=== PATIENT | female | born 1960 | race Caucasian/White ===

== ENCOUNTER 2022-12-08 07:16 | Emergency (ER) | payer MEDICAID, SELFPAY ==
--- NOTE | ~2022-12-08 | XR_ITS ---
EXAMINATION: XR CHEST CLINICAL INFORMATION: Chest pain COMPARISON: None available. TECHNIQUE: Frontal view of the chest was obtained. FINDINGS: Patient is rotated to the left. There are no evidence of consolidation but there are mildly increased interstitial markings bilaterally. Cardiomediastinal silhouette is normal. There is no pleural effusion. Osseous structures are unremarkable. XR/XR chest 1V IMPRESSION: Mild interstitial edema.
--- NOTE | 2022-12-08 07:20 | ECG_ITS ---
Test Reason : CP Blood Pressure : / mmHG Vent. Rate : 088 BPM Atrial Rate : 088 BPM P-R Int : 104 ms QRS Dur : 086 ms QT Int : 350 ms P-R-T Axes : 050 067 068 degrees QTc Int : 423 ms Sinus rhythm with short MN Nonspecific T wave abnormality Septal infarct , age undetermined Abnormal ECG No previous ECGs available Referred By: Generic ED Physician Electronically Signed By:MOHAN HUMPHREY
[2022-12-08 07:22] VITALS: BMI 28.5
--- NOTE | 2022-12-08 07:29 | ED.GENADULT ---
HPI - General Adult General Chief complaint: Chest Pain Stated complaint: CP Time Seen by Provider: 12/08/22 07:28 Source: patient Mode of arrival: ambulatory Limitations: no limitations History of Present Illness HPI narrative: 62-year-old female presents for anterior chest wall pain that started earlier today described as a burning sensation, she reports it hurts when she touches it. Patient reports body aches and pains, fatigue, malaise, anxiety. Chest discomfort is in the substernal region without radiation, no associated shortness of breath she states all these symptoms have subsided and now states shes here for a medication refill on all psych meds. Patient coming in by ambulance, EMS tells me that patient reports she is not taking her psych medicine or a sleeping med for 3 days, she last filled on the of this month and has completely ran out, concerned that someone at the hotel is stealing them. Last took all her medications 3 days ago. Currently living at a hotel. Denies fevers, chills, nausea, vomiting, abdominal pain, headache, vision changes, dizziness and weakness Related Data Allergies Allergy/AdvReac Type Severity Reaction Status Date / Time No Known Allergies Allergy Verified 12/08/22 07:39 Review of Systems Review of Systems: Constitutional : No Weight loss, No Fever, No Chills, No Fatigue, No Malaise ENT/Mouth : No sore throat, No Rhinorrhea Eyes: No Eye Pain, No Swelling, No Redness Cardiovascular : + Chest Pain, No SOB, No Dyspnea on Exertion, No Orthopnea, No Edema, No Palpitations Respiratory : No Cough, No Sputum, No Wheezing Gastrointestinal : No Nausea, No Vomiting, No Diarrhea, No Constipation, No abdominal Pain, No Hematochezia, No Melena Genitourinary : No Dysuria, No Urinary Frequency, No Hematuria, Musculoskeletal : No joint pain, No Myalgias, No Joint Swelling Skin : No Skin Lesions, No rash Neuro : No Weakness, No Numbness, No Dizziness, No Headache Psych : No Anxiety/Panic, No Depression All other systems reviewed and are negative Yes all other systems are reviewed and are negative [facility] Past Medical History Attestation statement: The following information was validated with the patient. Source: old records reviewed and nursing notes reviewed Social History Social History Use of substances other than those prescribed or required for medical reasons: No Advance Directives: No Advance Directives Information Provided: Yes Physical Exam ED Vital Signs: Vital Signs - 24 hr 12/08/22 07:22 12/08/22 08:00 12/08/22 08:24 Pulse Rate 84 Blood Pressure 147/80 H Pulse Oximetry 97 Oxygen Delivery Method Room Air Room Air BMI result Body Mass Index 28.5 vss Appearance: Alert.? Oriented X3.? No acute distress.? Head: Normocephalic, atraumatic, no step-offs or deformities Eyes: Pupils equal, round and reactive to light.? ENT: Pharynx normal.? Neck: Normal inspection.? Neck supple.? CVS: Normal heart rate and rhythm.? Pulses normal. + discomfort w/ palpation of anterior chest wall? Respiratory: No respiratory distress.? Breath sounds normal.? Abdomen: Soft and nontender.? Skin: Skin warm and dry.? Normal skin color.? Normal skin turgor.? Extremities: No lower extremity edema.? No calf ttp. 5/5 strength to bilateral upper and lower extremities Neuro: Oriented X 3.? No motor deficit.? No sensory deficit. CN 2-12 intact Course Reevaluation(s) Reevaluation #1: CBC appears to be around normal limits, slightly high platelet count. Chemistry with no acute findings requiring acute intervention. Total CK 330. Not consistent with rhabdomyolysis will hydrate with IV fluids. Troponin negative x2, EKG nonischemic. BNP 188, no signs of fluid overload on exam or CHF, patient not complaining of chest pain or shortness of breath at this time unlikely that this is PE (no tachycardia, hypoxia, tachypnea). UA clean for infection. Urine toxicology positive for fentanyl and cocaine negative ethanol. At this time patient medically cleared likely noncardiac related chest pain which has now resolved without medication. She is requesting refills however I explained her that due to anxiety, depression in her situation she should speak to care team have she is agreeable. Pending care team. At this time patient to be placed in observation to allow more time to be evaluated by the care team. Time: 12:49 Medications Administered Discontinued Medications Generic Name Dose Route Start Last Admin Trade Name Freq PRN Reason Stop Dose Admin Lorazepam 2 mg 12/08/22 07:45 12/08/22 07:57 Lorazepam 1 Mg Tablet PO 12/08/22 07:46 2 mg ONCE ONE Administration Medical Decision Making Medical Decision Making [facility] Narrative: 0730 62 year old female presents for anterior chest wall pain w/ palpation PE- discomfort w/ palpation of antierior di wall. Likely w/ drawl from benzodiazepines, polysubstance, non cardiac related chest pain. Unlikely ACS, PE, disection Plan- EKG, labs, urine Differential Diagnosis Differential Diagnoses: The differential diagnosis associated with the presentation includes Likely w/ drawl from benzodiazepines, polysubstance, non cardiac related chest pain. Unlikely ACS, PE, disection Admission/Observation Consideration of admission/observation: Escalation of care including admission/observation considered Lab Data [facility] Lab Attestation statement: I reviewed the patient's lab results. 12/08/22 08:00 12/08/22 08:00 Labs: Lab Results 12/08/22 12/08/22 12/08/22 Range/Units 08:00 08:00 08:00 WBC 10.5 (4.8-10.8) X10*3/uL RBC 4.78 (4.20-5.50) X10*6/uL Hgb 13.4 (12.0-16.0) g/dl Hct 40.6 (37.0-47.0) % MCV 84.9 (80.0-98.0) fL MCH 28.0 (27.0-33.0) pg MCHC 33.0 (31.0-35.0) g/dl RDW 14.0 (11.0-16.0) % Plt Count 466 H (160-400) X10*3/uL MPV 9.5 (9.4-12.3) fL Immature Gran % (Auto) 0.5 H (0.0-0.4) % Neut % (Auto) 61.9 (45-73) % Lymph % (Auto) 30.5 (20-40) % Bell % (Auto) 5.5 (2-11) % Eos % (Auto) 0.7 (0-4) % Baso % (Auto) 0.9 (0-2) % Lymph # (Auto) 3.2 (1.2-4.9) X10*3/uL Bell # (Auto) 0.6 (0.1-1.2) X10*3/uL Eos # (Auto) 0.1 (0.0-0.4) X10*3/uL Baso # (Auto) 0.1 (0.0-0.2) X10*3/uL Abs Immat Gran (auto) 0.05 H (0.00-0.03) X10*3/uL Absolute Neuts (auto) 6.5 (2.0-8.3) x10*3/uL Absolute Nucleated RBC 0.000 (0.0-0.012) X10*3/uL Nucleated RBC % (auto) 0.0 (0.0-0.2) /100WBC Sodium 138 (135-145) mmol/L Potassium 4.0 (3.3-5.1) mmol/L Chloride 103 (96-108) mmol/L Carbon Dioxide 19 L (22-29) mmol/L Anion Gap 20 (12-20) BUN 12 (9-16) mg/dL Creatinine 0.79 (0.5-1.4) mg/dL Estim Creat Clear Calc 61.9 Estimated GFR > 60 POC Glucose (60-115) mg/dL Random Glucose 168 H (60-115) mg/dL Calcium 10.3 H (8.4-10.2) mg/dL Magnesium 1.8 (1.6-2.6) mg/dL Total Bilirubin 0.3 (0.0-1.0) mg/dL AST 23 (5-31) U/L ALT 16 (0-31) U/L Alkaline Phosphatase 94 (39-117) U/L Total Creatine Kinase (26-140) U/L Troponin I High Sens (<3.5-17.0) ng/L B-Natriuretic Peptide 188 H (<100) pg/mL Total Protein 9.1 H (6.5-8.0) g/dL Albumin 4.3 (3.5-5.0) g/dL Urine Color Urine Appearance Urine pH (5.0-9.0) Ur Specific Leonard (1.005-1.025) Urine Protein (Neg-Trace) mg/dL Urine Glucose (UA) (Negative) mg/dL Urine Ketones (Negative) mg/dL Urine Blood (Negative) Urine Nitrite (Negative) Ur Leukocyte Esterase (Negative) Urine Opiates Screen (Not Detect) Urine Fentanyl Screen (Not Detect) Ur Barbiturates Screen (Not Detect) Ur Phencyclidine Scrn (Not Detect) Ur Amphetamines Screen (Not Detect) U Benzodiazepines Scrn (Not Detect) Urine Cocaine Screen (Not Detect) U Marijuana (THC) Screen (Not Detect) Ethyl Alcohol mg/dL 12/08/22 12/08/22 12/08/22 Range/Units 08:00 08:00 08:51 WBC (4.8-10.8) X10*3/uL RBC (4.20-5.50) X10*6/uL Hgb (12.0-16.0) g/dl Hct (37.0-47.0) % MCV (80.0-98.0) fL MCH (27.0-33.0) pg MCHC (31.0-35.0) g/dl RDW (11.0-16.0) % Plt Count (160-400) X10*3/uL MPV (9.4-12.3) fL Immature Gran % (Auto) (0.0-0.4) % Neut % (Auto) (45-73) % Lymph % (Auto) (20-40) % Bell % (Auto) (2-11) % Eos % (Auto) (0-4) % Baso % (Auto) (0-2) % Lymph # (Auto) (1.2-4.9) X10*3/uL Bell # (Auto) (0.1-1.2) X10*3/uL Eos # (Auto) (0.0-0.4) X10*3/uL Baso # (Auto) (0.0-0.2) X10*3/uL Abs Immat Gran (auto) (0.00-0.03) X10*3/uL Absolute Neuts (auto) (2.0-8.3) x10*3/uL Absolute Nucleated RBC (0.0-0.012) X10*3/uL Nucleated RBC % (auto) (0.0-0.2) /100WBC Sodium (135-145) mmol/L Potassium (3.3-5.1) mmol/L Chloride (96-108) mmol/L Carbon Dioxide (22-29) mmol/L Anion Gap (12-20) BUN (9-16) mg/dL Creatinine (0.5-1.4) mg/dL Estim Creat Clear Calc Estimated GFR POC Glucose 163 H (60-115) mg/dL Random Glucose (60-115) mg/dL Calcium (8.4-10.2) mg/dL Magnesium (1.6-2.6) mg/dL Total Bilirubin (0.0-1.0) mg/dL AST (5-31) U/L ALT (0-31) U/L Alkaline Phosphatase (39-117) U/L Total Creatine Kinase 330 H (26-140) U/L Troponin I High Sens < 2.7 (<3.5-17.0) ng/L B-Natriuretic Peptide (<100) pg/mL Total Protein (6.5-8.0) g/dL Albumin (3.5-5.0) g/dL Urine Color Urine Appearance Urine pH (5.0-9.0) Ur Specific Leonard (1.005-1.025) Urine Protein (Neg-Trace) mg/dL Urine Glucose (UA) (Negative) mg/dL Urine Ketones (Negative) mg/dL Urine Blood (Negative) Urine Nitrite (Negative) Ur Leukocyte Esterase (Negative) Urine Opiates Screen (Not Detect) Urine Fentanyl Screen (Not Detect) Ur Barbiturates Screen (Not Detect) Ur Phencyclidine Scrn (Not Detect) Ur Amphetamines Screen (Not Detect) U Benzodiazepines Scrn (Not Detect) Urine Cocaine Screen (Not Detect) U Marijuana (THC) Screen (Not Detect) Ethyl Alcohol < 10 mg/dL 12/08/22 12/08/22 12/08/22 Range/Units 09:52 12:00 12:00 WBC (4.8-10.8) X10*3/uL RBC (4.20-5.50) X10*6/uL Hgb (12.0-16.0) g/dl Hct (37.0-47.0) % MCV (80.0-98.0) fL MCH (27.0-33.0) pg MCHC (31.0-35.0) g/dl RDW (11.0-16.0) % Plt Count (160-400) X10*3/uL MPV (9.4-12.3) fL Immature Gran % (Auto) (0.0-0.4) % Neut % (Auto) (45-73) % Lymph % (Auto) (20-40) % Bell % (Auto) (2-11) % Eos % (Auto) (0-4) % Baso % (Auto) (0-2) % Lymph # (Auto) (1.2-4.9) X10*3/uL Bell # (Auto) (0.1-1.2) X10*3/uL Eos # (Auto) (0.0-0.4) X10*3/uL Baso # (Auto) (0.0-0.2) X10*3/uL Abs Immat Gran (auto) (0.00-0.03) X10*3/uL Absolute Neuts (auto) (2.0-8.3) x10*3/uL Absolute Nucleated RBC (0.0-0.012) X10*3/uL Nucleated RBC % (auto) (0.0-0.2) /100WBC Sodium (135-145) mmol/L Potassium (3.3-5.1) mmol/L Chloride (96-108) mmol/L Carbon Dioxide (22-29) mmol/L Anion Gap (12-20) BUN (9-16) mg/dL Creatinine (0.5-1.4) mg/dL Estim Creat Clear Calc Estimated GFR POC Glucose (60-115) mg/dL Random Glucose (60-115) mg/dL Calcium (8.4-10.2) mg/dL Magnesium (1.6-2.6) mg/dL Total Bilirubin (0.0-1.0) mg/dL AST (5-31) U/L ALT (0-31) U/L Alkaline Phosphatase (39-117) U/L Total Creatine Kinase (26-140) U/L Troponin I High Sens < 2.7 (<3.5-17.0) ng/L B-Natriuretic Peptide (<100) pg/mL Total Protein (6.5-8.0) g/dL Albumin (3.5-5.0) g/dL Urine Color Yellow Urine Appearance Clear Urine pH 5.5 (5.0-9.0) Ur Specific Leonard 1.020 (1.005-1.025) Urine Protein Trace (Neg-Trace) mg/dL Urine Glucose (UA) Negative (Negative) mg/dL Urine Ketones Trace (Negative) mg/dL Urine Blood Negative (Negative) Urine Nitrite Negative (Negative) Ur Leukocyte Esterase Negative (Negative) Urine Opiates Screen Not Detected (Not Detect) Urine Fentanyl Screen POSITIVE H (Not Detect) Ur Barbiturates Screen Not Detected (Not Detect) Ur Phencyclidine Scrn Not Detected (Not Detect) Ur Amphetamines Screen Not Detected (Not Detect) U Benzodiazepines Scrn Not Detected (Not Detect) Urine Cocaine Screen POSITIVE H (Not Detect) U Marijuana (THC) Screen Not Detected (Not Detect) Ethyl Alcohol mg/dL Social Determinants Patient?s care significantly limited by Social Determinants of Health including: Inadequate housing Core Measures AMI core measures followed: Yes Measure exclusions: not indicated Critical Care Time Critical Care Time Critical Care Time: No Discharge Plan Discharge Clinical Impression: Chest pain not due to acute coronary syndrome, Opiate abuse, continuous, Depression, Anxiety Patient Disposition: Still a Patient
[2022-12-08] MEDS: LORazepam 1 MG TABLET 2 MG PO (07:57)
[2022-12-08 08:00] VITALS: O2SAT 97
--- NOTE | 2022-12-08 08:00 | PC.NURSE ---
po med given as ordered. pt denies cp. objective tremors and diaphoresis observed. no apparent distress. will continue to monitor.
[2022-12-08 08:08] LABS: MANUAL DIFF FLAG NO
[2022-12-08 08:13] LABS: Basophils Absolute Auto 0.1 X10*3/uL (0.0-0.2); Basophils Percent Auto 0.9 % (0-2); Eosinophils Absolute Auto 0.1 X10*3/uL (0.0-0.4); Eosinophils Percent Auto 0.7 % (0-4); Hematocrit 40.6 % (37.0-47.0); Hemoglobin 13.4 g/dl (12.0-16.0); Imm Gran Abs Auto 0.05 X10*3/uL (0.00-0.03); Imm Gran Pct Auto 0.5 % (0.0-0.4); Lymphocytes Absolute Auto 3.2 X10*3/uL (1.2-4.9); Lymphocytes Percent Auto 30.5 % (20-40); Mean Corpuscular Volume 84.9 fL (80.0-98.0); Mean Platelet Volume 9.5 fL (9.4-12.3); Monocytes Absolute Auto 0.6 X10*3/uL (0.1-1.2); Monocytes Percent Auto 5.5 % (2-11); Neutrophils Absolute Auto 6.5 x10*3/uL (2.0-8.3); Neutrophils Percent Auto 61.9 % (45-73); Platelet Count 466 X10*3/uL (160-400); Red Blood Count 4.78 X10*6/uL (4.20-5.50); White Blood Count 10.5 X10*3/uL (4.8-10.8)
[2022-12-08 08:24] VITALS: BP 147/80; PULSE 84
[2022-12-08 08:25] LABS: Alanine Aminotransferase 16 U/L (0-31); Albumin Level 4.3 g/dL (3.5-5.0); Alkaline Phosphatase 94 U/L (39-117); Anion Gap 20 (12-20); Aspartate Amino Transferase 23 U/L (5-31); Bilirubin Total 0.3 mg/dL (0.0-1.0); Blood Urea Nitrogen 12 mg/dL (9-16); Calcium 10.3 mg/dL (8.4-10.2); Carbon Dioxide 19 mmol/L (22-29); Chloride 103 mmol/L (96-108); Creatinine Clr Calc Pharmacy 61.9; Estimated Glomerular Filt Rate > 60; Ethanol < 10 mg/dL; Glucose Random 168 mg/dL (60-115); Magnesium 1.8 mg/dL (1.6-2.6); Sodium 138 mmol/L (135-145); Total Protein 9.1 g/dL (6.5-8.0)
[2022-12-08 08:55] LABS: Glucose, Whole Blood 163 mg/dL (60-115)
[2022-12-08 08:59] LABS: B Type Natriuretic Peptide 188 pg/mL (<100)
[2022-12-08 11:07] LABS: Troponin-I High Sensitivity < 2.7 ng/L (<3.5-17.0)
[2022-12-08 11:07] LABS: Troponin-I High Sensitivity < 2.7 ng/L (<3.5-17.0)
[2022-12-08 12:14] LABS: Appearance Urine Clear; Color Urine Yellow; Glucose Urine UA Negative (Negative); Leukocyte Esterase Urine Negative (Negative); Nitrite Urine Negative (Negative); PH 5.5 (5.0-9.0); Urine Blood Negative (Negative); Urine Ketones Trace mg/dL (Negative); Urine Protein Trace mg/dL (Neg-Trace)
[2022-12-08 12:25] LABS: Amphetamine Screen Urine Not Detected (Not Detect); Barbiturates, Urine Not Detected (Not Detect); Benzodiazepines Screen Urine Not Detected (Not Detect); Cannabinoid Screen Urine Not Detected (Not Detect); Cocaine Screen Urine POSITIVE (Not Detect); Fentanyl, urine POSITIVE (Not Detect); Opiate Screen Urine Not Detected (Not Detect); Phencyclidine Screen Urine Not Detected (Not Detect)
[2022-12-08 12:54] VITALS: BP 125/56; PULSE 61; RESP 16; O2SAT 97
--- NOTE | 2022-12-08 13:14 | MHC.CARE ---
CARE Team attempted to meet with Pt to complete consult for depression and anxiety. Pt not engageable. RN notifed to inform CARE Team when more engageable.
[2022-12-08 14:48] VITALS: BP 112/53; PULSE 67; RESP 14; O2SAT 96
--- NOTE | 2022-12-08 15:12 | PC.NURSE ---
Pt is alert/oriented. Denies chest pain. States without meds x 3 days, medically cleared, awaiting CARE team to assess meds. Skin pwd. Ate lunch. NAD
--- NOTE | 2022-12-08 15:24 | MHC.CARE ---
CARE Team met with Pt and provided information for [facility] walk in therapy / psychiatry. Pt provided with [facility] crisis information. Pt currently resides at care home in [place].
== END 2022-12-08 16:18 | disposition home or self-care (01) ==
PROVIDERS: Physician Assistant; Emergency Provider Emergency Medicine
DX: R07.89 Other chest pain (principal); F33.1 Major depressive disorder, recurrent, moderate; F41.9 Anxiety disorder, unspecified; R06.02 Shortness of breath; Z79.899 Other long term (current) drug therapy
CPT/HCPCS: 36415; 71045; 80053; 80307; 81003; 82550; 82947; 83735; 83880; 84484; 85025; 93005; 99284; 99285

== ENCOUNTER 2022-12-14 18:16 | Emergency (ER) | payer MEDICAID, SELFPAY ==
--- NOTE | ~2022-12-14 | XR_ITS ---
EXAMINATION: XR CHEST CLINICAL INFORMATION: Possible aspiration. COMPARISON: Chest radiographs dated 12/08/2022. TECHNIQUE: Frontal view of the chest was obtained. FINDINGS: The heart, great vessels, pulmonary vasculature and mediastinum are stable. There is mild pulmonary vascular congestion, without overt pulmonary edema. No infiltrate, effusion or pneumothorax is seen. There is no acute osseous abnormality. There are degenerative changes of the shoulders. XR/XR chest 1V IMPRESSION: There is pulmonary vascular congestion, without overt pulmonary edema. No focal infiltrate is noted.
[2022-12-14 18:22] VITALS: BP 118/80; PULSE 110; O2SAT 99
--- NOTE | 2022-12-14 18:35 | ECG_ITS ---
Test Reason : OVERDOSE Blood Pressure : / mmHG Vent. Rate : 076 BPM Atrial Rate : 076 BPM P-R Int : 136 ms QRS Dur : 070 ms QT Int : 298 ms P-R-T Axes : 056 072 043 degrees QTc Int : 335 ms Normal sinus rhythm Septal infarct (cited on or before 08-DEC-2022) Nonspecific T wave abnormality Abnormal ECG When compared with ECG of 08-DEC-2022 07:34, Nonspecific T wave abnormality now evident in Inferior leads Nonspecific T wave abnormality, worse in Anterolateral leads QT has shortened Referred By: Cait Molina Electronically Signed By:MOHAN HUMPHREY
--- NOTE | 2022-12-14 18:40 | ED.OVERDOSE ---
HPI - Overdose General Chief Complaint: Overdose Stated Complaint: passed out was not breathing,OD narcan given Time Seen by Provider: 12/14/22 18:32 Source: patient and EMS Mode of arrival: EMS Limitations: no limitations History of Present Illness HPI Narrative: Patient comes to the emergency room via ambulance. Patient was found by bystander down on the ground, patient states she does not remember much what happened other than she was using heroin. Patient received Narcan in the field and patient woke up immediately. Patient complaining of feeling very hot, no headache, no neck pain. Not on blood thinners. Patient states it was an accidental overdose, denies SI or HI Related Data Previous Rx's Medication Instructions Recorded naloxone 4 mg/actuation nasal 4 mg intranasal Q2M PRN opioid 12/08/22 spray (Narcan) overdose #2 ea Allergies Allergy/AdvReac Type Severity Reaction Status Date / Time No Known Allergies Allergy Verified 12/08/22 07:39 Review of Systems Review of Systems: Constitutional : No Weight loss, No Fever, No Chills, No Night Sweats, No Fatigue, No Malaise ENT/Mouth : No Hearing loss, No Ear Pain, No Nasal Congestion, No Sinus Pain, No Hoarseness, No sore throat, No Rhinorrhea, No Swallowing Difficulty Eyes: No Eye Pain, No Swelling, No Redness, No Foreign Body, No Discharge, No Vision Changes Cardiovascular : No Chest Pain, No SOB, No Dyspnea on Exertion, No Orthopnea, No Edema, No Palpitations Respiratory : No Cough, No Sputum, No Wheezing, No Smoke Exposure, No Dyspnea Gastrointestinal : No Nausea, No Vomiting, No Diarrhea, No Constipation, No abdominal Pain, No Hematochezia, No Melena Genitourinary : no irregular bleeding, No Dysuria, No Urinary Frequency, No Hematuria, No Urinary Incontinence, No Urgency, No Flank Pain, No Urinary Flow Changes, No Hesitancy Musculoskeletal : No joint pain, No Myalgias, No Joint Swelling Skin : No Skin Lesions, No rash Neuro : No Weakness, No Numbness, No Paresthesias, No Loss of Consciousness, No Dizziness, No Headache Psych : No Anxiety/Panic, No Depression, No SI/HI/AH/VH, admits using methadone, heroin and overdosing today Heme/Lymph: No Bruising, No Bleeding,No Lymphadenopathy Endocrine : No Polyuria, No Polydipsia, No Temperature Intolerance PMFSH Past Medical History Medical History (Updated 12/14/22 @ 18:43 by Cait Molina MD) Overdose Polysubstance abuse Social History Social History Advance Directives: No Advance Directives Information Provided: No Physical Exam Vital Signs: Vital Signs: Last Vital Signs Temp 99.1 F 12/14/22 20:11 Pulse 75 12/14/22 20:11 Resp 15 12/14/22 20:11 BP 123/63 12/14/22 20:11 Pulse Ox 94 12/14/22 20:11 O2 Del Method Room Air 12/14/22 20:11 BMI result Body Mass Index 28.3 Const: Other: Appearance: Alert. Oriented X3. No acute distress. Very uncomfortable, withdrawing from Narcan Eyes: Pupils equal, round and reactive to light. ENT: Pharynx normal. Neck: Normal inspection. Neck supple. No lymph nodes noted. No crepitus CVS: Normal heart rate and rhythm. Pulses normal. Normal S1 and S2 Respiratory: No respiratory distress. Breath sounds normal. No Wheezing. No rales Abdomen: Soft and nontender. No rigidity. No distention. Skin: Skin warm and dry. Normal skin color. Normal skin turgor. Extremities: No lower extremity edema. No Lacerations. No Rash Neuro: Oriented X 3. No motor deficit. No sensory deficit. Moving all extremities. No slurred speech. CN 2 through 12 grossly intact Psych: calm, cooperative, normal affect Course Course Course Narrative: -all of patient's labs pending Medications Administered Discontinued Medications Generic Name Dose Route Start Last Admin Trade Name Oscar PRN Reason Stop Dose Admin Naloxone HCl 8 mg 12/14/22 18:43 12/14/22 21:49 Naloxone Hcl Nasal Take Home 4 Mg [place] NOSTRILALT 12/14/22 18:44 Not Given ONCE ONE Medical Decision Making Medical Decision Making [facility] Narrative: -my interpretation of labs: White blood cell count elevated, it is possible the patient may have aspirated? Chest x-ray pending screening urine toxicology positive for opiates and fentanyl -patient was noted to have several oxygen desaturations while sleeping into the mid 80s, patient is on 2 L nasal cannula. -interpretation of chest x-rays, no infiltrates -patient to be discharged with home Narcan, please re-evaluate when patient is awake/sober for SI HI and of her cares/Sude eval -physician observation started at 21:00 -sign-out given to Dr. Cardenas Differential Diagnosis Differential Diagnoses: The differential diagnosis associated with the presentation includes (Substance abuse, alcohol abuse) Admission/Observation Consideration of admission/observation: Escalation of care including admission/observation considered (Patient will be under observation in the emergency room until sober) Lab Data MDM Lab Attestation statement: I reviewed the patient's lab results. 12/14/22 18:54 12/14/22 18:54 Labs: Lab Results 12/14/22 12/14/22 Range/Units 18:54 19:15 WBC 15.9 H (4.8-10.8) X10*3/uL RBC 4.51 (4.20-5.50) X10*6/uL Hgb 12.9 (12.0-16.0) g/dl Hct 38.2 (37.0-47.0) % MCV 84.7 (80.0-98.0) fL MCH 28.6 (27.0-33.0) pg MCHC 33.8 (31.0-35.0) g/dl RDW 14.2 (11.0-16.0) % Plt Count 369 (160-400) X10*3/uL MPV 9.7 (9.4-12.3) fL Immature Gran % (Auto) 0.3 (0.0-0.4) % Neut % (Auto) 60.0 (45-73) % Lymph % (Auto) 30.6 (20-40) % [place] % (Auto) 7.1 (2-11) % Eos % (Auto) 1.4 (0-4) % Baso % (Auto) 0.6 (0-2) % Lymph # (Auto) 4.9 (1.2-4.9) X10*3/uL [place] # (Auto) 1.1 (0.1-1.2) X10*3/uL Eos # (Auto) 0.2 (0.0-0.4) X10*3/uL Baso # (Auto) 0.1 (0.0-0.2) X10*3/uL Abs Immat Gran (auto) 0.05 H (0.00-0.03) X10*3/uL Absolute Neuts (auto) 9.6 H (2.0-8.3) x10*3/uL Absolute Nucleated RBC 0.000 (0.0-0.012) X10*3/uL Nucleated RBC % (auto) 0.0 (0.0-0.2) /100WBC Sodium 136 (135-145) mmol/L Potassium 3.8 (3.3-5.1) mmol/L Chloride 102 (96-108) mmol/L Carbon Dioxide 23 (22-29) mmol/L Anion Gap 15 (12-20) BUN 10 (9-16) mg/dL Creatinine 0.82 (0.5-1.4) mg/dL Estim Creat Clear Calc 59.4 Estimated GFR > 60 Random Glucose 220 H (60-115) mg/dL Calcium 9.9 (8.4-10.2) mg/dL Total Bilirubin 0.3 (0.0-1.0) mg/dL Direct Bilirubin 0.1 (0.0-0.5) mg/dL AST 23 (5-31) U/L ALT 15 (0-31) U/L Alkaline Phosphatase 80 (39-117) U/L Troponin I High Sens < 2.7 (<3.5-17.0) ng/L Total Protein 8.1 H (6.5-8.0) g/dL Albumin 3.8 (3.5-5.0) g/dL Urine Opiates Screen POSITIVE H (Not Detect) Urine Fentanyl Screen POSITIVE H (Not Detect) Ur Barbiturates Screen Not Detected (Not Detect) Ur Phencyclidine Scrn Not Detected (Not Detect) Ur Amphetamines Screen Not Detected (Not Detect) U Benzodiazepines Scrn Not Detected (Not Detect) Urine Cocaine Screen Not Detected (Not Detect) U Marijuana (THC) Screen Not Detected (Not Detect) Ethyl Alcohol < 10 mg/dL Independent Interpretation I performed an independent interpretation of an: Plain X-Ray Radiology Impression Discussion of test interpretation with radiology: I have reviewed the radiologist's reading. Radiologist Impression: FINDINGS: The heart, great vessels, pulmonary vasculature and mediastinum are stable. There is mild pulmonary vascular congestion, without overt pulmonary edema. No infiltrate, effusion or pneumothorax is seen. There is no acute osseous abnormality. There are degenerative changes of the shoulders. XR/XR chest 1V IMPRESSION: There is pulmonary vascular congestion, without overt pulmonary edema. No focal infiltrate is noted. Critical Care Time Critical Care Time Critical Care Time: Yes Total Critical Care Time: 60 Attestation: I have personally provided critical care time. Time includes review of lab data, radiology results, discussion with consultants, and monitoring for potential decompensation. Intervention performed as documented. Discharge Plan Discharge Clinical Impression: Overdose Patient Disposition: Still a Patient Prescriptions: No Action naloxone [Narcan] 4 mg/actuation spray,non-aerosol 4 mg intranasal Q2M PRN (Reason: opioid overdose) Qty: 2 0RF Rx Instructions: spray 1 dose into ONE nostril; alternate nostrils w each dose until help arrives
[2022-12-14 18:46] VITALS: BP 175/83; PULSE 118; RESP 16; TEMP 37.3; O2SAT 95; BMI 28.3
[2022-12-14 19:03] LABS: MANUAL DIFF FLAG NO
[2022-12-14 19:06] LABS: Basophils Absolute Auto 0.1 X10*3/uL (0.0-0.2); Basophils Percent Auto 0.6 % (0-2); Eosinophils Absolute Auto 0.2 X10*3/uL (0.0-0.4); Eosinophils Percent Auto 1.4 % (0-4); Hematocrit 38.2 % (37.0-47.0); Hemoglobin 12.9 g/dl (12.0-16.0); Imm Gran Abs Auto 0.05 X10*3/uL (0.00-0.03); Imm Gran Pct Auto 0.3 % (0.0-0.4); Lymphocytes Absolute Auto 4.9 X10*3/uL (1.2-4.9); Lymphocytes Percent Auto 30.6 % (20-40); Mean Corpuscular HGB Conc 33.8 g/dl (31.0-35.0); Mean Corpuscular Hemoglobin 28.6 pg (27.0-33.0); Mean Corpuscular Volume 84.7 fL (80.0-98.0); Mean Platelet Volume 9.7 fL (9.4-12.3); Monocytes Absolute Auto 1.1 X10*3/uL (0.1-1.2); Monocytes Percent Auto 7.1 % (2-11); Neutrophils Absolute Auto 9.6 x10*3/uL (2.0-8.3); Platelet Count 369 X10*3/uL (160-400); Red Blood Count 4.51 X10*6/uL (4.20-5.50); Red Cell Distribution Width 14.2 % (11.0-16.0); White Blood Count 15.9 X10*3/uL (4.8-10.8)
[2022-12-14 19:20] LABS: Ethanol < 10 mg/dL
--- NOTE | 2022-12-14 19:21 | PC.NURSE ---
pt looking for her pocketbook. pt did not arrive to ed with any personal belongings other than her clothing
[2022-12-14 19:22] LABS: Alanine Aminotransferase 15 U/L (0-31); Albumin Level 3.8 g/dL (3.5-5.0); Alkaline Phosphatase 80 U/L (39-117); Anion Gap 15 (12-20); Aspartate Amino Transferase 23 U/L (5-31); Bilirubin Direct 0.1 mg/dL (0.0-0.5); Bilirubin Total 0.3 mg/dL (0.0-1.0); Blood Urea Nitrogen 10 mg/dL (9-16); Calcium 9.9 mg/dL (8.4-10.2); Carbon Dioxide 23 mmol/L (22-29); Chloride 102 mmol/L (96-108); Creatinine Clr Calc Pharmacy 59.4; Estimated Glomerular Filt Rate > 60; Glucose Random 220 mg/dL (60-115); Potassium 3.8 mmol/L (3.3-5.1); Sodium 136 mmol/L (135-145); Total Protein 8.1 g/dL (6.5-8.0)
--- NOTE | 2022-12-14 19:22 | MHC.EDTECH ---
This Tech assumed care of this pt. Pt changed over into hospital gown and pants. Labs and urine sent for processing. Unable to get the EKG dur to patient not being able to stand still. RN made aware
[2022-12-14 19:31] LABS: Troponin-I High Sensitivity < 2.7 ng/L (<3.5-17.0)
[2022-12-14 19:33] LABS: Amphetamine Screen Urine Not Detected (Not Detect); Barbiturates, Urine Not Detected (Not Detect); Benzodiazepines Screen Urine Not Detected (Not Detect); Cannabinoid Screen Urine Not Detected (Not Detect); Cocaine Screen Urine Not Detected (Not Detect); Fentanyl, urine POSITIVE (Not Detect); Opiate Screen Urine POSITIVE (Not Detect); Phencyclidine Screen Urine Not Detected (Not Detect)
--- NOTE | 2022-12-14 20:09 | MHC.RECOVSUP ---
? Reason for consult Recovery Support o Current location: [id number] o Identified substance use concern: heroin - Overdose - Support ? Intervention: o Community resources provided o Harm reduction discussion ? Plan: o Patient to follow up with [facility] after discharge ? Additional information: met with patient and was given resources
[2022-12-14 20:11] VITALS: BP 123/63; PULSE 75; RESP 15; TEMP 37.3; O2SAT 94
--- NOTE | 2022-12-14 20:12 | MHC.EDTECH ---
Pt placed on O2 monitor Per
--- NOTE | 2022-12-14 20:23 | PC.NURSE ---
Pt O2 noted to decrease when pt is asleep, down into the mid 80's. MD at bedside, I placed pt on 2 LPM O2 via oxymask. 2 increased to mid 90's
[2022-12-14 22:25] VITALS: BP 107/48; PULSE 67; RESP 14; O2SAT 97
[2022-12-15 00:49] VITALS: BP 114/54; PULSE 67; RESP 13; TEMP 36.6; O2SAT 94
[2022-12-15 03:02] VITALS: BP 140/74; PULSE 67; RESP 14; O2SAT 99
[2022-12-15 05:28] VITALS: BP 123/60; PULSE 76; RESP 19; TEMP 36.9; O2SAT 95
== END 2022-12-15 06:14 | disposition home or self-care (01) ==
PROVIDERS: Emergency Provider Emergency Medicine
DX: T40.1X1A Poisoning by heroin, accidental (unintentional), initial encounter (principal); R55 Syncope and collapse; R94.31 Abnormal electrocardiogram [ECG] [EKG]; F11.19 Opioid abuse with unspecified opioid-induced disorder; Y92.9 Unspecified place or not applicable; Z71.51 Drug abuse counseling and surveillance of drug abuser; Z79.899 Other long term (current) drug therapy
CPT/HCPCS: 36415; 71045; 80048; 80076; 80307; 84484; 85025; 93005; 99284; 99285

== ENCOUNTER 2023-01-20 10:17 | Emergency (ER) | payer MEDICAID, SELFPAY ==
--- NOTE | 2023-01-20 10:26 | ECG_ITS ---
Test Reason : ANXIETY TACHY Blood Pressure : / mmHG Vent. Rate : 108 BPM Atrial Rate : 108 BPM P-R Int : 148 ms QRS Dur : 066 ms QT Int : 342 ms P-R-T Axes : 070 076 064 degrees QTc Int : 458 ms Sinus tachycardia Possible Left atrial enlargement Nonspecific T wave abnormality Inferior leads Abnormal ECG When compared with ECG of 14-DEC-2022 19:51, Questionable change in initial forces of Septal leads Referred By: Rodriguez Norris Electronically Signed By:CARMEN PARK MD
[2023-01-20 11:01] LABS: MANUAL DIFF FLAG NO
[2023-01-20 11:05] VITALS: BP 152/95; BP 162/78; PULSE 101; PULSE 112; RESP 17; TEMP 36.2; O2SAT 100; O2SAT 97; BMI 25.3
[2023-01-20 11:12] LABS: Basophils Absolute Auto 0.1 X10*3/uL (0.0-0.2); Basophils Percent Auto 0.7 % (0-2); Eosinophils Absolute Auto 0.1 X10*3/uL (0.0-0.4); Eosinophils Percent Auto 0.7 % (0-4); Hematocrit 40.6 % (37.0-47.0); Hemoglobin 13.4 g/dl (12.0-16.0); Imm Gran Abs Auto 0.04 X10*3/uL (0.00-0.03); Imm Gran Pct Auto 0.4 % (0.0-0.4); Lymphocytes Absolute Auto 2.5 X10*3/uL (1.2-4.9); Lymphocytes Percent Auto 22.4 % (20-40); Mean Corpuscular Hemoglobin 27.9 pg (27.0-33.0); Mean Corpuscular Volume 84.4 fL (80.0-98.0); Mean Platelet Volume 9.7 fL (9.4-12.3); Monocytes Absolute Auto 0.4 X10*3/uL (0.1-1.2); Monocytes Percent Auto 3.9 % (2-11); Neutrophils Percent Auto 71.9 % (45-73); Platelet Count 416 X10*3/uL (160-400); Red Blood Count 4.81 X10*6/uL (4.20-5.50); Red Cell Distribution Width 14.1 % (11.0-16.0); White Blood Count 11.1 X10*3/uL (4.8-10.8)
[2023-01-20 11:13] LABS: Amphetamine Screen Urine Not Detected (Not Detect); Barbiturates, Urine Not Detected (Not Detect); Benzodiazepines Screen Urine Not Detected (Not Detect); Cannabinoid Screen Urine Not Detected (Not Detect); Cocaine Screen Urine Not Detected (Not Detect); Fentanyl, urine Not Detected (Not Detect); Opiate Screen Urine Not Detected (Not Detect); Phencyclidine Screen Urine Not Detected (Not Detect)
[2023-01-20 11:15] LABS: Appearance Urine Clear; Color Urine Yellow; Glucose Urine UA 100 mg/dL (Negative); Leukocyte Esterase Urine Negative (Negative); Nitrite Urine Negative (Negative); Urine Blood Negative (Negative); Urine Ketones Negative (Negative); Urine Protein Trace mg/dL (Neg-Trace)
[2023-01-20 11:17] LABS: Ethanol < 10 mg/dL
[2023-01-20 11:23] LABS: Troponin-I High Sensitivity < 2.7 ng/L (<3.5-17.0)
[2023-01-20 11:24] LABS: Alanine Aminotransferase 23 U/L (0-31); Albumin Level 4.1 g/dL (3.5-5.0); Alkaline Phosphatase 95 U/L (39-117); Anion Gap 18 (12-20); Aspartate Amino Transferase 38 U/L (5-31); Bilirubin Total 0.3 mg/dL (0.0-1.0); Blood Urea Nitrogen 11 mg/dL (9-16); Carbon Dioxide 25 mmol/L (22-29); Chloride 98 mmol/L (96-108); Creatinine Clr Calc Pharmacy 57.7; Estimated Glomerular Filt Rate > 60; Glucose Random 221 mg/dL (60-115); Magnesium 1.3 mg/dL (1.6-2.6); Sodium 137 mmol/L (135-145); Total Protein 8.6 g/dL (6.5-8.0)
--- NOTE | 2023-01-20 12:29 | ED_ITS ---
HPI - General Adult General Chief complaint: General Medical Stated complaint: ANXIOUS Time Seen by Provider: 01/20/23 12:19 Source: patient and EMS Mode of arrival: EMS Limitations: no limitations History of Present Illness HPI narrative: a 62-year-old female history of anxiety, substance abuse presented today feeling anxious because she is run out of her clonazepam. Patient overall anxious and worrying about her son who have a mental health issue and addiction problem. Patient declined headache, CP, SOB, abdominal pain. Patient also declined SI or HI or hallucination. Related Data Previous Rx's Medication Instructions Recorded naloxone 4 mg/actuation nasal 4 mg intranasal Q2M PRN opioid 12/08/22 spray (Narcan) overdose #2 ea Allergies Allergy/AdvReac Type Severity Reaction Status Date / Time Unable to Assess Allergy Unverified 01/20/23 10:17 Review of Systems 2 Review of Systems: All other systems are reviewed and are negative Constitutional: Reports as per HPI and Reports no additional constitutional complaints Eyes: Reports as per HPI and Reports no additional eye complaints Reports system reviewed and no additional complaints, except as documented Cardiovascular: Reports as per HPI and Reports no additional cardiovascular complaints Respiratory: Reports as per HPI and Reports no additional respiratory complaints Gastrointestinal: Reports as per HPI and Reports no additional gastrointestinal complaints Genitourinary: Reports no additional female genitourinary complaints Musculoskeletal: Reports no additional musculoskeletal complaints Skin/Breast: Reports system reviewed and no additional complaints, except as docu Psychiatric: Reports no additional psychiatric complaints Endocrine: Reports no additional endocrine complaints Hematologic/Lymphatic: Reports no additional hematologic/lymphatic complaints Allergic/Immunologic: Reports no additional allergic/immunologic complaints Reports system reviewed and no additional complaints, except as documented and Reports Abnormal speech present [facility] Past Medical History Medical History Overdose Polysubstance abuse Social History Social History Substance Use Type: Heroin Advance Directives: No Advance Directives Information Provided: No Physical Exam ED Vital Signs: Vital Signs - 24 hr 01/20/23 11:05 01/20/23 13:23 Temperature 97.1 F Pulse Rate 112 H 100 Respiratory Rate 17 18 Blood Pressure 152/95 H 166/76 H Pulse Oximetry 97 97 Oxygen Delivery Method Room Air Room Air BMI result Body Mass Index 25.3 Vital signs have been reviewed and appear to be correct. Blood pressure elevated. Heart rate normal. Respiratory rate normal. Temperature normal. Oxygen saturation normal. Appearance: Anxious, Alert. Oriented X3. No acute distress. Head: Normal external exam. Normocephalic. Atraumatic. No Florez signs noted. No raccoon eyes noted Eyes: PERRLA. EOMI. Conjunctiva and sclera normal. Eyelids normal. ENT: TM's Normal. Pharynx normal. Uvula midline. Moist mucous membranes. No trismus noted. No drooling noted. No muffled voice noted. Neck: Normal inspection. Neck supple. FROM. No adenopathy. Thyroid Normal. No meningeal signs. No neck mass noted. CVS: Normal heart rate and rhythm. Heart sound normal. No murmurs noted. Pulses normal throughout. Respiratory: No respiratory distress. Painless inspiration. Breath sounds normal. No wheezes/rales/rhonchi noted. Chest nontender. No accessory muscle usage noted or decreased air movement noted. Abdomen: Soft and nontender. Bowel sounds normal in all 4 quadrants. No distention noted. No organomegaly noted. No visible injury noted. Back: No CVA tenderness. Full range of motion noted. Skin: Skin warm and dry. Normal skin color. Normal skin turgor. No rashes/lesions/lacerations noted. Extremities: No lower extremity edema. Extremities exhibit normal range of motion. Extremities nontender. Neuro: Oriented X 3. Cranial nerve exam: II-XII are grossly intact No motor deficit. No sensory deficit. Reflexes normal. Course Reevaluation(s) Reevaluation #1: patient received 1 mg of clonazepam in the emergency department patient now is less anxious, no SI no hallucination. Labs are unremarkable Except for slight leukocytosis which could be secondary to anxiety and hypo magnesemia will replete magnesium. Time: 13:20 Reevaluation #2: patient does not want to wait in the ED and would like to be discharged to catch the bus. Patient fully understands side effect of low magnesium patient will sign against medical advise. Time: 13:40 Medications Administered Discontinued Medications Generic Name Dose Route Start Last Admin Trade Name Freq PRN Reason Stop Dose Admin Clonazepam 1 mg 01/20/23 12:36 01/20/23 13:17 Clonazepam 1 Mg Tablet PO 01/20/23 12:37 1 mg ONCE ONE Administration Medical Decision Making Differential Diagnosis Differential Diagnoses: The differential diagnosis associated with the presentation includes ( Anxiety, depression, electrolyte abnormality, severe anemia, UTI, substance abuse.) Admission/Observation Consideration of admission/observation: Escalation of care including admission/observation considered Lab Data MDM Lab Attestation statement: I reviewed the patient's lab results. 01/20/23 10:52 01/20/23 10:52 Labs: Lab Results 01/20/23 Range/Units 10:52 WBC 11.1 H (4.8-10.8) X10*3/uL RBC 4.81 (4.20-5.50) X10*6/uL Hgb 13.4 (12.0-16.0) g/dl Hct 40.6 (37.0-47.0) % MCV 84.4 (80.0-98.0) fL MCH 27.9 (27.0-33.0) pg MCHC 33.0 (31.0-35.0) g/dl RDW 14.1 (11.0-16.0) % Plt Count 416 H (160-400) X10*3/uL MPV 9.7 (9.4-12.3) fL Immature Gran % (Auto) 0.4 (0.0-0.4) % Neut % (Auto) 71.9 (45-73) % Lymph % (Auto) 22.4 (20-40) % [place] % (Auto) 3.9 (2-11) % Eos % (Auto) 0.7 (0-4) % Baso % (Auto) 0.7 (0-2) % Lymph # (Auto) 2.5 (1.2-4.9) X10*3/uL [place] # (Auto) 0.4 (0.1-1.2) X10*3/uL Eos # (Auto) 0.1 (0.0-0.4) X10*3/uL Baso # (Auto) 0.1 (0.0-0.2) X10*3/uL Abs Immat Gran (auto) 0.04 H (0.00-0.03) X10*3/uL Absolute Neuts (auto) 8.0 (2.0-8.3) x10*3/uL Absolute Nucleated RBC 0.000 (0.0-0.012) X10*3/uL Nucleated RBC % (auto) 0.0 (0.0-0.2) /100WBC Sodium 137 (135-145) mmol/L Potassium 4.0 (3.3-5.1) mmol/L Chloride 98 (96-108) mmol/L Carbon Dioxide 25 (22-29) mmol/L Anion Gap 18 (12-20) BUN 11 (9-16) mg/dL Creatinine 0.80 (0.5-1.4) mg/dL Estim Creat Clear Calc 57.7 Estimated GFR > 60 Random Glucose 221 H (60-115) mg/dL Calcium 10.0 (8.4-10.2) mg/dL Magnesium 1.3 L* (1.6-2.6) mg/dL Total Bilirubin 0.3 (0.0-1.0) mg/dL AST 38 H (5-31) U/L ALT 23 (0-31) U/L Alkaline Phosphatase 95 (39-117) U/L Troponin I High Sens < 2.7 (<3.5-17.0) ng/L Total Protein 8.6 H (6.5-8.0) g/dL Albumin 4.1 (3.5-5.0) g/dL Urine Color Yellow Urine Appearance Clear Urine pH 5.0 (5.0-9.0) Ur Specific [place] 1.020 (1.005-1.025) Urine Protein Trace (Neg-Trace) mg/dL Urine Glucose (UA) 100 H (Negative) mg/dL Urine Ketones Negative (Negative) mg/dL Urine Blood Negative (Negative) Urine Nitrite Negative (Negative) Ur Leukocyte Esterase Negative (Negative) Urine Opiates Screen Not Detected (Not Detect) Urine Fentanyl Screen Not Detected (Not Detect) Ur Barbiturates Screen Not Detected (Not Detect) Ur Phencyclidine Scrn Not Detected (Not Detect) Ur Amphetamines Screen Not Detected (Not Detect) U Benzodiazepines Scrn Not Detected (Not Detect) Urine Cocaine Screen Not Detected (Not Detect) U Marijuana (THC) Screen Not Detected (Not Detect) Ethyl Alcohol < 10 mg/dL Independent Interpretation I performed an independent interpretation of an: EKG ( Sinus tachycardia, normal axis deviation, normal intervals, no ST-T changes no significant change from previous EKG.) Discharge Plan Discharge Clinical Impression: Anxiety, Hypomagnesemia Patient Disposition: Left Against Medical Advice Instructions: Hypomagnesemia (ED), Anxiety (ED) Prescriptions: No Action naloxone [Narcan] 4 mg/actuation spray,non-aerosol 4 mg intranasal Q2M PRN (Reason: opioid overdose) Qty: 2 0RF Rx Instructions: spray 1 dose into ONE nostril; alternate nostrils w each dose until help arrives Referrals: Physician,Unknown J [Primary Care Provider] -
[2023-01-20] MEDS: clonazePAM 1 MG TABLET PO (13:17)
[2023-01-20 13:23] VITALS: BP 166/76; PULSE 100; RESP 18; O2SAT 97
--- NOTE | 2023-01-20 13:23 | PC.NURSE ---
2 RNs unable to get IV access on pt
--- NOTE | 2023-01-20 13:25 | PC.NURSE ---
pt reports she just wants to get home reports she does not want to take the magnesium IV becuase she doesn't want to be here that long . pt tearful, restless, perseverative
--- NOTE | 2023-01-20 13:36 | PC.NURSE ---
informed MD that pt wants to refuse her IV magnesium so she can go home sooner.
--- NOTE | 2023-01-20 13:41 | PC.NURSE ---
pt continues to state that she has to get home without giving other reason, reports she has bus passes in her pocket. t/w and MD Sandy explained the risks of leaving with a critically low Magnesium level. pt aware of risks of leaving AMA at this time and continues to state that she wants to leave. aware.
== END 2023-01-20 13:46 | disposition left against medical advice (07) ==
PROVIDERS: Physician Assistant; Emergency Provider Emergency Medicine
DX: E83.42 Hypomagnesemia (principal); F41.9 Anxiety disorder, unspecified; F19.10 Other psychoactive substance abuse, uncomplicated; Z79.899 Other long term (current) drug therapy
CPT/HCPCS: 36415; 80053; 80307; 81003; 83735; 84484; 85025; 93005; 99283; 99284

== ENCOUNTER 2023-01-22 12:34 | Emergency (ER) | payer MEDICAID, SELFPAY ==
[2023-01-22 12:46] VITALS: BP 132/80; BP 149/56; PULSE 100; PULSE 94; RESP 16; TEMP 35.6; O2SAT 95; O2SAT 97; BMI 25.8
--- NOTE | 2023-01-22 12:53 | ED_ITS ---
HPI - General Adult General Chief complaint: Nausea/Vomiting/Diarrhea Stated complaint: VOMITED X 2 Time Seen by Provider: 01/22/23 18:24 Source: patient and family (Son) Mode of arrival: ambulatory History of Present Illness HPI narrative: This is a 62-year-old female who arrives via ambulance after having an episode of vomiting this morning denies any difficulty with defecation or passing flatus and denies any urinary symptoms and denies any fever, chills, shortness of breath, chest pain/palpitations. Patient is also concerned about being out of her benzodiazepine. Related Data Previous Rx's Medication Instructions Recorded naloxone 4 mg/actuation nasal 4 mg intranasal Q2M PRN opioid 12/08/22 spray (Narcan) overdose #2 ea Allergies Allergy/AdvReac Type Severity Reaction Status Date / Time No Known Allergies Allergy Verified 01/22/23 12:45 Review of Systems 2 Review of Systems: Pertinent positives and negatives as stated in HPI PMFSH Past Medical History Source: nursing notes reviewed Medical History Overdose Polysubstance abuse Social History Social History Smoked in Last 30 Days: Yes Use of substances other than those prescribed or required for medical reasons: No Substance Use Type: Heroin Advance Directives: No Advance Directives Information Provided: No Patient : No Physical Exam ED Vital Signs: Vital Signs - 24 hr 01/22/23 12:46 01/22/23 18:54 01/22/23 19:03 Temperature 96.1 F L 99.1 F Pulse Rate 94 86 Respiratory Rate 16 18 16 Blood Pressure 149/56 H 116/62 Pulse Oximetry 95 97 Oxygen Delivery Method Room Air Room Air BMI result Body Mass Index 25.8 VITAL SIGNS: Reviewed. GENERAL: Well developed, well nourished, in no acute distress. HEAD: Normocephalic/atraumatic EYES: PERRLA, EOMI EARS: Ext canals without abnormality NOSE: Nares patent bilateral OROPHARYNX: no oral lesions noted, posterior pharynx clear NECK: Supple, no adenopathy LUNGS: Normal breath sounds. No adventitious sounds or accessory muscle use. SpO2<97> CARDIOVASCULAR: Regular rate and rhythm without noted murmurs, no JVD or lower extremity edema. ABDOMEN: Soft, non-tender, non-distended with bowel sounds. MUSCULOSKELETAL: No tenderness, deformities, or effusions noted on gross inspection. EXTREMITIES: No cyanosis, clubbing or edema. SKIN: Inspection of the skin reveals no rashes NEUROLOGIC: Alert and oriented x 4. Strength and sensation to light touch were grossly intact x 4. Course Course Course Narrative: RME: 62 yold female presents to the ED for vomitting 3 times without any other symptoms. patient states no abdominal pain, chest pain, or head truama. basic labs ordered, covid, influenza Medications Administered Discontinued Medications Generic Name Dose Route Start Last Admin Trade Name Freq PRN Reason Stop Dose Admin Ondansetron HCl 4 mg 01/22/23 18:46 01/22/23 19:10 Ondansetron Hcl 4 Mg/2 Ml Vial IVPUSH 01/22/23 18:47 4 mg ONCE ONE Administration Medical Decision Making Medical Decision Making [facility] Narrative: 62-year-old female with history and clinical presentation, patient does have a recent history of overdose in December, will rule out the possibility of urinary tract infection but have very low clinical suspicion for bowel obstruction and on initial interview patient did not even endorse any nausea or vomiting and it was only after I asked her that she confirmed that she had had an episode of vomiting. I reviewed all investigations and hematologic indices are chronically stable with a mild leukocytosis without left shift, no anemia and there is a chronically stable elevated platelet count-436. Chemistry indices are grossly within normal limits without evidence of KENDALL, there is no evidence of electrolyte or liver enzyme abnormalities. Urinalysis appears to be contaminated with squamous epithelial cells and is not positive for nitrites and there is no presence of ketones. Viral testing is negative for COVID-19 and influenza. In my interpretation patient likely experienced some mild nausea associated with either medications, she has chronic anxiety but is otherwise noted to tolerate oral intake. She is [facility] [place] [facility] at [facility] time. Differential Diagnosis Differential Diagnoses: The differential diagnosis associated with the presentation includes Please see the discussion above Admission/Observation Consideration of admission/observation: Escalation of care including admission/observation considered Please see the discussion above Lab Data MDM Lab Attestation statement: I reviewed the patient's lab results. Please see the discussion above 01/22/23 19:15 01/22/23 19:15 Labs: Lab Results 01/22/23 01/22/23 Range/Units 13:21 19:15 WBC 11.4 H (4.8-10.8) X10*3/uL RBC 4.58 (4.20-5.50) X10*6/uL Hgb 12.9 (12.0-16.0) g/dl Hct 38.9 (37.0-47.0) % MCV 84.9 (80.0-98.0) fL MCH 28.2 (27.0-33.0) pg MCHC 33.2 (31.0-35.0) g/dl RDW 14.2 (11.0-16.0) % Plt Count 436 H (160-400) X10*3/uL MPV 9.7 (9.4-12.3) fL Immature Gran % (Auto) 0.3 (0.0-0.4) % Neut % (Auto) 55.0 (45-73) % Lymph % (Auto) 37.3 (20-40) % [place] % (Auto) 6.2 (2-11) % Eos % (Auto) 0.6 (0-4) % Baso % (Auto) 0.6 (0-2) % Lymph # (Auto) 4.2 (1.2-4.9) X10*3/uL [place] # (Auto) 0.7 (0.1-1.2) X10*3/uL Eos # (Auto) 0.1 (0.0-0.4) X10*3/uL Baso # (Auto) 0.1 (0.0-0.2) X10*3/uL Abs Immat Gran (auto) 0.03 (0.00-0.03) X10*3/uL Absolute Neuts (auto) 6.3 (2.0-8.3) x10*3/uL Absolute Nucleated RBC 0.000 (0.0-0.012) X10*3/uL Nucleated RBC % (auto) 0.0 (0.0-0.2) /100WBC Sodium 139 (135-145) mmol/L Potassium 4.4 (3.3-5.1) mmol/L Chloride 100 (96-108) mmol/L Carbon Dioxide 25 (22-29) mmol/L Anion Gap 18 (12-20) BUN 8 L (9-16) mg/dL Creatinine 0.70 (0.5-1.4) mg/dL Estim Creat Clear Calc 66.6 Estimated GFR > 60 Random Glucose 126 H (60-115) mg/dL Calcium 9.9 (8.4-10.2) mg/dL Total Bilirubin 0.2 (0.0-1.0) mg/dL AST 18 (5-31) U/L ALT 18 (0-31) U/L Alkaline Phosphatase 85 (39-117) U/L Total Protein 8.2 H (6.5-8.0) g/dL Albumin 4.0 (3.5-5.0) g/dL Urine Color Dark Yellow Urine Appearance Cloudy Urine pH 5.5 (5.0-9.0) Ur Specific [place] 1.020 (1.005-1.025) Urine Protein Trace (Neg-Trace) mg/dL Urine Glucose (UA) 500 H (Negative) mg/dL Urine Ketones Negative (Negative) mg/dL Urine Blood Negative (Negative) Urine Nitrite Negative (Negative) Ur Leukocyte Esterase Trace H (Negative) Urine RBC 0-2 (0-2) /HPF Urine WBC 11-20 H (0-5) /HPF Ur Squamous Epith Cells >20 (0-2) /HPF Urine Bacteria 4+ (None Seen) Hyaline Casts 3-5 (0-2) /LPF Urine Opiates Screen Not Detected (Not Detect) Urine Fentanyl Screen Not Detected (Not Detect) Ur Barbiturates Screen Not Detected (Not Detect) Ur Phencyclidine Scrn Not Detected (Not Detect) Ur Amphetamines Screen Not Detected (Not Detect) U Benzodiazepines Scrn Not Detected (Not Detect) Urine Cocaine Screen Not Detected (Not Detect) U Marijuana (THC) Screen Not Detected (Not Detect) COVID-19 (MONICA) Negative (Negative) COVID-19 Clin Com See Note Influenza Type A (CRUZ) Negative (Negative) Influenza Type B (CRUZ) Negative (Negative) Influenza A & B Note See Note External Record Review External record reviewed: Outpatient record and Prior outpatient labs Chronic Conditions Patient?s care impacted by: Other Depression, Drug use Discharge Plan Discharge Clinical Impression: Gastroenteritis Patient Disposition: Home, Self-Care Instructions: Gastroenteritis (ED) Additional Instructions: 1. Resume all home medications as prescribed. 2. You have been given a prescription for antinausea medication. 3. Please follow-up with your primary care doctor by calling the office 1st thing in the morning. Return to the ER for any worsening symptoms. Prescriptions: No Action naloxone [Narcan] 4 mg/actuation spray,non-aerosol 4 mg intranasal Q2M PRN (Reason: opioid overdose) Qty: 2 0RF Rx Instructions: spray 1 dose into ONE nostril; alternate nostrils w each dose until help arrives Interventions: ED Discharge Assessment Last Done: 01/22/23 21:13 Discharge Date/Time: 01/22/23 21:21
[2023-01-22 13:28] LABS: Appearance Urine Cloudy; Color Urine Dark Yellow; Glucose Urine UA 500 mg/dL (Negative); Leukocyte Esterase Urine Trace (Negative); Nitrite Urine Negative (Negative); PH 5.5 (5.0-9.0); UMIC TRIGGER UACC YES; Urine Blood Negative (Negative); Urine Ketones Negative (Negative); Urine Protein Trace mg/dL (Neg-Trace)
[2023-01-22 13:40] LABS: Bacteria Urine 4+ (None Seen); RBC Urine 0-2 /HPF (0-2); Squamous Epithelial Cell Urine >20 /HPF (0-2); UACC Culture Trigger YES
[2023-01-22 13:42] LABS: COVID-19 Test Negative (Negative); IDNOW Serial# 9DB6401D; IDNOW Serial# BCCEAD1C; Influenza A Negative (Negative); Influenza B2 Negative (Negative)
[2023-01-22 18:54] VITALS: RESP 18
[2023-01-22 19:03] VITALS: BP 116/62; PULSE 86; RESP 16; TEMP 37.3; O2SAT 97
--- NOTE | 2023-01-22 19:04 | MHC.EDTECH ---
This pct just assume care of this pt, vitals done,rn in room putting in IV line.
[2023-01-22] MEDS: ondansetron HCL 4 MG/2 ML VIAL IVPUSH (19:10)
--- NOTE | 2023-01-22 19:11 | PC.NURSE ---
this rn assumed care. pt a&ox3. respirations even and unlabored. pt reports intermittent nausea and vomiting for 2 weeks. pt reports having increased stress due to being kicked out of her living situations. pt abdomen soft non tender to touch with active bowel sounds in all 4 quadrants. iv established at this time and pt medicated per mar. provider at bedside discussing pt care.
--- NOTE | 2023-01-22 19:19 | MHC.EDTECH ---
PATIENT BLOOD DRAWN AND SENT TO LAB .
[2023-01-22 19:20] LABS: MANUAL DIFF FLAG NO
[2023-01-22 19:23] LABS: Basophils Absolute Auto 0.1 X10*3/uL (0.0-0.2); Basophils Percent Auto 0.6 % (0-2); Eosinophils Absolute Auto 0.1 X10*3/uL (0.0-0.4); Eosinophils Percent Auto 0.6 % (0-4); Hematocrit 38.9 % (37.0-47.0); Hemoglobin 12.9 g/dl (12.0-16.0); Imm Gran Abs Auto 0.03 X10*3/uL (0.00-0.03); Imm Gran Pct Auto 0.3 % (0.0-0.4); Lymphocytes Absolute Auto 4.2 X10*3/uL (1.2-4.9); Lymphocytes Percent Auto 37.3 % (20-40); Mean Corpuscular HGB Conc 33.2 g/dl (31.0-35.0); Mean Corpuscular Hemoglobin 28.2 pg (27.0-33.0); Mean Corpuscular Volume 84.9 fL (80.0-98.0); Mean Platelet Volume 9.7 fL (9.4-12.3); Monocytes Absolute Auto 0.7 X10*3/uL (0.1-1.2); Monocytes Percent Auto 6.2 % (2-11); Neutrophils Absolute Auto 6.3 x10*3/uL (2.0-8.3); Platelet Count 436 X10*3/uL (160-400); Red Blood Count 4.58 X10*6/uL (4.20-5.50); Red Cell Distribution Width 14.2 % (11.0-16.0); White Blood Count 11.4 X10*3/uL (4.8-10.8)
[2023-01-22 19:47] LABS: Alanine Aminotransferase 18 U/L (0-31); Alkaline Phosphatase 85 U/L (39-117); Anion Gap 18 (12-20); Aspartate Amino Transferase 18 U/L (5-31); Bilirubin Total 0.2 mg/dL (0.0-1.0); Blood Urea Nitrogen 8 mg/dL (9-16); Calcium 9.9 mg/dL (8.4-10.2); Carbon Dioxide 25 mmol/L (22-29); Chloride 100 mmol/L (96-108); Creatinine Clr Calc Pharmacy 66.6; Estimated Glomerular Filt Rate > 60; Glucose Random 126 mg/dL (60-115); Potassium 4.4 mmol/L (3.3-5.1); Sodium 139 mmol/L (135-145); Total Protein 8.2 g/dL (6.5-8.0)
--- NOTE | 2023-01-22 20:06 | MHC.EDTECH ---
PT was given PO challenge , tolerated well. provider aware
[2023-01-22 20:28] LABS: Amphetamine Screen Urine Not Detected (Not Detect); Barbiturates, Urine Not Detected (Not Detect); Benzodiazepines Screen Urine Not Detected (Not Detect); Cannabinoid Screen Urine Not Detected (Not Detect); Cocaine Screen Urine Not Detected (Not Detect); Fentanyl, urine Not Detected (Not Detect); Opiate Screen Urine Not Detected (Not Detect); Phencyclidine Screen Urine Not Detected (Not Detect)
== END 2023-01-22 21:21 | disposition home or self-care (01) ==
PROVIDERS: Physician Assistant; Emergency Provider Student in an Organized Health Care Education/Training Program
DX: K29.70 Gastritis, unspecified, without bleeding (principal); R11.2 Nausea with vomiting, unspecified; R19.7 Diarrhea, unspecified; Z20.822 Contact with and (suspected) exposure to COVID-19; Z11.52 Encounter for screening for COVID-19; Z79.899 Other long term (current) drug therapy
CPT/HCPCS: 36415; 80053; 80307; 81001; 85025; 87086; 87502; 87635; 96374; 99284; J2405

== ENCOUNTER 2023-01-26 13:30 | Emergency (ER) | payer MEDICAID, SELFPAY ==
--- NOTE | ~2023-01-26 | XR_ITS ---
EXAMINATION: XR LUMBOSACRAL SPINE CLINICAL INFORMATION: Pain. Fall. COMPARISON: None available. TECHNIQUE: Three views of the lumbosacral spine. FINDINGS: The lumbar vertebrae have normal height and normal alignment. No fracture or bone destruction. Mild to moderate vertebral endplate spurring of lumbar vertebrae. Mild lumbar disc height narrowing at L3-L4 and L4-L5. Mild to moderate facet joint arthrosis of the lower lumbar spine. No spondylolysis. Sacroiliac joints are normal. Surgical clips right upper quadrant. XR/XR lumbar spine 2-3V IMPRESSION: 1. No acute abnormality. 2. Degenerative spondylosis of lumbar spine.
[2023-01-26 13:38] VITALS: BP 160/90; PULSE 111; O2SAT 95
[2023-01-26 13:46] VITALS: BP 155/97; PULSE 100; RESP 19; TEMP 36.6; O2SAT 98; BMI 25.0
--- NOTE | 2023-01-26 13:46 | ED.GENADULT ---
HPI - General Adult General Chief complaint: Back Pain/Injury Stated complaint: BACK PAIN Time Seen by Provider: 01/26/23 16:08 Source: patient and EMS Mode of arrival: EMS Limitations: no limitations History of Present Illness HPI narrative: Patient is a 62 year old assigned female at with a history of anxiety presenting to the emergency department today with low back pain and feeling anxious. Patient states that she fell out of her sleep last night, landed on her buttock and causing low back pain. Patient states that she feels anxious all the time. Patient denies any dizziness, lightheadedness, abdominal pain, nausea, vomiting, fever, chills, blurry vision, double vision, loss of vision, chest pain, difficulty breathing, shortness of breath, night sweats, pain with urination, increased urinary frequency, increased urinary urgency, blood in her urine or stool, syncope or a near syncopal episode, recent trauma or falls, bowel incontinence, bladder incontinence, bowel retention, bladder retention, or any other complaints at this time. Onset (ago): day(s) (1) Location: back Radiation: non-radiation Severity: mild Severity scale (1-10): 3 Quality: aching and dull Pain Consistency: constant Relieving factors: none Exacerbating factors: none Associated symptoms: denies other symptoms Treatments prior to arrival: none Related Data Previous Rx's Medication Instructions Recorded naloxone 4 mg/actuation nasal 4 mg intranasal Q2M PRN opioid 12/08/22 spray (Narcan) overdose #2 ea cyclobenzaprine 5 mg tablet 5 mg PO TID PRN muscle spasm 7 01/26/23 days #21 tabs naproxen 500 mg tablet 500 mg PO BID 7 days #14 tabs 01/26/23 Allergies Allergy/AdvReac Type Severity Reaction Status Date / Time No Known Allergies Allergy Verified 01/26/23 13:46 Review of Systems Constitutional: Constitutional: Reports no additional constitutional complaints, Denies chills, Denies fever(s) and Denies night sweats Eyes: Eyes: Reports no additional eye complaints, Denies blurry vision, Denies change in vision, Denies diplopia, Denies eye discharge, Denies loss of vision and Denies eye pain ENT: Denies dizziness Cardiovascular: Cardiovascular: Reports no additional cardiovascular complaints, Denies chest pain, Denies lightheadedness, Denies Loss of Consciousness and Denies dyspnea Respiratory: Respiratory: Reports no additional respiratory complaints and Denies dyspnea Gastrointestinal: Gastrointestinal: Reports no additional gastrointestinal complaints, Denies abdominal pain, Denies melena, Denies hematochezia, Denies change in bowel habits and Denies change in stool character Genitourinary: Genitourinary: Denies hematuria, Denies urinary frequency, Denies dysuria, Denies urinary incontinence, Denies urinary hesitancy and Denies urinary urgency Musculoskeletal: Musculoskeletal: Reports no additional musculoskeletal complaints, Denies numbness and Denies tingling Comments: low back pain Neurologic: Denies dizziness, Denies loss of vision, Denies numbness and Denies tingling Psychiatric: Psychiatric: Reports anxiety Endocrine: Endocrine: Reports no additional endocrine complaints Hematologic/Lymphatic: Hematologic/Lymphatic: Reports no additional hematologic/lymphatic complaints Allergic/Immunologic: Allergic/Immunologic: Reports no additional allergic/immunologic complaints PMFSH Past Medical History Attestation statement: The following information was validated with the patient. Source: old records reviewed and nursing notes reviewed Medical History Overdose Polysubstance abuse Social History Social History Substance Use Type: Heroin Advance Directives: No Physical Exam ED Vital Signs: Vital Signs - 24 hr 01/26/23 13:46 Temperature 98 F Pulse Rate 100 Respiratory Rate 19 Blood Pressure 155/97 H Pulse Oximetry 98 BMI result Body Mass Index 25.0 Const General: cooperative, no acute distress, alert and awake Nutritional Appearance: well nourished Orientation/consciousness: patient oriented x3 Limitations: no limitations [facility] Head: Yes normal to inspection and Yes atraumatic Ears: hearing grossly normal bilaterally and external ears normal General nose exam: Normal external nose present, no nasal discharge noted and no epistaxis Face and sinus: Yes normal facial exam, No abrasion and No laceration Mouth: Normal oral and palatal mucosa present, no drooling and no muffled voice Eyes General: appearance normal, both eyes and all related structures Periorbital: periorbital findings normal Eyelids: Yes eyelids normal Conjunctivae: conjunctivae normal Pupils: Equal, round and reactive pupils present EOM: EOMs intact bilaterally Neck Neck: Yes normal visual inspection, Yes full ROM and Yes no lymphadenopathy Chest Chest palpation & inspection: normal inspection of the chest Resp Effort & Inspection: normal respiratory effort and able to speak in complete sentences GI Inspection: Yes normal to inspection General: Yes no CVA tenderness Back/Spine/Pelvis Back: no CVA tenderness Cervical Spine: normal cervical lordosis and cervical ROM normal Thoracic/Lumbar Spine: thoracic and lumbar spine normal to inspection and thoraco-lumbar ROM normal Pelvis: no pain with anterior-posterior compression Neuro General: patient oriented x3 and moves all extremities Cranial nerves: Yes Equal, round and reactive pupils present Cognition (Neuro): normal cognition Motor exam (neuro): 5/5 motor strength present throughout Sensory Exam: Normal double simultaneous stimulation for sensation Coordination: [id number] test normal Extrem General: Yes normal to inspection, Yes full ROM and Yes capillary refill normal Psych Appearance: grossly normal Mental Status: mental status grossly normal Affect: normal affect Attitude: cooperative Thought process: Normal thought process present Thought content: Normal thought content present Insight: Good insight present (Psych) Course Course Course Narrative: RME performed by Sandy Vazquez PA-C. Patient is a 62 year old assigned female at presenting to the emergency department with low back pain. Imaging ordered. Patient placed back in the waiting room pending room availability and results. Medications Administered Discontinued Medications Generic Name Dose Route Start Last Admin Trade Name Freq PRN Reason Stop Dose Admin Ketorolac Tromethamine 15 mg 01/26/23 16:11 01/26/23 16:17 Ketorolac Tromethamine 15 Mg/Ml Vial IM 01/26/23 16:12 15 mg ONCE ONE Administration Lorazepam 1 mg 01/26/23 16:11 01/26/23 16:17 Lorazepam 1 Mg Tablet PO 01/26/23 16:12 1 mg ONCE ONE Administration Medical Decision Making Medical Decision Making MDM Narrative: Patient is a 62 year old assigned female at with a history of anxiety presenting to the emergency department today with low back pain and anxiety. Patient's physical exam was unremarkable. Patient's lumbar x-ray showed no acute process. I explained my physical exam findings as well as all test results to the patient. I answered all questions asked by the patient. Patient received IM Toradol and PO Lorazepam which she stated helped her symptoms significantly. I stressed the importance of the patient taking her medication as prescribed. I stressed the importance of the patient following up with her primary care provider. I stressed the importance of the patient returning to the emergency department immediately if her symptoms were to worsen or if she were to develop any dizziness, shortness of breath, difficulty breathing, chest pain, blurry vision, loss of vision, nausea, vomiting, abdominal pain, fever, chills, back pain, or any other complaints. Patient verbalized agreement and understanding with this treatment plan and discharge. Differential Diagnosis Differential Diagnoses: The differential diagnosis associated with the presentation includes Low back pain Lumbar pain Independent Interpretation I performed an independent interpretation of an: Plain X-Ray Interpretation: My interpretation is in agreement with the radiologist's impression of this imaging study. EXAMINATION: XR LUMBOSACRAL SPINE CLINICAL INFORMATION: Pain. Fall. COMPARISON: None available. TECHNIQUE: Three views of the lumbosacral spine. FINDINGS: The lumbar vertebrae have normal height and normal alignment. No fracture or bone destruction. Mild to moderate vertebral endplate spurring of lumbar vertebrae. Mild lumbar disc height narrowing at L3-L4 and L4-L5. Mild to moderate facet joint arthrosis of the lower lumbar spine. No spondylolysis. Sacroiliac joints are normal. Surgical clips right upper quadrant. XR/XR lumbar spine 2-3V IMPRESSION: 1. No acute abnormality. 2. Degenerative spondylosis of lumbar spine. Dictated By: Juanpablo Alexander MD Signed By: Electronically signed by Juanpablo Alexander MD 01/26/23 1600 Radiology Impression Discussion of test interpretation with radiology: I have reviewed the radiologist's reading. Independent Historian Clinical information obtained from an independent historian. History obtained from or confirmed by: EMS (EMS provided additional history and confirmed the history provided by the patient.) Prescription Management I considered prescription management with: Pain Medication (patient prescribed pain medication.) Discharge Plan Discharge Clinical Impression: Back pain, Anxiety Patient Disposition: Home, Self-Care Instructions: Back Pain (ED), Anxiety (ED) Additional Instructions: Follow up with your primary care provider. Return to the emergency department immediately if your symptoms worsen or if you develop any dizziness, shortness of breath, difficulty breathing, chest pain, blurry vision, loss of vision, nausea, vomiting, abdominal pain, fever, chills, back pain, or any other complaints. Prescriptions: New cyclobenzaprine 5 mg tablet 5 mg PO TID PRN (Reason: muscle spasm) 7 Days Qty: 21 0RF naproxen 500 mg tablet 500 mg PO BID 7 Days Qty: 14 0RF No Action naloxone [Narcan] 4 mg/actuation spray,non-aerosol 4 mg intranasal Q2M PRN (Reason: opioid overdose) Qty: 2 0RF Rx Instructions: spray 1 dose into ONE nostril; alternate nostrils w each dose until help arrives [place] [facility] [place] (Call to establish and follow up with a primary care provider. If you already have a primary care provider, please follow up with them.) [facility] [place] [facility] [place]] (Call to establish and follow up with a primary care provider. If you already have a primary care provider, please follow up with them.) [facility] [place] [facility] [place]] (Call to establish and follow up with a primary care provider. If you already have a primary care provider, please follow up with them.) Interventions: ED Discharge Assessment Last Done: 01/26/23 16:24 Discharge Date/Time: 01/26/23 16:25 Print Language: Kinyarwanda
[2023-01-26] MEDS: Ketorolac Tromethamine 15 MG/ML VIAL IM (16:17)
[2023-01-26] MEDS: LORazepam 1 MG TABLET PO (16:17)
== END 2023-01-26 16:25 | disposition home or self-care (01) ==
PROVIDERS: Emergency Provider Emergency Medicine
DX: M54.50 Low back pain, unspecified (principal); F41.1 Generalized anxiety disorder; F43.0 Acute stress reaction
CPT/HCPCS: 72100; 96372; 99283; 99284; J1885

== ENCOUNTER 2023-01-30 13:48 | Inpatient (IN) | payer OTHER, MEDICAID, SELFPAY ==
--- NOTE | ~2023-01-30 | XR_ITS ---
EXAMINATION: XR CHEST CLINICAL INFORMATION: Reason for Exam Hemoptysis COMPARISON: Chest radiograph 12/14/2022 TECHNIQUE: 2 views of the chest FINDINGS: Lines and tubes: None. Mildly increased interstitial opacities may reflect mild interstitial edema or atypical/viral infection. No pleural effusion. No pneumothorax. Unchanged cardiomediastinal silhouette. XR/XR chest 2V IMPRESSION: Mildly increased interstitial opacities may reflect mild interstitial edema or atypical/viral infection.
--- NOTE | ~2023-01-30 | CT_ITS ---
EXAMINATION: CT HEAD WITHOUT CONTRAST CLINICAL INFORMATION: [facility]. COMPARISON: None. TECHNIQUE: Contiguous axial imaging was performed from the skull base to vertex without intravenous administration of contrast. This CT examination was performed using dose optimization techniques as appropriate, variously including the following: *Automated exposure control *Adjustment of mA and/or kV according to patient size (this includes techniques or standardized protocols for targeted exams where dose is matched to indication/reason for exam; i.e. extremities or head) *Use of iterative reconstruction technique DLP: 757 mGy-cm. FINDINGS: There is no intracranial hemorrhage, large infarction, or mass lesion. There is no extra-axial collection. The ventricles are normal in size and configuration without evidence of hydrocephalus. There is no subjective impression of brain parenchymal volume loss. The visualized paranasal sinuses and mastoid air cells are clear. CT/CT head/brain wo IV con IMPRESSION: No acute intracranial abnormality. No evidence of brain parenchymal volume loss.
[2023-01-30 13:53] VITALS: BP 142/88; PULSE 100; O2SAT 100
[2023-01-30 13:58] VITALS: BP 158/88; PULSE 91; RESP 20; TEMP 36.9; O2SAT 98; BMI 21.5
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
--- NOTE | 2023-01-30 14:59 | MHC.CARE ---
[facility] [facility]response clinician called to notify that this patient was sent to the ED for evaluation, not assessed by them. Is off medication, behaving bizarrely and erratically.
--- NOTE | 2023-01-30 16:08 | PC.NURSE ---
pts son called and expressed concern that his mother has been paranoid, not sleeping much and manic. pt expresses problem with her housing and wants scripts for ativan, appears paranoid as she is talking about pt son can be reached at [phone]
[2023-01-30 17:28] LABS: MANUAL DIFF FLAG NO
[2023-01-30 17:31] LABS: Basophils Absolute Auto 0.1 X10*3/uL (0.0-0.2); Basophils Percent Auto 0.7 % (0-2); Eosinophils Absolute Auto 0.1 X10*3/uL (0.0-0.4); Eosinophils Percent Auto 0.7 % (0-4); Hematocrit 41.5 % (37.0-47.0); Hemoglobin 13.8 g/dl (12.0-16.0); Imm Gran Abs Auto 0.02 X10*3/uL (0.00-0.03); Imm Gran Pct Auto 0.2 % (0.0-0.4); Lymphocytes Absolute Auto 3.5 X10*3/uL (1.2-4.9); Lymphocytes Percent Auto 39.6 % (20-40); Mean Corpuscular HGB Conc 33.3 g/dl (31.0-35.0); Mean Corpuscular Hemoglobin 28.2 pg (27.0-33.0); Mean Corpuscular Volume 84.9 fL (80.0-98.0); Mean Platelet Volume 9.7 fL (9.4-12.3); Monocytes Absolute Auto 0.6 X10*3/uL (0.1-1.2); Monocytes Percent Auto 6.6 % (2-11); Neutrophils Absolute Auto 4.6 x10*3/uL (2.0-8.3); Neutrophils Percent Auto 52.2 % (45-73); Platelet Count 478 X10*3/uL (160-400); Red Blood Count 4.89 X10*6/uL (4.20-5.50); Red Cell Distribution Width 14.4 % (11.0-16.0); White Blood Count 8.8 X10*3/uL (4.8-10.8)
[2023-01-30 17:47] LABS: Anion Gap 16 (12-20); Blood Urea Nitrogen 13 mg/dL (9-16); COVID-19 Test Negative (Negative); Calcium 9.5 mg/dL (8.4-10.2); Carbon Dioxide 26 mmol/L (22-29); Chloride 99 mmol/L (96-108); Creatinine Clr Calc Pharmacy 54.4; Estimated Glomerular Filt Rate > 60; Ethanol < 10 mg/dL; Glucose Random 236 mg/dL (60-115); IDNOW Serial# BCCEAD1C; Potassium 3.6 mmol/L (3.3-5.1); Sodium 137 mmol/L (135-145)
[2023-01-30 17:53] LABS: Acetaminophen LAB < 17 mcg/mL (<30); Salicylate < 5.0 mg/dL (15-30)
[2023-01-30] MEDS: clonazePAM 0.5 MG TABLET PO (17:57)
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
[2023-01-30] MEDS: Cyclobenzaprine HCl 5 MG TABLET PO (18:35)
[2023-01-30 20:08] LABS: Appearance Urine Clear; Color Urine Dark Yellow; Glucose Urine UA 500 mg/dL (Negative); Leukocyte Esterase Urine Trace (Negative); Nitrite Urine Negative (Negative); PH 5.5 (5.0-9.0); Specific Gravity - Urine 1.025 (1.005-1.025); UMIC TRIGGER UACC YES; Urine Blood Negative (Negative); Urine Ketones Trace mg/dL (Negative); Urine Protein 30 (1+) mg/dL (Neg-Trace)
[2023-01-30] MEDS: metFORMIN HCl 1,000 MG TABLET 1000 MG PO (20:13)
[2023-01-30] MEDS: Doxepin HCl 25 MG CAPSULE 150 MG PO (20:13)
[2023-01-30 20:14] LABS: Amphetamine Screen Urine Not Detected (Not Detect); Barbiturates, Urine Not Detected (Not Detect); Benzodiazepines Screen Urine Not Detected (Not Detect); Cannabinoid Screen Urine Not Detected (Not Detect); Cocaine Screen Urine Not Detected (Not Detect); Fentanyl, urine Not Detected (Not Detect); Opiate Screen Urine Not Detected (Not Detect); Phencyclidine Screen Urine Not Detected (Not Detect)
[2023-01-30 21:16] LABS: Bacteria Urine 1+ (None Seen); Hyaline Casts Urine 0-2 /LPF (0-2); WBC Urine 0-5 /HPF (0-5)
--- NOTE | 2023-01-30 21:36 | PC.NURSE ---
Patient currently in bed appears sleeping, no distress observed/reported, behavior non concerning, mood depressed, affect flat, engaged well with care team, disposition is section 12 inpatient bed search, medication compliant, labs completed/resulted/reviewed, VSS, will continue to monitor
[2023-01-31 02:49] VITALS: BP 144/64; PULSE 72; RESP 16; TEMP 36.5; O2SAT 96
--- NOTE | 2023-01-31 05:36 | PC.NURSE ---
Patient slept through the night, no distress observed/reported, disposition per care team is section 12 inpatient bed search, medication compliant, behavior non concerning, labs completed/resulted, VSS, will continue to monitor.
[2023-01-31 06:15] VITALS: BP 176/79; PULSE 81; RESP 16; TEMP 36.3; O2SAT 96
--- NOTE | 2023-01-31 07:54 | PC.NURSE ---
Called and spoke with China العلي RN at [facility] who confirmed Methadone dose. Lamar was last dosed on 01/30/23 at 125mg's.
--- NOTE | 2023-01-31 08:19 | HE.PHANOTE ---
RE: METHADONE Received methadone verification form from [facility], last dose was 125mg given on 01/30/23.
--- NOTE | 2023-01-31 08:26 | ECG_ITS ---
Test Reason : qt interval Blood Pressure : / mmHG Vent. Rate : 091 BPM Atrial Rate : 091 BPM P-R Int : 130 ms QRS Dur : 082 ms QT Int : 364 ms P-R-T Axes : 078 081 071 degrees QTc Int : 447 ms Sinus rhythm with Premature atrial complexes Possible Left atrial enlargement Borderline ECG When compared with ECG of 20-JAN-2023 10:39, Premature atrial complexes are now Present Referred By: Pratik Pearl Electronically Signed By:CARMEN PARK MD
[2023-01-31] MEDS: metFORMIN HCl 1,000 MG TABLET 1000 MG PO ×2 (08:57→20:20)
[2023-01-31] MEDS: lisinopriL 10 MG TABLET PO (08:57)
[2023-01-31] MEDS: methADONE HCl 20 MG/2 ML ORAL.CONC 125 MG PO (10:53)
[2023-01-31 12:55] LABS: Glucose, Whole Blood 145 mg/dL (60-115)
--- NOTE | 2023-01-31 13:54 | PHA.MEDREC ---
Pharmacy Consult ? Medication Reconciliation Pharmacy has reviewed the medication reconciliation compelted by nursing. Per claim patient is on gabapentin, patient did confirm she is taking the medication therefore it was added to list. Malorie Franco, EmyD
[2023-01-31 16:30] VITALS: BP 137/64; PULSE 90; TEMP 35.7
--- NOTE | 2023-01-31 16:35 | PC.NURSE ---
Lamar was OOB this shift and pleasant when engaged. Medication compliant with no behavioral concerns noted. Reports a recent fall and use of a cane when home but gait appears steady when ambulating around the POD independently refuses a walker stating she will only use a cane. Appetite is good. Lamar requests Clonazepam but reports her outside provider is no longer prescribing it to her.
[2023-01-31] MEDS: Doxepin HCl 25 MG CAPSULE 150 MG PO (20:19)
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
[2023-02-01] MEDS: cloNIDine HCL 0.1 MG TABLET PO ×2 (01:20→14:19)
[2023-02-01] MEDS: Cyclobenzaprine HCl 5 MG TABLET PO ×3 (05:50→19:13)
[2023-02-01 08:17] VITALS: BP 154/74; PULSE 89; RESP 16; TEMP 35.9; O2SAT 99
[2023-02-01] MEDS: lisinopriL 10 MG TABLET PO (08:18)
[2023-02-01] MEDS: metFORMIN HCl 1,000 MG TABLET 1000 MG PO ×2 (08:19→19:15)
[2023-02-01] MEDS: methADONE HCl 20 MG/2 ML ORAL.CONC 125 MG PO (08:20)
[2023-02-01 08:24] LABS: Estimated Average Glucose 183 mg/dL
[2023-02-01 08:35] LABS: Cholesterol 193 mg/dL (<200); HDL Cholesterol 41 mg/dL (>40); LDL Cholesterol Calculated 105 mg/dL (<100); Triglycerides 235 mg/dL (<150)
[2023-02-01 08:53] LABS: Free T4 (Free Thyroxine) 1.16 ng/dL (0.71-1.85); Thyroid Stimulating Hormone 3.11 uIU/mL (0.32-4.0)
--- NOTE | 2023-02-01 10:10 | P.HPPS_ITS ---
HPI Date of Service: 02/01/23 Chief Complaint: Dysregulated Sources of Information: patient interviewed, chart reviewed and crisis/core team assessment reviewed HPI Subjective Notes: [place]as Warning and Conditional Voluntary Healthcare Proxy: No Guardianship: No Medical Problems Affecting Mental Status: No Narrative: 62 yo female presents with increase in anxiety and paranoia. Reports she ran out of doxepin, klonopin and as a result has not been able to comply. Reports poor sleep as a result. Pt brought in by police on a Section XII. Tells emergency team she feels the TV and radio are manipulating. Believes landlord has been letting people into her room. Believes he is worried she will file a lawsuit as she fell on the property. Today, in interview with Ruby HEARN pt presents with disorganizaion. She continues to voice concern about her landlord, running a scam and threatening to her family. She discussed her father's from cancer, the fact that he worked for [employer] and that she believes his work contributed to his diagnosis. She states she did report it and believes people lost their jobs due to her report. Reports she has been searching [employer] resources to learn more about her upbringing and history. Past Psychiatric History: IP: affirms OP: Denies current alliance Hx of work with [facility] Medical Evaluation Reviewed: Yes [facility] Medical History (Updated 02/02/23 @ 03:46 by Selin Melendrez, KYLIE) Opioid use disorder, severe, on maintenance therapy Bipolar disorder with psychotic features Overdose Polysubstance abuse Narrative: Diabetes Fibromyalgia Family History: Affirms Social History: Two sons, ages 42, 32 Substance History: Tox negative, nicotine Trauma History: Affirms Diagnostics Vital Signs (24Hr): Vital Signs - 24 hr 01/31/23 16:30 02/01/23 08:17 Temperature 96.2 F L 96.6 F L Pulse Rate 90 89 Respiratory Rate 16 Blood Pressure 137/64 154/74 H Pulse Oximetry 99 Oxygen Delivery Method Room Air BMI result Body Mass Index 21.5 Labs 01/30/23 17:20 01/30/23 17:20 Labs: Laboratory Results - last 48 hr 01/30/23 01/30/23 01/31/23 17:20 19:24 12:50 WBC 8.8 RBC 4.89 Hgb 13.8 Hct 41.5 MCV 84.9 MCH 28.2 MCHC 33.3 RDW 14.4 Plt Count 478 H MPV 9.7 Immature Gran % (Auto) 0.2 Neut % (Auto) 52.2 Lymph % (Auto) 39.6 Nelson % (Auto) 6.6 Eos % (Auto) 0.7 Baso % (Auto) 0.7 Lymph # (Auto) 3.5 Nelson # (Auto) 0.6 Eos # (Auto) 0.1 Baso # (Auto) 0.1 Abs Immat Gran (auto) 0.02 Absolute Neuts (auto) 4.6 Absolute Nucleated RBC 0.000 Nucleated RBC % (auto) 0.0 Sodium 137 Potassium 3.6 Chloride 99 Carbon Dioxide 26 Anion Gap 16 BUN 13 Creatinine 0.76 Estim Creat Clear Calc 54.4 Estimated GFR > 60 POC Glucose 145 H Random Glucose 236 H Estimat Average Glucose Hemoglobin A1c % Calcium 9.5 Triglycerides Cholesterol LDL Cholesterol, Calc HDL Cholesterol TSH Free T4 Urine Color Dark Yellow Urine Appearance Clear Urine pH 5.5 Ur Specific [place] 1.025 Urine Protein 30 (1+) H Urine Glucose (UA) 500 H Urine Ketones Trace Urine Blood Negative Urine Nitrite Negative Ur Leukocyte Esterase Trace H Urine RBC 3-5 H Urine WBC 0-5 Ur Squamous Epith Cells 6-10 Urine Bacteria 1+ Hyaline Casts 0-2 Salicylates < 5.0 L Urine Opiates Screen Not Detected Urine Fentanyl Screen Not Detected Acetaminophen < 17 Ur Barbiturates Screen Not Detected Ur Phencyclidine Scrn Not Detected Ur Amphetamines Screen Not Detected U Benzodiazepines Scrn Not Detected Urine Cocaine Screen Not Detected U Marijuana (THC) Screen Not Detected Ethyl Alcohol < 10 COVID-19 ([facility]) Negative COVID-19 Clin Com See Note 02/01/23 08:04 WBC RBC Hgb Hct MCV MCH MCHC RDW Plt Count MPV Immature Gran % (Auto) Neut % (Auto) Lymph % (Auto) Nelson % (Auto) Eos % (Auto) Baso % (Auto) Lymph # (Auto) Nelson # (Auto) Eos # (Auto) Baso # (Auto) Abs Immat Gran (auto) Absolute Neuts (auto) Absolute Nucleated RBC Nucleated RBC % (auto) Sodium Potassium Chloride Carbon Dioxide Anion Gap BUN Creatinine Estim Creat Clear Calc Estimated GFR POC Glucose Random Glucose Estimat Average Glucose 183 Hemoglobin A1c % 8.0 H Calcium Triglycerides 235 H Cholesterol 193 LDL Cholesterol, Calc 105 H HDL Cholesterol 41 TSH 3.11 Free T4 1.16 Urine Color Urine Appearance Urine pH Ur Specific [place] Urine Protein Urine Glucose (UA) Urine Ketones Urine Blood Urine Nitrite Ur Leukocyte Esterase Urine RBC Urine WBC Ur Squamous Epith Cells Urine Bacteria Hyaline Casts Salicylates Urine Opiates Screen Urine Fentanyl Screen Acetaminophen Ur Barbiturates Screen Ur Phencyclidine Scrn Ur Amphetamines Screen U Benzodiazepines Scrn Urine Cocaine Screen U Marijuana (THC) Screen Ethyl Alcohol COVID-19 ([facility]) COVID-19 Clin Com Meds/Allergies Meds Home Medications Medication Instructions Recorded Confirmed Type doxepin 150 mg capsule 150 mg PO BEDTIME 01/30/23 01/30/23 History metformin 1,000 mg tablet 1,000 mg PO BID 01/30/23 01/30/23 History clonidine HCl 0.1 mg tablet 0.1 mg PO BID PRN anxiety 01/31/23 01/31/23 History gabapentin 400 mg capsule 400 mg PO TID 01/31/23 01/31/23 History lisinopril 10 mg tablet 10 mg PO DAILY 01/31/23 01/31/23 History methadone 10 mg/5 mL oral solution 125 mg PO DAILY 01/31/23 01/31/23 History Allergies Allergies Allergy/AdvReac Type Severity Reaction Status Date / Time No Known Allergies Allergy Verified 01/26/23 13:46 Mental Status Exam Mental Status Exam Patient Appearance: Fatigued Patient Orientation: Person and Place Level of Consciousness: Alert Patient Behavior: Appropriate, Talkative, Cooperative, Anxious, Fatigued, Distractible, Confused and Good Eye Contact Mood Description: Suspicious, Constricted, Labile, Sad and Apprehensive Affect Description: Labile Patient Cognition Impaired: Yes Ability to Follow Directions: Fair Speech Pattern: Spontaneous Speech Memory Description: Remote Impaired Hallucinations: None Delusions: Being Controlled, Paranoid Ideation and Present Thought Process: Illogical, Distracted, Rumination and Confusion Thought Content: positive for Flight of Ideas, positive for [place], positive for Circumstantial, positive for Perseveration, positive for Tangential, positive for Disorganized and positive for Suicidal Ideation (denies) Depressive Symptoms: Increased Anxiety, Insomnia, Diff. Making Decisions, Difficulty Sleeping, Feelings of Guilt, Increased Fatigue, Thoughts of /Suicide (denies) and Difficulty Concentrating Judgement: Fair Assessment & Plan Assessment & Plan (1) Bipolar disorder with psychotic features: Status: Acute Code(s): F31.9 - Bipolar disorder, unspecified (2) Opioid use disorder, severe, on maintenance therapy: Status: Acute Code(s): F11.20 - Opioid dependence, uncomplicated Plan 62 yo female, hx of opiate use disorder, currently on high dose methadone and possible bipolar disorder presents from community with psychosis, disorganization, ? steve. Plan: Collateral contact Diagnostics Re-establish regime and assess needs Aftercare planning Patient educated on: therapeutic strategies Informed Consent: further education needed Reason for continued inpatient stay Substantial Risk for: harm to self and rapid decompensation Statement Statement: I have reviewed the history and physical and performed a pertinent examination on my patient. No changes have occurred unless specified. If the History and Physical was not performed prior to admission, the Hospitalist's service will be consulted for completing the admission physical. Time Spent With Patient Time: Total time managing care of this patient today ____ minutes.
[2023-02-01 12:28] LABS: Glucose, Whole Blood 281 mg/dL (60-115)
--- NOTE | 2023-02-01 12:34 | PC.NURSE ---
Spoke to patient regarding nicotine replacement therapy. Pt stated she did not want a nicotine patch ordered. Pt stated she did not plan to use nicotine replacement therapy in the hospital setting.
[2023-02-01] MEDS: OLANZapine 5 MG TABLET PO ×2 (13:04→19:13)
[2023-02-01 15:16] VITALS: BMI 30.2
[2023-02-01 17:07] LABS: Glucose, Whole Blood 182 mg/dL (60-115)
[2023-02-01 18:00] VITALS: PULSE 99; RESP 18; TEMP 35.9; O2SAT 94
[2023-02-01] MEDS: Doxepin HCl 25 MG CAPSULE 150 MG PO (19:13)
[2023-02-01] MEDS: Gabapentin 100 MG CAPSULE 200 MG PO (21:11)
[2023-02-01 21:30] LABS: Glucose, Whole Blood 167 mg/dL (60-115)
[2023-02-02] MEDS: traZODone HCL 50 MG TABLET PO ×3 (00:42→23:14)
[2023-02-02 08:10] LABS: Glucose, Whole Blood 175 mg/dL (60-115)
[2023-02-02 08:35] VITALS: BP 135/61; PULSE 89; RESP 18; TEMP 36.8; O2SAT 97
[2023-02-02] MEDS: methADONE HCl 20 MG/2 ML ORAL.CONC 125 MG PO (08:44)
[2023-02-02] MEDS: lisinopriL 10 MG TABLET PO (08:44)
[2023-02-02] MEDS: Gabapentin 100 MG CAPSULE 200 MG PO (08:45)
[2023-02-02] MEDS: metFORMIN HCl 1,000 MG TABLET 1000 MG PO ×2 (08:45→20:03)
[2023-02-02] MEDS: metroNIDAZOLE 500 MG TABLET PO ×2 (11:01→21:56)
[2023-02-02 12:54] LABS: Glucose, Whole Blood 193 mg/dL (60-115)
--- NOTE | 2023-02-02 13:02 | P.PNPSI_ITS ---
Subjective Subjective Date of Service: 02/02/23 Reason For Visit: Dysregulated Subjective Notes: Conditional Voluntary Healthcare Proxy: No Guardianship: No Medical Problems Affecting Mental Status: No Interim History: Pt remains disorganized with paranoia and confusion, racing of thought. Reports anxiety, reports poor sleep due to racing thoughts (team reports ~5 hours of sleep). OP Meds reviewed-no hx of mood stabilizers except Gabapentin, antipsychotics, Klonopin 0.5 mg qd prn #7 given early January. Cymbalta 60 mg bid given in Dec. OP team with [facility] will visit today to offer their input. Will continue to monitor with re-establishment of regime, however changes may need to be made. Pt is approachable, spending much time preparing to shower, is tangential and fragmented in her content, without agitation but responsive to a peer in the milieu who is agitated with some episodes of intermittent escalation and anxiety. Medication Compliance: Yes Side effects from medications: No Attending Groups: No Review of Systems Acute medical concerns: No Medical Review of Systems: unchanged Mental Status Exam Mental Status Exam Patient Appearance: Fatigued Patient Orientation: Person and Place Level of Consciousness: Alert Patient Behavior: Appropriate, Talkative, Cooperative, Anxious, Fatigued, Distractible, Confused and Good Eye Contact Mood Description: Constricted, Anxious, Labile and Apprehensive Affect Description: Labile Patient Cognition Impaired: Yes Ability to Follow Directions: Fair Speech Pattern: Spontaneous Speech Memory Description: Remote Impaired Hallucinations: None Delusions: Paranoid Ideation and Present Thought Process: Illogical, Distracted, Rumination and Confusion Thought Content: positive for Flight of Ideas, positive for [place], positive for Circumstantial, positive for Perseveration, positive for Tangential, positive for Disorganized and positive for Suicidal Ideation (denies) Depressive Symptoms: Increased Anxiety, Insomnia, Diff. Making Decisions, Difficulty Sleeping, Feelings of Guilt, Increased Fatigue, Thoughts of /Suicide (denies) and Difficulty Concentrating Judgement: Fair Diagnostics Vital Signs (24Hr): Vital Signs - 24 hr 02/01/23 18:00 02/02/23 08:35 Temperature 96.7 F L 98.2 F Pulse Rate 99 89 Respiratory Rate 18 18 Blood Pressure 135/61 Pulse Oximetry 94 97 Oxygen Delivery Method Room Air Room Air BMI result Body Mass Index 30.2 Labs 01/30/23 17:20 01/30/23 17:20 Labs: Laboratory Results - last 48 hr 01/31/23 02/01/23 02/01/23 12:50 08:04 12:24 POC Glucose 145 H 281 H Estimat Average Glucose 183 Hemoglobin A1c % 8.0 H Triglycerides 235 H Cholesterol 193 LDL Cholesterol, Calc 105 H HDL Cholesterol 41 TSH 3.11 Free T4 1.16 02/01/23 02/01/23 02/02/23 17:03 21:25 08:01 POC Glucose 182 H 167 H 175 H Estimat Average Glucose Hemoglobin A1c % Triglycerides Cholesterol LDL Cholesterol, Calc HDL Cholesterol TSH Free T4 02/02/23 12:46 POC Glucose 193 H Estimat Average Glucose Hemoglobin A1c % Triglycerides Cholesterol LDL Cholesterol, Calc HDL Cholesterol TSH Free T4 Medications Medications Current Medications Acetaminophen (Acetaminophen 325 Mg Tablet) 650 mg PO Q6H PRN PRN Reason: Headache/Pain Mild Scale (1-3) Al Hydroxide/Mg Hydroxide (Magnesium Hydrox/Alum Hydrox 30 Ml Oral.Susp) 30 ml PO Q6H PRN PRN Reason: Heartburn/Nausea Clonidine HCl (Clonidine Hcl 0.1 Mg Tablet) 0.1 mg PO BID PRN; Protocol PRN Reason: anxiety Last Admin: 02/01/23 14:19 Dose: 0.1 mg Cyclobenzaprine HCl (Cyclobenzaprine Hcl 5 Mg Tablet) 5 mg PO TID PRN PRN Reason: muscle spasm Last Admin: 02/01/23 19:13 Dose: 5 mg Dextrose (Dextrose 50 % 25 Gm/50 Ml Syringe) 25 gm IVPUSH Q15M PRN; Protocol PRN Reason: per Hypoglycemia Standing Ord. Doxepin HCl (Doxepin Hcl 25 Mg Capsule) [address] [facility] Last Admin: 02/01/23 19:13 Dose: 150 mg Gabapentin (Gabapentin 100 Mg Capsule) [address] [facility] Last Admin: 02/02/23 08:45 Dose: 200 mg Glucose (Glucose Gel 15 Gm Gel..Gram.) 15 gm PO Q15M PRN; Protocol PRN Reason: per Hypoglycemia Standing Ord. Lisinopril (Lisinopril 10 Mg Tablet) [address] [facility]; Protocol Last Admin: 02/02/23 08:44 Dose: 10 mg Magnesium Hydroxide (Milk Of Magnesia 30 Ml Oral.Susp) 30 ml PO DAILY PRN PRN Reason: Constipation Metformin HCl (Metformin Hcl 1,000 Mg Tablet) 1,[address] [facility] Last Admin: 02/02/23 08:45 Dose: 1,000 mg Methadone HCl (Methadone Hcl 20 Mg/2 Ml Oral.Conc) [address] [facility] Last Admin: 02/02/23 08:44 Dose: 125 mg Metronidazole (Metronidazole 500 Mg Tablet) [address] [facility] Stop: 02/09/23 22:00 Last Admin: 02/02/23 11:01 Dose: 500 mg Nicotine Polacrilex (Nicotine Polacrilex 2 Mg Gum) 4 mg BUCCAL Q2H PRN PRN Reason: Nicotine Cravings Olanzapine (Olanzapine 5 Mg Tablet) 5 mg PO TID PRN PRN Reason: agitation Last Admin: 02/01/23 19:13 Dose: 5 mg Trazodone HCl (Trazodone Hcl 50 Mg Tablet) 50 mg PO BEDTIME MRX1 PRN PRN Reason: Insomnia Last Admin: 02/02/23 00:42 Dose: 50 mg Allergies Allergies Allergy/AdvReac Type Severity Reaction Status Date / Time No Known Allergies Allergy Verified 01/26/23 13:46 Assessment & Plan Assessment & Plan (1) Bipolar disorder with psychotic features: Status: Acute Code(s): F31.9 - Bipolar disorder, unspecified (2) Opioid use disorder, severe, on maintenance therapy: Status: Acute Code(s): F11.20 - Opioid dependence, uncomplicated Plan 62 yo female, hx of opiate use disorder, currently on high dose methadone and possible bipolar disorder presents from community with psychosis, disorganization, ? steve. Plan: Collateral contact Diagnostics Re-establish regime and assess needs Aftercare planning 02/02/23 -Increase Gabapentin to 400 mg tid from 200 mg tid, pt's home dosage -DC Olanzapine- due to elevated blood sugar -Risperdal 0.5 mg bid as pt remains disorganized with paranoia -Risperdal 0.5 mg bid prn -Hold Klonopin (0.5 mg daily prn, 7 day supply given early 2022) -Hold Cymbalta (given 10 days in Dec 2022). -Sliding scale insulin correction scale -Continue to monitor-pt may need a change from Doxepin to a stronger mood stabilizer, however she needs time to re-establish home dosing. Team from [facility] scheduled to visit pt today. Informed Consent: further education needed Reason for continued inpatient stay Substantial Risk for: rapid decompensation Time Spent With Patient Time: Total time managing care of this patient today ____ minutes.
[2023-02-02] MEDS: Gabapentin 400 MG CAPSULE PO ×2 (15:38→20:03)
[2023-02-02] MEDS: Cyclobenzaprine HCl 5 MG TABLET PO ×2 (15:38→23:08)
[2023-02-02] MEDS: Acetaminophen 325 MG TABLET 650 MG PO (15:39)
[2023-02-02 17:19] VITALS: BP 150/71; PULSE 77; RESP 16; TEMP 36; O2SAT 96
[2023-02-02 17:41] LABS: Glucose, Whole Blood 166 mg/dL (60-115)
[2023-02-02] MEDS: Insulin Lispro 100 UNIT/ML 3 ML VIAL SUBCUT (17:59)
[2023-02-02 20:01] LABS: Glucose, Whole Blood 129 mg/dL (60-115)
[2023-02-02] MEDS: Doxepin HCl 25 MG CAPSULE 150 MG PO (20:03)
[2023-02-02] MEDS: risperiDONE 0.5 MG TABLET PO (21:47)
[2023-02-03 08:18] LABS: Glucose, Whole Blood 140 mg/dL (60-115)
[2023-02-03 08:30] VITALS: BP 142/69; PULSE 101; RESP 16; TEMP 36.1; O2SAT 95
[2023-02-03] MEDS: risperiDONE 0.5 MG TABLET PO ×2 (08:38→19:30)
[2023-02-03] MEDS: lisinopriL 10 MG TABLET PO (08:38)
[2023-02-03] MEDS: methADONE HCl 20 MG/2 ML ORAL.CONC 125 MG PO (08:38)
[2023-02-03] MEDS: metFORMIN HCl 1,000 MG TABLET 1000 MG PO ×2 (08:38→19:29)
[2023-02-03] MEDS: Gabapentin 400 MG CAPSULE PO ×3 (08:38→19:30)
--- NOTE | 2023-02-03 09:45 | HO.PSYCHPN ---
Subjective Subjective Date of Service: 02/03/23 Reason For Visit: Dysregulated Interim History: With patient; discussed with team; reviewed notes pt remains pleasant and confused; randomly bouncing from topic to topic, talking about her son's addiction, talking about her childhood. Mental Status Exam Mental Status Exam Narrative: Pt is alert and oriented; behavior is a little disorganized but cooperative, friendly and calm; patient is not in distress; dressed in hospital attire with adequate hygiene; mood is described as good and affect congruent; eye contact appropriate; Speech is a little verbose, mildly pressured but normal volume and prosody; no psychomotor agitation/retardation present; thought process can be linear and goal directed when asked specific question but is soon disorganized, talking about random unrelated topics; Thought content is random personal life topics; no delusional, paranoid ideations expressed; denies any SI/HI. There is no evidence of perceptual disturbance. Patients insight and judgment impaired Diagnostics Vital Signs (24Hr): Vital Signs - 24 hr 02/02/23 17:19 02/03/23 08:30 Temperature 96.8 F 97.0 F Pulse Rate 77 101 H Respiratory Rate 16 16 Blood Pressure 150/71 H 142/69 H Pulse Oximetry 96 95 Oxygen Delivery Method Room Air Room Air BMI result Body Mass Index 30.2 Labs 01/30/23 17:20 01/30/23 17:20 Labs: Laboratory Results - last 48 hr 02/01/23 02/01/23 02/01/23 12:24 17:03 21:25 POC Glucose 281 H 182 H 167 H 02/02/23 02/02/23 02/02/23 08:01 12:46 17:28 POC Glucose 175 H 193 H 166 H 02/02/23 02/03/23 19:57 08:13 POC Glucose 129 H 140 H Medications Medications Current Medications Acetaminophen (Acetaminophen 325 Mg Tablet) 650 mg PO Q6H PRN PRN Reason: Headache/Pain Mild Scale (1-3) Last Admin: 02/02/23 15:39 Dose: 325 mg Al Hydroxide/Mg Hydroxide (Magnesium Hydrox/Alum Hydrox 30 Ml Oral.Susp) 30 ml PO Q6H PRN PRN Reason: Heartburn/Nausea Clonidine HCl (Clonidine Hcl 0.1 Mg Tablet) 0.1 mg PO BID PRN; Protocol PRN Reason: anxiety Last Admin: 02/01/23 14:19 Dose: 0.1 mg Cyclobenzaprine HCl (Cyclobenzaprine Hcl 5 Mg Tablet) 5 mg PO TID PRN PRN Reason: muscle spasm Last Admin: 02/02/23 23:08 Dose: 5 mg Dextrose (Dextrose 50 % 25 Gm/50 Ml Syringe) 25 gm IVPUSH Q15M PRN; Protocol PRN Reason: per Hypoglycemia Standing Ord. Doxepin HCl (Doxepin Hcl 25 Mg Capsule) 150 mg PO BEDTIME [facility] Last Admin: 02/02/23 20:03 Dose: 150 mg Gabapentin (Gabapentin 400 Mg Capsule) 400 mg PO TID [facility] Last Admin: 02/03/23 08:38 Dose: 400 mg Glucose (Glucose Gel 15 Gm Gel..Gram.) 15 gm PO Q15M PRN; Protocol PRN Reason: per Hypoglycemia Standing Ord. Insulin Human Lispro (Insulin Lispro 100 Unit/Ml 3 Ml Vial) 0 unit SUBCUT QIDACHS [facility]; Protocol Last Admin: 02/03/23 08:28 Dose: Not Given Lisinopril (Lisinopril 10 Mg Tablet) 10 mg PO DAILY [facility]; Protocol Last Admin: 02/03/23 08:38 Dose: 10 mg Magnesium Hydroxide (Milk Of Magnesia 30 Ml Oral.Susp) 30 ml PO DAILY PRN PRN Reason: Constipation Metformin HCl (Metformin Hcl 1,000 Mg Tablet) 1,000 mg PO BID [facility] Last Admin: 02/03/23 08:38 Dose: 1,000 mg Methadone HCl (Methadone Hcl 20 Mg/2 Ml Oral.Conc) 125 mg PO DAILY [facility] Last Admin: 02/03/23 08:38 Dose: 125 mg Metronidazole (Metronidazole 500 Mg Tablet) 500 mg PO Q12H [facility] Stop: 02/09/23 22:00 Last Admin: 02/02/23 21:56 Dose: 500 mg Nicotine Polacrilex (Nicotine Polacrilex 2 Mg Gum) 4 mg BUCCAL Q2H PRN PRN Reason: Nicotine Cravings Risperidone (Risperidone 0.5 Mg Tablet) 0.5 mg PO BID [facility] Last Admin: 02/03/23 08:38 Dose: 0.5 mg Risperidone (Risperidone 0.5 Mg Tablet) 0.5 mg PO BID PRN PRN Reason: agitation,psychosis Trazodone HCl (Trazodone Hcl 50 Mg Tablet) 50 mg PO BEDTIME MRX1 PRN PRN Reason: Insomnia Last Admin: 02/02/23 23:14 Dose: 25 mg Allergies Allergies Allergy/AdvReac Type Severity Reaction Status Date / Time No Known Allergies Allergy Verified 01/26/23 13:46 Assessment & Plan Assessment & Plan (1) Bipolar disorder with psychotic features: Status: Acute Code(s): F31.9 - Bipolar disorder, unspecified (2) Opioid use disorder, severe, on maintenance therapy: Status: Acute Code(s): F11.20 - Opioid dependence, uncomplicated Plan 62 yo female, hx of opiate use disorder, currently on high dose methadone and possible bipolar disorder presents from community with psychosis, disorganization, ? steve. Plan: Collateral contact Diagnostics Re-establish regime and assess needs Aftercare planning 02/02/23 -Increase Gabapentin to 400 mg tid from 200 mg tid, pt's home dosage -DC Olanzapine- due to elevated blood sugar -Risperdal 0.5 mg bid as pt remains disorganized with paranoia -Risperdal 0.5 mg bid prn -Hold Klonopin (0.5 mg daily prn, 7 day supply given early 2022) -Hold Cymbalta (given 10 days in Dec 2022). -Sliding scale insulin correction scale -Continue to monitor-pt may need a change from Doxepin to a stronger mood stabilizer, however she needs time to re-establish home dosing. Team from [facility] scheduled to visit pt today. 02/03/2023 continue current treatment plan Patient educated on: diagnosis Informed Consent: does not understand Reason for continued inpatient stay Substantial Risk for: inability to function Time Spent With Patient Time: Total time managing care of this patient today ____ minutes.
[2023-02-03] MEDS: metroNIDAZOLE 500 MG TABLET PO (12:07)
[2023-02-03 12:30] LABS: Glucose, Whole Blood 146 mg/dL (60-115)
[2023-02-03 17:52] LABS: Glucose, Whole Blood 177 mg/dL (60-115)
[2023-02-03 18:00] VITALS: BP 135/65; PULSE 81; TEMP 36.2; O2SAT 95
[2023-02-03] MEDS: Insulin Lispro 100 UNIT/ML 3 ML VIAL SUBCUT (18:11)
[2023-02-03 19:22] LABS: Glucose, Whole Blood 96 mg/dL (60-115)
[2023-02-03] MEDS: Doxepin HCl 25 MG CAPSULE 150 MG PO (19:30)
[2023-02-03] MEDS: cloNIDine HCL 0.1 MG TABLET PO (19:34)
[2023-02-03 21:25] LABS: Glucose, Whole Blood 137 mg/dL (60-115)
[2023-02-04 08:20] LABS: Glucose, Whole Blood 212 mg/dL (60-115)
[2023-02-04 08:25] VITALS: BP 119/58; PULSE 97; RESP 18; TEMP 36.1; O2SAT 96
[2023-02-04] MEDS: Gabapentin 400 MG CAPSULE PO ×3 (08:33→19:44)
[2023-02-04] MEDS: risperiDONE 0.5 MG TABLET PO ×2 (08:33→19:45)
[2023-02-04] MEDS: metFORMIN HCl 1,000 MG TABLET 1000 MG PO ×2 (08:33→19:45)
[2023-02-04] MEDS: lisinopriL 10 MG TABLET PO (08:33)
[2023-02-04] MEDS: methADONE HCl 20 MG/2 ML ORAL.CONC 125 MG PO (08:36)
[2023-02-04] MEDS: metroNIDAZOLE 500 MG TABLET PO (08:53)
[2023-02-04] MEDS: Insulin Lispro 100 UNIT/ML 3 ML VIAL SUBCUT (08:53)
--- NOTE | 2023-02-04 09:53 | HO.PSYCHPN ---
Subjective Subjective Date of Service: 02/04/23 Reason For Visit: Dysregulated Interim History: Met with patient; discussed with team No?change?in?Presentation.??Patient?is?still?confused.??She?remains?pleasant?and?cooperative.??Patient?asked Geothermal Hvac Technician?for?clonazepam?which?she?said?helped.??However?food writer?can?not?find?order?for?it?and?given?her Confusion?this?does?not?seem?an?appropriate?addition?to?her?regimen Mental Status Exam Mental Status Exam Narrative: Pt is alert and oriented; behavior is a little disorganized but cooperative, friendly and calm; patient is not in distress; dressed in hospital attire with adequate hygiene; mood is described as good and affect congruent; eye contact appropriate; Speech is a little verbose, mildly pressured but normal volume and prosody; no psychomotor agitation/retardation present; thought process can be linear and goal directed when asked specific question but is soon disorganized, talking about random unrelated topics; Thought content is random personal life topics; no delusional, paranoid ideations expressed; denies any SI/HI. There is no evidence of perceptual disturbance. Patients insight and judgment impaired Diagnostics Vital Signs (24Hr): Vital Signs - 24 hr 02/03/23 18:00 02/04/23 08:25 Temperature 97.1 F 97.0 F Pulse Rate 81 97 Respiratory Rate 18 Blood Pressure 135/65 119/58 L Pulse Oximetry 95 96 Oxygen Delivery Method Room Air Room Air BMI result Body Mass Index 30.2 Labs 01/30/23 17:20 01/30/23 17:20 Labs: Laboratory Results - last 48 hr 02/02/23 02/02/23 02/02/23 12:46 17:28 19:57 POC Glucose 193 H 166 H 129 H 02/03/23 02/03/23 02/03/23 08:13 12:22 17:48 POC Glucose 140 H 146 H 177 H 02/03/23 02/03/23 02/04/23 19:17 21:21 08:16 POC Glucose 96 137 H 212 H Medications Medications Current Medications Acetaminophen (Acetaminophen 325 Mg Tablet) 650 mg PO Q6H PRN PRN Reason: Headache/Pain Mild Scale (1-3) Last Admin: 02/02/23 15:39 Dose: 325 mg Al Hydroxide/Mg Hydroxide (Magnesium Hydrox/Alum Hydrox 30 Ml Oral.Susp) 30 ml PO Q6H PRN PRN Reason: Heartburn/Nausea Clonidine HCl (Clonidine Hcl 0.1 Mg Tablet) 0.1 mg PO BID PRN; Protocol PRN Reason: anxiety Last Admin: 02/03/23 19:34 Dose: 0.1 mg Cyclobenzaprine HCl (Cyclobenzaprine Hcl 5 Mg Tablet) 5 mg PO TID PRN PRN Reason: muscle spasm Last Admin: 02/02/23 23:08 Dose: 5 mg Dextrose (Dextrose 50 % 25 Gm/50 Ml Syringe) 25 gm IVPUSH Q15M PRN; Protocol PRN Reason: per Hypoglycemia Standing Ord. Doxepin HCl (Doxepin Hcl 25 Mg Capsule) 150 mg PO BEDTIME [facility] Last Admin: 02/03/23 19:30 Dose: 150 mg Gabapentin (Gabapentin 400 Mg Capsule) 400 mg PO TID [facility] Last Admin: 02/04/23 08:33 Dose: 400 mg Glucose (Glucose Gel 15 Gm Gel..Gram.) 15 gm PO Q15M PRN; Protocol PRN Reason: per Hypoglycemia Standing Ord. Insulin Human Lispro (Insulin Lispro 100 Unit/Ml 3 Ml Vial) 0 unit SUBCUT QIDACHS [facility]; Protocol Last Admin: 02/04/23 08:53 Dose: 4 unit Lisinopril (Lisinopril 10 Mg Tablet) 10 mg PO DAILY [facility]; Protocol Last Admin: 02/04/23 08:33 Dose: 10 mg Magnesium Hydroxide (Milk Of Magnesia 30 Ml Oral.Susp) 30 ml PO DAILY PRN PRN Reason: Constipation Metformin HCl (Metformin Hcl 1,000 Mg Tablet) 1,000 mg PO BID [facility] Last Admin: 02/04/23 08:33 Dose: 1,000 mg Methadone HCl (Methadone Hcl 20 Mg/2 Ml Oral.Conc) 125 mg PO DAILY [facility] Last Admin: 02/04/23 08:36 Dose: 125 mg Metronidazole (Metronidazole 500 Mg Tablet) 500 mg PO Q12H [facility] Stop: 02/09/23 22:00 Last Admin: 02/04/23 08:53 Dose: 500 mg Nicotine Polacrilex (Nicotine Polacrilex 2 Mg Gum) 4 mg BUCCAL Q2H PRN PRN Reason: Nicotine Cravings Risperidone (Risperidone 0.5 Mg Tablet) 0.5 mg PO BID [facility] Last Admin: 02/04/23 08:33 Dose: 0.5 mg Risperidone (Risperidone 0.5 Mg Tablet) 0.5 mg PO BID PRN PRN Reason: agitation,psychosis Trazodone HCl (Trazodone Hcl 50 Mg Tablet) 50 mg PO BEDTIME MRX1 PRN PRN Reason: Insomnia Last Admin: 02/02/23 23:14 Dose: 25 mg Allergies Allergies Allergy/AdvReac Type Severity Reaction Status Date / Time No Known Allergies Allergy Verified 01/26/23 13:46 Assessment & Plan Assessment & Plan (1) Bipolar disorder with psychotic features: Status: Acute Code(s): F31.9 - Bipolar disorder, unspecified (2) Opioid use disorder, severe, on maintenance therapy: Status: Acute Code(s): F11.20 - Opioid dependence, uncomplicated Plan 62 yo female, hx of opiate use disorder, currently on high dose methadone and possible bipolar disorder presents from community with psychosis, disorganization, ? steve. Plan: Collateral contact Diagnostics Re-establish regime and assess needs Aftercare planning 02/02/23 -Increase Gabapentin to 400 mg tid from 200 mg tid, pt's home dosage -DC Olanzapine- due to elevated blood sugar -Risperdal 0.5 mg bid as pt remains disorganized with paranoia -Risperdal 0.5 mg bid prn -Hold Klonopin (0.5 mg daily prn, 7 day supply given early 2022) -Hold Cymbalta (given 10 days in Dec 2022). -Sliding scale insulin correction scale -Continue to monitor-pt may need a change from Doxepin to a stronger mood stabilizer, however she needs time to re-establish home dosing. [facility]. 02/03/2023 continue current treatment plan 02/04?continue?current?treatment?plan Patient educated on: diagnosis and medication risk/benefits Informed Consent: does not understand Reason for continued inpatient stay Substantial Risk for: inability to function Time Spent With Patient Time: Total time managing care of this patient today ____ minutes.
[2023-02-04 12:48] LABS: Glucose, Whole Blood 150 mg/dL (60-115)
[2023-02-04] MEDS: Nicotine Polacrilex 2 MG GUM 4 MG BUCCAL (15:51)
[2023-02-04 17:39] VITALS: BP 129/72; PULSE 83; RESP 18; TEMP 35.9; O2SAT 98
[2023-02-04 17:50] LABS: Glucose, Whole Blood 127 mg/dL (60-115)
[2023-02-04 19:39] LABS: Glucose, Whole Blood 135 mg/dL (60-115)
[2023-02-04] MEDS: Doxepin HCl 25 MG CAPSULE 150 MG PO (19:45)
[2023-02-04] MEDS: traZODone HCL 50 MG TABLET PO (19:46)
[2023-02-05 07:52] LABS: Glucose, Whole Blood 192 mg/dL (60-115)
[2023-02-05 07:56] VITALS: BP 127/62; PULSE 89; RESP 16; TEMP 36.1; O2SAT 97
[2023-02-05] MEDS: methADONE HCl 20 MG/2 ML ORAL.CONC 125 MG PO (08:21)
[2023-02-05] MEDS: Gabapentin 400 MG CAPSULE PO ×3 (08:25→20:07)
[2023-02-05] MEDS: metFORMIN HCl 1,000 MG TABLET 1000 MG PO ×2 (08:25→20:07)
[2023-02-05] MEDS: risperiDONE 0.5 MG TABLET PO ×2 (08:26→20:07)
[2023-02-05] MEDS: lisinopriL 10 MG TABLET PO (08:28)
[2023-02-05] MEDS: Insulin Lispro 100 UNIT/ML 3 ML VIAL SUBCUT ×3 (09:12→20:34)
[2023-02-05 10:07] LABS: Glucose, Whole Blood 243 mg/dL (60-115)
[2023-02-05 11:08] LABS: Creatinine Clr Calc Pharmacy 56.4; Estimated Glomerular Filt Rate > 60
[2023-02-05 12:25] LABS: Glucose, Whole Blood 130 mg/dL (60-115)
--- NOTE | 2023-02-05 14:35 | HO.PSYCHPN ---
Subjective Subjective Date of Service: 02/05/23 Reason For Visit: Dysregulated Subjective Notes: Conditional Voluntary Healthcare Proxy: No Guardianship: No Medical Problems Affecting Mental Status: No Interim History: Team reports minimal change in mental status clarity over the weekend. Accepting Risperdal, low dose, without SE and with tolerance. Refused to continue Flagyl for yeast infection, so we have discontinued this. Met with pt, you know, the problem is I cannot multi-task . 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 I sleep good . The diabetes is up and down, I cannot control it and the menus here are confusing. Finds the milieu supportive, overstimulating at times. We await input from her out pt team with [facility] to further assess a baseline. Discussed further diagnostics with pt, she declines at this time. Later in the day, she approached this senior technical writer and approved of diagnostics if we wanted to proceed. Medication Compliance: Yes Side effects from medications: No Attending Groups: Intermittent Review of Systems Acute medical concerns: No Medical Review of Systems: unchanged Review of Systems Musculoskeletal: Reports abnormal gait and Reports myalgias Reports abnormal gait Mental Status Exam Mental Status Exam Patient Appearance: Fatigued Patient Orientation: Person and Place Level of Consciousness: Alert Patient Behavior: Talkative, Cooperative, Passive, Anxious, Fatigued, Distractible, Confused and Good Eye Contact Mood Description: Anxious and Sad Affect Description: Flat Patient Cognition Impaired: Yes Ability to Follow Directions: Fair Speech Pattern: Perseverating, Spontaneous Speech and Soft-Spoken Memory Description: Remote Impaired Hallucinations: None (denies) Delusions: Present Perceptual Disturbances: Depersonalization and Derealization Thought Process: Distracted, Rumination and Confusion Thought Content: positive for Flight of Ideas, positive for Obsessional Thoughts, positive for Perseveration, positive for Preoccupation, positive for Loose Associations, positive for Tangential and positive for Suicidal Ideation (denies) Depressive Symptoms: Increased Anxiety, Diff. Making Decisions, Loss of Int. in Activity, Unhappiness, Increased Fatigue, Thoughts of /Suicide (denies), Loss of Energy, Difficulty Concentrating and Back Pain Judgement: Poor Diagnostics Vital Signs (24Hr): Vital Signs - 24 hr 02/04/23 17:39 02/05/23 07:56 Temperature 96.7 F L 96.9 F Pulse Rate 83 89 Respiratory Rate 18 16 Blood Pressure 129/72 127/62 Pulse Oximetry 98 97 Oxygen Delivery Method Room Air Room Air BMI result Body Mass Index 30.2 Labs 01/30/23 17:20 02/05/23 08:03 Labs: Laboratory Results - last 48 hr 02/03/23 02/03/23 02/03/23 17:48 19:17 21:21 Creatinine Estim Creat Clear Calc Estimated GFR POC Glucose 177 H 96 137 H 02/04/23 02/04/23 02/04/23 08:16 12:43 17:44 Creatinine Estim Creat Clear Calc Estimated GFR POC Glucose 212 H 150 H 127 H 02/04/23 02/05/23 02/05/23 19:34 07:47 08:03 Creatinine 0.89 Estim Creat Clear Calc 56.4 Estimated GFR > 60 POC Glucose 135 H 192 H 02/05/23 02/05/23 10:02 12:21 Creatinine Estim Creat Clear Calc Estimated GFR POC Glucose 243 H 130 H Medications Medications Current Medications Acetaminophen (Acetaminophen 325 Mg Tablet) 650 mg PO Q6H PRN PRN Reason: Headache/Pain Mild Scale (1-3) Last Admin: 02/02/23 15:39 Dose: 325 mg Al Hydroxide/Mg Hydroxide (Magnesium Hydrox/Alum Hydrox 30 Ml Oral.Susp) 30 ml PO Q6H PRN PRN Reason: Heartburn/Nausea Clonidine HCl (Clonidine Hcl 0.1 Mg Tablet) 0.1 mg PO BID PRN; Protocol PRN Reason: anxiety Last Admin: 02/03/23 19:34 Dose: 0.1 mg Cyclobenzaprine HCl (Cyclobenzaprine Hcl 5 Mg Tablet) 5 mg PO TID PRN PRN Reason: muscle spasm Last Admin: 02/02/23 23:08 Dose: 5 mg Dextrose (Dextrose 50 % 25 Gm/50 Ml Syringe) 25 gm IVPUSH Q15M PRN; Protocol PRN Reason: per Hypoglycemia Standing Ord. Doxepin HCl (Doxepin Hcl 25 Mg Capsule) 150 mg PO BEDTIME [facility] Last Admin: 02/04/23 19:45 Dose: 150 mg Gabapentin (Gabapentin 400 Mg Capsule) 400 mg PO TID [facility] Last Admin: 02/05/23 08:25 Dose: 400 mg Glucose (Glucose Gel 15 Gm Gel..Gram.) 15 gm PO Q15M PRN; Protocol PRN Reason: per Hypoglycemia Standing Ord. Insulin Human Lispro (Insulin Lispro 100 Unit/Ml 3 Ml Vial) 0 unit SUBCUT QIDACHS [facility]; Protocol Last Admin: 02/05/23 13:02 Dose: Not Given Lisinopril (Lisinopril 10 Mg Tablet) 10 mg PO DAILY [facility]; Protocol Last Admin: 02/05/23 08:28 Dose: 10 mg Magnesium Hydroxide (Milk Of Magnesia 30 Ml Oral.Susp) 30 ml PO DAILY PRN PRN Reason: Constipation Metformin HCl (Metformin Hcl 1,000 Mg Tablet) 1,000 mg PO BID [facility] Last Admin: 02/05/23 08:25 Dose: 1,000 mg Methadone HCl (Methadone Hcl 20 Mg/2 Ml Oral.Conc) 125 mg PO DAILY [facility] Last Admin: 02/05/23 08:21 Dose: 125 mg Metronidazole (Metronidazole 500 Mg Tablet) 500 mg PO Q12H [facility] Stop: 02/09/23 22:00 Last Admin: 02/05/23 09:16 Dose: Not Given Nicotine Polacrilex (Nicotine Polacrilex Lozenge 4 Mg Lozenge) 4 mg BUCCAL Q2H PRN PRN Reason: Nicotine Cravings Risperidone (Risperidone 0.5 Mg Tablet) 0.5 mg PO BID [facility] Last Admin: 02/05/23 08:26 Dose: 0.5 mg Risperidone (Risperidone 0.5 Mg Tablet) 0.5 mg PO BID PRN PRN Reason: agitation,psychosis Trazodone HCl (Trazodone Hcl 50 Mg Tablet) 50 mg PO BEDTIME MRX1 PRN PRN Reason: Insomnia Last Admin: 02/04/23 19:46 Dose: 50 mg Allergies Allergies Allergy/AdvReac Type Severity Reaction Status Date / Time No Known Allergies Allergy Verified 01/26/23 13:46 Assessment & Plan Assessment & Plan (1) Bipolar disorder with psychotic features: Status: Acute Code(s): F31.9 - Bipolar disorder, unspecified (2) Opioid use disorder, severe, on maintenance therapy: Status: Acute Code(s): F11.20 - Opioid dependence, uncomplicated Plan 62 yo female, hx of opiate use disorder, currently on high dose methadone and possible bipolar disorder presents from community with psychosis, disorganization, ? steve. Plan: Collateral contact Diagnostics Re-establish regime and assess needs Aftercare planning 02/02/23 -Increase Gabapentin to 400 mg tid from 200 mg tid, pt's home dosage -DC Olanzapine- due to elevated blood sugar -Risperdal 0.5 mg bid as pt remains disorganized with paranoia -Risperdal 0.5 mg bid prn -Hold Klonopin (0.5 mg daily prn, 7 day supply given early 2022) -Hold Cymbalta (given 10 days in Dec 2022). -Sliding scale insulin correction scale -Continue to monitor-pt may need a change from Doxepin to a stronger mood stabilizer, however she needs time to re-establish home dosing. Team from [facility] scheduled to visit pt today. 02/03/2023 continue current treatment plan 02/04?continue?current?treatment?plan 02/05- Team reports no real change with Risperdal over the weekend. Will proceed with dementia work up B12,Folate, ESR, CRP, HIV, RPR, EEG, CAT Discontinue Flaggyl-pt refusing Patient educated on: medication risk/benefits and therapeutic strategies Informed Consent: does not understand Reason for continued inpatient stay Substantial Risk for: rapid decompensation Time Spent With Patient Time: Total time managing care of this patient today ____ minutes.
[2023-02-05 14:44] LABS: Glucose, Whole Blood 187 mg/dL (60-115)
[2023-02-05 16:53] LABS: Glucose, Whole Blood 178 mg/dL (60-115)
[2023-02-05 20:06] VITALS: BP 133/60; PULSE 83; RESP 18; TEMP 37
[2023-02-05] MEDS: Doxepin HCl 25 MG CAPSULE 150 MG PO (20:07)
[2023-02-05] MEDS: traZODone HCL 50 MG TABLET PO (20:07)
[2023-02-05 20:30] LABS: Glucose, Whole Blood 173 mg/dL (60-115)
[2023-02-05] MEDS: Nicotine Polacrilex Lozenge 4 MG LOZENGE BUCCAL (20:41)
[2023-02-05] MEDS: Cyclobenzaprine HCl 5 MG TABLET PO (20:42)
[2023-02-06] MEDS: Nicotine Polacrilex Lozenge 4 MG LOZENGE BUCCAL ×2 (00:15→16:58)
[2023-02-06 08:45] VITALS: BP 156/112; PULSE 103; RESP 16; TEMP 36.1; O2SAT 94
[2023-02-06 08:46] LABS: Glucose, Whole Blood 164 mg/dL (60-115)
[2023-02-06] MEDS: risperiDONE 0.5 MG TABLET PO ×3 (08:51→22:26)
[2023-02-06] MEDS: Gabapentin 400 MG CAPSULE PO ×3 (08:52→19:16)
[2023-02-06] MEDS: lisinopriL 10 MG TABLET PO (08:52)
[2023-02-06] MEDS: methADONE HCl 20 MG/2 ML ORAL.CONC 125 MG PO (08:52)
[2023-02-06] MEDS: metFORMIN HCl 1,000 MG TABLET 1000 MG PO (08:52)
[2023-02-06] MEDS: Insulin Lispro 100 UNIT/ML 3 ML VIAL SUBCUT (08:58)
[2023-02-06 09:30] LABS: C Reactive Protein 1.15 mg/dL (< or = 0.50)
[2023-02-06 09:49] LABS: HIV AB/AG Nonreactive (Nonreactive); HIV Num 1 0.05 S/CO (0.00-0.99)
[2023-02-06 09:51] LABS: Erythrocyte Sedimentation Rate 39 MM/HR (0-20)
[2023-02-06 09:52] LABS: Syphilis Screen Nonreactive (Nonreactive)
[2023-02-06 10:04] LABS: Folate 13.1 ng/mL (> or = 4.0); Vitamin B12 451 pg/mL (200-900)
[2023-02-06] MEDS: cloNIDine HCL 0.1 MG TABLET PO ×2 (10:25→19:16)
[2023-02-06] MEDS: Cyclobenzaprine HCl 5 MG TABLET PO (10:25)
[2023-02-06 12:23] LABS: Glucose, Whole Blood 151 mg/dL (60-115)
--- NOTE | 2023-02-06 14:42 | PC.NURSE ---
Pt engaged in [facility] screen on this date, scored 15/30, indicating moderate cognitive impairment, ACTUARIAL DIRECTOR and nursing aware
--- NOTE | 2023-02-06 15:58 | P.PNPSI_ITS ---
Subjective Subjective Date of Service: 02/06/23 Reason For Visit: Dysregulated Subjective Notes: Conditional Voluntary Healthcare Proxy: No Guardianship: No Medical Problems Affecting Mental Status: No Interim History: Lamar is cooperative with MCI/Dementia evaluation. Reports she enjoyed her CAT Scan as the steamer blocker who assisted her was a great business functional analyst for me. She is calmer, however remains with confusion. Team has talked with her housing team at [facility] and they report prior to admission pt was appearing agitated, confused, pacing, sexually preoccupied. Message left for Jamia England APRN of [facility] to discuss her thoughts on pt's level of functioning. MOCA completed. Pt scored . Medication Compliance: Intermittent Side effects from medications: No Attending Groups: Intermittent Review of Systems Acute medical concerns: No Medical Review of Systems: unchanged Mental Status Exam Mental Status Exam Patient Appearance: Appropriate Patient Orientation: Person and Place Level of Consciousness: Alert Patient Behavior: Talkative, Cooperative, Passive, Anxious, Distractible, Confused and Good Eye Contact Mood Description: Anxious Affect Description: Flat Patient Cognition Impaired: Yes Ability to Follow Directions: Fair Speech Pattern: Perseverating, Spontaneous Speech and Soft-Spoken Memory Description: Remote Impaired Hallucinations: None (denies) Delusions: Present Perceptual Disturbances: Depersonalization and Derealization Thought Process: Distracted, Rumination and Confusion Thought Content: positive for Flight of Ideas, positive for Obsessional Thoughts, positive for Perseveration, positive for Preoccupation, positive for Loose Associations, positive for Tangential and positive for Suicidal Ideation (denies) Depressive Symptoms: Increased Anxiety, Diff. Making Decisions, Loss of Int. in Activity, Unhappiness, Increased Fatigue, Thoughts of /Suicide (denies), Loss of Energy, Difficulty Concentrating and Back Pain Abnormal Motor Activity Signs and Symptoms: Restlessness Judgement: Poor Diagnostics Vital Signs (24Hr): Vital Signs - 24 hr 02/05/23 20:06 02/06/23 08:45 Temperature 98.6 F 96.9 F Pulse Rate 83 103 H Respiratory Rate 18 16 Blood Pressure 133/60 156/112 H Pulse Oximetry 94 Oxygen Delivery Method Room Air BMI result Body Mass Index 30.2 Labs 01/30/23 17:20 02/05/23 08:03 Labs: Laboratory Results - last 48 hr 02/04/23 02/04/23 02/05/23 17:44 19:34 07:47 ESR Creatinine Estim Creat Clear Calc Estimated GFR POC Glucose 127 H 135 H 192 H C-Reactive Protein Vitamin B12 Folate T.pallidum Ab (EIA) HIV 1&2 Ab/P24 Ag 4thGn 02/05/23 02/05/23 02/05/23 08:03 10:02 12:21 ESR Creatinine 0.89 Estim Creat Clear Calc 56.4 Estimated GFR > 60 POC Glucose 243 H 130 H C-Reactive Protein Vitamin B12 Folate T.pallidum Ab (EIA) HIV 1&2 Ab/P24 Ag 4thGn 02/05/23 02/05/23 02/05/23 14:40 16:48 20:25 ESR Creatinine Estim Creat Clear Calc Estimated GFR POC Glucose 187 H 178 H 173 H C-Reactive Protein Vitamin B12 Folate T.pallidum Ab (EIA) HIV 1&2 Ab/P24 Ag 4thGn 02/06/23 02/06/23 02/06/23 08:23 08:41 12:12 ESR 39 H Creatinine Estim Creat Clear Calc Estimated GFR POC Glucose 164 H 151 H C-Reactive Protein 1.15 H Vitamin B12 451 Folate 13.1 T.pallidum Ab (EIA) Nonreactive HIV 1&2 Ab/P24 Ag 4thGn Nonreactive Imaging Radiology Impressions: ITS Impressions Head CT 02/06/23 11:17 IMPRESSION: No acute intracranial abnormality. No evidence of brain parenchymal volume loss. Medications Medications Current Medications Acetaminophen (Acetaminophen 325 Mg Tablet) 650 mg PO Q6H PRN PRN Reason: Headache/Pain Mild Scale (1-3) Last Admin: 02/02/23 15:39 Dose: 325 mg Al Hydroxide/Mg Hydroxide (Magnesium Hydrox/Alum Hydrox 30 Ml Oral.Susp) 30 ml PO Q6H PRN PRN Reason: Heartburn/Nausea Clonidine HCl (Clonidine Hcl 0.1 Mg Tablet) 0.1 mg PO BID PRN; Protocol PRN Reason: anxiety Last Admin: 02/06/23 10:25 Dose: 0.1 mg Cyclobenzaprine HCl (Cyclobenzaprine Hcl 5 Mg Tablet) 5 mg PO TID PRN PRN Reason: muscle spasm Last Admin: 02/06/23 10:25 Dose: 5 mg Dextrose (Dextrose 50 % 25 Gm/50 Ml Syringe) 25 gm IVPUSH Q15M PRN; Protocol PRN Reason: per Hypoglycemia Standing Ord. Doxepin HCl (Doxepin Hcl 25 Mg Capsule) 150 mg PO BEDTIME [facility] Last Admin: 02/05/23 20:07 Dose: 150 mg Gabapentin (Gabapentin 400 Mg Capsule) 400 mg PO TID [facility] Last Admin: 02/06/23 14:47 Dose: 400 mg Glucose (Glucose Gel 15 Gm Gel..Gram.) 15 gm PO Q15M PRN; Protocol PRN Reason: per Hypoglycemia Standing Ord. Insulin Human Lispro (Insulin Lispro 100 Unit/Ml 3 Ml Vial) 0 unit SUBCUT QIDACHS [facility]; Protocol Last Admin: 02/06/23 12:40 Dose: Not Given Lisinopril (Lisinopril 10 Mg Tablet) 10 mg PO DAILY [facility]; Protocol Last Admin: 02/06/23 08:52 Dose: 10 mg Magnesium Hydroxide (Milk Of Magnesia 30 Ml Oral.Susp) 30 ml PO DAILY PRN PRN Reason: Constipation Metformin HCl (Metformin Hcl 1,000 Mg Tablet) 1,000 mg PO BID [facility] Last Admin: 02/06/23 08:52 Dose: 1,000 mg Methadone HCl (Methadone Hcl 20 Mg/2 Ml Oral.Conc) 125 mg PO DAILY [facility] Last Admin: 02/06/23 08:52 Dose: 125 mg Nicotine Polacrilex (Nicotine Polacrilex Lozenge 4 Mg Lozenge) 4 mg BUCCAL Q2H PRN PRN Reason: Nicotine Cravings Last Admin: 02/06/23 00:15 Dose: 4 mg Risperidone (Risperidone 0.5 Mg Tablet) 0.5 mg PO BID [facility] Last Admin: 02/06/23 08:51 Dose: 0.5 mg Risperidone (Risperidone 0.5 Mg Tablet) 0.5 mg PO BID PRN PRN Reason: agitation,psychosis Trazodone HCl (Trazodone Hcl 50 Mg Tablet) 50 mg PO BEDTIME MRX1 PRN PRN Reason: Insomnia Last Admin: 02/05/23 20:07 Dose: 50 mg Allergies Allergies Allergy/AdvReac Type Severity Reaction Status Date / Time No Known Allergies Allergy Verified 01/26/23 13:46 Assessment & Plan Assessment & Plan (1) Bipolar disorder with psychotic features: Status: Acute Code(s): F31.9 - Bipolar disorder, unspecified (2) Opioid use disorder, severe, on maintenance therapy: Status: Acute Code(s): F11.20 - Opioid dependence, uncomplicated Plan 62 yo female, hx of opiate use disorder, currently on high dose methadone and possible bipolar disorder presents from community with psychosis, disorganization, ? steve. Plan: Collateral contact Diagnostics Re-establish regime and assess needs Aftercare planning 02/02/23 -Increase Gabapentin to 400 mg tid from 200 mg tid, pt's home dosage -DC Olanzapine- due to elevated blood sugar -Risperdal 0.5 mg bid as pt remains disorganized with paranoia -Risperdal 0.5 mg bid prn -Hold Klonopin (0.5 mg daily prn, 7 day supply given early 2022) -Hold Cymbalta (given 10 days in Dec 2022). -Sliding scale insulin correction scale -Continue to monitor-pt may need a change from Doxepin to a stronger mood stabilizer, however she needs time to re-establish home dosing. Team from [facility] scheduled to visit pt today. 02/03/2023 continue current treatment plan 02/04?continue?current?treatment?plan 02/05- Team reports no real change with Risperdal over the weekend. Will proceed with dementia work up B12,Folate, ESR, CRP, HIV, RPR, EEG, CAT Discontinue Flaggyl-pt refusing 02/06- Collateral contact attempted MOCA Continue current regime, plan, evaluation. Informed Consent: does not understand Reason for continued inpatient stay Substantial Risk for: med/psych decompensation Time Spent With Patient Time: Total time managing care of this patient today ____ minutes.
[2023-02-06 16:14] LABS: Glucose, Whole Blood 149 mg/dL (60-115)
[2023-02-06 18:00] VITALS: BP 120/70; PULSE 88; RESP 17; TEMP 36.2; O2SAT 98
[2023-02-06] MEDS: Doxepin HCl 25 MG CAPSULE 150 MG PO (19:16)
[2023-02-06] MEDS: traZODone HCL 50 MG TABLET PO ×3 (19:16→22:26)
[2023-02-07 08:00] VITALS: BP 145/64; PULSE 91; RESP 16; TEMP 36.1; O2SAT 98
[2023-02-07 08:25] LABS: Glucose, Whole Blood 140 mg/dL (60-115)
[2023-02-07] MEDS: methADONE HCl 20 MG/2 ML ORAL.CONC 125 MG PO (08:40)
[2023-02-07] MEDS: Gabapentin 400 MG CAPSULE PO ×3 (08:42→20:19)
[2023-02-07] MEDS: metFORMIN HCl 1,000 MG TABLET 1000 MG PO ×2 (08:42→20:19)
[2023-02-07] MEDS: lisinopriL 10 MG TABLET PO (08:42)
[2023-02-07] MEDS: risperiDONE 0.5 MG TABLET PO (08:43)
--- NOTE | 2023-02-07 09:00 | EEG_ITS ---
This is a 16-channel digital EEG with an EKG lead. The patient is reported somewhat uncooperative, constantly opening and closing eyes, and crawling during the tracing. Background EEG rhythm was medium amplitude mixed theta beta with no obvious or definite asymmetry or paroxysmal tendency. Frequent lead and muscle and eye opening closure artifacts were noted. Cardiac lead did not reveal any significant abnormality. Hyperventilation and photic stimulation were not performed as patient refused. IMPRESSION: No significant abnormality to suggest seizure disorder was noted on this EEG. Otherwise, this EEG was somewhat limited because of constant movement artifacts. If seizure disorder is strongly suspected ambulatory 24 or 48 hour EEG can be considered. MD JACQUELIN Moreno/CALEB / [id number]
[2023-02-07 12:26] LABS: Glucose, Whole Blood 153 mg/dL (60-115)
[2023-02-07] MEDS: Insulin Lispro 100 UNIT/ML 3 ML VIAL SUBCUT ×2 (13:22→20:18)
--- NOTE | 2023-02-07 14:54 | HO.PSYCHPN ---
Subjective Subjective Date of Service: 02/07/23 Reason For Visit: Dysregulated Subjective Notes: Conditional Voluntary Healthcare Proxy: No Guardianship: No Medical Problems Affecting Mental Status: No Interim History: Pleasant, confused, tangential, cooperative. EEG completed. Message left again with [facility] to discuss care with prescriber Jamia England APRN without return contact at this time. Intermittent sleep- Team reports 6 hours. ESR, CRP elevated. Medication Compliance: Intermittent Side effects from medications: No Attending Groups: Intermittent Review of Systems Acute medical concerns: No Medical Review of Systems: unchanged Mental Status Exam Mental Status Exam Patient Appearance: Appropriate Patient Orientation: Person and Place Level of Consciousness: Alert Patient Behavior: Talkative, Cooperative, Passive, Anxious, Distractible, Confused and Good Eye Contact Mood Description: Anxious Affect Description: Flat Patient Cognition Impaired: Yes Ability to Follow Directions: Fair Speech Pattern: Perseverating, Spontaneous Speech and Soft-Spoken Memory Description: Remote Impaired Hallucinations: None (denies) Delusions: Present Perceptual Disturbances: Depersonalization and Derealization Thought Process: Distracted, Rumination and Confusion Thought Content: positive for Flight of Ideas, positive for Obsessional Thoughts, positive for Perseveration, positive for Preoccupation, positive for Loose Associations, positive for Tangential and positive for Suicidal Ideation (denies) Depressive Symptoms: Increased Anxiety, Diff. Making Decisions, Loss of Int. in Activity, Unhappiness, Increased Fatigue, Thoughts of /Suicide (denies), Loss of Energy, Difficulty Concentrating and Back Pain Abnormal Motor Activity Signs and Symptoms: Restlessness Judgement: Poor Diagnostics Vital Signs (24Hr): Vital Signs - 24 hr 02/06/23 18:00 02/07/23 08:00 Temperature 97.2 F 97 F Pulse Rate 88 91 Respiratory Rate 17 16 Blood Pressure 120/70 145/64 H Pulse Oximetry 98 98 Oxygen Delivery Method Room Air BMI result Body Mass Index 30.2 Labs 01/30/23 17:20 02/05/23 08:03 Labs: Laboratory Results - last 48 hr 02/05/23 02/05/23 02/06/23 16:48 20:25 08:23 ESR 39 H POC Glucose 178 H 173 H C-Reactive Protein 1.15 H Vitamin B12 451 Folate 13.1 T.pallidum Ab (EIA) Nonreactive HIV 1&2 Ab/P24 Ag 4thGn Nonreactive 02/06/23 02/06/23 02/06/23 08:41 12:12 16:10 ESR POC Glucose 164 H 151 H 149 H C-Reactive Protein Vitamin B12 Folate T.pallidum Ab (EIA) HIV 1&2 Ab/P24 Ag 4thGn 02/07/23 02/07/23 08:21 12:21 ESR POC Glucose 140 H 153 H C-Reactive Protein Vitamin B12 Folate T.pallidum Ab (EIA) HIV 1&2 Ab/P24 Ag 4thGn Imaging Radiology Impressions: ITS Impressions Head CT 02/06/23 11:17 IMPRESSION: No acute intracranial abnormality. No evidence of brain parenchymal volume loss. Medications Medications Current Medications Acetaminophen (Acetaminophen 325 Mg Tablet) 650 mg PO Q6H PRN PRN Reason: Headache/Pain Mild Scale (1-3) Last Admin: 02/02/23 15:39 Dose: 325 mg Al Hydroxide/Mg Hydroxide (Magnesium Hydrox/Alum Hydrox 30 Ml Oral.Susp) 30 ml PO Q6H PRN PRN Reason: Heartburn/Nausea Clonidine HCl (Clonidine Hcl 0.1 Mg Tablet) 0.1 mg PO BID PRN; Protocol PRN Reason: anxiety Last Admin: 02/06/23 19:16 Dose: 0.1 mg Cyclobenzaprine HCl (Cyclobenzaprine Hcl 5 Mg Tablet) 5 mg PO TID PRN PRN Reason: muscle spasm Last Admin: 02/06/23 10:25 Dose: 5 mg Dextrose (Dextrose 50 % 25 Gm/50 Ml Syringe) 25 gm IVPUSH Q15M PRN; Protocol PRN Reason: per Hypoglycemia Standing Ord. Doxepin HCl (Doxepin Hcl 25 Mg Capsule) 150 mg PO BEDTIME [facility] Last Admin: 02/06/23 19:16 Dose: 150 mg Gabapentin (Gabapentin 400 Mg Capsule) 400 mg PO TID [facility] Last Admin: 02/07/23 08:42 Dose: 400 mg Glucose (Glucose Gel 15 Gm Gel..Gram.) 15 gm PO Q15M PRN; Protocol PRN Reason: per Hypoglycemia Standing Ord. Insulin Human Lispro (Insulin Lispro 100 Unit/Ml 3 Ml Vial) 0 unit SUBCUT QIDACHS [facility]; Protocol Last Admin: 02/07/23 13:22 Dose: 2 unit Lisinopril (Lisinopril 10 Mg Tablet) 10 mg PO DAILY [facility]; Protocol Last Admin: 02/07/23 08:42 Dose: 10 mg Magnesium Hydroxide (Milk Of Magnesia 30 Ml Oral.Susp) 30 ml PO DAILY PRN PRN Reason: Constipation Metformin HCl (Metformin Hcl 1,000 Mg Tablet) 1,000 mg PO BID [facility] Last Admin: 02/07/23 08:42 Dose: 1,000 mg Methadone HCl (Methadone Hcl 20 Mg/2 Ml Oral.Conc) 125 mg PO DAILY [facility] Last Admin: 02/07/23 08:40 Dose: 125 mg Nicotine Polacrilex (Nicotine Polacrilex Lozenge 4 Mg Lozenge) 4 mg BUCCAL Q2H PRN PRN Reason: Nicotine Cravings Last Admin: 02/06/23 16:58 Dose: 4 mg Risperidone (Risperidone 0.5 Mg Tablet) 0.5 mg PO BID [facility] Last Admin: 02/07/23 08:43 Dose: 0.5 mg Risperidone (Risperidone 0.5 Mg Tablet) 0.5 mg PO BID PRN PRN Reason: agitation,psychosis Trazodone HCl (Trazodone Hcl 50 Mg Tablet) 50 mg PO BEDTIME MRX1 PRN PRN Reason: Insomnia Last Admin: 02/06/23 22:26 Dose: 50 mg Allergies Allergies Allergy/AdvReac Type Severity Reaction Status Date / Time No Known Allergies Allergy Verified 01/26/23 13:46 Assessment & Plan Assessment & Plan (1) Bipolar disorder with psychotic features: Status: Acute Code(s): F31.9 - Bipolar disorder, unspecified (2) Opioid use disorder, severe, on maintenance therapy: Status: Acute Code(s): F11.20 - Opioid dependence, uncomplicated Plan 62 yo female, hx of opiate use disorder, currently on high dose methadone and possible bipolar disorder presents from community with psychosis, disorganization, ? steve. Plan: Collateral contact Diagnostics Re-establish regime and assess needs Aftercare planning 02/02/23 -Increase Gabapentin to 400 mg tid from 200 mg tid, pt's home dosage -DC Olanzapine- due to elevated blood sugar -Risperdal 0.5 mg bid as pt remains disorganized with paranoia -Risperdal 0.5 mg bid prn -Hold Klonopin (0.5 mg daily prn, 7 day supply given early 2022) -Hold Cymbalta (given 10 days in Dec 2022). -Sliding scale insulin correction scale -Continue to monitor-pt may need a change from Doxepin to a stronger mood stabilizer, however she needs time to re-establish home dosing. Team from [facility] scheduled to visit pt today. 02/03/2023 continue current treatment plan 02/04?continue?current?treatment?plan 02/05- Team reports no real change with Risperdal over the weekend. Will proceed with dementia work up B12,Folate, ESR, CRP, HIV, RPR, EEG, CAT Discontinue Flaggyl-pt refusing 02/07/23 Increase Risperdal to 1 mg bid Continue to attempt collateral contacts Continue work up Informed Consent: does not understand Reason for continued inpatient stay Substantial Risk for: med/psych decompensation Time Spent With Patient Time: Total time managing care of this patient today ____ minutes.
[2023-02-07 16:05] VITALS: BP 122/61; PULSE 84; RESP 16; TEMP 36.1; O2SAT 93
[2023-02-07 17:10] LABS: Glucose, Whole Blood 123 mg/dL (60-115)
[2023-02-07] MEDS: Nicotine Polacrilex Lozenge 4 MG LOZENGE BUCCAL ×2 (17:11→21:44)
[2023-02-07 20:08] LABS: Glucose, Whole Blood 179 mg/dL (60-115)
[2023-02-07] MEDS: risperiDONE 1 MG TABLET PO (20:19)
[2023-02-07] MEDS: Cyclobenzaprine HCl 5 MG TABLET PO (20:19)
[2023-02-07] MEDS: Doxepin HCl 25 MG CAPSULE 150 MG PO (20:20)
[2023-02-08] MEDS: cloNIDine HCL 0.1 MG TABLET PO (00:20)
[2023-02-08 07:00] VITALS: BMI 25.1
[2023-02-08] MEDS: metFORMIN HCl 1,000 MG TABLET 1000 MG PO (08:03)
[2023-02-08] MEDS: methADONE HCl 20 MG/2 ML ORAL.CONC 125 MG PO (08:03)
[2023-02-08] MEDS: lisinopriL 10 MG TABLET PO (08:03)
[2023-02-08] MEDS: Gabapentin 400 MG CAPSULE PO ×3 (08:03→20:48)
[2023-02-08] MEDS: risperiDONE 1 MG TABLET PO ×2 (08:03→20:48)
[2023-02-08 08:08] VITALS: BP 111/57; PULSE 80; RESP 16; TEMP 35.9; O2SAT 94
[2023-02-08 08:42] LABS: Glucose, Whole Blood 182 mg/dL (60-115)
[2023-02-08] MEDS: Insulin Lispro 100 UNIT/ML 3 ML VIAL SUBCUT ×3 (08:55→22:00)
--- NOTE | 2023-02-08 12:54 | HO.PSYCHPN ---
Subjective Subjective Date of Service: 02/08/23 Reason For Visit: Dysregulated Subjective Notes: Conditional Voluntary Healthcare Proxy: No Guardianship: No Medical Problems Affecting Mental Status: No Interim History: Pleasant, calm, confused, confabulative. Tells team often she struggles with multi-tasking when discussion of memory loss arises. Messages left today with [facility] regarding their impression of her baseline [phone]. Dementia work up results essentially negative CAT, EEG WNL. CRP high at 1.15 (< or+0.5) and ESR high at 39 (0-20) Medication Compliance: Yes Side effects from medications: No Attending Groups: Intermittent Review of Systems Acute medical concerns: No Medical Review of Systems: unchanged Mental Status Exam Mental Status Exam Patient Appearance: Appropriate Patient Orientation: Person and Place Level of Consciousness: Alert Patient Behavior: Talkative, Cooperative, Passive, Anxious, Distractible, Confused and Good Eye Contact Mood Description: Anxious Affect Description: Flat Patient Cognition Impaired: Yes Ability to Follow Directions: Fair Speech Pattern: Perseverating, Spontaneous Speech and Soft-Spoken Memory Description: Remote Impaired Hallucinations: None (denies) Delusions: Present Perceptual Disturbances: Depersonalization and Derealization Thought Process: Distracted, Rumination and Confusion Thought Content: positive for Flight of Ideas, positive for Obsessional Thoughts, positive for Perseveration, positive for Preoccupation, positive for Loose Associations, positive for Tangential and positive for Suicidal Ideation (denies) Depressive Symptoms: Increased Anxiety, Diff. Making Decisions, Loss of Int. in Activity, Unhappiness, Increased Fatigue, Thoughts of /Suicide (denies), Loss of Energy, Difficulty Concentrating and Back Pain Abnormal Motor Activity Signs and Symptoms: Restlessness Judgement: Poor Diagnostics Vital Signs (24Hr): Vital Signs - 24 hr 02/07/23 16:05 02/08/23 08:08 Temperature 96.9 F 96.7 F L Pulse Rate 84 80 Respiratory Rate 16 16 Blood Pressure 122/61 111/57 L Pulse Oximetry 93 94 Oxygen Delivery Method Room Air Room Air BMI result Body Mass Index 25.1 Labs 01/30/23 17:20 02/05/23 08:03 Labs: Laboratory Results - last 48 hr 02/06/23 02/07/23 02/07/23 16:10 08:21 12:21 POC Glucose 149 H 140 H 153 H 02/07/23 02/07/23 02/08/23 17:07 20:04 08:38 POC Glucose 123 H 179 H 182 H Imaging Radiology Impressions: ITS Impressions Head CT 02/06/23 11:17 IMPRESSION: No acute intracranial abnormality. No evidence of brain parenchymal volume loss. Medications Medications Current Medications Acetaminophen (Acetaminophen 325 Mg Tablet) 650 mg PO Q6H PRN PRN Reason: Headache/Pain Mild Scale (1-3) Last Admin: 02/02/23 15:39 Dose: 325 mg Al Hydroxide/Mg Hydroxide (Magnesium Hydrox/Alum Hydrox 30 Ml Oral.Susp) 30 ml PO Q6H PRN PRN Reason: Heartburn/Nausea Clonidine HCl (Clonidine Hcl 0.1 Mg Tablet) 0.1 mg PO BID PRN; Protocol PRN Reason: anxiety Last Admin: 02/08/23 00:20 Dose: 0.1 mg Cyclobenzaprine HCl (Cyclobenzaprine Hcl 5 Mg Tablet) 5 mg PO TID PRN PRN Reason: muscle spasm Last Admin: 02/07/23 20:19 Dose: 5 mg Dextrose (Dextrose 50 % 25 Gm/50 Ml Syringe) 25 gm IVPUSH Q15M PRN; Protocol PRN Reason: per Hypoglycemia Standing Ord. Doxepin HCl (Doxepin Hcl 25 Mg Capsule) 150 mg PO BEDTIME [facility] Last Admin: 02/07/23 20:20 Dose: 150 mg Gabapentin (Gabapentin 400 Mg Capsule) 400 mg PO TID [facility] Last Admin: 02/08/23 08:03 Dose: 400 mg Glucose (Glucose Gel 15 Gm Gel..Gram.) 15 gm PO Q15M PRN; Protocol PRN Reason: per Hypoglycemia Standing Ord. Insulin Human Lispro (Insulin Lispro 100 Unit/Ml 3 Ml Vial) 0 unit SUBCUT QIDACHS [facility]; Protocol Last Admin: 02/08/23 08:55 Dose: 2 unit Lisinopril (Lisinopril 10 Mg Tablet) 10 mg PO DAILY [facility]; Protocol Last Admin: 02/08/23 08:03 Dose: 10 mg Magnesium Hydroxide (Milk Of Magnesia 30 Ml Oral.Susp) 30 ml PO DAILY PRN PRN Reason: Constipation Metformin HCl (Metformin Hcl 1,000 Mg Tablet) 1,000 mg PO BID [facility] Last Admin: 02/08/23 08:03 Dose: 1,000 mg Methadone HCl (Methadone Hcl 20 Mg/2 Ml Oral.Conc) 125 mg PO DAILY [facility] Last Admin: 02/08/23 08:03 Dose: 125 mg Nicotine Polacrilex (Nicotine Polacrilex Lozenge 4 Mg Lozenge) 4 mg BUCCAL Q2H PRN PRN Reason: Nicotine Cravings Last Admin: 02/07/23 21:44 Dose: 4 mg Risperidone (Risperidone 0.5 Mg Tablet) 0.5 mg PO BID PRN PRN Reason: agitation,psychosis Risperidone (Risperidone 1 Mg Tablet) 1 mg PO BID [facility] Last Admin: 02/08/23 08:03 Dose: 1 mg Trazodone HCl (Trazodone Hcl 50 Mg Tablet) 50 mg PO BEDTIME MRX1 PRN PRN Reason: Insomnia Last Admin: 02/06/23 22:26 Dose: 50 mg Allergies Allergies Allergy/AdvReac Type Severity Reaction Status Date / Time No Known Allergies Allergy Verified 01/26/23 13:46 Assessment & Plan Assessment & Plan (1) Bipolar disorder with psychotic features: Status: Acute Code(s): F31.9 - Bipolar disorder, unspecified (2) Opioid use disorder, severe, on maintenance therapy: Status: Acute Code(s): F11.20 - Opioid dependence, uncomplicated Plan 62 yo female, hx of opiate use disorder, currently on high dose methadone and possible bipolar disorder presents from community with psychosis, disorganization, ? steve. Plan: Collateral contact Diagnostics Re-establish regime and assess needs Aftercare planning 02/02/23 -Increase Gabapentin to 400 mg tid from 200 mg tid, pt's home dosage -DC Olanzapine- due to elevated blood sugar -Risperdal 0.5 mg bid as pt remains disorganized with paranoia -Risperdal 0.5 mg bid prn -Hold Klonopin (0.5 mg daily prn, 7 day supply given early 2022) -Hold Cymbalta (given 10 days in Dec 2022). -Sliding scale insulin correction scale -Continue to monitor-pt may need a change from Doxepin to a stronger mood stabilizer, however she needs time to re-establish home dosing. Team from [facility] scheduled to visit pt today. 02/03/2023 continue current treatment plan 02/04?continue?current?treatment?plan 02/05- Team reports no real change with Risperdal over the weekend. Will proceed with dementia work up B12,Folate, ESR, CRP, HIV, RPR, EEG, CAT Discontinue Flaggyl-pt refusing 02/07/23 Increase Risperdal to 1 mg bid Continue to attempt collateral contacts Continue work up 02/08/23 Continue current regime and plan of care Informed Consent: does not understand Reason for continued inpatient stay Substantial Risk for: rapid decompensation Time Spent With Patient Time: Total time managing care of this patient today ____ minutes.
[2023-02-08 13:15] LABS: Glucose, Whole Blood 174 mg/dL (60-115)
[2023-02-08] MEDS: Nicotine Polacrilex Lozenge 4 MG LOZENGE BUCCAL ×2 (16:56→21:14)
[2023-02-08 17:14] LABS: Glucose, Whole Blood 118 mg/dL (60-115)
[2023-02-08 18:00] VITALS: BP 124/60; PULSE 78; TEMP 35.8; O2SAT 95
[2023-02-08] MEDS: Doxepin HCl 25 MG CAPSULE 150 MG PO (20:48)
[2023-02-08 21:24] LABS: Glucose, Whole Blood 198 mg/dL (60-115)
[2023-02-09] MEDS: cloNIDine HCL 0.1 MG TABLET PO (02:21)
[2023-02-09 08:00] VITALS: BP 135/70; PULSE 74; RESP 16; TEMP 35.7; O2SAT 99
[2023-02-09] MEDS: risperiDONE 1 MG TABLET PO ×2 (08:05→19:37)
[2023-02-09] MEDS: lisinopriL 10 MG TABLET PO (08:05)
[2023-02-09] MEDS: metFORMIN HCl 1,000 MG TABLET 1000 MG PO ×2 (08:05→19:37)
[2023-02-09] MEDS: Gabapentin 400 MG CAPSULE PO ×3 (08:05→19:37)
[2023-02-09] MEDS: methADONE HCl 20 MG/2 ML ORAL.CONC 125 MG PO (08:06)
[2023-02-09 08:26] LABS: Glucose, Whole Blood 187 mg/dL (60-115)
[2023-02-09] MEDS: Insulin Lispro 100 UNIT/ML 3 ML VIAL SUBCUT ×2 (08:55→21:28)
[2023-02-09 12:12] LABS: Glucose, Whole Blood 163 mg/dL (60-115)
--- NOTE | 2023-02-09 13:01 | P.PNPSI_ITS ---
Subjective Subjective Date of Service: 02/09/23 Reason For Visit: Dysregulated Subjective Notes: Conditional Voluntary Healthcare Proxy: No Guardianship: No Medical Problems Affecting Mental Status: Yes Interim History: Pt remains confused, presents with tangential sx. She reports feeling OK, but, there are just so many things that are confusing for me . Discussed diagnostic results with pt. I am glad you are testing me. Reports she is sleeping, needs are met and she is comfortable on the unit. Care discussed with [facility] team, Debbie, who reports pt was last seen via telehealth June 2022. She was terminated from the service as she did not attend October telehealth appt. When treated, team found they focused on recurrent major depression, PTSD, TINY- no MCI or dementia present, no steve, psychosis or concerns about these sx. Medication Compliance: Yes Side effects from medications: No Attending Groups: Intermittent Review of Systems Acute medical concerns: No Medical Review of Systems: unchanged Mental Status Exam Mental Status Exam Patient Appearance: Appropriate Patient Orientation: Person and Place Level of Consciousness: Alert Patient Behavior: Talkative, Cooperative, Passive, Anxious, Distractible, Confused and Good Eye Contact Mood Description: Anxious Affect Description: Flat Patient Cognition Impaired: Yes Ability to Follow Directions: Fair Speech Pattern: Perseverating, Spontaneous Speech and Soft-Spoken Memory Description: Remote Impaired Hallucinations: None (denies) Delusions: Present Perceptual Disturbances: Depersonalization and Derealization Thought Process: Distracted, Rumination and Confusion Thought Content: positive for Flight of Ideas, positive for Obsessional Thoughts, positive for Perseveration, positive for Preoccupation, positive for Loose Associations, positive for Tangential and positive for Suicidal Ideation (denies) Depressive Symptoms: Increased Anxiety, Diff. Making Decisions, Loss of Int. in Activity, Unhappiness, Increased Fatigue, Thoughts of /Suicide (denies), Loss of Energy, Difficulty Concentrating and Back Pain Abnormal Motor Activity Signs and Symptoms: Restlessness Judgement: Poor Diagnostics Vital Signs (24Hr): Vital Signs - 24 hr 02/08/23 18:00 02/09/23 08:00 Temperature 96.5 F L 96.3 F L Pulse Rate 78 74 Respiratory Rate 16 Blood Pressure 124/60 135/70 Pulse Oximetry 95 99 Oxygen Delivery Method Room Air Room Air BMI result Body Mass Index 25.1 Labs 01/30/23 17:20 02/05/23 08:03 Labs: Laboratory Results - last 48 hr 02/07/23 02/07/23 02/08/23 17:07 20:04 08:38 POC Glucose 123 H 179 H 182 H 02/08/23 02/08/23 02/08/23 13:11 17:10 21:19 POC Glucose 174 H 118 H 198 H 02/09/23 02/09/23 08:21 12:08 POC Glucose 187 H 163 H Imaging Radiology Impressions: ITS Impressions Head CT 02/06/23 11:17 IMPRESSION: No acute intracranial abnormality. No evidence of brain parenchymal volume loss. Medications Medications Current Medications Acetaminophen (Acetaminophen 325 Mg Tablet) 650 mg PO Q6H PRN PRN Reason: Headache/Pain Mild Scale (1-3) Last Admin: 02/02/23 15:39 Dose: 325 mg Al Hydroxide/Mg Hydroxide (Magnesium Hydrox/Alum Hydrox 30 Ml Oral.Susp) 30 ml PO Q6H PRN PRN Reason: Heartburn/Nausea Clonidine HCl (Clonidine Hcl 0.1 Mg Tablet) 0.1 mg PO BID PRN; Protocol PRN Reason: anxiety Last Admin: 02/09/23 02:21 Dose: 0.1 mg Cyclobenzaprine HCl (Cyclobenzaprine Hcl 5 Mg Tablet) 5 mg PO TID PRN PRN Reason: muscle spasm Last Admin: 02/07/23 20:19 Dose: 5 mg Dextrose (Dextrose 50 % 25 Gm/50 Ml Syringe) 25 gm IVPUSH Q15M PRN; Protocol PRN Reason: per Hypoglycemia Standing Ord. Doxepin HCl (Doxepin Hcl 25 Mg Capsule) 150 mg PO BEDTIME [facility] Last Admin: 02/08/23 20:48 Dose: 150 mg Gabapentin (Gabapentin 400 Mg Capsule) 400 mg PO TID [facility] Last Admin: 02/09/23 08:05 Dose: 400 mg Glucose (Glucose Gel 15 Gm Gel..Gram.) 15 gm PO Q15M PRN; Protocol PRN Reason: per Hypoglycemia Standing Ord. Insulin Human Lispro (Insulin Lispro 100 Unit/Ml 3 Ml Vial) 0 unit SUBCUT QIDACHS [facility]; Protocol Last Admin: 02/09/23 08:55 Dose: 2 unit Lisinopril (Lisinopril 10 Mg Tablet) 10 mg PO DAILY [facility]; Protocol Last Admin: 02/09/23 08:05 Dose: 10 mg Magnesium Hydroxide (Milk Of Magnesia 30 Ml Oral.Susp) 30 ml PO DAILY PRN PRN Reason: Constipation Metformin HCl (Metformin Hcl 1,000 Mg Tablet) 1,000 mg PO BID [facility] Last Admin: 02/09/23 08:05 Dose: 1,000 mg Methadone HCl (Methadone Hcl 20 Mg/2 Ml Oral.Conc) 125 mg PO DAILY [facility] Last Admin: 02/09/23 08:06 Dose: 125 mg Nicotine Polacrilex (Nicotine Polacrilex Lozenge 4 Mg Lozenge) 4 mg BUCCAL Q2H PRN PRN Reason: Nicotine Cravings Last Admin: 02/08/23 21:14 Dose: 4 mg Risperidone (Risperidone 0.5 Mg Tablet) 0.5 mg PO BID PRN PRN Reason: agitation,psychosis Risperidone (Risperidone 1 Mg Tablet) 1 mg PO BID [facility] Last Admin: 02/09/23 08:05 Dose: 1 mg Trazodone HCl (Trazodone Hcl 50 Mg Tablet) 50 mg PO BEDTIME MRX1 PRN PRN Reason: Insomnia Last Admin: 02/06/23 22:26 Dose: 50 mg Allergies Allergies Allergy/AdvReac Type Severity Reaction Status Date / Time No Known Allergies Allergy Verified 01/26/23 13:46 Assessment & Plan Assessment & Plan (1) Bipolar disorder with psychotic features: Status: Acute Code(s): F31.9 - Bipolar disorder, unspecified (2) Opioid use disorder, severe, on maintenance therapy: Status: Acute Code(s): F11.20 - Opioid dependence, uncomplicated Plan 62 yo female, hx of opiate use disorder, currently on high dose methadone and possible bipolar disorder presents from community with psychosis, disorganization, ? steve. Plan: Collateral contact Diagnostics Re-establish regime and assess needs Aftercare planning 02/02/23 -Increase Gabapentin to 400 mg tid from 200 mg tid, pt's home dosage -DC Olanzapine- due to elevated blood sugar -Risperdal 0.5 mg bid as pt remains disorganized with paranoia -Risperdal 0.5 mg bid prn -Hold Klonopin (0.5 mg daily prn, 7 day supply given early 2022) -Hold Cymbalta (given 10 days in Dec 2022). -Sliding scale insulin correction scale -Continue to monitor-pt may need a change from Doxepin to a stronger mood stabilizer, however she needs time to re-establish home dosing. Team from [facility] scheduled to visit pt today. 02/03/2023 continue current treatment plan 02/04?continue?current?treatment?plan 02/05- Team reports no real change with Risperdal over the weekend. Will proceed with dementia work up B12,Folate, ESR, CRP, HIV, RPR, EEG, CAT Discontinue Flaggyl-pt refusing 02/07/23 Increase Risperdal to 1 mg bid Continue to attempt collateral contacts Continue work up 02/08/23 Continue current regime and plan of care 02/09/23 Aricept 5 mg hs to begin 02/10 EKG on 02/12 Aftercare planning-pt has lost OP team Patient educated on: medication risk/benefits and therapeutic strategies Informed Consent: further education needed Reason for continued inpatient stay Substantial Risk for: rapid decompensation Time Spent With Patient Time: Total time managing care of this patient today ____ minutes.
[2023-02-09 16:50] VITALS: BP 121/64; PULSE 76; RESP 16; TEMP 36.4; O2SAT 95
[2023-02-09 17:07] LABS: Glucose, Whole Blood 132 mg/dL (60-115)
[2023-02-09] MEDS: Nicotine Polacrilex Lozenge 4 MG LOZENGE BUCCAL (18:11)
[2023-02-09] MEDS: Milk of Magnesia 30 ML ORAL.SUSP PO (19:15)
[2023-02-09] MEDS: Doxepin HCl 25 MG CAPSULE 150 MG PO (19:38)
[2023-02-09 21:08] LABS: Glucose, Whole Blood 160 mg/dL (60-115)
[2023-02-10 08:06] VITALS: BP 135/63; PULSE 82; RESP 16; TEMP 36.4; O2SAT 98
[2023-02-10 08:14] LABS: Glucose, Whole Blood 146 mg/dL (60-115)
[2023-02-10] MEDS: methADONE HCl 20 MG/2 ML ORAL.CONC 125 MG PO (08:29)
[2023-02-10] MEDS: metFORMIN HCl 1,000 MG TABLET 1000 MG PO ×2 (08:47→19:59)
[2023-02-10] MEDS: lisinopriL 10 MG TABLET PO (08:47)
[2023-02-10] MEDS: Gabapentin 400 MG CAPSULE PO ×3 (08:47→19:59)
[2023-02-10] MEDS: risperiDONE 1 MG TABLET PO ×2 (08:47→19:59)
--- NOTE | 2023-02-10 09:29 | HO.PSYCHPN ---
Subjective Subjective Date of Service: 02/10/23 Reason For Visit: Dysregulated Subjective Notes: Conditional Voluntary Medical Problems Affecting Mental Status: No Interim History: Preoccupied with phone call from son. Noted to be anxious yesterday, is less so today per her report. Eating OK. States she slept on and off. Medication Compliance: Yes Side effects from medications: No Attending Groups: Intermittent Review of Systems Acute medical concerns: No Medical Review of Systems: unchanged Mental Status Exam Mental Status Exam Patient Appearance: Appropriate (in [facility]) Patient Orientation: Person, Place, Time and Situation Level of Consciousness: Alert Patient Behavior: Appropriate Mood Description: Calm ( doing OK ) Affect Description: Calm Patient Cognition Impaired: No Ability to Follow Directions: Good Speech Pattern: Clear Memory Description: Intact Hallucinations: None Delusions: Not Present Thought Process: Linear Depressive Symptoms: Increased Fatigue Judgement: Fair Diagnostics Vital Signs (24Hr): Vital Signs - 24 hr 02/09/23 16:50 02/10/23 08:06 Temperature 97.5 F 97.5 F Pulse Rate 76 82 Respiratory Rate 16 16 Blood Pressure 121/64 135/63 Pulse Oximetry 95 98 Oxygen Delivery Method Room Air Room Air BMI result Body Mass Index 25.1 Labs 01/30/23 17:20 02/05/23 08:03 Labs: Laboratory Results - last 48 hr 02/08/23 02/08/23 02/08/23 13:11 17:10 21:19 POC Glucose 174 H 118 H 198 H 02/09/23 02/09/23 02/09/23 08:21 12:08 17:01 POC Glucose 187 H 163 H 132 H 02/09/23 02/10/23 21:04 08:08 POC Glucose 160 H 146 H Imaging Radiology Impressions: ITS Impressions Head CT 02/06/23 11:17 IMPRESSION: No acute intracranial abnormality. No evidence of brain parenchymal volume loss. Medications Medications Current Medications Acetaminophen (Acetaminophen 325 Mg Tablet) 650 mg PO Q6H PRN PRN Reason: Headache/Pain Mild Scale (1-3) Last Admin: 02/02/23 15:39 Dose: 325 mg Al Hydroxide/Mg Hydroxide (Magnesium Hydrox/Alum Hydrox 30 Ml Oral.Susp) 30 ml PO Q6H PRN PRN Reason: Heartburn/Nausea Clonidine HCl (Clonidine Hcl 0.1 Mg Tablet) 0.1 mg PO BID PRN; Protocol PRN Reason: anxiety Last Admin: 02/09/23 02:21 Dose: 0.1 mg Cyclobenzaprine HCl (Cyclobenzaprine Hcl 5 Mg Tablet) 5 mg PO TID PRN PRN Reason: muscle spasm Last Admin: 02/07/23 20:19 Dose: 5 mg Dextrose (Dextrose 50 % 25 Gm/50 Ml Syringe) 25 gm IVPUSH Q15M PRN; Protocol PRN Reason: per Hypoglycemia Standing Ord. Donepezil HCl (Donepezil Hcl 5 Mg Tablet) 5 mg PO BEDTIME [facility] Doxepin HCl (Doxepin Hcl 25 Mg Capsule) 150 mg PO BEDTIME [facility] Last Admin: 02/09/23 19:38 Dose: 150 mg Gabapentin (Gabapentin 400 Mg Capsule) 400 mg PO TID [facility] Last Admin: 02/10/23 08:47 Dose: 400 mg Glucose (Glucose Gel 15 Gm Gel..Gram.) 15 gm PO Q15M PRN; Protocol PRN Reason: per Hypoglycemia Standing Ord. Insulin Human Lispro (Insulin Lispro 100 Unit/Ml 3 Ml Vial) 0 unit SUBCUT QIDACHS [facility]; Protocol Last Admin: 02/10/23 08:18 Dose: Not Given Lisinopril (Lisinopril 10 Mg Tablet) 10 mg PO DAILY [facility]; Protocol Last Admin: 02/10/23 08:47 Dose: 10 mg Magnesium Hydroxide (Milk Of Magnesia 30 Ml Oral.Susp) 30 ml PO DAILY PRN PRN Reason: Constipation Last Admin: 02/09/23 19:15 Dose: 30 ml Metformin HCl (Metformin Hcl 1,000 Mg Tablet) 1,000 mg PO BID [facility] Last Admin: 02/10/23 08:47 Dose: 1,000 mg Methadone HCl (Methadone Hcl 20 Mg/2 Ml Oral.Conc) 125 mg PO DAILY [facility] Last Admin: 02/10/23 08:29 Dose: 125 mg Nicotine Polacrilex (Nicotine Polacrilex Lozenge 4 Mg Lozenge) 4 mg BUCCAL Q2H PRN PRN Reason: Nicotine Cravings Last Admin: 02/09/23 18:11 Dose: 4 mg Risperidone (Risperidone 0.5 Mg Tablet) 0.5 mg PO BID PRN PRN Reason: agitation,psychosis Risperidone (Risperidone 1 Mg Tablet) 1 mg PO BID [facility] Last Admin: 02/10/23 08:47 Dose: 1 mg Trazodone HCl (Trazodone Hcl 50 Mg Tablet) 50 mg PO BEDTIME MRX1 PRN PRN Reason: Insomnia Last Admin: 02/06/23 22:26 Dose: 50 mg Allergies Allergies Allergy/AdvReac Type Severity Reaction Status Date / Time No Known Allergies Allergy Verified 01/26/23 13:46 Assessment & Plan Assessment & Plan (1) Bipolar disorder with psychotic features: Status: Acute Code(s): F31.9 - Bipolar disorder, unspecified (2) Opioid use disorder, severe, on maintenance therapy: Status: Acute Code(s): F11.20 - Opioid dependence, uncomplicated Plan 62 yo female, hx of opiate use disorder, currently on high dose methadone and possible bipolar disorder presents from community with psychosis, disorganization, ? steve. Plan: Collateral contact Diagnostics Re-establish regime and assess needs Aftercare planning 02/02/23 -Increase Gabapentin to 400 mg tid from 200 mg tid, pt's home dosage -DC Olanzapine- due to elevated blood sugar -Risperdal 0.5 mg bid as pt remains disorganized with paranoia -Risperdal 0.5 mg bid prn -Hold Klonopin (0.5 mg daily prn, 7 day supply given early 2022) -Hold Cymbalta (given 10 days in Dec 2022). -Sliding scale insulin correction scale -Continue to monitor-pt may need a change from Doxepin to a stronger mood stabilizer, however she needs time to re-establish home dosing. Team from [facility] scheduled to visit pt today. 02/03/2023 continue current treatment plan 02/04?continue?current?treatment?plan 02/05- Team reports no real change with Risperdal over the weekend. Will proceed with dementia work up B12,Folate, ESR, CRP, HIV, RPR, EEG, CAT Discontinue Flaggyl-pt refusing 02/07/23 Increase Risperdal to 1 mg bid Continue to attempt collateral contacts Continue work up 02/08/23 Continue current regime and plan of care 02/09/23 Aricept 5 mg hs to begin 02/10 EKG on 02/12 Aftercare planning-pt has lost OP team 02/10 Aricept to begin today Reason for continued inpatient stay Substantial Risk for: inability to function Time Spent With Patient Time: Total time managing care of this patient today ____ minutes.
[2023-02-10] MEDS: Nicotine Polacrilex Lozenge 4 MG LOZENGE BUCCAL ×4 (11:44→23:52)
[2023-02-10 16:59] LABS: Glucose, Whole Blood 197 mg/dL (60-115)
[2023-02-10] MEDS: Insulin Lispro 100 UNIT/ML 3 ML VIAL SUBCUT (17:40)
[2023-02-10 18:00] VITALS: BP 127/57; PULSE 77; RESP 17; TEMP 36; O2SAT 97
[2023-02-10] MEDS: Doxepin HCl 25 MG CAPSULE 150 MG PO (19:59)
[2023-02-10] MEDS: Donepezil HCl 5 MG TABLET PO (19:59)
[2023-02-10 20:13] LABS: Glucose, Whole Blood 128 mg/dL (60-115)
[2023-02-10] MEDS: Cyclobenzaprine HCl 5 MG TABLET PO (21:02)
[2023-02-10] MEDS: Acetaminophen 325 MG TABLET 650 MG PO (23:52)
[2023-02-10] MEDS: traZODone HCL 50 MG TABLET PO (23:52)
[2023-02-11] MEDS: cloNIDine HCL 0.1 MG TABLET PO ×2 (01:05→20:18)
[2023-02-11] MEDS: Magnesium Hydrox/Alum Hydrox 30 ML ORAL.SUSP PO ×2 (03:08→16:40)
--- NOTE | 2023-02-11 06:44 | P.PNPSI_ITS ---
Subjective Subjective Date of Service: 02/11/23 Reason For Visit: Dysregulated Subjective Notes: Conditional Voluntary Healthcare Proxy: No Guardianship: No Medical Problems Affecting Mental Status: No Interim History: Reports eating and sleeping OK. Tearful and yawning a lot this morning. States she is having a hard time but unable to elaborate. Looking forward to son's visit today. Social in the milieu. No paranoid concerns expressed. Medication Compliance: Yes Side effects from medications: No Attending Groups: Intermittent Review of Systems Acute medical concerns: No Medical Review of Systems: unchanged Mental Status Exam Mental Status Exam Patient Appearance: Unkempt Patient Orientation: Person, Place, Time and Situation Level of Consciousness: Alert Patient Behavior: Appropriate and Crying Mood Description: Anxious Affect Description: Depressed Patient Cognition Impaired: No Ability to Follow Directions: Good Speech Pattern: Clear Memory Description: Intact Hallucinations: None Delusions: Not Present Thought Process: Linear Thought Content: positive for Slowed Thinking Depressive Symptoms: Diff. Making Decisions and Crying Spells Judgement: Fair Diagnostics Vital Signs (24Hr): Vital Signs - 24 hr 02/10/23 08:06 02/10/23 18:00 Temperature 97.5 F 96.8 F Pulse Rate 82 77 Respiratory Rate 16 17 Blood Pressure 135/63 127/57 L Pulse Oximetry 98 97 Oxygen Delivery Method Room Air Room Air BMI result Body Mass Index 25.1 Labs 01/30/23 17:20 02/05/23 08:03 Labs: Laboratory Results - last 48 hr 02/09/23 02/09/23 02/09/23 08:21 12:08 17:01 POC Glucose 187 H 163 H 132 H 02/09/23 02/10/23 02/10/23 21:04 08:08 16:53 POC Glucose 160 H 146 H 197 H 02/10/23 20:08 POC Glucose 128 H Imaging Radiology Impressions: ITS Impressions Head CT 02/06/23 11:17 IMPRESSION: No acute intracranial abnormality. No evidence of brain parenchymal volume loss. Medications Medications Current Medications Acetaminophen (Acetaminophen 325 Mg Tablet) 650 mg PO Q6H PRN PRN Reason: Headache/Pain Mild Scale (1-3) Last Admin: 02/10/23 23:52 Dose: 650 mg Al Hydroxide/Mg Hydroxide (Magnesium Hydrox/Alum Hydrox 30 Ml Oral.Susp) 30 ml PO Q6H PRN PRN Reason: Heartburn/Nausea Last Admin: 02/11/23 03:08 Dose: 30 ml Clonidine HCl (Clonidine Hcl 0.1 Mg Tablet) 0.1 mg PO BID PRN; Protocol PRN Reason: anxiety Last Admin: 02/11/23 01:05 EDT Dose: 0.1 mg Cyclobenzaprine HCl (Cyclobenzaprine Hcl 5 Mg Tablet) 5 mg PO TID PRN PRN Reason: muscle spasm Last Admin: 02/10/23 21:02 Dose: 5 mg Dextrose (Dextrose 50 % 25 Gm/50 Ml Syringe) 25 gm IVPUSH Q15M PRN; Protocol PRN Reason: per Hypoglycemia Standing Ord. Donepezil HCl (Donepezil Hcl 5 Mg Tablet) 5 mg PO BEDTIME [facility] Last Admin: 02/10/23 19:59 Dose: 5 mg Doxepin HCl (Doxepin Hcl 25 Mg Capsule) 150 mg PO BEDTIME [facility] Last Admin: 02/10/23 19:59 Dose: 150 mg Gabapentin (Gabapentin 400 Mg Capsule) 400 mg PO TID [facility] Last Admin: 02/10/23 19:59 Dose: 400 mg Glucose (Glucose Gel 15 Gm Gel..Gram.) 15 gm PO Q15M PRN; Protocol PRN Reason: per Hypoglycemia Standing Ord. Insulin Human Lispro (Insulin Lispro 100 Unit/Ml 3 Ml Vial) 0 unit SUBCUT QIDACHS [facility]; Protocol Last Admin: 02/10/23 20:12 Dose: Not Given Lisinopril (Lisinopril 10 Mg Tablet) 10 mg PO DAILY [facility]; Protocol Last Admin: 02/10/23 08:47 Dose: 10 mg Magnesium Hydroxide (Milk Of Magnesia 30 Ml Oral.Susp) 30 ml PO DAILY PRN PRN Reason: Constipation Last Admin: 02/09/23 19:15 Dose: 30 ml Metformin HCl (Metformin Hcl 1,000 Mg Tablet) 1,000 mg PO BID [facility] Last Admin: 02/10/23 19:59 Dose: 1,000 mg Methadone HCl (Methadone Hcl 20 Mg/2 Ml Oral.Conc) 125 mg PO DAILY [facility] Last Admin: 02/10/23 08:29 Dose: 125 mg Nicotine Polacrilex (Nicotine Polacrilex Lozenge 4 Mg Lozenge) 4 mg BUCCAL Q2H PRN PRN Reason: Nicotine Cravings Last Admin: 02/10/23 23:52 Dose: 4 mg Risperidone (Risperidone 0.5 Mg Tablet) 0.5 mg PO BID PRN PRN Reason: agitation,psychosis Risperidone (Risperidone 1 Mg Tablet) 1 mg PO BID [facility] Last Admin: 02/10/23 19:59 Dose: 1 mg Trazodone HCl (Trazodone Hcl 50 Mg Tablet) 50 mg PO BEDTIME MRX1 PRN PRN Reason: Insomnia Last Admin: 02/10/23 23:52 Dose: 50 mg Allergies Allergies Allergy/AdvReac Type Severity Reaction Status Date / Time No Known Allergies Allergy Verified 01/26/23 13:46 Assessment & Plan Assessment & Plan (1) Bipolar disorder with psychotic features: Status: Acute Code(s): F31.9 - Bipolar disorder, unspecified (2) Opioid use disorder, severe, on maintenance therapy: Status: Acute Code(s): F11.20 - Opioid dependence, uncomplicated Plan 62 yo female, hx of opiate use disorder, currently on high dose methadone and possible bipolar disorder presents from community with psychosis, disorganization, ? steve. Plan: Collateral contact Diagnostics Re-establish regime and assess needs Aftercare planning 02/02/23 -Increase Gabapentin to 400 mg tid from 200 mg tid, pt's home dosage -DC Olanzapine- due to elevated blood sugar -Risperdal 0.5 mg bid as pt remains disorganized with paranoia -Risperdal 0.5 mg bid prn -Hold Klonopin (0.5 mg daily prn, 7 day supply given early 2022) -Hold Cymbalta (given 10 days in Dec 2022). -Sliding scale insulin correction scale -Continue to monitor-pt may need a change from Doxepin to a stronger mood stabilizer, however she needs time to re-establish home dosing. Team from [facility] scheduled to visit pt today. 02/03/2023 continue current treatment plan 02/04?continue?current?treatment?plan 02/05- Team reports no real change with Risperdal over the weekend. Will proceed with dementia work up B12,Folate, ESR, CRP, HIV, RPR, EEG, CAT Discontinue Flaggyl-pt refusing 02/07/23 Increase Risperdal to 1 mg bid Continue to attempt collateral contacts Continue work up 02/08/23 Continue current regime and plan of care 02/09/23 Aricept 5 mg hs to begin 02/10 EKG on 02/12 Aftercare planning-pt has lost OP team 02/10 Aricept to begin today 02/11: no changes Reason for continued inpatient stay Substantial Risk for: inability to function Time Spent With Patient Time: Total time managing care of this patient today ____ minutes.
[2023-02-11 08:12] LABS: Anion Gap 14 (12-20); Blood Urea Nitrogen 14 mg/dL (9-16); Calcium 9.8 mg/dL (8.4-10.2); Carbon Dioxide 29 mmol/L (22-29); Chloride 98 mmol/L (96-108); Creatinine Clr Calc Pharmacy 56.7; Estimated Glomerular Filt Rate > 60; Glucose Random 166 mg/dL (60-115); Potassium 4.1 mmol/L (3.3-5.1); Sodium 137 mmol/L (135-145)
[2023-02-11 08:15] VITALS: BP 144/68; PULSE 79; RESP 16; TEMP 36.2; O2SAT 98
[2023-02-11 08:24] LABS: Glucose, Whole Blood 158 mg/dL (60-115)
[2023-02-11] MEDS: methADONE HCl 20 MG/2 ML ORAL.CONC 125 MG PO (08:37)
[2023-02-11] MEDS: Insulin Lispro 100 UNIT/ML 3 ML VIAL SUBCUT ×3 (08:51→20:17)
[2023-02-11] MEDS: risperiDONE 1 MG TABLET PO ×2 (09:01→20:05)
[2023-02-11] MEDS: lisinopriL 10 MG TABLET PO (09:01)
[2023-02-11] MEDS: Gabapentin 400 MG CAPSULE PO ×3 (09:01→20:04)
[2023-02-11] MEDS: metFORMIN HCl 1,000 MG TABLET 1000 MG PO ×2 (09:01→20:04)
[2023-02-11] MEDS: Nicotine Polacrilex Lozenge 4 MG LOZENGE BUCCAL ×4 (11:40→21:21)
[2023-02-11 12:09] LABS: Glucose, Whole Blood 188 mg/dL (60-115)
[2023-02-11] MEDS: Cyclobenzaprine HCl 5 MG TABLET PO ×2 (14:07→20:18)
[2023-02-11 16:15] VITALS: BP 143/68; PULSE 74; RESP 16; TEMP 36.2; O2SAT 97
[2023-02-11 17:25] LABS: Glucose, Whole Blood 124 mg/dL (60-115)
[2023-02-11] MEDS: Doxepin HCl 25 MG CAPSULE 150 MG PO (20:04)
[2023-02-11] MEDS: Donepezil HCl 5 MG TABLET PO (20:04)
[2023-02-11 20:10] VITALS: BP 125/65; PULSE 77
[2023-02-11 20:17] LABS: Glucose, Whole Blood 242 mg/dL (60-115)
[2023-02-12] MEDS: risperiDONE 1 MG TABLET PO (08:06)
[2023-02-12] MEDS: methADONE HCl 20 MG/2 ML ORAL.CONC 125 MG PO (08:06)
[2023-02-12] MEDS: Gabapentin 400 MG CAPSULE PO ×3 (08:06→20:49)
[2023-02-12] MEDS: lisinopriL 10 MG TABLET PO (08:06)
[2023-02-12 08:07] LABS: Glucose, Whole Blood 108 mg/dL (60-115)
[2023-02-12] MEDS: metFORMIN HCl 1,000 MG TABLET 1000 MG PO ×2 (08:29→20:49)
[2023-02-12 08:30] VITALS: BP 131/61; PULSE 73; RESP 16; TEMP 36.4; O2SAT 97
--- NOTE | 2023-02-12 09:00 | ECG_ITS ---
Test Reason : qtc check Blood Pressure : / mmHG Vent. Rate : 087 BPM Atrial Rate : 087 BPM P-R Int : 144 ms QRS Dur : 080 ms QT Int : 368 ms P-R-T Axes : 070 074 056 degrees QTc Int : 442 ms Normal sinus rhythm Normal ECG When compared with ECG of 31-JAN-2023 08:17, Premature atrial complexes are no longer Present T wave amplitude has decreased in Inferior leads Lateral leads Referred By: Selin Melendrez Electronically Signed By:CARMEN PARK MD
--- NOTE | 2023-02-12 09:39 | P.PNPSI_ITS ---
Subjective Subjective Date of Service: 02/12/23 Reason For Visit: Dysregulated Subjective Notes: Conditional Voluntary Healthcare Proxy: No Guardianship: No Medical Problems Affecting Mental Status: No Interim History: Pt reports issues with overthinking , sleep walking , too many thoughts two, three, four at a time, continuously, non stop and too much fear. She describes racing of thought. I will take medication that helps me physically, mentally, and emotionally. Medication Compliance: Intermittent Side effects from medications: No Attending Groups: Intermittent Review of Systems Acute medical concerns: No Medical Review of Systems: unchanged Mental Status Exam Mental Status Exam Patient Appearance: Appropriate Patient Orientation: Person and Place Level of Consciousness: Awake and Alert Patient Behavior: Talkative, Anxious, Distractible and Confused Mood Description: Withdrawn, Constricted, Fearful, Anxious, Nervous and Apprehensive Affect Description: Constricted Patient Cognition Impaired: Yes Ability to Follow Directions: Fair Speech Pattern: Perseverating, Spontaneous Speech and Soft-Spoken Memory Description: Remote Impaired Hallucinations: None Delusions: Not Present Perceptual Disturbances: Derealization Thought Process: Illogical (at times), Distracted, Rumination, Slowed Thinking and Confusion Thought Content: positive for [place], positive for Circumstantial, positive for Perseveration, positive for Slowed Thinking, positive for Tangential and positive for Disorganized Depressive Symptoms: Increased Anxiety and Diff. Making Decisions Abnormal Motor Activity Signs and Symptoms: Restlessness Judgement: Poor Diagnostics Vital Signs (24Hr): Vital Signs - 24 hr 02/11/23 16:15 02/11/23 20:10 02/12/23 08:30 Temperature 97.2 F 97.6 F Pulse Rate 74 77 73 Respiratory Rate 16 16 Blood Pressure 143/68 H 125/65 131/61 Pulse Oximetry 97 97 Oxygen Delivery Method Room Air Room Air BMI result Body Mass Index 25.1 Labs 01/30/23 17:20 02/11/23 07:33 Labs: Laboratory Results - last 48 hr 02/10/23 02/10/23 02/11/23 16:53 20:08 07:33 Sodium 137 Potassium 4.1 Chloride 98 Carbon Dioxide 29 Anion Gap 14 BUN 14 Creatinine 0.81 Estim Creat Clear Calc 56.7 Estimated GFR > 60 POC Glucose 197 H 128 H Random Glucose 166 H Calcium 9.8 02/11/23 02/11/23 02/11/23 08:11 12:04 17:20 Sodium Potassium Chloride Carbon Dioxide Anion Gap BUN Creatinine Estim Creat Clear Calc Estimated GFR POC Glucose 158 H 188 H 124 H Random Glucose Calcium 02/11/23 02/12/23 20:06 08:04 Sodium Potassium Chloride Carbon Dioxide Anion Gap BUN Creatinine Estim Creat Clear Calc Estimated GFR POC Glucose 242 H 108 Random Glucose Calcium Imaging Radiology Impressions: ITS Impressions Head CT 02/06/23 11:17 IMPRESSION: No acute intracranial abnormality. No evidence of brain parenchymal volume loss. Medications Medications Current Medications Acetaminophen (Acetaminophen 325 Mg Tablet) 650 mg PO Q6H PRN PRN Reason: Headache/Pain Mild Scale (1-3) Last Admin: 02/10/23 23:52 Dose: 650 mg Al Hydroxide/Mg Hydroxide (Magnesium Hydrox/Alum Hydrox 30 Ml Oral.Susp) 30 ml PO Q6H PRN PRN Reason: Heartburn/Nausea Last Admin: 02/11/23 16:40 Dose: 30 ml Clonidine HCl (Clonidine Hcl 0.1 Mg Tablet) 0.1 mg PO BID PRN; Protocol PRN Reason: anxiety Last Admin: 02/11/23 20:18 Dose: 0.1 mg Cyclobenzaprine HCl (Cyclobenzaprine Hcl 5 Mg Tablet) 5 mg PO TID PRN PRN Reason: muscle spasm Last Admin: 02/11/23 20:18 Dose: 5 mg Dextrose (Dextrose 50 % 25 Gm/50 Ml Syringe) 25 gm IVPUSH Q15M PRN; Protocol PRN Reason: per Hypoglycemia Standing Ord. Donepezil HCl (Donepezil Hcl 5 Mg Tablet) 5 mg PO BEDTIME [facility] Last Admin: 02/11/23 20:04 Dose: 5 mg Doxepin HCl (Doxepin Hcl 25 Mg Capsule) 150 mg PO BEDTIME [facility] Last Admin: 02/11/23 20:04 Dose: 150 mg Gabapentin (Gabapentin 400 Mg Capsule) 400 mg PO TID [facility] Last Admin: 02/12/23 08:06 Dose: 400 mg Glucose (Glucose Gel 15 Gm Gel..Gram.) 15 gm PO Q15M PRN; Protocol PRN Reason: per Hypoglycemia Standing Ord. Insulin Human Lispro (Insulin Lispro 100 Unit/Ml 3 Ml Vial) 0 unit SUBCUT QIDACHS [facility]; Protocol Last Admin: 02/12/23 08:35 Dose: Not Given Lisinopril (Lisinopril 10 Mg Tablet) 10 mg PO DAILY [facility]; Protocol Last Admin: 02/12/23 08:06 Dose: 10 mg Magnesium Hydroxide (Milk Of Magnesia 30 Ml Oral.Susp) 30 ml PO DAILY PRN PRN Reason: Constipation Last Admin: 02/09/23 19:15 Dose: 30 ml Metformin HCl (Metformin Hcl 1,000 Mg Tablet) 1,000 mg PO BID [facility] Last Admin: 02/12/23 08:29 Dose: 1,000 mg Methadone HCl (Methadone Hcl 20 Mg/2 Ml Oral.Conc) 125 mg PO DAILY [facility] Last Admin: 02/12/23 08:06 Dose: 125 mg Nicotine Polacrilex (Nicotine Polacrilex Lozenge 4 Mg Lozenge) 4 mg BUCCAL Q2H PRN PRN Reason: Nicotine Cravings Last Admin: 02/11/23 21:21 Dose: 4 mg Risperidone (Risperidone 0.5 Mg Tablet) 0.5 mg PO BID PRN PRN Reason: agitation,psychosis Risperidone (Risperidone 1 Mg Tablet) 1 mg PO BID [facility] Last Admin: 02/12/23 08:06 Dose: 1 mg Trazodone HCl (Trazodone Hcl 50 Mg Tablet) 50 mg PO BEDTIME MRX1 PRN PRN Reason: Insomnia Last Admin: 02/10/23 23:52 Dose: 50 mg Allergies Allergies Allergy/AdvReac Type Severity Reaction Status Date / Time No Known Allergies Allergy Verified 01/26/23 13:46 Assessment & Plan Assessment & Plan (1) Bipolar disorder with psychotic features: Status: Acute Code(s): F31.9 - Bipolar disorder, unspecified (2) Opioid use disorder, severe, on maintenance therapy: Status: Acute Code(s): F11.20 - Opioid dependence, uncomplicated Plan 62 yo female, hx of opiate use disorder, currently on high dose methadone and possible bipolar disorder presents from community with psychosis, disorganization, ? steve. Plan: Collateral contact Diagnostics Re-establish regime and assess needs Aftercare planning 02/02/23 -Increase Gabapentin to 400 mg tid from 200 mg tid, pt's home dosage -DC Olanzapine- due to elevated blood sugar -Risperdal 0.5 mg bid as pt remains disorganized with paranoia -Risperdal 0.5 mg bid prn -Hold Klonopin (0.5 mg daily prn, 7 day supply given early 2022) -Hold Cymbalta (given 10 days in Dec 2022). -Sliding scale insulin correction scale -Continue to monitor-pt may need a change from Doxepin to a stronger mood stabilizer, however she needs time to re-establish home dosing. Team from [facility] scheduled to visit pt today. 02/03/2023 continue current treatment plan 02/04?continue?current?treatment?plan 02/05- Team reports no real change with Risperdal over the weekend. Will proceed with dementia work up B12,Folate, ESR, CRP, HIV, RPR, EEG, CAT Discontinue Flaggyl-pt refusing 02/07/23 Increase Risperdal to 1 mg bid Continue to attempt collateral contacts Continue work up 02/08/23 Continue current regime and plan of care 02/09/23 Aricept 5 mg hs to begin 02/10 EKG on 02/12 Aftercare planning-pt has lost OP team 02/10 Aricept to begin today 02/11: no changes 02/12: Decrease Doxepin to 100 mg HS from 150 mg Depakote 250 mg tid trial to address pt report of sx of racing thoughts. Patient educated on: therapeutic strategies Informed Consent: further education needed Reason for continued inpatient stay Substantial Risk for: med/psych decompensation Time Spent With Patient Time: Total time managing care of this patient today ____ minutes.
[2023-02-12] MEDS: Nicotine Polacrilex Lozenge 4 MG LOZENGE BUCCAL ×4 (11:26→22:09)
[2023-02-12 12:24] LABS: Glucose, Whole Blood 170 mg/dL (60-115)
[2023-02-12] MEDS: Insulin Lispro 100 UNIT/ML 3 ML VIAL SUBCUT ×2 (13:11→17:33)
--- NOTE | 2023-02-12 15:32 | PC.NURSE ---
Pt participated in [facility] Evaluation of Living Skills (HEIDY) on this date. Pt appears to be able to be safe and meet basic needs living alone with weekly or monthly assistance for bill paying and money management.
[2023-02-12 17:37] LABS: Glucose, Whole Blood 206 mg/dL (60-115)
[2023-02-12 18:00] VITALS: BP 123/80; PULSE 83; RESP 16; TEMP 35.7; O2SAT 97
[2023-02-12 20:44] LABS: Glucose, Whole Blood 140 mg/dL (60-115)
[2023-02-12] MEDS: Doxepin HCl 25 MG CAPSULE 100 MG PO (20:49)
[2023-02-13] MEDS: cloNIDine HCL 0.1 MG TABLET PO ×3 (00:02→23:28)
[2023-02-13] MEDS: methADONE HCl 20 MG/2 ML ORAL.CONC 125 MG PO (08:00)
[2023-02-13] MEDS: Gabapentin 400 MG CAPSULE PO ×3 (08:03→20:12)
[2023-02-13] MEDS: risperiDONE 1 MG TABLET PO ×2 (08:03→20:12)
[2023-02-13] MEDS: lisinopriL 10 MG TABLET PO (08:03)
[2023-02-13] MEDS: metFORMIN HCl 1,000 MG TABLET 1000 MG PO ×2 (08:03→20:12)
[2023-02-13 08:05] VITALS: BP 139/63; PULSE 78; RESP 16; TEMP 36.1; O2SAT 95
[2023-02-13 08:09] LABS: Glucose, Whole Blood 216 mg/dL (60-115)
[2023-02-13] MEDS: Insulin Lispro 100 UNIT/ML 3 ML VIAL SUBCUT ×3 (08:52→20:47)
[2023-02-13 12:19] LABS: Glucose, Whole Blood 205 mg/dL (60-115)
[2023-02-13] MEDS: Divalproex Sodium 250 MG TABLET.DR PO ×2 (14:22→20:12)
[2023-02-13 14:30] VITALS: BP 127/61; PULSE 76
[2023-02-13] MEDS: Nicotine Polacrilex Lozenge 4 MG LOZENGE BUCCAL ×3 (15:26→23:28)
[2023-02-13 16:16] LABS: Glucose, Whole Blood 150 mg/dL (60-115)
--- NOTE | 2023-02-13 16:24 | HO.PSYCHPN ---
Subjective Subjective Date of Service: 02/13/23 Reason For Visit: Dysregulated Subjective Notes: Conditional Voluntary Healthcare Proxy: No Guardianship: No Medical Problems Affecting Mental Status: No Interim History: Refusal of Risperdal, Aricept, Depakote. Unsure if she needs meds other than the ones she chooses-Methadone, Clonidine, Gabapentin, Klonopin. Prepared to review medication literature which was provided. Anxious in milieu-observant to others issues and struggles, along with individual crises which occur. Some improved clarity, however confusion remains. Medication Compliance: Intermittent Side effects from medications: No Attending Groups: Intermittent Review of Systems Acute medical concerns: No Medical Review of Systems: unchanged Mental Status Exam Mental Status Exam Patient Appearance: Appropriate Patient Orientation: Person and Place Level of Consciousness: Awake and Alert Patient Behavior: Talkative, Anxious, Distractible and Confused Mood Description: Withdrawn, Constricted, Fearful, Anxious, Nervous and Apprehensive Affect Description: Constricted Patient Cognition Impaired: Yes Ability to Follow Directions: Fair Speech Pattern: Perseverating, Spontaneous Speech and Soft-Spoken Memory Description: Remote Impaired Hallucinations: None Delusions: Not Present Perceptual Disturbances: Derealization Thought Process: Illogical (at times), Distracted, Rumination, Slowed Thinking and Confusion Thought Content: positive for [place], positive for Circumstantial, positive for Perseveration, positive for Slowed Thinking, positive for Tangential and positive for Disorganized Depressive Symptoms: Increased Anxiety and Diff. Making Decisions Abnormal Motor Activity Signs and Symptoms: Restlessness Judgement: Poor Diagnostics Vital Signs (24Hr): Vital Signs - 24 hr 02/12/23 18:00 02/13/23 08:05 02/13/23 14:30 Temperature 96.3 F L 97.0 F Pulse Rate 83 78 76 Respiratory Rate 16 16 Blood Pressure 123/80 139/63 127/61 Pulse Oximetry 97 95 Oxygen Delivery Method Room Air Room Air BMI result Body Mass Index 25.1 Labs 01/30/23 17:20 02/11/23 07:33 Labs: Laboratory Results - last 48 hr 02/11/23 02/11/23 02/12/23 17:20 20:06 08:04 POC Glucose 124 H 242 H 108 02/12/23 02/12/23 02/12/23 12:20 17:27 20:39 POC Glucose 170 H 206 H 140 H 02/13/23 02/13/23 02/13/23 08:05 12:14 16:11 POC Glucose 216 H 205 H 150 H Imaging Radiology Impressions: ITS Impressions Head CT 02/06/23 11:17 IMPRESSION: No acute intracranial abnormality. No evidence of brain parenchymal volume loss. Medications Medications Current Medications Acetaminophen (Acetaminophen 325 Mg Tablet) 650 mg PO Q6H PRN PRN Reason: Headache/Pain Mild Scale (1-3) Last Admin: 02/10/23 23:52 Dose: 650 mg Al Hydroxide/Mg Hydroxide (Magnesium Hydrox/Alum Hydrox 30 Ml Oral.Susp) 30 ml PO Q6H PRN PRN Reason: Heartburn/Nausea Last Admin: 02/11/23 16:40 Dose: 30 ml Clonidine HCl (Clonidine Hcl 0.1 Mg Tablet) 0.1 mg PO BID PRN; Protocol PRN Reason: anxiety Last Admin: 02/13/23 14:29 Dose: 0.1 mg Cyclobenzaprine HCl (Cyclobenzaprine Hcl 5 Mg Tablet) 5 mg PO TID PRN PRN Reason: muscle spasm Last Admin: 02/11/23 20:18 Dose: 5 mg Dextrose (Dextrose 50 % 25 Gm/50 Ml Syringe) 25 gm IVPUSH Q15M PRN; Protocol PRN Reason: per Hypoglycemia Standing Ord. Divalproex Sodium (Divalproex Sodium 250 Mg Tablet.Dr) 250 mg PO TID [facility] Last Admin: 02/13/23 14:22 Dose: 250 mg Donepezil HCl (Donepezil Hcl 5 Mg Tablet) 5 mg PO BEDTIME [facility] Last Admin: 02/12/23 20:53 Dose: Not Given Doxepin HCl (Doxepin Hcl 25 Mg Capsule) 100 mg PO BEDTIME [facility] Last Admin: 02/12/23 20:49 Dose: 100 mg Gabapentin (Gabapentin 400 Mg Capsule) 400 mg PO TID [facility] Last Admin: 02/13/23 14:22 Dose: 400 mg Glucose (Glucose Gel 15 Gm Gel..Gram.) 15 gm PO Q15M PRN; Protocol PRN Reason: per Hypoglycemia Standing Ord. Insulin Human Lispro (Insulin Lispro 100 Unit/Ml 3 Ml Vial) 0 unit SUBCUT QIDACHS [facility]; Protocol Last Admin: 02/13/23 12:41 Dose: 4 unit Lisinopril (Lisinopril 10 Mg Tablet) 10 mg PO DAILY [facility]; Protocol Last Admin: 02/13/23 08:03 Dose: 10 mg Magnesium Hydroxide (Milk Of Magnesia 30 Ml Oral.Susp) 30 ml PO DAILY PRN PRN Reason: Constipation Last Admin: 02/09/23 19:15 Dose: 30 ml Metformin HCl (Metformin Hcl 1,000 Mg Tablet) 1,000 mg PO BID [facility] Last Admin: 02/13/23 08:03 Dose: 1,000 mg Methadone HCl (Methadone Hcl 20 Mg/2 Ml Oral.Conc) 125 mg PO DAILY [facility] Last Admin: 02/13/23 08:00 Dose: 125 mg Nicotine Polacrilex (Nicotine Polacrilex Lozenge 4 Mg Lozenge) 4 mg BUCCAL Q2H PRN PRN Reason: Nicotine Cravings Last Admin: 02/13/23 15:26 Dose: 4 mg Risperidone (Risperidone 0.5 Mg Tablet) 0.5 mg PO BID PRN PRN Reason: agitation,psychosis Risperidone (Risperidone 1 Mg Tablet) 1 mg PO BID [facility] Last Admin: 02/13/23 08:03 Dose: 1 mg Trazodone HCl (Trazodone Hcl 50 Mg Tablet) 50 mg PO BEDTIME MRX1 PRN PRN Reason: Insomnia Last Admin: 02/10/23 23:52 Dose: 50 mg Allergies Allergies Allergy/AdvReac Type Severity Reaction Status Date / Time No Known Allergies Allergy Verified 01/26/23 13:46 Assessment & Plan Assessment & Plan (1) Bipolar disorder with psychotic features: Status: Acute Code(s): F31.9 - Bipolar disorder, unspecified (2) Opioid use disorder, severe, on maintenance therapy: Status: Acute Code(s): F11.20 - Opioid dependence, uncomplicated Plan 62 yo female, hx of opiate use disorder, currently on high dose methadone and possible bipolar disorder presents from community with psychosis, disorganization, ? steve. Plan: Collateral contact Diagnostics Re-establish regime and assess needs Aftercare planning 02/02/23 -Increase Gabapentin to 400 mg tid from 200 mg tid, pt's home dosage -DC Olanzapine- due to elevated blood sugar -Risperdal 0.5 mg bid as pt remains disorganized with paranoia -Risperdal 0.5 mg bid prn -Hold Klonopin (0.5 mg daily prn, 7 day supply given early 2022) -Hold Cymbalta (given 10 days in Dec 2022). -Sliding scale insulin correction scale -Continue to monitor-pt may need a change from Doxepin to a stronger mood stabilizer, however she needs time to re-establish home dosing. Team from [facility] scheduled to visit pt today. 02/03/2023 continue current treatment plan 02/04?continue?current?treatment?plan 02/05- Team reports no real change with Risperdal over the weekend. Will proceed with dementia work up B12,Folate, ESR, CRP, HIV, RPR, EEG, CAT Discontinue Flaggyl-pt refusing 02/07/23 Increase Risperdal to 1 mg bid Continue to attempt collateral contacts Continue work up 02/08/23 Continue current regime and plan of care 02/09/23 Aricept 5 mg hs to begin 02/10 EKG on 02/12 Aftercare planning-pt has lost OP team 02/10 Aricept to begin today 02/11: no changes 02/13/23 No changes to regime today. Medication education provided Patient educated on: medication risk/benefits Informed Consent: further education needed Reason for continued inpatient stay Substantial Risk for: med/psych decompensation Time Spent With Patient Time: Total time managing care of this patient today ____ minutes.
[2023-02-13 16:25] VITALS: BP 129/58; PULSE 66; RESP 16; TEMP 36.2; O2SAT 98
[2023-02-13 19:24] LABS: Glucose, Whole Blood 265 mg/dL (60-115)
[2023-02-13] MEDS: Doxepin HCl 25 MG CAPSULE 100 MG PO (20:11)
[2023-02-13] MEDS: Magnesium Hydrox/Alum Hydrox 30 ML ORAL.SUSP PO (20:11)
[2023-02-13] MEDS: Donepezil HCl 5 MG TABLET PO (20:48)
[2023-02-14 08:22] VITALS: BP 139/69; PULSE 78; RESP 16; TEMP 36.9; O2SAT 97
[2023-02-14] MEDS: risperiDONE 1 MG TABLET PO ×2 (08:53→19:56)
[2023-02-14] MEDS: methADONE HCl 20 MG/2 ML ORAL.CONC 125 MG PO (08:53)
[2023-02-14] MEDS: metFORMIN HCl 1,000 MG TABLET 1000 MG PO ×2 (08:53→19:56)
[2023-02-14] MEDS: lisinopriL 10 MG TABLET PO (08:53)
[2023-02-14] MEDS: Gabapentin 400 MG CAPSULE PO ×3 (08:53→19:56)
[2023-02-14] MEDS: Divalproex Sodium 250 MG TABLET.DR PO ×2 (08:53→19:56)
[2023-02-14] MEDS: Milk of Magnesia 30 ML ORAL.SUSP PO (09:49)
[2023-02-14] MEDS: Nicotine Polacrilex Lozenge 4 MG LOZENGE BUCCAL ×2 (09:49→14:05)
[2023-02-14 12:42] LABS: Glucose, Whole Blood 185 mg/dL (60-115)
[2023-02-14] MEDS: Insulin Lispro 100 UNIT/ML 3 ML VIAL SUBCUT ×2 (12:52→19:58)
--- NOTE | 2023-02-14 16:21 | HO.PSYCHPN ---
Subjective Subjective Date of Service: 02/14/23 Reason For Visit: Dysregulated Subjective Notes: Conditional Voluntary Healthcare Proxy: No Guardianship: No Medical Problems Affecting Mental Status: No Interim History: Remains confused with poor organization. Has decided to refuse Aricept. Asks to return to Klonopin 0.5 mg daily prn. Asks for colace for constipation. Plans to sign three day notice, as soon as I talk with my son about our plans. Review of med side effects. Pt has not reviewed literature she requested 02/13. Reports anxiety, panic and is focused on having 3 Lamar's here. States she has not struggled with sleepwalking and wants to have a simple regime, klonopin, methadone, gabapentin Medication Compliance: Intermittent Side effects from medications: No Attending Groups: Intermittent Review of Systems Acute medical concerns: No Medical Review of Systems: unchanged Mental Status Exam Mental Status Exam Patient Appearance: Appropriate Patient Orientation: Person and Place Level of Consciousness: Awake and Alert Patient Behavior: Talkative, Anxious, Distractible and Confused Mood Description: Withdrawn, Constricted, Fearful, Anxious, Nervous and Apprehensive Affect Description: Constricted Patient Cognition Impaired: Yes Ability to Follow Directions: Fair Speech Pattern: Perseverating, Spontaneous Speech and Soft-Spoken Memory Description: Remote Impaired Hallucinations: None Delusions: Not Present Perceptual Disturbances: Derealization Thought Process: Illogical (at times), Distracted, Rumination, Slowed Thinking and Confusion Thought Content: positive for [place], positive for Circum[place], positive for Perseveration, positive for Slowed Thinking, positive for Tangential and positive for Disorganized Depressive Symptoms: Increased Anxiety and Diff. Making Decisions Abnormal Motor Activity Signs and Symptoms: Restlessness Judgement: Poor Diagnostics Vital Signs (24Hr): Vital Signs - 24 hr 02/13/23 16:25 02/14/23 08:22 Temperature 97.1 F 98.4 F Pulse Rate 66 78 Respiratory Rate 16 16 Blood Pressure 129/58 L 139/69 Pulse Oximetry 98 97 Oxygen Delivery Method Room Air Room Air BMI result Body Mass Index 25.1 Labs 01/30/23 17:20 02/11/23 07:33 Labs: Laboratory Results - last 48 hr 02/12/23 02/12/23 02/13/23 17:27 20:39 08:05 POC Glucose 206 H 140 H 216 H 02/13/23 02/13/23 02/13/23 12:14 16:11 19:18 POC Glucose 205 H 150 H 265 H 02/14/23 12:38 POC Glucose 185 H Imaging Radiology Impressions: [facility] Impressions Head CT 02/06/23 11:17 IMPRESSION: No acute intracranial abnormality. No evidence of brain parenchymal volume loss. Medications Medications Current Medications Acetaminophen (Acetaminophen 325 Mg Tablet) 650 mg PO Q6H PRN PRN Reason: Headache/Pain Mild Scale (1-3) Last Admin: 02/10/23 23:52 Dose: 650 mg Al Hydroxide/Mg Hydroxide (Magnesium Hydrox/Alum Hydrox 30 Ml Oral.Susp) 30 ml PO Q6H PRN PRN Reason: Heartburn/Nausea Last Admin: 02/13/23 20:11 Dose: 30 ml Clonazepam (Clonazepam 0.5 Mg Tablet) 0.5 mg PO DAILY PRN PRN Reason: Anxiety Clonidine HCl (Clonidine Hcl 0.1 Mg Tablet) 0.1 mg PO BID PRN; Protocol PRN Reason: anxiety Last Admin: 02/13/23 23:28 Dose: 0.1 mg Cyclobenzaprine HCl (Cyclobenzaprine Hcl 5 Mg Tablet) 5 mg PO TID PRN PRN Reason: muscle spasm Last Admin: 02/11/23 20:18 Dose: 5 mg Dextrose (Dextrose 50 % 25 Gm/50 Ml Syringe) 25 gm IVPUSH Q15M PRN; Protocol PRN Reason: per Hypoglycemia Standing Ord. Divalproex Sodium (Divalproex Sodium 250 Mg Tablet.Dr) 250 mg PO TID [facility] Last Admin: 02/14/23 15:40 Dose: Not Given Doxepin HCl (Doxepin Hcl 25 Mg Capsule) 100 mg PO BEDTIME [facility] Last Admin: 02/13/23 20:11 Dose: 100 mg Gabapentin (Gabapentin 400 Mg Capsule) 400 mg PO TID [facility] Last Admin: 02/14/23 14:05 Dose: 400 mg Glucose (Glucose Gel 15 Gm Gel..Gram.) 15 gm PO Q15M PRN; Protocol PRN Reason: per Hypoglycemia Standing Ord. Insulin Human Lispro (Insulin Lispro 100 Unit/Ml 3 Ml Vial) 0 unit SUBCUT QIDACHS [facility]; Protocol Last Admin: 02/14/23 12:52 Dose: 2 unit Lisinopril (Lisinopril 10 Mg Tablet) 10 mg PO DAILY [facility]; Protocol Last Admin: 02/14/23 08:53 Dose: 10 mg Magnesium Hydroxide (Milk Of Magnesia 30 Ml Oral.Susp) 30 ml PO DAILY PRN PRN Reason: Constipation Last Admin: 02/14/23 09:49 Dose: 30 ml Metformin HCl (Metformin Hcl 1,000 Mg Tablet) 1,000 mg PO BID [facility] Last Admin: 02/14/23 08:53 Dose: 1,000 mg Methadone HCl (Methadone Hcl 20 Mg/2 Ml Oral.Conc) 125 mg PO DAILY [facility] Last Admin: 02/14/23 08:53 Dose: 125 mg Nicotine Polacrilex (Nicotine Polacrilex Lozenge 4 Mg Lozenge) 4 mg BUCCAL Q2H PRN PRN Reason: Nicotine Cravings Last Admin: 02/14/23 14:05 Dose: 4 mg Risperidone (Risperidone 0.5 Mg Tablet) 0.5 mg PO BID PRN PRN Reason: agitation,psychosis Risperidone (Risperidone 1 Mg Tablet) 1 mg PO BID [facility] Last Admin: 02/14/23 08:53 Dose: 1 mg Trazodone HCl (Trazodone Hcl 50 Mg Tablet) 50 mg PO BEDTIME MRX1 PRN PRN Reason: Insomnia Last Admin: 02/10/23 23:52 Dose: 50 mg Allergies Allergies Allergy/AdvReac Type Severity Reaction Status Date / Time No Known Allergies Allergy Verified 01/26/23 13:46 Assessment & Plan Assessment & Plan (1) Bipolar disorder with psychotic features: Status: Acute Code(s): F31.9 - Bipolar disorder, unspecified (2) Opioid use disorder, severe, on maintenance therapy: Status: Acute Code(s): F11.20 - Opioid dependence, uncomplicated Plan 62 yo female, hx of opiate use disorder, currently on high dose methadone and possible bipolar disorder presents from community with psychosis, disorganization, ? steve. Plan: Collateral contact Diagnostics Re-establish regime and assess needs Aftercare planning 02/02/23 -Increase Gabapentin to 400 mg tid from 200 mg tid, pt's home dosage -DC Olanzapine- due to elevated blood sugar -Risperdal 0.5 mg bid as pt remains disorganized with paranoia -Risperdal 0.5 mg bid prn -Hold Klonopin (0.5 mg daily prn, 7 day supply given early 2022) -Hold Cymbalta (given 10 days in Dec 2022). -Sliding scale insulin correction scale -Continue to monitor-pt may need a change from Doxepin to a stronger mood stabilizer, however she needs time to re-establish home dosing. Team from [facility] scheduled to visit pt today. 02/03/2023 continue current treatment plan 02/04?continue?current?treatment?plan 02/05- Team reports no real change with Risperdal over the weekend. Will proceed with dementia work up B12,Folate, ESR, CRP, HIV, RPR, EEG, CAT Discontinue Flaggyl-pt refusing 02/07/23 Increase Risperdal to 1 mg bid Continue to attempt collateral contacts Continue work up 02/08/23 Continue current regime and plan of care 02/09/23 Aricept 5 mg hs to begin 02/10 EKG on 02/12 Aftercare planning-pt has lost OP team 02/10 Aricept to begin today 02/11: no changes 02/13/23 No changes to regime today. Medication education provided 02/14/23 Discontinue Aricept-pt request Klonopin 0.5 mg daily prn anxiety (hx of use at home) Colace 100 mg bid Discharge planning continues Patient educated on: therapeutic strategies Informed Consent: does not understand Reason for continued inpatient stay Substantial Risk for: rapid decompensation Time Spent With Patient Time: Total time managing care of this patient today ____ minutes.
[2023-02-14] MEDS: clonazePAM 0.5 MG TABLET PO (16:58)
[2023-02-14 18:00] VITALS: BP 126/56; PULSE 83; RESP 16; O2SAT 96
[2023-02-14] MEDS: Docusate Sodium 100 MG CAPSULE PO (19:56)
[2023-02-14] MEDS: Doxepin HCl 25 MG CAPSULE 100 MG PO (19:56)
[2023-02-14 20:00] LABS: Glucose, Whole Blood 215 mg/dL (60-115)
[2023-02-15 07:00] VITALS: BMI 25.6
[2023-02-15 07:55] VITALS: BP 127/67; PULSE 91; RESP 16; TEMP 36.6; O2SAT 99
[2023-02-15 08:20] LABS: Glucose, Whole Blood 96 mg/dL (60-115)
[2023-02-15] MEDS: metFORMIN HCl 1,000 MG TABLET 1000 MG PO ×2 (08:35→19:31)
[2023-02-15] MEDS: Divalproex Sodium 250 MG TABLET.DR PO ×3 (08:36→19:31)
[2023-02-15] MEDS: Gabapentin 400 MG CAPSULE PO ×3 (08:36→19:31)
[2023-02-15] MEDS: methADONE HCl 20 MG/2 ML ORAL.CONC 125 MG PO (08:36)
[2023-02-15] MEDS: Docusate Sodium 100 MG CAPSULE PO ×2 (08:36→19:31)
[2023-02-15] MEDS: risperiDONE 1 MG TABLET PO ×2 (08:36→19:31)
[2023-02-15] MEDS: lisinopriL 10 MG TABLET PO (08:36)
[2023-02-15 12:53] LABS: Glucose, Whole Blood 254 mg/dL (60-115)
[2023-02-15] MEDS: Insulin Lispro 100 UNIT/ML 3 ML VIAL SUBCUT ×3 (12:56→20:14)
[2023-02-15 16:01] VITALS: BP 128/60; PULSE 70; RESP 16; TEMP 36.4; O2SAT 96
--- NOTE | 2023-02-15 16:14 | HO.PSYCHPN ---
Subjective Subjective Date of Service: 02/15/23 Reason For Visit: Dysregulated Subjective Notes: Conditional Voluntary Healthcare Proxy: No Guardianship: No Medical Problems Affecting Mental Status: No Interim History: Pt remains confused at times, team reports she appears calmer. She states she is calmer, and when talking today this appears to help her organization of content. She denies current symptoms of concern. She is pleased with a tentative discharge date of 02/19. She asks that her regime remain the same and we re-eval before she leaves, which will be done. Sleep is as it has always been , reports no concerns about this pattern. Medication Compliance: Intermittent Side effects from medications: No Attending Groups: Intermittent Review of Systems Acute medical concerns: No Medical Review of Systems: unchanged Mental Status Exam Mental Status Exam Patient Appearance: Appropriate Patient Orientation: Person and Place Level of Consciousness: Awake and Alert Patient Behavior: Talkative, Distractible and Confused Mood Description: Withdrawn and Apprehensive Affect Description: Flat Patient Cognition Impaired: Yes Ability to Follow Directions: Fair Speech Pattern: Perseverating, Spontaneous Speech and Soft-Spoken Memory Description: Remote Impaired Hallucinations: None Delusions: Not Present Thought Process: Distracted, Rumination, Slowed Thinking and Confusion Thought Content: positive for [place], positive for [place]um[place], positive for Perseveration, positive for Slowed Thinking and positive for Tangential Depressive Symptoms: Increased Anxiety Judgement: Fair Diagnostics Vital Signs (24Hr): Vital Signs - 24 hr 02/14/23 18:00 02/15/23 07:55 02/15/23 16:01 Temperature 98 F 97.6 F Pulse Rate 83 91 70 Respiratory Rate 16 16 16 Blood Pressure 126/56 L 127/67 128/60 Pulse Oximetry 96 99 96 Oxygen Delivery Method Room Air Room Air Room Air BMI result Body Mass Index 25.6 Labs 01/30/23 17:20 02/11/23 07:33 Labs: Laboratory Results - last 48 hr 02/13/23 02/13/23 02/14/23 16:11 19:18 12:38 POC Glucose 150 H 265 H 185 H 02/14/23 02/15/23 02/15/23 19:56 08:11 12:49 POC Glucose 215 H 96 254 H Imaging Radiology Impressions: [facility] Impressions Head CT 02/06/23 11:17 IMPRESSION: No acute intracranial abnormality. No evidence of brain parenchymal volume loss. Medications Medications Current Medications Acetaminophen (Acetaminophen 325 Mg Tablet) 650 mg PO Q6H PRN PRN Reason: Headache/Pain Mild Scale (1-3) Last Admin: 02/10/23 23:52 Dose: 650 mg Al Hydroxide/Mg Hydroxide (Magnesium Hydrox/Alum Hydrox 30 Ml Oral.Susp) 30 ml PO Q6H PRN PRN Reason: Heartburn/Nausea Last Admin: 02/13/23 20:11 Dose: 30 ml Clonazepam (Clonazepam 0.5 Mg Tablet) 0.5 mg PO DAILY PRN PRN Reason: Anxiety Last Admin: 02/14/23 16:58 Dose: 0.5 mg Clonidine HCl (Clonidine Hcl 0.1 Mg Tablet) 0.1 mg PO BID PRN; Protocol PRN Reason: anxiety Last Admin: 02/13/23 23:28 Dose: 0.1 mg Cyclobenzaprine HCl (Cyclobenzaprine Hcl 5 Mg Tablet) 5 mg PO TID PRN PRN Reason: muscle spasm Last Admin: 02/11/23 20:18 Dose: 5 mg Dextrose (Dextrose 50 % 25 Gm/50 Ml Syringe) 25 gm IVPUSH Q15M PRN; Protocol PRN Reason: per Hypoglycemia Standing Ord. Divalproex Sodium (Divalproex Sodium 250 Mg Tablet.Dr) 250 mg PO TID [facility] Last Admin: 02/15/23 14:36 Dose: 250 mg Docusate Sodium (Docusate Sodium 100 Mg Capsule) 100 mg PO BID [facility] Last Admin: 02/15/23 08:36 Dose: 100 mg Doxepin HCl (Doxepin Hcl 25 Mg Capsule) 100 mg PO BEDTIME [facility] Last Admin: 02/14/23 19:56 Dose: 100 mg Gabapentin (Gabapentin 400 Mg Capsule) 400 mg PO TID [facility] Last Admin: 02/15/23 14:36 Dose: 400 mg Glucose (Glucose Gel 15 Gm Gel..Gram.) 15 gm PO Q15M PRN; Protocol PRN Reason: per Hypoglycemia Standing Ord. Insulin Human Lispro (Insulin Lispro 100 Unit/Ml 3 Ml Vial) 0 unit SUBCUT QIDACHS [facility]; Protocol Last Admin: 02/15/23 12:56 Dose: 6 unit Lisinopril (Lisinopril 10 Mg Tablet) 10 mg PO DAILY [facility]; Protocol Last Admin: 02/15/23 08:36 Dose: 10 mg Magnesium Hydroxide (Milk Of Magnesia 30 Ml Oral.Susp) 30 ml PO DAILY PRN PRN Reason: Constipation Last Admin: 02/14/23 09:49 Dose: 30 ml Metformin HCl (Metformin Hcl 1,000 Mg Tablet) 1,000 mg PO BID [facility] Last Admin: 02/15/23 08:35 Dose: 1,000 mg Methadone HCl (Methadone Hcl 20 Mg/2 Ml Oral.Conc) 125 mg PO DAILY [facility] Last Admin: 02/15/23 08:36 Dose: 125 mg Nicotine Polacrilex (Nicotine Polacrilex Lozenge 4 Mg Lozenge) 4 mg BUCCAL Q2H PRN PRN Reason: Nicotine Cravings Last Admin: 02/14/23 14:05 Dose: 4 mg Risperidone (Risperidone 0.5 Mg Tablet) 0.5 mg PO BID PRN PRN Reason: agitation,psychosis Risperidone (Risperidone 1 Mg Tablet) 1 mg PO BID [facility] Last Admin: 02/15/23 08:36 Dose: 1 mg Trazodone HCl (Trazodone Hcl 50 Mg Tablet) 50 mg PO BEDTIME MRX1 PRN PRN Reason: Insomnia Last Admin: 02/10/23 23:52 Dose: 50 mg Allergies Allergies Allergy/AdvReac Type Severity Reaction Status Date / Time No Known Allergies Allergy Verified 01/26/23 13:46 Assessment & Plan Assessment & Plan (1) Bipolar disorder with psychotic features: Status: Acute Code(s): F31.9 - Bipolar disorder, unspecified (2) Opioid use disorder, severe, on maintenance therapy: Status: Acute Code(s): F11.20 - Opioid dependence, uncomplicated Plan 62 yo female, hx of opiate use disorder, currently on high dose methadone and possible bipolar disorder presents from community with psychosis, disorganization, ? steve. Plan: Collateral contact Diagnostics Re-establish regime and assess needs Aftercare planning 02/02/23 -Increase Gabapentin to 400 mg tid from 200 mg tid, pt's home dosage -DC Olanzapine- due to elevated blood sugar -Risperdal 0.5 mg bid as pt remains disorganized with paranoia -Risperdal 0.5 mg bid prn -Hold Klonopin (0.5 mg daily prn, 7 day supply given early 2022) -Hold Cymbalta (given 10 days in Dec 2022). -Sliding scale insulin correction scale -Continue to monitor-pt may need a change from Doxepin to a stronger mood stabilizer, however she needs time to re-establish home dosing. Team from [facility] scheduled to visit pt today. 02/03/2023 continue current treatment plan 02/04?continue?current?treatment?plan 02/05- Team reports no real change with Risperdal over the weekend. Will proceed with dementia work up B12,Folate, ESR, CRP, HIV, RPR, EEG, CAT Discontinue Flaggyl-pt refusing 02/07/23 Increase Risperdal to 1 mg bid Continue to attempt collateral contacts Continue work up 02/08/23 Continue current regime and plan of care 02/09/23 Aricept 5 mg hs to begin 02/10 EKG on 02/12 Aftercare planning-pt has lost OP team 02/10 Aricept to begin today 02/11: no changes 02/13/23 No changes to regime today. Medication education provided 02/14/23 Discontinue Aricept-pt request Klonopin 0.5 mg daily prn anxiety (hx of use at home) Colace 100 mg bid Discharge planning continues 02/15/23 Pt asks for no changes today. Patient educated on: therapeutic strategies Informed Consent: further education needed Reason for continued inpatient stay Substantial Risk for: rapid decompensation Time Spent With Patient Time: Total time managing care of this patient today ____ minutes.
[2023-02-15 17:05] LABS: Glucose, Whole Blood 186 mg/dL (60-115)
[2023-02-15] MEDS: Doxepin HCl 25 MG CAPSULE 100 MG PO (19:31)
[2023-02-15] MEDS: Nicotine Polacrilex Lozenge 4 MG LOZENGE BUCCAL (19:38)
[2023-02-15 20:07] LABS: Glucose, Whole Blood 178 mg/dL (60-115)
[2023-02-15] MEDS: clonazePAM 0.5 MG TABLET PO (20:28)
[2023-02-16 08:39] LABS: Glucose, Whole Blood 99 mg/dL (60-115)
[2023-02-16] MEDS: methADONE HCl 20 MG/2 ML ORAL.CONC 125 MG PO (08:53)
[2023-02-16] MEDS: Divalproex Sodium 250 MG TABLET.DR PO ×3 (08:53→21:28)
[2023-02-16] MEDS: Gabapentin 400 MG CAPSULE PO ×3 (08:53→21:27)
[2023-02-16] MEDS: metFORMIN HCl 1,000 MG TABLET 1000 MG PO ×2 (08:53→21:28)
[2023-02-16] MEDS: risperiDONE 1 MG TABLET PO ×2 (08:53→21:28)
[2023-02-16] MEDS: Docusate Sodium 100 MG CAPSULE PO ×2 (08:53→21:28)
[2023-02-16] MEDS: lisinopriL 10 MG TABLET PO (08:53)
[2023-02-16 09:31] VITALS: BP 114/58; PULSE 72; RESP 16; TEMP 36.1; O2SAT 95
[2023-02-16 12:17] LABS: Glucose, Whole Blood 199 mg/dL (60-115)
[2023-02-16] MEDS: Insulin Lispro 100 UNIT/ML 3 ML VIAL SUBCUT ×2 (12:58→21:22)
--- NOTE | 2023-02-16 14:46 | HO.PSYCHPN ---
Subjective Subjective Date of Service: 02/16/23 Reason For Visit: Dysregulated Subjective Notes: Conditional Voluntary Healthcare Proxy: No Guardianship: No Medical Problems Affecting Mental Status: No Interim History: I think I will hire some help for laundry day when I get home. Focused on packing her clothing for discharge. Remains calm, confusion still present. Awake, alert, interactive with her peers. Medication Compliance: Intermittent Side effects from medications: No Attending Groups: Intermittent Review of Systems Acute medical concerns: No Medical Review of Systems: unchanged Mental Status Exam Mental Status Exam Patient Appearance: Appropriate Patient Orientation: Person and Place Level of Consciousness: Awake and Alert Patient Behavior: Talkative, Distractible and Confused Mood Description: Withdrawn and Apprehensive Affect Description: Flat Patient Cognition Impaired: Yes Ability to Follow Directions: Fair Speech Pattern: Perseverating, Spontaneous Speech and Soft-Spoken Memory Description: Remote Impaired Hallucinations: None Delusions: Not Present Thought Process: Distracted, Rumination, Slowed Thinking and Confusion Thought Content: positive for [place], positive for Circumstantial, positive for Perseveration, positive for Slowed Thinking and positive for Tangential Depressive Symptoms: Increased Anxiety Judgement: Fair Diagnostics Vital Signs (24Hr): Vital Signs - 24 hr 02/15/23 16:01 02/16/23 09:31 Temperature 97.6 F 96.9 F Pulse Rate 70 72 Respiratory Rate 16 16 Blood Pressure 128/60 114/58 L Pulse Oximetry 96 95 Oxygen Delivery Method Room Air Room Air BMI result Body Mass Index 25.6 Labs 01/30/23 17:20 02/11/23 07:33 Labs: Laboratory Results - last 48 hr 02/14/23 02/15/23 02/15/23 19:56 08:11 12:49 POC Glucose 215 H 96 254 H 02/15/23 02/15/23 02/16/23 17:01 20:04 08:35 POC Glucose 186 H 178 H 99 02/16/23 12:13 POC Glucose 199 H Imaging Radiology Impressions: ITS Impressions Head CT 02/06/23 11:17 IMPRESSION: No acute intracranial abnormality. No evidence of brain parenchymal volume loss. Medications Medications Current Medications Acetaminophen (Acetaminophen 325 Mg Tablet) 650 mg PO Q6H PRN PRN Reason: Headache/Pain Mild Scale (1-3) Last Admin: 02/10/23 23:52 Dose: 650 mg Al Hydroxide/Mg Hydroxide (Magnesium Hydrox/Alum Hydrox 30 Ml Oral.Susp) 30 ml PO Q6H PRN PRN Reason: Heartburn/Nausea Last Admin: 02/13/23 20:11 Dose: 30 ml Clonazepam (Clonazepam 0.5 Mg Tablet) 0.5 mg PO DAILY PRN PRN Reason: Anxiety Last Admin: 02/15/23 20:28 Dose: 0.5 mg Clonidine HCl (Clonidine Hcl 0.1 Mg Tablet) 0.1 mg PO BID PRN; Protocol PRN Reason: anxiety Last Admin: 02/13/23 23:28 Dose: 0.1 mg Cyclobenzaprine HCl (Cyclobenzaprine Hcl 5 Mg Tablet) 5 mg PO TID PRN PRN Reason: muscle spasm Last Admin: 02/11/23 20:18 Dose: 5 mg Dextrose (Dextrose 50 % 25 Gm/50 Ml Syringe) 25 gm IVPUSH Q15M PRN; Protocol PRN Reason: per Hypoglycemia Standing Ord. Divalproex Sodium (Divalproex Sodium 250 Mg Tablet.Dr) 250 mg PO TID [facility] Last Admin: 02/16/23 08:53 Dose: 250 mg Docusate Sodium (Docusate Sodium 100 Mg Capsule) 100 mg PO BID [facility] Last Admin: 02/16/23 08:53 Dose: 100 mg Doxepin HCl (Doxepin Hcl 25 Mg Capsule) 100 mg PO BEDTIME [facility] Last Admin: 02/15/23 19:31 Dose: 100 mg Gabapentin (Gabapentin 400 Mg Capsule) 400 mg PO TID [facility] Last Admin: 02/16/23 08:53 Dose: 400 mg Glucose (Glucose Gel 15 Gm Gel..Gram.) 15 gm PO Q15M PRN; Protocol PRN Reason: per Hypoglycemia Standing Ord. Insulin Human Lispro (Insulin Lispro 100 Unit/Ml 3 Ml Vial) 0 unit SUBCUT QIDACHS [facility]; Protocol Last Admin: 02/16/23 12:58 Dose: 2 unit Lisinopril (Lisinopril 10 Mg Tablet) 10 mg PO DAILY [facility]; Protocol Last Admin: 02/16/23 08:53 Dose: 10 mg Magnesium Hydroxide (Milk Of Magnesia 30 Ml Oral.Susp) 30 ml PO DAILY PRN PRN Reason: Constipation Last Admin: 02/14/23 09:49 Dose: 30 ml Metformin HCl (Metformin Hcl 1,000 Mg Tablet) 1,000 mg PO BID [facility] Last Admin: 02/16/23 08:53 Dose: 1,000 mg Methadone HCl (Methadone Hcl 20 Mg/2 Ml Oral.Conc) 125 mg PO DAILY [facility] Last Admin: 02/16/23 08:53 Dose: 125 mg Nicotine Polacrilex (Nicotine Polacrilex Lozenge 4 Mg Lozenge) 4 mg BUCCAL Q2H PRN PRN Reason: Nicotine Cravings Last Admin: 02/15/23 19:38 Dose: 4 mg Risperidone (Risperidone 0.5 Mg Tablet) 0.5 mg PO BID PRN PRN Reason: agitation,psychosis Risperidone (Risperidone 1 Mg Tablet) 1 mg PO BID [facility] Last Admin: 02/16/23 08:53 Dose: 1 mg Trazodone HCl (Trazodone Hcl 50 Mg Tablet) 50 mg PO BEDTIME MRX1 PRN PRN Reason: Insomnia Last Admin: 02/10/23 23:52 Dose: 50 mg Allergies Allergies Allergy/AdvReac Type Severity Reaction Status Date / Time No Known Allergies Allergy Verified 01/26/23 13:46 Assessment & Plan Assessment & Plan (1) Bipolar disorder with psychotic features: Status: Acute Code(s): F31.9 - Bipolar disorder, unspecified (2) Opioid use disorder, severe, on maintenance therapy: Status: Acute Code(s): F11.20 - Opioid dependence, uncomplicated Plan 62 yo female, hx of opiate use disorder, currently on high dose methadone and possible bipolar disorder presents from community with psychosis, disorganization, ? steve. Plan: Collateral contact Diagnostics Re-establish regime and assess needs Aftercare planning 02/02/23 -Increase Gabapentin to 400 mg tid from 200 mg tid, pt's home dosage -DC Olanzapine- due to elevated blood sugar -Risperdal 0.5 mg bid as pt remains disorganized with paranoia -Risperdal 0.5 mg bid prn -Hold Klonopin (0.5 mg daily prn, 7 day supply given early 2022) -Hold Cymbalta (given 10 days in Dec 2022). -Sliding scale insulin correction scale -Continue to monitor-pt may need a change from Doxepin to a stronger mood stabilizer, however she needs time to re-establish home dosing. Team from [facility] scheduled to visit pt today. 02/03/2023 continue current treatment plan 02/04?continue?current?treatment?plan 02/05- Team reports no real change with Risperdal over the weekend. Will proceed with dementia work up B12,Folate, ESR, CRP, HIV, RPR, EEG, CAT Discontinue Flaggyl-pt refusing 02/07/23 Increase Risperdal to 1 mg bid Continue to attempt collateral contacts Continue work up 02/08/23 Continue current regime and plan of care 02/09/23 Aricept 5 mg hs to begin 02/10 EKG on 02/12 Aftercare planning-pt has lost OP team 02/10 Aricept to begin today 02/11: no changes 02/13/23 No changes to regime today. Medication education provided 02/14/23 Discontinue Aricept-pt request Klonopin 0.5 mg daily prn anxiety (hx of use at home) Colace 100 mg bid Discharge planning continues 02/16/23 Tentative discharge for 02/19. Depakote level CBCD Patient educated on: therapeutic strategies Informed Consent: further education needed Reason for continued inpatient stay Substantial Risk for: rapid decompensation Time Spent With Patient Time: Total time managing care of this patient today ____ minutes.
[2023-02-16] MEDS: Nicotine Polacrilex Lozenge 4 MG LOZENGE BUCCAL ×2 (15:11→16:38)
[2023-02-16 16:50] LABS: Glucose, Whole Blood 131 mg/dL (60-115)
[2023-02-16 18:00] VITALS: BP 128/60; PULSE 82; RESP 18; O2SAT 96
[2023-02-16 20:33] LABS: Glucose, Whole Blood 234 mg/dL (60-115)
[2023-02-16] MEDS: Doxepin HCl 25 MG CAPSULE 100 MG PO (21:28)
[2023-02-16] MEDS: clonazePAM 0.5 MG TABLET PO (23:36)
[2023-02-17 08:08] LABS: MANUAL DIFF FLAG NO
[2023-02-17 08:15] LABS: Basophils Absolute Auto 0.1 X10*3/uL (0.0-0.2); Basophils Percent Auto 0.7 % (0-2); Eosinophils Absolute Auto 0.2 X10*3/uL (0.0-0.4); Eosinophils Percent Auto 1.6 % (0-4); Hematocrit 39.9 % (37.0-47.0); Hemoglobin 12.6 g/dl (12.0-16.0); Imm Gran Abs Auto 0.03 X10*3/uL (0.00-0.03); Imm Gran Pct Auto 0.3 % (0.0-0.4); Lymphocytes Absolute Auto 3.6 X10*3/uL (1.2-4.9); Lymphocytes Percent Auto 36.2 % (20-40); Mean Corpuscular HGB Conc 31.6 g/dl (31.0-35.0); Mean Corpuscular Hemoglobin 28.1 pg (27.0-33.0); Mean Corpuscular Volume 88.9 fL (80.0-98.0); Mean Platelet Volume 10.9 fL (9.4-12.3); Monocytes Absolute Auto 0.7 X10*3/uL (0.1-1.2); Monocytes Percent Auto 6.7 % (2-11); Neutrophils Absolute Auto 5.5 x10*3/uL (2.0-8.3); Neutrophils Percent Auto 54.5 % (45-73); Platelet Count 324 X10*3/uL (160-400); Red Blood Count 4.49 X10*6/uL (4.20-5.50); Red Cell Distribution Width 14.6 % (11.0-16.0)
[2023-02-17 08:30] LABS: Valproate 40.3 mcg/mL (50.0-100.0)
[2023-02-17 08:56] LABS: Glucose, Whole Blood 138 mg/dL (60-115)
--- NOTE | 2023-02-17 10:33 | P.PNPSI_ITS ---
Subjective Subjective Date of Service: 02/17/23 Reason For Visit: Dysregulated Interim History: pt confused and disorganized; talked about concerns about her laundry; stating kota has a large pile to launder. Isolating in her room. Remains calm, confusion still present. Awake, alert, interactive with her peers. Medication Compliance: Yes Side effects from medications: No Attending Groups: No Review of Systems Acute medical concerns: No Review of Systems Review of Systems As per HPI. Yes all other systems are reviewed and are negative and Unobtainable due to mental status Constitutional: Reports as per HPI Musculoskeletal: Reports abnormal gait and Reports myalgias Reports abnormal gait and Reports confusion Psychiatric: Reports anxiety, Reports confusion, Reports difficulty concentrating, Reports anhedonia and Reports paranoia Mental Status Exam Mental Status Exam Narrative: Pt is alert and oriented; behavior is a little disorganized but cooperative, friendly and calm; patient is not in distress; dressed in hospital attire with adequate hygiene; mood is described as good and affect congruent; eye contact appropriate; Speech is a little verbose, mildly pressured but normal volume and prosody; no psychomotor agitation/retardation present; thought process can be linear and goal directed when asked specific question but is soon disorganized, talking about random unrelated topics; Thought content is random personal life topics; no delusional, paranoid ideation expressed; denies any SI/HI. There is no evidence of perceptual disturbance. Patients insight and judgment impaired Patient Appearance: Appropriate Patient Orientation: Person and Place Level of Consciousness: Awake and Alert Patient Behavior: Talkative, Distractible and Confused Mood Description: Withdrawn and Apprehensive Affect Description: Flat Patient Cognition Impaired: Yes Ability to Follow Directions: Fair Speech Pattern: Perseverating, Spontaneous Speech and Soft-Spoken Memory Description: Remote Impaired Diagnostics Vital Signs (24Hr): Vital Signs - 24 hr 02/16/23 18:00 Pulse Rate 82 Respiratory Rate 18 Blood Pressure 128/60 Pulse Oximetry 96 Oxygen Delivery Method Room Air BMI result Body Mass Index 25.6 Labs 02/17/23 07:38 02/11/23 07:33 Labs: Laboratory Results - last 48 hr 02/15/23 02/15/23 02/15/23 12:49 17:01 20:04 WBC RBC Hgb Hct MCV MCH MCHC RDW Plt Count MPV Immature Gran % (Auto) Neut % (Auto) Lymph % (Auto) [place] % (Auto) Eos % (Auto) Baso % (Auto) Lymph # (Auto) [place] # (Auto) Eos # (Auto) Baso # (Auto) Abs Immat Gran (auto) Absolute Neuts (auto) Absolute Nucleated RBC Nucleated RBC % (auto) POC Glucose 254 H 186 H 178 H Valproic Acid 02/16/23 02/16/23 02/16/23 08:35 12:13 16:46 WBC RBC Hgb Hct MCV MCH MCHC RDW Plt Count MPV Immature Gran % (Auto) Neut % (Auto) Lymph % (Auto) [place] % (Auto) Eos % (Auto) Baso % (Auto) Lymph # (Auto) [place] # (Auto) Eos # (Auto) Baso # (Auto) Abs Immat Gran (auto) Absolute Neuts (auto) Absolute Nucleated RBC Nucleated RBC % (auto) POC Glucose 99 199 H 131 H Valproic Acid 02/16/23 02/17/23 02/17/23 20:28 07:38 08:51 WBC 10.0 RBC 4.49 Hgb 12.6 Hct 39.9 MCV 88.9 MCH 28.1 MCHC 31.6 RDW 14.6 Plt Count 324 D MPV 10.9 Immature Gran % (Auto) 0.3 Neut % (Auto) 54.5 Lymph % (Auto) 36.2 [place] % (Auto) 6.7 Eos % (Auto) 1.6 Baso % (Auto) 0.7 Lymph # (Auto) 3.6 [place] # (Auto) 0.7 Eos # (Auto) 0.2 Baso # (Auto) 0.1 Abs Immat Gran (auto) 0.03 Absolute Neuts (auto) 5.5 Absolute Nucleated RBC 0.000 Nucleated RBC % (auto) 0.0 POC Glucose 234 H 138 H Valproic Acid 40.3 L Imaging Radiology Impressions: ITS Impressions Head CT 02/06/23 11:17 IMPRESSION: No acute intracranial abnormality. No evidence of brain parenchymal volume loss. Medications Medications Current Medications Acetaminophen (Acetaminophen 325 Mg Tablet) 650 mg PO Q6H PRN PRN Reason: Headache/Pain Mild Scale (1-3) Last Admin: 02/10/23 23:52 Dose: 650 mg Al Hydroxide/Mg Hydroxide (Magnesium Hydrox/Alum Hydrox 30 Ml Oral.Susp) 30 ml PO Q6H PRN PRN Reason: Heartburn/Nausea Last Admin: 02/13/23 20:11 Dose: 30 ml Clonazepam (Clonazepam 0.5 Mg Tablet) 0.5 mg PO DAILY PRN PRN Reason: Anxiety Last Admin: 02/16/23 23:36 Dose: 0.5 mg Clonidine HCl (Clonidine Hcl 0.1 Mg Tablet) 0.1 mg PO BID PRN; Protocol PRN Reason: anxiety Last Admin: 02/13/23 23:28 Dose: 0.1 mg Cyclobenzaprine HCl (Cyclobenzaprine Hcl 5 Mg Tablet) 5 mg PO TID PRN PRN Reason: muscle spasm Last Admin: 02/11/23 20:18 Dose: 5 mg Dextrose (Dextrose 50 % 25 Gm/50 Ml Syringe) 25 gm IVPUSH Q15M PRN; Protocol PRN Reason: per Hypoglycemia Standing Ord. Divalproex Sodium (Divalproex Sodium 250 Mg Tablet.Dr) 250 mg PO TID [facility] Last Admin: 02/16/23 21:28 Dose: 250 mg Docusate Sodium (Docusate Sodium 100 Mg Capsule) 100 mg PO BID [facility] Last Admin: 02/16/23 21:28 Dose: 100 mg Doxepin HCl (Doxepin Hcl 25 Mg Capsule) 100 mg PO BEDTIME [facility] Last Admin: 02/16/23 21:28 Dose: 100 mg Gabapentin (Gabapentin 400 Mg Capsule) 400 mg PO TID [facility] Last Admin: 02/16/23 21:27 Dose: 400 mg Glucose (Glucose Gel 15 Gm Gel..Gram.) 15 gm PO Q15M PRN; Protocol PRN Reason: per Hypoglycemia Standing Ord. Insulin Human Lispro (Insulin Lispro 100 Unit/Ml 3 Ml Vial) 0 unit SUBCUT QIDAS [facility]; Protocol Last Admin: 02/17/23 08:55 Dose: Not Given Lisinopril (Lisinopril 10 Mg Tablet) 10 mg PO DAILY [facility]; Protocol Last Admin: 02/16/23 08:53 Dose: 10 mg Magnesium Hydroxide (Milk Of Magnesia 30 Ml Oral.Susp) 30 ml PO DAILY PRN PRN Reason: Constipation Last Admin: 02/14/23 09:49 Dose: 30 ml Metformin HCl (Metformin Hcl 1,000 Mg Tablet) 1,000 mg PO BID [facility] Last Admin: 02/16/23 21:28 Dose: 1,000 mg Methadone HCl (Methadone Hcl 20 Mg/2 Ml Oral.Conc) 125 mg PO DAILY [facility] Last Admin: 02/16/23 08:53 Dose: 125 mg Nicotine Polacrilex (Nicotine Polacrilex Lozenge 4 Mg Lozenge) 4 mg BUCCAL Q2H PRN PRN Reason: Nicotine Cravings Last Admin: 02/16/23 16:38 Dose: 4 mg Risperidone (Risperidone 0.5 Mg Tablet) 0.5 mg PO BID PRN PRN Reason: agitation,psychosis Risperidone (Risperidone 1 Mg Tablet) 1 mg PO BID [facility] Last Admin: 02/16/23 21:28 Dose: 1 mg Trazodone HCl (Trazodone Hcl 50 Mg Tablet) 50 mg PO BEDTIME MRX1 PRN PRN Reason: Insomnia Last Admin: 02/10/23 23:52 Dose: 50 mg Allergies Allergies Allergy/AdvReac Type Severity Reaction Status Date / Time No Known Allergies Allergy Verified 01/26/23 13:46 Assessment & Plan Assessment & Plan (1) Bipolar disorder with psychotic features: Status: Acute Code(s): F31.9 - Bipolar disorder, unspecified (2) Opioid use disorder, severe, on maintenance therapy: Status: Acute Code(s): F11.20 - Opioid dependence, uncomplicated Plan 62 yo female, hx of opiate use disorder, currently on high dose methadone and possible bipolar disorder presents from community with psychosis, disorganization, ? steve. Plan: Collateral contact Diagnostics Re-establish regime and assess needs Aftercare planning 02/02/23 -Increase Gabapentin to 400 mg tid from 200 mg tid, pt's home dosage -DC Olanzapine- due to elevated blood sugar -Risperdal 0.5 mg bid as pt remains disorganized with paranoia -Risperdal 0.5 mg bid prn -Hold Klonopin (0.5 mg daily prn, 7 day supply given early 2022) -Hold Cymbalta (given 10 days in Dec 2022). -Sliding scale insulin correction scale -Continue to monitor-pt may need a change from Doxepin to a stronger mood stabilizer, however she needs time to re-establish home dosing. Team from [facility] scheduled to visit pt today. 02/03/2023 continue current treatment plan 02/04?continue?current?treatment?plan 02/05- Team reports no real change with Risperdal over the weekend. Will proceed with dementia work up B12,Folate, ESR, CRP, HIV, RPR, EEG, CAT Discontinue Flaggyl-pt refusing 02/07/23 Increase Risperdal to 1 mg bid Continue to attempt collateral contacts Continue work up 02/08/23 Continue current regime and plan of care 02/09/23 Aricept 5 mg hs to begin 02/10 EKG on 02/12 Aftercare planning-pt has lost OP team 02/10 Aricept to begin today 02/11: no changes 02/13/23 No changes to regime today. Medication education provided 02/14/23 Discontinue Aricept-pt request Klonopin 0.5 mg daily prn anxiety (hx of use at home) Colace 100 mg bid Discharge planning continues 02/16/23 Tentative discharge for 02/19. Depakote level CBCD 02/17/23 continue current treatment plan Patient educated on: therapeutic strategies Informed Consent: further education needed Reason for continued inpatient stay Substantial Risk for: harm to self, inability to function and rapid decompensation Time Spent With Patient Time: Total time managing care of this patient today ____ minutes.
[2023-02-17 11:10] VITALS: BP 109/53; PULSE 73; RESP 18; TEMP 36.2; O2SAT 95
[2023-02-17] MEDS: risperiDONE 1 MG TABLET PO ×2 (11:19→21:36)
[2023-02-17] MEDS: Docusate Sodium 100 MG CAPSULE PO ×2 (11:19→21:37)
[2023-02-17] MEDS: Divalproex Sodium 250 MG TABLET.DR PO ×3 (11:19→21:38)
[2023-02-17] MEDS: lisinopriL 10 MG TABLET PO (11:19)
[2023-02-17] MEDS: metFORMIN HCl 1,000 MG TABLET 1000 MG PO ×2 (11:19→21:36)
[2023-02-17] MEDS: methADONE HCl 20 MG/2 ML ORAL.CONC 125 MG PO (11:19)
[2023-02-17] MEDS: Gabapentin 400 MG CAPSULE PO ×3 (11:19→21:38)
[2023-02-17] MEDS: Milk of Magnesia 30 ML ORAL.SUSP PO (11:25)
[2023-02-17 12:32] LABS: Glucose, Whole Blood 205 mg/dL (60-115)
[2023-02-17] MEDS: Insulin Lispro 100 UNIT/ML 3 ML VIAL SUBCUT (12:52)
[2023-02-17 16:48] VITALS: BP 117/56; PULSE 72; TEMP 36.3; O2SAT 96
[2023-02-17 17:38] LABS: Glucose, Whole Blood 116 mg/dL (60-115)
[2023-02-17 20:35] LABS: Glucose, Whole Blood 137 mg/dL (60-115)
[2023-02-17 21:37] LABS: Glucose, Whole Blood 104 mg/dL (60-115)
[2023-02-17] MEDS: Doxepin HCl 25 MG CAPSULE 100 MG PO (21:37)
[2023-02-18 08:18] VITALS: BP 130/61; PULSE 85; RESP 16; TEMP 37.2; O2SAT 96
[2023-02-18 08:49] LABS: Glucose, Whole Blood 79 mg/dL (60-115)
[2023-02-18 10:55] VITALS: BP 146/62; PULSE 118; RESP 20; TEMP 37.2; O2SAT 99
[2023-02-18 11:13] LABS: Glucose, Whole Blood 100 mg/dL (60-115)
[2023-02-18] MEDS: Gabapentin 400 MG CAPSULE PO (11:18)
[2023-02-18] MEDS: Divalproex Sodium 250 MG TABLET.DR PO ×2 (11:18→20:36)
[2023-02-18] MEDS: clonazePAM 0.5 MG TABLET PO (11:18)
[2023-02-18] MEDS: metFORMIN HCl 1,000 MG TABLET 1000 MG PO ×2 (11:18→20:36)
[2023-02-18] MEDS: Docusate Sodium 100 MG CAPSULE PO ×2 (11:18→20:36)
[2023-02-18] MEDS: risperiDONE 1 MG TABLET PO ×2 (11:18→20:36)
[2023-02-18] MEDS: lisinopriL 10 MG TABLET PO (11:18)
[2023-02-18] MEDS: methADONE HCl 20 MG/2 ML ORAL.CONC 125 MG PO (11:19)
[2023-02-18 12:39] LABS: Glucose, Whole Blood 252 mg/dL (60-115)
[2023-02-18] MEDS: Insulin Lispro 100 UNIT/ML 3 ML VIAL SUBCUT ×2 (13:15→21:33)
[2023-02-18 16:57] LABS: Glucose, Whole Blood 143 mg/dL (60-115)
--- NOTE | 2023-02-18 17:23 | PC.NURSE ---
PT APPEARED SEDATED, SLEEPING ON THE TABLE IN THE KITCHEN. RN ATTEMPTED TO AROUSE PT WHICH TOOK MULTIPLE TIME OF CALLING HER NAME. PT WAS IN AND OUT OF SPEECH HOWEVER WAS ORIENTEDX4. PT APPEARED TO HAVE INTERMITTENT INVOLUNTARY JERKING MOVEMENTS OF HER UPPER BODY. PTS VITAL SIGNS WERE STABLE. BLOOD GLUCOSE 142. WAS MADE AWARE OF PTS PRESENTATION. LABS ORDERED. WILL CONTINUE TO MONITOR.
--- NOTE | 2023-02-18 17:50 | P.PNPSI_ITS ---
Subjective Subjective Date of Service: 02/18/23 Reason For Visit: Dysregulated Interim History: pt had episode this am of feeling acutely shaky and weak; pt quickly ate yogurt on her breakfast tray; states she woke up feeling that way today; feels she can not walk without assistance; Blood supgar at the time 100. pt states it felt like her Blood sugar may have been low; BP 130/62 P 85. Temp 99.0 Roomate with recent strep; Pt stating she does not think she can leave tomorrow; reports feeling anxious about discharge. Isolating in her room. throat culture ordered. Medication Compliance: Yes Side effects from medications: No Attending Groups: No Review of Systems Acute medical concerns: No Medical Review of Systems: unchanged Review of Systems Review of Systems As per HPI. Yes all other systems are reviewed and are negative and Unobtainable due to mental status Constitutional: Reports as per HPI Musculoskeletal: Reports abnormal gait and Reports myalgias Reports abnormal gait and Reports confusion Psychiatric: Reports anxiety, Reports confusion, Reports difficulty concentrating, Reports anhedonia and Reports paranoia Mental Status Exam Mental Status Exam Narrative: Pt is alert and oriented; behavior is a little disorganized but cooperative, friendly and calm; patient anxious; dressed in hospital attire with adequate hygiene; mood is described as anxious and affect congruent; eye contact appropriate; Speech is a little verbose, mildly pressured but normal volume and prosody; no psychomotor agitation/retardation present; thought process can be linear and goal directed when asked specific question but is soon disorganized, talking about random unrelated topics; Thought content is random personal life topics; no delusional, paranoid ideation expressed; denies any SI/HI. There is no evidence of perceptual disturbance. Patients insight and judgment impaired Patient Appearance: Appropriate Patient Orientation: Person and Place Level of Consciousness: Awake and Alert Patient Behavior: Talkative, Distractible and Confused Mood Description: Withdrawn and Apprehensive Affect Description: Flat Patient Cognition Impaired: Yes Ability to Follow Directions: Fair Speech Pattern: Perseverating, Spontaneous Speech and Soft-Spoken Memory Description: Remote Impaired Diagnostics Vital Signs (24Hr): Vital Signs - 24 hr 02/18/23 08:18 02/18/23 10:55 Temperature 99 F 99.0 F Pulse Rate 85 118 H Respiratory Rate 16 20 Blood Pressure 130/61 146/62 H Pulse Oximetry 96 99 Oxygen Delivery Method Room Air Room Air BMI result Body Mass Index 25.6 Labs 02/17/23 07:38 02/11/23 07:33 Labs: Laboratory Results - last 48 hr 02/16/23 02/17/23 02/17/23 20:28 07:38 08:51 WBC 10.0 RBC 4.49 Hgb 12.6 Hct 39.9 MCV 88.9 MCH 28.1 MCHC 31.6 RDW 14.6 Plt Count 324 D MPV 10.9 Immature Gran % (Auto) 0.3 Neut % (Auto) 54.5 Lymph % (Auto) 36.2 [place] % (Auto) 6.7 Eos % (Auto) 1.6 Baso % (Auto) 0.7 Lymph # (Auto) 3.6 [place] # (Auto) 0.7 Eos # (Auto) 0.2 Baso # (Auto) 0.1 Abs Immat Gran (auto) 0.03 Absolute Neuts (auto) 5.5 Absolute Nucleated RBC 0.000 Nucleated RBC % (auto) 0.0 POC Glucose 234 H 138 H Valproic Acid 40.3 L 02/17/23 02/17/23 02/17/23 12:26 17:34 20:31 WBC RBC Hgb Hct MCV MCH MCHC RDW Plt Count MPV Immature Gran % (Auto) Neut % (Auto) Lymph % (Auto) [place] % (Auto) Eos % (Auto) Baso % (Auto) Lymph # (Auto) [place] # (Auto) Eos # (Auto) Baso # (Auto) Abs Immat Gran (auto) Absolute Neuts (auto) Absolute Nucleated RBC Nucleated RBC % (auto) POC Glucose 205 H 116 H 137 H Valproic Acid 02/17/23 02/18/23 02/18/23 21:33 08:36 11:08 WBC RBC Hgb Hct MCV MCH MCHC RDW Plt Count MPV Immature Gran % (Auto) Neut % (Auto) Lymph % (Auto) [place] % (Auto) Eos % (Auto) Baso % (Auto) Lymph # (Auto) [place] # (Auto) Eos # (Auto) Baso # (Auto) Abs Immat Gran (auto) Absolute Neuts (auto) Absolute Nucleated RBC Nucleated RBC % (auto) POC Glucose 104 79 100 Valproic Acid 02/18/23 02/18/23 12:35 16:53 WBC RBC Hgb Hct MCV MCH MCHC RDW Plt Count MPV Immature Gran % (Auto) Neut % (Auto) Lymph % (Auto) [place] % (Auto) Eos % (Auto) Baso % (Auto) Lymph # (Auto) [place] # (Auto) Eos # (Auto) Baso # (Auto) Abs Immat Gran (auto) Absolute Neuts (auto) Absolute Nucleated RBC Nucleated RBC % (auto) POC Glucose 252 H 143 H Valproic Acid Imaging Radiology Impressions: ITS Impressions Head CT 02/06/23 11:17 IMPRESSION: No acute intracranial abnormality. No evidence of brain parenchymal volume loss. Medications Medications Current Medications Acetaminophen (Acetaminophen 325 Mg Tablet) 650 mg PO Q6H PRN PRN Reason: Headache/Pain Mild Scale (1-3) Last Admin: 02/10/23 23:52 Dose: 650 mg Al Hydroxide/Mg Hydroxide (Magnesium Hydrox/Alum Hydrox 30 Ml Oral.Susp) 30 ml PO Q6H PRN PRN Reason: Heartburn/Nausea Last Admin: 02/13/23 20:11 Dose: 30 ml Clonazepam (Clonazepam 0.5 Mg Tablet) 0.5 mg PO DAILY PRN PRN Reason: Anxiety Last Admin: 02/18/23 11:18 Dose: 0.5 mg Clonidine HCl (Clonidine Hcl 0.1 Mg Tablet) 0.1 mg PO BID PRN; Protocol PRN Reason: anxiety Last Admin: 02/13/23 23:28 Dose: 0.1 mg Cyclobenzaprine HCl (Cyclobenzaprine Hcl 5 Mg Tablet) 5 mg PO TID PRN PRN Reason: muscle spasm Last Admin: 02/11/23 20:18 Dose: 5 mg Dextrose (Dextrose 50 % 25 Gm/50 Ml Syringe) 25 gm IVPUSH Q15M PRN; Protocol PRN Reason: per Hypoglycemia Standing Ord. Divalproex Sodium (Divalproex Sodium 250 Mg Tablet.Dr) 250 mg PO TID CARINA Last Admin: 02/18/23 17:05 Dose: Not Given Docusate Sodium (Docusate Sodium 100 Mg Capsule) 100 mg PO BID [facility] Last Admin: 02/18/23 11:18 Dose: 100 mg Doxepin HCl (Doxepin Hcl 25 Mg Capsule) 100 mg PO BEDTIME [facility] Last Admin: 02/17/23 21:37 Dose: 100 mg Gabapentin (Gabapentin 300 Mg Capsule) 300 mg PO TID [facility]INA Glucose (Glucose Gel 15 Gm Gel..Gram.) 15 gm PO Q15M PRN; Protocol PRN Reason: per Hypoglycemia Standing Ord. Insulin Human Lispro (Insulin Lispro 100 Unit/Ml 3 Ml Vial) 0 unit SUBCUT QIDACHS [facility]; Protocol Last Admin: 02/18/23 16:58 Dose: Not Given Lisinopril (Lisinopril 10 Mg Tablet) 10 mg PO DAILY [facility]; Protocol Last Admin: 02/18/23 11:18 Dose: 10 mg Magnesium Hydroxide (Milk Of Magnesia 30 Ml Oral.Susp) 30 ml PO DAILY PRN PRN Reason: Constipation Last Admin: 02/17/23 11:25 Dose: 30 ml Metformin HCl (Metformin Hcl 1,000 Mg Tablet) 1,000 mg PO BID [facility] Last Admin: 02/18/23 11:18 Dose: 1,000 mg Methadone HCl (Methadone Hcl 20 Mg/2 Ml Oral.Conc) 125 mg PO DAILY [facility] Last Admin: 02/18/23 11:19 Dose: 125 mg Nicotine Polacrilex (Nicotine Polacrilex Lozenge 4 Mg Lozenge) 4 mg BUCCAL Q2H PRN PRN Reason: Nicotine Cravings Last Admin: 02/16/23 16:38 Dose: 4 mg Risperidone (Risperidone 0.5 Mg Tablet) 0.5 mg PO BID PRN PRN Reason: agitation,psychosis Risperidone (Risperidone 1 Mg Tablet) 1 mg PO BID [facility] Last Admin: 02/18/23 11:18 Dose: 1 mg Trazodone HCl (Trazodone Hcl 25 Mg Halftab) 25 mg PO BEDTIME MRX1 PRN PRN Reason: Insomnia Allergies Allergies Allergy/AdvReac Type Severity Reaction Status Date / Time No Known Allergies Allergy Verified 01/26/23 13:46 Assessment & Plan Assessment & Plan (1) Bipolar disorder with psychotic features: Status: Acute Code(s): F31.9 - Bipolar disorder, unspecified (2) Opioid use disorder, severe, on maintenance therapy: Status: Acute Code(s): F11.20 - Opioid dependence, uncomplicated Plan 62 yo female, hx of opiate use disorder, currently on high dose methadone and possible bipolar disorder presents from community with psychosis, disorganization, ? steve. Plan: Collateral contact Diagnostics Re-establish regime and assess needs Aftercare planning 02/02/23 -Increase Gabapentin to 400 mg tid from 200 mg tid, pt's home dosage -DC Olanzapine- due to elevated blood sugar -Risperdal 0.5 mg bid as pt remains disorganized with paranoia -Risperdal 0.5 mg bid prn -Hold Klonopin (0.5 mg daily prn, 7 day supply given early 2022) -Hold Cymbalta (given 10 days in Dec 2022). -Sliding scale insulin correction scale -Continue to monitor-pt may need a change from Doxepin to a stronger mood stabilizer, however she needs time to re-establish home dosing. Team from [facility] scheduled to visit pt today. 02/03/2023 continue current treatment plan 02/04?continue?current?treatment?plan 02/05- Team reports no real change with Risperdal over the weekend. Will proceed with dementia work up B12,Folate, ESR, CRP, HIV, RPR, EEG, CAT Discontinue Flaggyl-pt refusing 02/07/23 Increase Risperdal to 1 mg bid Continue to attempt collateral contacts Continue work up 02/08/23 Continue current regime and plan of care 02/09/23 Aricept 5 mg hs to begin 02/10 EKG on 02/12 Aftercare planning-pt has lost OP team 02/10 Aricept to begin today 02/11: no changes 02/13/23 No changes to regime today. Medication education provided 02/14/23 Discontinue Aricept-pt request Klonopin 0.5 mg daily prn anxiety (hx of use at home) Colace 100 mg bid Discharge planning continues 02/16/23 Tentative discharge for 02/19. Depakote level CBCD 02/17/23 continue current treatment plan 02/18/23 throat culture; encourage fluids Reason for continued inpatient stay Substantial Risk for: inability to function and med/psych decompensation Time Spent With Patient Time: Total time managing care of this patient today ____ minutes.
[2023-02-18 18:00] VITALS: BP 100/55; PULSE 76; RESP 14; TEMP 37.2; O2SAT 95
[2023-02-18 19:03] LABS: Basophils Absolute Auto 0.1 X10*3/uL (0.0-0.2); Basophils Percent Auto 0.5 % (0-2); Eosinophils Absolute Auto 0.1 X10*3/uL (0.0-0.4); Hematocrit 36.3 % (37.0-47.0); Hemoglobin 11.8 g/dl (12.0-16.0); Imm Gran Abs Auto 0.04 X10*3/uL (0.00-0.03); Imm Gran Pct Auto 0.3 % (0.0-0.4); Lymphocytes Absolute Auto 3.4 X10*3/uL (1.2-4.9); Lymphocytes Percent Auto 28.5 % (20-40); MANUAL DIFF FLAG SCAN; Mean Corpuscular HGB Conc 32.5 g/dl (31.0-35.0); Mean Corpuscular Hemoglobin 28.4 pg (27.0-33.0); Mean Corpuscular Volume 87.3 fL (80.0-98.0); Mean Platelet Volume 11.2 fL (9.4-12.3); Monocytes Absolute Auto 0.8 X10*3/uL (0.1-1.2); Monocytes Percent Auto 6.7 % (2-11); Neutrophils Absolute Auto 7.4 x10*3/uL (2.0-8.3); PLT CLUMP 1; Red Blood Count 4.16 X10*6/uL (4.20-5.50); Red Cell Distribution Width 14.5 % (11.0-16.0); SCAN SMEAR FLAG 1
[2023-02-18 19:06] LABS: Alanine Aminotransferase 20 U/L (0-31); Albumin Level 3.6 g/dL (3.5-5.0); Alkaline Phosphatase 63 U/L (39-117); Anion Gap 16 (12-20); Aspartate Amino Transferase 37 U/L (5-31); Bilirubin Total 0.2 mg/dL (0.0-1.0); Blood Urea Nitrogen 20 mg/dL (9-16); Calcium 9.3 mg/dL (8.4-10.2); Carbon Dioxide 26 mmol/L (22-29); Chloride 102 mmol/L (96-108); Creatinine Clr Calc Pharmacy 58.1; Estimated Glomerular Filt Rate > 60; Glucose Random 81 mg/dL (60-115); Potassium 5.2 mmol/L (3.3-5.1); Sodium 139 mmol/L (135-145); Total Protein 7.4 g/dL (6.5-8.0)
[2023-02-18 19:09] LABS: Platelet Count 222 X10*3/uL (160-400); White Blood Count 11.9 X10*3/uL (4.8-10.8)
[2023-02-18 19:17] LABS: Valproate 34.4 mcg/mL (50.0-100.0)
[2023-02-18 19:35] LABS: SLIDE REVIEW VERIFIED
[2023-02-18] MEDS: Gabapentin 300 MG CAPSULE PO (20:36)
[2023-02-18] MEDS: Doxepin HCl 25 MG CAPSULE 75 MG PO (20:37)
[2023-02-18 20:44] LABS: IDNOW Serial# 08D9AD1C; Strep A Nucleic Acid Negative (Negative)
[2023-02-18 21:21] LABS: Glucose, Whole Blood 229 mg/dL (60-115)
[2023-02-18] MEDS: Nicotine Polacrilex Lozenge 4 MG LOZENGE BUCCAL (21:41)
[2023-02-19 08:00] VITALS: BP 115/51; PULSE 82; RESP 18; TEMP 36.1; O2SAT 95
[2023-02-19] MEDS: risperiDONE 1 MG TABLET PO (08:27)
[2023-02-19] MEDS: Divalproex Sodium 250 MG TABLET.DR PO ×2 (08:27→19:59)
[2023-02-19] MEDS: Gabapentin 300 MG CAPSULE PO ×3 (08:27→19:59)
[2023-02-19] MEDS: Docusate Sodium 100 MG CAPSULE PO ×2 (08:27→19:59)
[2023-02-19] MEDS: metFORMIN HCl 1,000 MG TABLET 1000 MG PO ×2 (08:27→19:59)
[2023-02-19] MEDS: lisinopriL 10 MG TABLET PO (08:27)
[2023-02-19] MEDS: methADONE HCl 20 MG/2 ML ORAL.CONC 125 MG PO (08:28)
[2023-02-19 08:39] LABS: Glucose, Whole Blood 151 mg/dL (60-115)
[2023-02-19] MEDS: Insulin Lispro 100 UNIT/ML 3 ML VIAL SUBCUT ×3 (08:47→20:08)
[2023-02-19 11:09] LABS: Anion Gap 17 (12-20); Blood Urea Nitrogen 22 mg/dL (9-16); Calcium 9.3 mg/dL (8.4-10.2); Carbon Dioxide 30 mmol/L (22-29); Chloride 97 mmol/L (96-108); Creatinine Clr Calc Pharmacy 48.4; Estimated Glomerular Filt Rate 59; Glucose Random 193 mg/dL (60-115); Potassium 5.1 mmol/L (3.3-5.1); Sodium 139 mmol/L (135-145)
[2023-02-19 12:25] LABS: Glucose, Whole Blood 125 mg/dL (60-115)
[2023-02-19] MEDS: clonazePAM 0.5 MG TABLET 0.25 MG PO (14:07)
--- NOTE | 2023-02-19 14:21 | P.PNPSI_ITS ---
Subjective Subjective Date of Service: 02/19/23 Reason For Visit: Dysregulated Subjective Notes: Conditional Voluntary Healthcare Proxy: No Guardianship: No Medical Problems Affecting Mental Status: No Interim History: Team report an increase in sedation, weakness, confusion, pt reports of unwitnessed falls, sedate earlier in the day with some improvement as the day progresses. Reports some URI sx, throat culture negative. Filed a three day notice 02/16-02/21. Met with pt who is sedate, reports I cannot leave the hospital, I am not feeling well. Appears fatigued, improving as the day progresses. Diagnostics reviewed BP ranges over the weekend 109-146/51-62, Temp ranges 96.9 -99 WBC 11.9, pt with slight anemia, K. 5.2 02/18 5.1 today, BUN today 22, Valproate 02/17 40.3, 02/18 34.4 Urine culture pending. Medication Compliance: Yes Side effects from medications: Yes (??) Attending Groups: Intermittent Review of Systems Acute medical concerns: No Sedation Medical Review of Systems: unchanged Review of Systems Review of Systems As per HPI. Constitutional: Reports as per HPI, Reports body ache(s), Reports daytime sleepiness, Reports fatigue, Reports frequent falls, Reports lethargy, Reports malaise and Reports weakness Musculoskeletal: Reports abnormal gait (using a walker) and Reports myalgias Reports abnormal gait (using a walker), Reports confusion, Reports frequent falls and Reports weakness Psychiatric: Reports anxiety, Reports confusion, Reports difficulty concentrating, Reports anhedonia and Reports paranoia Endocrine: Reports fatigue Mental Status Exam Mental Status Exam Patient Appearance: Fatigued and Disheveled Patient Orientation: Person and Place Level of Consciousness: Sedated and Lethargic Patient Behavior: Appropriate, Talkative, Cooperative, Passive, Fatigued, Distractible, Confused and Good Eye Contact Mood Description: Calm, Withdrawn and Flat (anergic) Affect Description: Flat Patient Cognition Impaired: Yes Ability to Follow Directions: Fair Speech Pattern: Spontaneous Speech, Soft-Spoken, Cofabulation, Delayed and Long Pauses Memory Description: Remote Impaired and Episodic Impaired Hallucinations: None (denies) Delusions: Not Present Thought Process: Confusion Thought Content: positive for Disorganized Depressive Symptoms: Increased Fatigue and Loss of Energy Judgement: Poor Diagnostics Vital Signs (24Hr): Vital Signs - 24 hr 02/18/23 18:00 02/19/23 08:00 Temperature 98.9 F 97.0 F Pulse Rate 76 82 Respiratory Rate 14 18 Blood Pressure 100/55 L 115/51 L Pulse Oximetry 95 95 Oxygen Delivery Method Room Air Room Air BMI result Body Mass Index 25.6 Labs 02/18/23 18:30 02/19/23 10:35 Labs: Laboratory Results - last 48 hr 02/17/23 02/17/23 02/17/23 17:34 20:31 21:33 WBC RBC Hgb Hct MCV MCH MCHC RDW Plt Count MPV Immature Gran % (Auto) Neut % (Auto) Lymph % (Auto) [place] % (Auto) Eos % (Auto) Baso % (Auto) Lymph # (Auto) [place] # (Auto) Eos # (Auto) Baso # (Auto) Abs Immat Gran (auto) Absolute Neuts (auto) Absolute Nucleated RBC Nucleated RBC % (auto) Smear Tech's Comments Sodium Potassium Chloride Carbon Dioxide Anion Gap BUN Creatinine Estim Creat Clear Calc Estimated GFR POC Glucose 116 H 137 H 104 Random Glucose Calcium Total Bilirubin AST ALT Alkaline Phosphatase Total Protein Albumin Valproic Acid S. pyogenes GrpA CRUZ 02/18/23 02/18/23 02/18/23 08:36 11:08 12:35 WBC RBC Hgb Hct MCV MCH MCHC RDW Plt Count MPV Immature Gran % (Auto) Neut % (Auto) Lymph % (Auto) [place] % (Auto) Eos % (Auto) Baso % (Auto) Lymph # (Auto) [place] # (Auto) Eos # (Auto) Baso # (Auto) Abs Immat Gran (auto) Absolute Neuts (auto) Absolute Nucleated RBC Nucleated RBC % (auto) Smear Tech's Comments Sodium Potassium Chloride Carbon Dioxide Anion Gap BUN Creatinine Estim Creat Clear Calc Estimated GFR POC Glucose 79 100 252 H Random Glucose Calcium Total Bilirubin AST ALT Alkaline Phosphatase Total Protein Albumin Valproic Acid S. pyogenes GrpA CRUZ 02/18/23 02/18/23 02/18/23 16:53 18:30 20:13 WBC 11.9 H RBC 4.16 L Hgb 11.8 L Hct 36.3 L MCV 87.3 MCH 28.4 MCHC 32.5 RDW 14.5 Plt Count 222 D MPV 11.2 Immature Gran % (Auto) 0.3 Neut % (Auto) 63.0 Lymph % (Auto) 28.5 [place] % (Auto) 6.7 Eos % (Auto) 1.0 Baso % (Auto) 0.5 Lymph # (Auto) 3.4 [place] # (Auto) 0.8 Eos # (Auto) 0.1 Baso # (Auto) 0.1 Abs Immat Gran (auto) 0.04 H Absolute Neuts (auto) 7.4 Absolute Nucleated RBC 0.000 Nucleated RBC % (auto) 0.0 Smear Tech's Comments VERIFIED Sodium 139 Potassium 5.2 H D Chloride 102 Carbon Dioxide 26 Anion Gap 16 BUN 20 H Creatinine 0.80 Estim Creat Clear Calc 58.1 Estimated GFR > 60 POC Glucose 143 H Random Glucose 81 Calcium 9.3 Total Bilirubin 0.2 AST 37 H ALT 20 Alkaline Phosphatase 63 Total Protein 7.4 Albumin 3.6 Valproic Acid 34.4 L S. pyogenes GrpA CRUZ Negative 02/18/23 02/19/23 02/19/23 21:17 08:35 10:35 WBC RBC Hgb Hct MCV MCH MCHC RDW Plt Count MPV Immature Gran % (Auto) Neut % (Auto) Lymph % (Auto) [place] % (Auto) Eos % (Auto) Baso % (Auto) Lymph # (Auto) [place] # (Auto) Eos # (Auto) Baso # (Auto) Abs Immat Gran (auto) Absolute Neuts (auto) Absolute Nucleated RBC Nucleated RBC % (auto) Smear Tech's Comments Sodium 139 Potassium 5.1 Chloride 97 Carbon Dioxide 30 H Anion Gap 17 BUN 22 H Creatinine 0.96 Estim Creat Clear Calc 48.4 Estimated GFR 59 POC Glucose 229 H 151 H Random Glucose 193 H Calcium 9.3 Total Bilirubin AST ALT Alkaline Phosphatase Total Protein Albumin Valproic Acid S. pyogenes GrpA CRUZ 02/19/23 12:21 WBC RBC Hgb Hct MCV MCH MCHC RDW Plt Count MPV Immature Gran % (Auto) Neut % (Auto) Lymph % (Auto) [place] % (Auto) Eos % (Auto) Baso % (Auto) Lymph # (Auto) [place] # (Auto) Eos # (Auto) Baso # (Auto) Abs Immat Gran (auto) Absolute Neuts (auto) Absolute Nucleated RBC Nucleated RBC % (auto) Smear Tech's Comments Sodium Potassium Chloride Carbon Dioxide Anion Gap BUN Creatinine Estim Creat Clear Calc Estimated GFR POC Glucose 125 H Random Glucose Calcium Total Bilirubin AST ALT Alkaline Phosphatase Total Protein Albumin Valproic Acid S. pyogenes GrpA CRUZ Imaging Radiology Impressions: ITS Impressions Head CT 02/06/23 11:17 IMPRESSION: No acute intracranial abnormality. No evidence of brain parenchymal volume loss. Medications Medications Current Medications Acetaminophen (Acetaminophen 325 Mg Tablet) 650 mg PO Q6H PRN PRN Reason: Headache/Pain Mild Scale (1-3) Last Admin: 02/10/23 23:52 Dose: 650 mg Al Hydroxide/Mg Hydroxide (Magnesium Hydrox/Alum Hydrox 30 Ml Oral.Susp) 30 ml PO Q6H PRN PRN Reason: Heartburn/Nausea Last Admin: 02/13/23 20:11 Dose: 30 ml Clonazepam (Clonazepam 0.5 Mg Tablet) 0.25 mg PO DAILY PRN PRN Reason: Anxiety Last Admin: 02/19/23 14:07 Dose: 0.25 mg Clonidine HCl (Clonidine Hcl 0.1 Mg Tablet) 0.1 mg PO BID PRN; Protocol PRN Reason: anxiety Last Admin: 02/13/23 23:28 Dose: 0.1 mg Cyclobenzaprine HCl (Cyclobenzaprine Hcl 5 Mg Tablet) 5 mg PO TID PRN PRN Reason: muscle spasm Last Admin: 02/11/23 20:18 Dose: 5 mg Dextrose (Dextrose 50 % 25 Gm/50 Ml Syringe) 25 gm IVPUSH Q15M PRN; Protocol PRN Reason: per Hypoglycemia Standing Ord. Divalproex Sodium (Divalproex Sodium 250 Mg Tablet.Dr) 250 mg PO BID [facility] Docusate Sodium (Docusate Sodium 100 Mg Capsule) 100 mg PO BID [facility] Last Admin: 02/19/23 08:27 Dose: 100 mg Doxepin HCl (Doxepin Hcl 25 Mg Capsule) 50 mg PO BEDTIME [facility] Gabapentin (Gabapentin 300 Mg Capsule) 300 mg PO TID [facility] Last Admin: 02/19/23 14:07 Dose: 300 mg Glucose (Glucose Gel 15 Gm Gel..Gram.) 15 gm PO Q15M PRN; Protocol PRN Reason: per Hypoglycemia Standing Ord. Insulin Human Lispro (Insulin Lispro 100 Unit/Ml 3 Ml Vial) 0 unit SUBCUT QIDACHS [facility]; Protocol Last Admin: 02/19/23 13:33 Dose: Not Given Lisinopril (Lisinopril 10 Mg Tablet) 10 mg PO DAILY [facility]; Protocol Last Admin: 02/19/23 08:27 Dose: 10 mg Magnesium Hydroxide (Milk Of Magnesia 30 Ml Oral.Susp) 30 ml PO DAILY PRN PRN Reason: Constipation Last Admin: 02/17/23 11:25 Dose: 30 ml Metformin HCl (Metformin Hcl 1,000 Mg Tablet) 1,000 mg PO BID [facility] Last Admin: 02/19/23 08:27 Dose: 1,000 mg Methadone HCl (Methadone Hcl 20 Mg/2 Ml Oral.Conc) 125 mg PO DAILY [facility] Last Admin: 02/19/23 08:28 Dose: 125 mg Nicotine Polacrilex (Nicotine Polacrilex Lozenge 4 Mg Lozenge) 4 mg BUCCAL Q2H PRN PRN Reason: Nicotine Cravings Last Admin: 02/18/23 21:41 Dose: 4 mg Risperidone (Risperidone 0.5 Mg Tablet) 0.5 mg PO BID PRN PRN Reason: agitation,psychosis Risperidone (Risperidone 0.5 Mg Tablet) 0.5 mg PO BID [facility] Trazodone HCl (Trazodone Hcl 25 Mg Halftab) 25 mg PO BEDTIME MRX1 PRN PRN Reason: Insomnia Allergies Allergies Allergy/AdvReac Type Severity Reaction Status Date / Time No Known Allergies Allergy Verified 01/26/23 13:46 Assessment & Plan Assessment & Plan (1) Bipolar disorder with psychotic features: Status: Acute Code(s): F31.9 - Bipolar disorder, unspecified (2) Opioid use disorder, severe, on maintenance therapy: Status: Acute Code(s): F11.20 - Opioid dependence, uncomplicated (3) Cognitive impairment: Status: Acute Code(s): R41.89 - Other symptoms and signs involving cognitive functions and awareness Plan 62 yo female, hx of opiate use disorder, currently on high dose methadone and possible bipolar disorder presents from community with psychosis, disorganization, ? steve. Plan: Collateral contact Diagnostics Re-establish regime and assess needs Aftercare planning 02/02/23 -Increase Gabapentin to 400 mg tid from 200 mg tid, pt's home dosage -DC Olanzapine- due to elevated blood sugar -Risperdal 0.5 mg bid as pt remains disorganized with paranoia -Risperdal 0.5 mg bid prn -Hold Klonopin (0.5 mg daily prn, 7 day supply given early 2022) -Hold Cymbalta (given 10 days in Dec 2022). -Sliding scale insulin correction scale -Continue to monitor-pt may need a change from Doxepin to a stronger mood stabilizer, however she needs time to re-establish home dosing. Team from [facility] scheduled to visit pt today. 02/03/2023 continue current treatment plan 02/04?continue?current?treatment?plan 02/05- Team reports no real change with Risperdal over the weekend. Will proceed with dementia work up B12,Folate, ESR, CRP, HIV, RPR, EEG, CAT Discontinue Flaggyl-pt refusing 02/07/23 Increase Risperdal to 1 mg bid Continue to attempt collateral contacts Continue work up 02/08/23 Continue current regime and plan of care 02/09/23 Aricept 5 mg hs to begin 02/10 EKG on 02/12 Aftercare planning-pt has lost OP team 02/10 Aricept to begin today 02/11: no changes 02/13/23 No changes to regime today. Medication education provided 02/14/23 Discontinue Aricept-pt request Klonopin 0.5 mg daily prn anxiety (hx of use at home) Colace 100 mg bid Discharge planning continues 02/16/23 Tentative discharge for 02/19. Depakote level CBCD 02/17/23 continue current treatment plan 02/18/23 throat culture; encourage fluids 02/19/23 -Urine Culture -Encourage Fluids -Decrease Klonopin to 0.25 mg daily prn anxiety -Decrease Depakote to 250 mg bid -Decrease Doxepin to 50 mg HS -Decrease Risperdal to 0.5 mg bid -Gabapentin decreased 02/18 to 300 mg tid -Continue to monitor -Cancel discharge Informed Consent: does not understand Reason for continued inpatient stay Substantial Risk for: med/psych decompensation Time Spent With Patient Time: Total time managing care of this patient today ____ minutes.
[2023-02-19 16:50] VITALS: BP 119/60; PULSE 78; RESP 16; TEMP 36.7; O2SAT 91
[2023-02-19 16:57] LABS: Glucose, Whole Blood 196 mg/dL (60-115)
[2023-02-19] MEDS: Nicotine Polacrilex Lozenge 4 MG LOZENGE BUCCAL ×2 (19:04→23:51)
[2023-02-19 19:40] LABS: Glucose, Whole Blood 175 mg/dL (60-115)
[2023-02-19] MEDS: risperiDONE 0.5 MG TABLET PO (20:00)
[2023-02-19] MEDS: cloNIDine HCL 0.1 MG TABLET PO (23:51)
[2023-02-19] MEDS: traZODone HCL 25 MG HALFTAB PO (23:51)
[2023-02-20] MEDS: Acetaminophen 325 MG TABLET 650 MG PO (01:19)
[2023-02-20] MEDS: traZODone HCL 25 MG HALFTAB PO (01:19)
[2023-02-20 08:06] VITALS: BP 132/75; PULSE 74; RESP 16; TEMP 36.1; O2SAT 96
[2023-02-20] MEDS: methADONE HCl 20 MG/2 ML ORAL.CONC 125 MG PO (08:07)
[2023-02-20] MEDS: lisinopriL 10 MG TABLET PO (08:09)
[2023-02-20] MEDS: Docusate Sodium 100 MG CAPSULE PO ×2 (08:09→20:05)
[2023-02-20] MEDS: risperiDONE 0.5 MG TABLET PO ×2 (08:09→20:05)
[2023-02-20] MEDS: Divalproex Sodium 250 MG TABLET.DR PO ×2 (08:10→20:05)
[2023-02-20] MEDS: metFORMIN HCl 1,000 MG TABLET 1000 MG PO ×2 (08:10→20:05)
[2023-02-20 08:39] LABS: Glucose, Whole Blood 182 mg/dL (60-115)
[2023-02-20] MEDS: Gabapentin 300 MG CAPSULE PO ×3 (08:49→20:05)
[2023-02-20] MEDS: Nicotine Polacrilex Lozenge 4 MG LOZENGE BUCCAL ×3 (08:49→18:30)
[2023-02-20] MEDS: Insulin Lispro 100 UNIT/ML 3 ML VIAL SUBCUT (08:59)
[2023-02-20 12:24] LABS: Glucose, Whole Blood 82 mg/dL (60-115)
--- NOTE | 2023-02-20 15:12 | P.PNPSI_ITS ---
Subjective Subjective Date of Service: 02/20/23 Reason For Visit: Dysregulated Healthcare Proxy: No Guardianship: No Medical Problems Affecting Mental Status: No Interim History: Team report confusion, disorganization, poor sleep-awake most of the night. Reports hip, spine, L shoulder pain. Discussed discharge plans. Discussed with pt if she would go to SNF-she declines. Asks to discharge on Sunday. Asks to increase HS Doxepin to help with sleep prior to discharge as I was awake most of the night . Confusion per team is variable-present this a.m. Clearing by ~1130am when we met and 240pm when we met. Sadness, tears during both of our meetings-not wanting to leave hospital, not wanting to see her peers discharged as well. This is a good home for all of us. Answered questions about a three day notice Medication Compliance: Yes Side effects from medications: No Attending Groups: Intermittent Review of Systems Acute medical concerns: No Medical Review of Systems: unchanged Review of Systems Review of Systems As per HPI. Constitutional: Reports as per HPI, Reports body ache(s), Reports lethargy and Reports malaise Musculoskeletal: Reports abnormal gait (using a cane today) and Reports myalgias Comments: Reports hip, spine L shoulder pain Reports abnormal gait (using a cane today) and Reports confusion (decreased as the day progressed) Psychiatric: Reports anxiety, Reports confusion (decreased as the day progressed), Reports difficulty concentrating, Reports anhedonia and Reports paranoia Mental Status Exam Mental Status Exam Patient Appearance: Fatigued Patient Orientation: Person, Place and Situation Patient Behavior: Appropriate, Talkative, Cooperative, Passive, Distractible and Good Eye Contact Mood Description: Calm and Apprehensive Affect Description: Flat Patient Cognition Impaired: Yes Ability to Follow Directions: Fair Speech Pattern: Spontaneous Speech and Soft-Spoken Memory Description: Episodic Impaired Hallucinations: None (denies) Delusions: Not Present Thought Process: Rumination Thought Content: positive for Disorganized and positive for Suicidal Ideation (denies) Depressive Symptoms: Increased Fatigue and Loss of Energy Judgement: Poor Diagnostics Vital Signs (24Hr): Vital Signs - 24 hr 02/19/23 16:50 02/20/23 08:06 Temperature 98.1 F 97 F Pulse Rate 78 74 Respiratory Rate 16 16 Blood Pressure 119/60 132/75 Pulse Oximetry 91 L 96 Oxygen Delivery Method Room Air Room Air BMI result Body Mass Index 25.6 Labs 11/12/23 18:30 02/19/23 10:35 Labs: Laboratory Results - last 48 hr 02/18/23 02/18/23 02/18/23 16:53 18:30 20:13 WBC 11.9 H RBC 4.16 L Hgb 11.8 L Hct 36.3 L MCV 87.3 MCH 28.4 MCHC 32.5 RDW 14.5 Plt Count 222 D MPV 11.2 Immature Gran % (Auto) 0.3 Neut % (Auto) 63.0 Lymph % (Auto) 28.5 [place] % (Auto) 6.7 Eos % (Auto) 1.0 Baso % (Auto) 0.5 Lymph # (Auto) 3.4 [place] # (Auto) 0.8 Eos # (Auto) 0.1 Baso # (Auto) 0.1 Abs Immat Gran (auto) 0.04 H Absolute Neuts (auto) 7.4 Absolute Nucleated RBC 0.000 Nucleated RBC % (auto) 0.0 Smear Tech's Comments VERIFIED Sodium 139 Potassium 5.2 H D Chloride 102 Carbon Dioxide 26 Anion Gap 16 BUN 20 H Creatinine 0.80 Estim Creat Clear Calc 58.1 Estimated GFR > 60 POC Glucose 143 H Random Glucose 81 Calcium 9.3 Total Bilirubin 0.2 AST 37 H ALT 20 Alkaline Phosphatase 63 Total Protein 7.4 Albumin 3.6 Valproic Acid 34.4 L S. pyogenes GrpA CRUZ Negative 02/18/23 02/19/23 02/19/23 21:17 08:35 10:35 WBC RBC Hgb Hct MCV MCH MCHC RDW Plt Count MPV Immature Gran % (Auto) Neut % (Auto) Lymph % (Auto) [place] % (Auto) Eos % (Auto) Baso % (Auto) Lymph # (Auto) [place] # (Auto) Eos # (Auto) Baso # (Auto) Abs Immat Gran (auto) Absolute Neuts (auto) Absolute Nucleated RBC Nucleated RBC % (auto) Smear Tech's Comments Sodium 139 Potassium 5.1 Chloride 97 Carbon Dioxide 30 H Anion Gap 17 BUN 22 H Creatinine 0.96 Estim Creat Clear Calc 48.4 Estimated GFR 59 POC Glucose 229 H 151 H Random Glucose 193 H Calcium 9.3 Total Bilirubin AST ALT Alkaline Phosphatase Total Protein Albumin Valproic Acid S. pyogenes GrpA CRUZ 02/19/23 02/19/2302/19/23 12:21 16:54 19:37 WBC RBC Hgb Hct MCV MCH MCHC RDW Plt Count MPV Immature Gran % (Auto) Neut % (Auto) Lymph % (Auto) [place] % (Auto) Eos % (Auto) Baso % (Auto) Lymph # (Auto) [place] # (Auto) Eos # (Auto) Baso # (Auto) Abs Immat Gran (auto) Absolute Neuts (auto) Absolute Nucleated RBC Nucleated RBC % (auto) Smear Tech's Comments Sodium Potassium Chloride Carbon Dioxide Anion Gap BUN Creatinine Estim Creat Clear Calc Estimated GFR POC Glucose 125 H 196 H 175 H Random Glucose Calcium Total Bilirubin AST ALT Alkaline Phosphatase Total Protein Albumin Valproic Acid S. pyogenes GrpA CRUZ 02/20/23 02/20/23 08:31 12:20 WBC RBC Hgb Hct MCV MCH MCHC RDW Plt Count MPV Immature Gran % (Auto) Neut % (Auto) Lymph % (Auto) [place] % (Auto) Eos % (Auto) Baso % (Auto) Lymph # (Auto) [place] # (Auto) Eos # (Auto) Baso # (Auto) Abs Immat Gran (auto) Absolute Neuts (auto) Absolute Nucleated RBC Nucleated RBC % (auto) Smear Tech's Comments Sodium Potassium Chloride Carbon Dioxide Anion Gap BUN Creatinine Estim Creat Clear Calc Estimated GFR POC Glucose 182 H 82 Random Glucose Calcium Total Bilirubin AST ALT Alkaline Phosphatase Total Protein Albumin Valproic Acid S. pyogenes GrpA CRUZ Imaging Radiology Impressions: ITS Impressions Head CT 02/06/23 11:17 IMPRESSION: No acute intracranial abnormality. No evidence of brain parenchymal volume loss. Medications Medications Current Medications Acetaminophen (Acetaminophen 325 Mg Tablet) 650 mg PO Q6H PRN PRN Reason: Headache/Pain Mild Scale (1-3) Last Admin: 02/20/23 01:19 Dose: 650 mg Al Hydroxide/Mg Hydroxide (Magnesium Hydrox/Alum Hydrox 30 Ml Oral.Susp) 30 ml PO Q6H PRN PRN Reason: Heartburn/Nausea Last Admin: 02/13/23 20:11 Dose: 30 ml Clonazepam (Clonazepam 0.5 Mg Tablet) 0.25 mg PO DAILY PRN PRN Reason: Anxiety Last Admin: 02/19/23 14:07 Dose: 0.25 mg Clonidine HCl (Clonidine Hcl 0.1 Mg Tablet) 0.1 mg PO BID PRN; Protocol PRN Reason: anxiety Last Admin: 02/19/23 23:51 Dose: 0.1 mg Cyclobenzaprine HCl (Cyclobenzaprine Hcl 5 Mg Tablet) 5 mg PO TID PRN PRN Reason: muscle spasm Last Admin: 02/11/23 20:18 Dose: 5 mg Dextrose (Dextrose 50 % 25 Gm/50 Ml Syringe) 25 gm IVPUSH Q15M PRN; Protocol PRN Reason: per Hypoglycemia Standing Ord. Divalproex Sodium (Divalproex Sodium 250 Mg Tablet.Dr) 250 mg PO BID [facility] Last Admin: 02/20/23 08:10 Dose: 250 mg Docusate Sodium (Docusate Sodium 100 Mg Capsule) 100 mg PO BID [facility] Last Admin: 02/20/23 08:09 Dose: 100 mg Doxepin HCl (Doxepin Hcl 25 Mg Capsule) 50 mg PO BEDTIME [facility] Gabapentin (Gabapentin 300 Mg Capsule) 300 mg PO TID [facility] Last Admin: 02/20/23 14:28 Dose: 300 mg Glucose (Glucose Gel 15 Gm Gel..Gram.) 15 gm PO Q15M PRN; Protocol PRN Reason: per Hypoglycemia Standing Ord. Guaifenesin (Guaifenesin 100 Mg/5 Ml Liquid) 5 ml PO Q6H PRN PRN Reason: cough Insulin Human Lispro (Insulin Lispro 100 Unit/Ml 3 Ml Vial) 0 unit SUBCUT QIDACHS [facility]; Protocol Last Admin: 02/20/23 12:24 Dose: Not Given Lisinopril (Lisinopril 10 Mg Tablet) 10 mg PO DAILY [facility]; Protocol Last Admin: 02/20/23 08:09 Dose: 10 mg Magnesium Hydroxide (Milk Of Magnesia 30 Ml Oral.Susp) 30 ml PO DAILY PRN PRN Reason: Constipation Last Admin: 02/17/23 11:25 Dose: 30 ml Metformin HCl (Metformin Hcl 1,000 Mg Tablet) 1,000 mg PO BID [facility] Last Admin: 02/20/23 08:10 Dose: 1,000 mg Methadone HCl (Methadone Hcl 20 Mg/2 Ml Oral.Conc) 125 mg PO DAILY [facility] Last Admin: 02/20/23 08:07 Dose: 125 mg Nicotine Polacrilex (Nicotine Polacrilex Lozenge 4 Mg Lozenge) 4 mg BUCCAL Q2H PRN PRN Reason: Nicotine Cravings Last Admin: 02/20/23 14:30 Dose: 4 mg Risperidone (Risperidone 0.5 Mg Tablet) 0.5 mg PO BID PRN PRN Reason: agitation,psychosis Risperidone (Risperidone 0.5 Mg Tablet) 0.5 mg PO BID [facility] Last Admin: 02/20/23 08:09 Dose: 0.5 mg Trazodone HCl (Trazodone Hcl 25 Mg Halftab) 25 mg PO BEDTIME MRX1 PRN PRN Reason: Insomnia Last Admin: 02/20/23 01:19 Dose: 25 mg Allergies Allergies Allergy/AdvReac Type Severity Reaction Status Date / Time No Known Allergies Allergy Verified 01/26/23 13:46 Assessment & Plan Assessment & Plan (1) Bipolar disorder with psychotic features: Status: Acute Code(s): F31.9 - Bipolar disorder, unspecified (2) Opioid use disorder, severe, on maintenance therapy: Status: Acute Code(s): F11.20 - Opioid dependence, uncomplicated (3) Cognitive impairment: Status: Acute Code(s): R41.89 - Other symptoms and signs involving cognitive functions and awareness Plan 62 yo female, hx of opiate use disorder, currently on high dose methadone and possible bipolar disorder presents from community with psychosis, disorganization, ? steve. Plan: Collateral contact Diagnostics Re-establish regime and assess needs Aftercare planning 02/02/23 -Increase Gabapentin to 400 mg tid from 200 mg tid, pt's home dosage -DC Olanzapine- due to elevated blood sugar -Risperdal 0.5 mg bid as pt remains disorganized with paranoia -Risperdal 0.5 mg bid prn -Hold Klonopin (0.5 mg daily prn, 7 day supply given early 2022) -Hold Cymbalta (given 10 days in Dec 2022). -Sliding scale insulin correction scale -Continue to monitor-pt may need a change from Doxepin to a stronger mood stabilizer, however she needs time to re-establish home dosing. Team from [facility] scheduled to visit pt today. 02/03/2023 continue current treatment plan 02/04?continue?current?treatment?plan 02/05- Team reports no real change with Risperdal over the weekend. Will proceed with dementia work up B12,Folate, ESR, CRP, HIV, RPR, EEG, CAT Discontinue Flaggyl-pt refusing 02/07/23 Increase Risperdal to 1 mg bid Continue to attempt collateral contacts Continue work up 02/08/23 Continue current regime and plan of care 02/09/23 Aricept 5 mg hs to begin 02/10 EKG on 02/12 Aftercare planning-pt has lost OP team 02/10 Aricept to begin today 02/11: no changes 02/13/23 No changes to regime today. Medication education provided 02/14/23 Discontinue Aricept-pt request Klonopin 0.5 mg daily prn anxiety (hx of use at home) Colace 100 mg bid Discharge planning continues 02/16/23 Tentative discharge for 02/19. Depakote level CBCD 02/17/23 continue current treatment plan 02/18/23 throat culture; encourage fluids 02/19/23 -Urine Culture -Encourage Fluids -Decrease Klonopin to 0.25 mg daily prn anxiety -Decrease Depakote to 250 mg bid -Decrease Doxepin to 50 mg HS -Decrease Risperdal to 0.5 mg bid -Gabapentin decreased 02/18 to 300 mg tid -Continue to monitor -Cancel discharge 02/20/23 -Three day notice retracted by pt. Discharge rescheduled for 02/23/23. -Increase Doxepin to 150 mg HS -Discontinue Trazodone Patient educated on: medication risk/benefits Informed Consent: further education needed Reason for continued inpatient stay Substantial Risk for: rapid decompensation Time Spent With Patient Time: Total time managing care of this patient today ____ minutes.
[2023-02-20 16:05] VITALS: BP 112/73; PULSE 87; RESP 16; TEMP 36.8; O2SAT 99
[2023-02-20 18:00] VITALS: BP 150/67; PULSE 75; RESP 16; TEMP 36.2; O2SAT 96
[2023-02-20] MEDS: clonazePAM 0.5 MG TABLET 0.25 MG PO (18:30)
[2023-02-20 20:01] LABS: Glucose, Whole Blood 113 mg/dL (60-115)
[2023-02-20 20:01] LABS: Glucose, Whole Blood 112 mg/dL (60-115)
[2023-02-20] MEDS: cloNIDine HCL 0.1 MG TABLET PO (21:49)
[2023-02-20] MEDS: Milk of Magnesia 30 ML ORAL.SUSP PO (21:51)
[2023-02-21 08:00] VITALS: BP 132/63; PULSE 75; RESP 16; TEMP 36.3; O2SAT 99
[2023-02-21] MEDS: Docusate Sodium 100 MG CAPSULE PO ×2 (08:02→20:34)
[2023-02-21] MEDS: Divalproex Sodium 250 MG TABLET.DR PO ×2 (08:02→20:35)
[2023-02-21] MEDS: Gabapentin 300 MG CAPSULE PO ×3 (08:02→20:35)
[2023-02-21] MEDS: risperiDONE 0.5 MG TABLET PO ×2 (08:02→20:35)
[2023-02-21] MEDS: metFORMIN HCl 1,000 MG TABLET 1000 MG PO ×2 (08:02→20:34)
[2023-02-21] MEDS: methADONE HCl 20 MG/2 ML ORAL.CONC 125 MG PO (08:03)
[2023-02-21 08:38] LABS: Glucose, Whole Blood 154 mg/dL (60-115)
[2023-02-21] MEDS: lisinopriL 10 MG TABLET PO (09:20)
[2023-02-21] MEDS: Insulin Lispro 100 UNIT/ML 3 ML VIAL SUBCUT ×3 (09:20→20:45)
[2023-02-21] MEDS: Nicotine Polacrilex Lozenge 4 MG LOZENGE BUCCAL ×2 (12:23→19:28)
[2023-02-21 12:46] LABS: Glucose, Whole Blood 134 mg/dL (60-115)
--- NOTE | 2023-02-21 14:38 | P.PNPSI_ITS ---
Subjective Subjective Date of Service: 02/21/23 Reason For Visit: Dysregulated Subjective Notes: Conditional Voluntary Healthcare Proxy: No Guardianship: No Medical Problems Affecting Mental Status: No Interim History: Lamar appears and presents with less confusion today. Urine culture is pending. Per team, OP team has asked that she postpone discharge until 02/26. She does not want to do this but will consider. Today she is ambulating, interactive, having sensible discussions with tw about her concerns and is less labile. She reports feeling some improvement. Medication Compliance: Yes Side effects from medications: No Attending Groups: Intermittent Review of Systems Acute medical concerns: No Denies. Chronic pain Medical Review of Systems: unchanged Review of Systems Review of Systems Yes all other systems are reviewed and are negative Mental Status Exam Mental Status Exam Patient Appearance: Appropriate Patient Orientation: Person, Place and Situation Level of Consciousness: Alert Patient Behavior: Appropriate, Talkative, Cooperative, Passive, Distractible and Good Eye Contact Mood Description: Calm Affect Description: Flat Patient Cognition Impaired: Yes Ability to Follow Directions: Fair Speech Pattern: Spontaneous Speech and Soft-Spoken Memory Description: Episodic Impaired Hallucinations: None (denies) Delusions: Not Present Thought Process: Rumination Thought Content: positive for Disorganized and positive for Suicidal Ideation (denies) Depressive Symptoms: Increased Fatigue and Loss of Energy Judgement: Poor Diagnostics Vital Signs (24Hr): Vital Signs - 24 hr 02/20/23 16:05 02/20/23 18:00 02/21/23 08:00 Temperature 98.2 F 97.2 F 97.4 F Pulse Rate 87 75 75 Respiratory Rate 16 16 16 Blood Pressure 112/73 150/67 H 132/63 Pulse Oximetry 99 96 99 Oxygen Delivery Method Room Air Room Air Room Air BMI result Body Mass Index 25.6 Labs 02/18/23 18:30 02/19/23 10:35 Labs: Laboratory Results - last 48 hr 02/19/23 02/19/23 02/20/23 16:54 19:37 08:31 POC Glucose 196 H 175 H 182 H 02/20/23 02/20/23 02/20/23 12:20 17:25 19:57 POC Glucose 82 112 113 02/21/23 02/21/23 08:33 12:42 POC Glucose 154 H 134 H Imaging Radiology Impressions: ITS Impressions Head CT 02/06/23 11:17 IMPRESSION: No acute intracranial abnormality. No evidence of brain parenchymal volume loss. Medications Medications Current Medications Acetaminophen (Acetaminophen 325 Mg Tablet) 650 mg PO Q6H PRN PRN Reason: Headache/Pain Mild Scale (1-3) Last Admin: 02/20/23 01:19 Dose: 650 mg Al Hydroxide/Mg Hydroxide (Magnesium Hydrox/Alum Hydrox 30 Ml Oral.Susp) 30 ml PO Q6H PRN PRN Reason: Heartburn/Nausea Last Admin: 02/13/23 20:11 Dose: 30 ml Bisacodyl (Bisacodyl 5 Mg Tablet.) 10 mg PO DAILY PRN PRN Reason: Constipation Clonazepam (Clonazepam 0.5 Mg Tablet) 0.25 mg PO DAILY PRN PRN Reason: Anxiety Last Admin: 02/20/23 18:30 Dose: 0.25 mg Clonidine HCl (Clonidine Hcl 0.1 Mg Tablet) 0.1 mg PO BID PRN; Protocol PRN Reason: anxiety Last Admin: 02/20/23 21:49 Dose: 0.1 mg Cyclobenzaprine HCl (Cyclobenzaprine Hcl 5 Mg Tablet) 5 mg PO TID PRN PRN Reason: muscle spasm Last Admin: 02/11/23 20:18 Dose: 5 mg Dextrose (Dextrose 50 % 25 Gm/50 Ml Syringe) 25 gm IVPUSH Q15M PRN; Protocol PRN Reason: per Hypoglycemia Standing Ord. Divalproex Sodium (Divalproex Sodium 250 Mg Tablet.) 250 mg PO BID [facility] Last Admin: 02/21/23 08:02 Dose: 250 mg Docusate Sodium (Docusate Sodium 100 Mg Capsule) 100 mg PO BID [facility] Last Admin: 02/21/23 08:02 Dose: 100 mg Doxepin HCl (Doxepin Hcl 25 Mg Capsule) 150 mg PO BEDTIME [facility] Gabapentin (Gabapentin 300 Mg Capsule) 300 mg PO TID [facility] Last Admin: 02/21/23 14:17 Dose: 300 mg Glucose (Glucose Gel 15 Gm Gel..Gram.) 15 gm PO Q15M PRN; Protocol PRN Reason: per Hypoglycemia Standing Ord. Guaifenesin (Guaifenesin 100 Mg/5 Ml Liquid) 5 ml PO Q6H PRN PRN Reason: cough Insulin Human Lispro (Insulin Lispro 100 Unit/Ml 3 Ml Vial) 0 unit SUBCUT QIDACHS [facility]; Protocol Last Admin: 02/21/23 14:05 Dose: Not Given Lisinopril (Lisinopril 10 Mg Tablet) 10 mg PO DAILY [facility]; Protocol Last Admin: 02/21/23 09:20 Dose: 10 mg Magnesium Hydroxide (Milk Of Magnesia 30 Ml Oral.Susp) 30 ml PO DAILY PRN PRN Reason: Constipation Last Admin: 02/20/23 21:51 Dose: 30 ml Metformin HCl (Metformin Hcl 1,000 Mg Tablet) 1,000 mg PO BID [facility] Last Admin: 02/21/23 08:02 Dose: 1,000 mg Methadone HCl (Methadone Hcl 20 Mg/2 Ml Oral.Conc) 125 mg PO DAILY [facility] Last Admin: 02/21/23 08:03 Dose: 125 mg Nicotine Polacrilex (Nicotine Polacrilex Lozenge 4 Mg Lozenge) 4 mg BUCCAL Q2H PRN PRN Reason: Nicotine Cravings Last Admin: 02/21/23 12:23 Dose: 4 mg Risperidone (Risperidone 0.5 Mg Tablet) 0.5 mg PO BID PRN PRN Reason: agitation,psychosis Risperidone (Risperidone 0.5 Mg Tablet) 0.5 mg PO BID [facility] Last Admin: 02/21/23 08:02 Dose: 0.5 mg Allergies Allergies Allergy/AdvReac Type Severity Reaction Status Date / Time No Known Allergies Allergy Verified 01/26/23 13:46 Assessment & Plan Assessment & Plan (1) Bipolar disorder with psychotic features: Status: Acute Code(s): F31.9 - Bipolar disorder, unspecified (2) Opioid use disorder, severe, on maintenance therapy: Status: Acute Code(s): F11.20 - Opioid dependence, uncomplicated (3) Cognitive impairment: Status: Acute Code(s): R41.89 - Other symptoms and signs involving cognitive functions and awareness Plan 62 yo female, hx of opiate use disorder, currently on high dose methadone and possible bipolar disorder presents from community with psychosis, disorganization, ? steve. Plan: Collateral contact Diagnostics Re-establish regime and assess needs Aftercare planning 02/02/23 -Increase Gabapentin to 400 mg tid from 200 mg tid, pt's home dosage -DC Olanzapine- due to elevated blood sugar -Risperdal 0.5 mg bid as pt remains disorganized with paranoia -Risperdal 0.5 mg bid prn -Hold Klonopin (0.5 mg daily prn, 7 day supply given early 2022) -Hold Cymbalta (given 10 days in Dec 2022). -Sliding scale insulin correction scale -Continue to monitor-pt may need a change from Doxepin to a stronger mood stabilizer, however she needs time to re-establish home dosing. Team from [facility] scheduled to visit pt today. 02/03/2023 continue current treatment plan 02/04?continue?current?treatment?plan 02/05- Team reports no real change with Risperdal over the weekend. Will proceed with dementia work up B12,Folate, ESR, CRP, HIV, RPR, EEG, CAT Discontinue Flaggyl-pt refusing 02/07/23 Increase Risperdal to 1 mg bid Continue to attempt collateral contacts Continue work up 02/08/23 Continue current regime and plan of care 02/09/23 Aricept 5 mg hs to begin 02/10 EKG on 02/12 Aftercare planning-pt has lost OP team 02/10 Aricept to begin today 02/11: no changes 02/13/23 No changes to regime today. Medication education provided 02/14/23 Discontinue Aricept-pt request Klonopin 0.5 mg daily prn anxiety (hx of use at home) Colace 100 mg bid Discharge planning continues 02/16/23 Tentative discharge for 02/19. Depakote level CBCD 02/17/23 continue current treatment plan 02/18/23 throat culture; encourage fluids 02/19/23 -Urine Culture -Encourage Fluids -Decrease Klonopin to 0.25 mg daily prn anxiety -Decrease Depakote to 250 mg bid -Decrease Doxepin to 50 mg HS -Decrease Risperdal to 0.5 mg bid -Gabapentin decreased 02/18 to 300 mg tid -Continue to monitor -Cancel discharge 02/20/23 -Three day notice retracted by pt. Discharge rescheduled for 02/23/23. -Increase Doxepin to 150 mg HS -Discontinue Trazodone 02/21/23 -Continue current regime and plan of care. Patient educated on: therapeutic strategies Informed Consent: understands and further education needed Reason for continued inpatient stay Substantial Risk for: rapid decompensation Time Spent With Patient Time: Total time managing care of this patient today ____ minutes.
[2023-02-21] MEDS: bisacodyL 5 MG TABLET.DR 10 MG PO (15:02)
[2023-02-21 17:12] LABS: Glucose, Whole Blood 299 mg/dL (60-115)
[2023-02-21] MEDS: Milk of Magnesia 30 ML ORAL.SUSP PO (19:28)
[2023-02-21 20:20] VITALS: BP 131/62; PULSE 72; TEMP 37.3
[2023-02-21] MEDS: Cyclobenzaprine HCl 5 MG TABLET PO (20:42)
[2023-02-21] MEDS: Acetaminophen 325 MG TABLET 650 MG PO (20:43)
[2023-02-21 20:50] LABS: Glucose, Whole Blood 161 mg/dL (60-115)
[2023-02-21 21:55] VITALS: BP 109/56; PULSE 73
[2023-02-21] MEDS: cloNIDine HCL 0.1 MG TABLET PO (21:59)
[2023-02-22 07:40] VITALS: BP 122/59; PULSE 65; RESP 18; TEMP 36.3; O2SAT 98
[2023-02-22 08:41] LABS: Glucose, Whole Blood 144 mg/dL (60-115)
[2023-02-22] MEDS: methADONE HCl 20 MG/2 ML ORAL.CONC 125 MG PO (08:57)
[2023-02-22] MEDS: risperiDONE 0.5 MG TABLET PO ×3 (08:59→22:52)
[2023-02-22] MEDS: Divalproex Sodium 250 MG TABLET.DR PO ×2 (08:59→20:38)
[2023-02-22] MEDS: Docusate Sodium 100 MG CAPSULE PO ×2 (08:59→20:38)
[2023-02-22] MEDS: metFORMIN HCl 1,000 MG TABLET 1000 MG PO ×2 (08:59→20:38)
[2023-02-22] MEDS: Gabapentin 300 MG CAPSULE PO ×3 (08:59→20:38)
[2023-02-22] MEDS: lisinopriL 10 MG TABLET PO (08:59)
[2023-02-22] MEDS: Cyclobenzaprine HCl 5 MG TABLET PO ×2 (09:08→20:39)
[2023-02-22] MEDS: Nicotine Polacrilex Lozenge 4 MG LOZENGE BUCCAL ×4 (09:36→17:00)
[2023-02-22 12:25] LABS: Glucose, Whole Blood 279 mg/dL (60-115)
[2023-02-22] MEDS: Insulin Lispro 100 UNIT/ML 3 ML VIAL SUBCUT ×2 (12:51→20:41)
[2023-02-22] MEDS: clonazePAM 0.5 MG TABLET 0.25 MG PO (13:52)
[2023-02-22] MEDS: cloNIDine HCL 0.1 MG TABLET PO (13:52)
[2023-02-22 13:56] VITALS: BMI 26.5
--- NOTE | 2023-02-22 14:35 | HO.PSYCHPN ---
Subjective Subjective Date of Service: 02/22/23 Reason For Visit: Dysregulated Subjective Notes: Conditional Voluntary Healthcare Proxy: No Guardianship: No Medical Problems Affecting Mental Status: No Interim History: Pt is excited to discharge, wanting to begin holiday shopping. Team has asked for a discharge on 02/26 vs. 02/23 and will continue to discuss this with her. Less confusion overall, improved affect and energy. Today, talked of her son and his efforts to care for her, expressed her gratitude Medication Compliance: Yes Side effects from medications: No Attending Groups: Intermittent Review of Systems Acute medical concerns: No Medical Review of Systems: unchanged Review of Systems Review of Systems Yes all other systems are reviewed and are negative Mental Status Exam Mental Status Exam Patient Appearance: Appropriate Patient Orientation: Person, Place and Situation Level of Consciousness: Alert Patient Behavior: Appropriate, Talkative, Cooperative, Passive, Distractible and Good Eye Contact Mood Description: Calm Affect Description: Flat Patient Cognition Impaired: Yes Ability to Follow Directions: Fair Speech Pattern: Spontaneous Speech and Soft-Spoken Memory Description: Episodic Impaired Hallucinations: None (denies) Delusions: Not Present Thought Process: Rumination Thought Content: positive for Disorganized and positive for Suicidal Ideation (denies) Depressive Symptoms: Increased Fatigue and Loss of Energy Judgement: Poor Diagnostics Vital Signs (24Hr): Vital Signs - 24 hr 02/21/23 20:20 02/21/23 21:55 02/22/23 07:40 Temperature 99.1 F 97.3 F Pulse Rate 72 73 65 Respiratory Rate 18 Blood Pressure 131/62 109/56 L 122/59 L Pulse Oximetry 98 Oxygen Delivery Method Room Air BMI result Body Mass Index 26.5 Labs 02/18/23 18:30 02/19/23 10:35 Labs: Laboratory Results - last 48 hr 02/20/23 02/20/23 02/21/23 17:25 19:57 08:33 POC Glucose 112 113 154 H 02/21/23 02/21/23 02/21/23 12:42 17:08 20:32 POC Glucose 134 H 299 H 161 H 02/22/23 02/22/23 08:28 12:15 POC Glucose 144 H 279 H Imaging Radiology Impressions: ITS Impressions Head CT 02/06/23 11:17 IMPRESSION: No acute intracranial abnormality. No evidence of brain parenchymal volume loss. Medications Medications Current Medications Acetaminophen (Acetaminophen 325 Mg Tablet) 650 mg PO Q6H PRN PRN Reason: Headache/Pain Mild Scale (1-3) Last Admin: 02/21/23 20:43 Dose: 650 mg Al Hydroxide/Mg Hydroxide (Magnesium Hydrox/Alum Hydrox 30 Ml Oral.Susp) 30 ml PO Q6H PRN PRN Reason: Heartburn/Nausea Last Admin: 02/13/23 20:11 Dose: 30 ml Bisacodyl (Bisacodyl 5 Mg Tablet.) 10 mg PO DAILY PRN PRN Reason: Constipation Last Admin: 02/21/23 15:02 Dose: 10 mg Clonazepam (Clonazepam 0.5 Mg Tablet) 0.25 mg PO DAILY PRN PRN Reason: Anxiety Last Admin: 02/22/23 13:52 Dose: 0.25 mg Clonidine HCl (Clonidine Hcl 0.1 Mg Tablet) 0.1 mg PO BID PRN; Protocol PRN Reason: anxiety Last Admin: 02/22/23 13:52 Dose: 0.1 mg Cyclobenzaprine HCl (Cyclobenzaprine Hcl 5 Mg Tablet) 5 mg PO TID PRN PRN Reason: muscle spasm Last Admin: 02/22/23 09:08 Dose: 5 mg Dextrose (Dextrose 50 % 25 Gm/50 Ml Syringe) 25 gm IVPUSH Q15M PRN; Protocol PRN Reason: per Hypoglycemia Standing Ord. Divalproex Sodium (Divalproex Sodium 250 Mg Tablet.) 250 mg PO BID [facility] Last Admin: 02/22/23 08:59 Dose: 250 mg Docusate Sodium (Docusate Sodium 100 Mg Capsule) 100 mg PO BID [facility] Last Admin: 02/22/23 08:59 Dose: 100 mg Doxepin HCl (Doxepin Hcl 25 Mg Capsule) 150 mg PO BEDTIME [facility] Gabapentin (Gabapentin 300 Mg Capsule) 300 mg PO TID [facility] Last Admin: 02/22/23 13:53 Dose: 300 mg Glucose (Glucose Gel 15 Gm Gel..Gram.) 15 gm PO Q15M PRN; Protocol PRN Reason: per Hypoglycemia Standing Ord. Guaifenesin (Guaifenesin 100 Mg/5 Ml Liquid) 5 ml PO Q6H PRN PRN Reason: cough Insulin Human Lispro (Insulin Lispro 100 Unit/Ml 3 Ml Vial) 0 unit SUBCUT QIDACHS [facility]; Protocol Last Admin: 02/22/23 12:51 Dose: 6 unit Lisinopril (Lisinopril 10 Mg Tablet) 10 mg PO DAILY [facility]; Protocol Last Admin: 02/22/23 08:59 Dose: 10 mg Magnesium Hydroxide (Milk Of Magnesia 30 Ml Oral.Susp) 30 ml PO DAILY PRN PRN Reason: Constipation Last Admin: 02/21/23 19:28 Dose: 30 ml Metformin HCl (Metformin Hcl 1,000 Mg Tablet) 1,000 mg PO BID [facility] Last Admin: 02/22/23 08:59 Dose: 1,000 mg Methadone HCl (Methadone Hcl 20 Mg/2 Ml Oral.Conc) 125 mg PO DAILY [facility] Last Admin: 02/22/23 08:57 Dose: 125 mg Nicotine Polacrilex (Nicotine Polacrilex Lozenge 4 Mg Lozenge) 4 mg BUCCAL Q2H PRN PRN Reason: Nicotine Cravings Last Admin: 02/22/23 13:04 Dose: 4 mg Risperidone (Risperidone 0.5 Mg Tablet) 0.5 mg PO BID PRN PRN Reason: agitation,psychosis Risperidone (Risperidone 0.5 Mg Tablet) 0.5 mg PO BID [facility] Last Admin: 02/22/23 08:59 Dose: 0.5 mg Allergies Allergies Allergy/AdvReac Type Severity Reaction Status Date / Time No Known Allergies Allergy Verified 01/26/23 13:46 Assessment & Plan Assessment & Plan (1) Bipolar disorder with psychotic features: Status: Acute Code(s): F31.9 - Bipolar disorder, unspecified (2) Opioid use disorder, severe, on maintenance therapy: Status: Acute Code(s): F11.20 - Opioid dependence, uncomplicated (3) Cognitive impairment: Status: Acute Code(s): R41.89 - Other symptoms and signs involving cognitive functions and awareness Plan 62 yo female, hx of opiate use disorder, currently on high dose methadone and possible bipolar disorder presents from community with psychosis, disorganization, ? steve. Plan: Collateral contact Diagnostics Re-establish regime and assess needs Aftercare planning 02/02/23 -Increase Gabapentin to 400 mg tid from 200 mg tid, pt's home dosage -DC Olanzapine- due to elevated blood sugar -Risperdal 0.5 mg bid as pt remains disorganized with paranoia -Risperdal 0.5 mg bid prn -Hold Klonopin (0.5 mg daily prn, 7 day supply given early 2022) -Hold Cymbalta (given 10 days in Dec 2022). -Sliding scale insulin correction scale -Continue to monitor-pt may need a change from Doxepin to a stronger mood stabilizer, however she needs time to re-establish home dosing. Team from [facility] scheduled to visit pt today. 02/03/2023 continue current treatment plan 02/04?continue?current?treatment?plan 02/05- Team reports no real change with Risperdal over the weekend. Will proceed with dementia work up B12,Folate, ESR, CRP, HIV, RPR, EEG, CAT Discontinue Flaggyl-pt refusing 02/07/23 Increase Risperdal to 1 mg bid Continue to attempt collateral contacts Continue work up 02/08/23 Continue current regime and plan of care 02/09/23 Aricept 5 mg hs to begin 02/10 EKG on 02/12 Aftercare planning-pt has lost OP team 02/10 Aricept to begin today 02/11: no changes 02/13/23 No changes to regime today. Medication education provided 02/14/23 Discontinue Aricept-pt request Klonopin 0.5 mg daily prn anxiety (hx of use at home) Colace 100 mg bid Discharge planning continues 02/16/23 Tentative discharge for 02/19. Depakote level CBCD 02/17/23 continue current treatment plan 02/18/23 throat culture; encourage fluids 02/19/23 -Urine Culture -Encourage Fluids -Decrease Klonopin to 0.25 mg daily prn anxiety -Decrease Depakote to 250 mg bid -Decrease Doxepin to 50 mg HS -Decrease Risperdal to 0.5 mg bid -Gabapentin decreased 02/18 to 300 mg tid -Continue to monitor -Cancel discharge 02/20/23 -Three day notice retracted by pt. Discharge rescheduled for 02/23/23. -Increase Doxepin to 150 mg HS -Discontinue Trazodone 02/21/23 -Continue current regime and plan of care. 02/22/23 -Continue current regime -Discharge 02/26 per OP team request. Patient educated on: therapeutic strategies Informed Consent: understands and further education needed Reason for continued inpatient stay Substantial Risk for: rapid decompensation Time Spent With Patient Time: Total time managing care of this patient today ____ minutes.
[2023-02-22 17:10] LABS: Glucose, Whole Blood 120 mg/dL (60-115)
[2023-02-22 18:00] VITALS: BP 145/67; PULSE 71; TEMP 36.4; O2SAT 98
[2023-02-22 21:22] LABS: Glucose, Whole Blood 216 mg/dL (60-115)
[2023-02-23] MEDS: Divalproex Sodium 250 MG TABLET.DR PO (08:22)
[2023-02-23] MEDS: Docusate Sodium 100 MG CAPSULE PO ×2 (08:22→19:39)
[2023-02-23] MEDS: lisinopriL 10 MG TABLET PO (08:22)
[2023-02-23] MEDS: Gabapentin 300 MG CAPSULE PO ×3 (08:22→19:39)
[2023-02-23] MEDS: risperiDONE 0.5 MG TABLET PO ×2 (08:22→19:39)
[2023-02-23] MEDS: metFORMIN HCl 1,000 MG TABLET 1000 MG PO ×2 (08:23→19:39)
[2023-02-23 08:24] LABS: Glucose, Whole Blood 160 mg/dL (60-115)
[2023-02-23] MEDS: methADONE HCl 20 MG/2 ML ORAL.CONC 125 MG PO (08:24)
[2023-02-23] MEDS: Insulin Lispro 100 UNIT/ML 3 ML VIAL SUBCUT ×3 (09:21→17:00)
[2023-02-23] MEDS: Nicotine Polacrilex Lozenge 4 MG LOZENGE BUCCAL ×2 (09:24→19:38)
[2023-02-23 11:29] VITALS: BP 144/63; PULSE 73; RESP 16; TEMP 36.3; O2SAT 98
[2023-02-23 13:53] LABS: Glucose, Whole Blood 193 mg/dL (60-115)
--- NOTE | 2023-02-23 16:07 | P.PNPSI_ITS ---
Subjective Subjective Date of Service: 02/23/23 Reason For Visit: Dysregulated Subjective Notes: Conditional Voluntary Healthcare Proxy: No Guardianship: No Medical Problems Affecting Mental Status: No Interim History: Continues with gradual improvement. Excited about discharge 02/26. Discussed concerns today about housing, return to the hotel and hotel staff misperception of symptoms. Denies current sx except chronic pain, insomnia-doxepin decreased to 50 mg after hold. Medication Compliance: Yes Side effects from medications: No Attending Groups: Intermittent Review of Systems Acute medical concerns: No Medical Review of Systems: unchanged Review of Systems Musculoskeletal: Reports arthralgias and Reports stiffness Mental Status Exam Mental Status Exam Patient Appearance: Appropriate Patient Orientation: Person, Place and Situation Level of Consciousness: Alert Patient Behavior: Appropriate, Talkative, Cooperative, Passive, Distractible and Good Eye Contact Mood Description: Calm Affect Description: Flat Patient Cognition Impaired: Yes Ability to Follow Directions: Fair Speech Pattern: Spontaneous Speech and Soft-Spoken Memory Description: Episodic Impaired Hallucinations: None (denies) Delusions: Not Present Thought Process: Rumination Thought Content: positive for Suicidal Ideation (denies) Judgement: Good Diagnostics Vital Signs (24Hr): Vital Signs - 24 hr 02/22/23 18:00 02/23/23 11:29 Temperature 97.6 F 97.3 F Pulse Rate 71 73 Respiratory Rate 16 Blood Pressure 145/67 H 144/63 H Pulse Oximetry 98 98 Oxygen Delivery Method Room Air Room Air BMI result Body Mass Index 26.5 Labs 02/18/23 18:30 02/19/23 10:35 Labs: Laboratory Results - last 48 hr 02/21/23 02/21/23 02/22/23 17:08 20:32 08:28 POC Glucose 299 H 161 H 144 H 02/22/23 02/22/23 02/22/23 12:15 17:07 20:29 POC Glucose 279 H 120 H 216 H 02/23/23 02/23/23 08:19 13:46 POC Glucose 160 H 193 H Imaging Radiology Impressions: ITS Impressions Head CT 02/06/23 11:17 IMPRESSION: No acute intracranial abnormality. No evidence of brain parenchymal volume loss. Medications Medications Current Medications Acetaminophen (Acetaminophen 325 Mg Tablet) 650 mg PO Q6H PRN PRN Reason: Headache/Pain Mild Scale (1-3) Last Admin: 02/21/23 20:43 Dose: 650 mg Al Hydroxide/Mg Hydroxide (Magnesium Hydrox/Alum Hydrox 30 Ml Oral.Susp) 30 ml PO Q6H PRN PRN Reason: Heartburn/Nausea Last Admin: 02/13/23 20:11 Dose: 30 ml Bisacodyl (Bisacodyl 5 Mg Tablet.) 10 mg PO DAILY PRN PRN Reason: Constipation Last Admin: 02/21/23 15:02 Dose: 10 mg Clonazepam (Clonazepam 0.5 Mg Tablet) 0.25 mg PO DAILY PRN PRN Reason: Anxiety Last Admin: 02/22/23 13:52 Dose: 0.25 mg Clonidine HCl (Clonidine Hcl 0.1 Mg Tablet) 0.1 mg PO BID PRN; Protocol PRN Reason: anxiety Last Admin: 02/22/23 13:52 Dose: 0.1 mg Cyclobenzaprine HCl (Cyclobenzaprine Hcl 5 Mg Tablet) 5 mg PO TID PRN PRN Reason: muscle spasm Last Admin: 02/22/23 20:39 Dose: 5 mg Dextrose (Dextrose 50 % 25 Gm/50 Ml Syringe) 25 gm IVPUSH Q15M PRN; Protocol PRN Reason: per Hypoglycemia Standing Ord. Divalproex Sodium (Divalproex Sodium 250 Mg Tablet.) 250 mg PO BID [facility] Last Admin: 02/23/23 08:22 Dose: 250 mg Docusate Sodium (Docusate Sodium 100 Mg Capsule) 100 mg PO BID [facility] Last Admin: 02/23/23 08:22 Dose: 100 mg Doxepin HCl (Doxepin Hcl 25 Mg Capsule) 50 mg PO BEDTIME [facility] Gabapentin (Gabapentin 300 Mg Capsule) 300 mg PO TID [facility] Last Admin: 02/23/23 14:18 Dose: 300 mg Glucose (Glucose Gel 15 Gm Gel..Gram.) 15 gm PO Q15M PRN; Protocol PRN Reason: per Hypoglycemia Standing Ord. Guaifenesin (Guaifenesin 100 Mg/5 Ml Liquid) 5 ml PO Q6H PRN PRN Reason: cough Insulin Human Lispro (Insulin Lispro 100 Unit/Ml 3 Ml Vial) 0 unit SUBCUT QIDACHS [facility]; Protocol Last Admin: 02/23/23 14:18 Dose: 2 unit Lisinopril (Lisinopril 10 Mg Tablet) 10 mg PO DAILY [facility]; Protocol Last Admin: 02/23/23 08:22 Dose: 10 mg Magnesium Hydroxide (Milk Of Magnesia 30 Ml Oral.Susp) 30 ml PO DAILY PRN PRN Reason: Constipation Last Admin: 02/21/23 19:28 Dose: 30 ml Metformin HCl (Metformin Hcl 1,000 Mg Tablet) 1,000 mg PO BID [facility] Last Admin: 02/23/23 08:23 Dose: 1,000 mg Methadone HCl (Methadone Hcl 20 Mg/2 Ml Oral.Conc) 125 mg PO DAILY [facility] Last Admin: 02/23/23 08:24 Dose: 125 mg Nicotine Polacrilex (Nicotine Polacrilex Lozenge 4 Mg Lozenge) 4 mg BUCCAL Q2H PRN PRN Reason: Nicotine Cravings Last Admin: 02/23/23 09:24 Dose: 4 mg Risperidone (Risperidone 0.5 Mg Tablet) 0.5 mg PO BID PRN PRN Reason: agitation,psychosis Last Admin: 02/22/23 22:52 Dose: 0.5 mg Risperidone (Risperidone 0.5 Mg Tablet) 0.5 mg PO BID [facility] Last Admin: 02/23/23 08:22 Dose: 0.5 mg Allergies Allergies Allergy/AdvReac Type Severity Reaction Status Date / Time No Known Allergies Allergy Verified 01/26/23 13:46 Assessment & Plan Assessment & Plan (1) Bipolar disorder with psychotic features: Status: Acute Code(s): F31.9 - Bipolar disorder, unspecified (2) Opioid use disorder, severe, on maintenance therapy: Status: Acute Code(s): F11.20 - Opioid dependence, uncomplicated (3) Cognitive impairment: Status: Acute Code(s): R41.89 - Other symptoms and signs involving cognitive functions and awareness Plan 62 yo female, hx of opiate use disorder, currently on high dose methadone and possible bipolar disorder presents from community with psychosis, disorganization, ? steve. Plan: Collateral contact Diagnostics Re-establish regime and assess needs Aftercare planning 02/02/23 -Increase Gabapentin to 400 mg tid from 200 mg tid, pt's home dosage -DC Olanzapine- due to elevated blood sugar -Risperdal 0.5 mg bid as pt remains disorganized with paranoia -Risperdal 0.5 mg bid prn -Hold Klonopin (0.5 mg daily prn, 7 day supply given early 2022) -Hold Cymbalta (given 10 days in Dec 2022). -Sliding scale insulin correction scale -Continue to monitor-pt may need a change from Doxepin to a stronger mood stabilizer, however she needs time to re-establish home dosing. Team from [facility] scheduled to visit pt today. 02/03/2023 continue current treatment plan 02/04?continue?current?treatment?plan 02/05- Team reports no real change with Risperdal over the weekend. Will proceed with dementia work up B12,Folate, ESR, CRP, HIV, RPR, EEG, CAT Discontinue Flaggyl-pt refusing 02/07/23 Increase Risperdal to 1 mg bid Continue to attempt collateral contacts Continue work up 02/08/23 Continue current regime and plan of care 02/09/23 Aricept 5 mg hs to begin 02/10 EKG on 02/12 Aftercare planning-pt has lost OP team 02/10 Aricept to begin today 02/11: no changes 02/13/23 No changes to regime today. Medication education provided 02/14/23 Discontinue Aricept-pt request Klonopin 0.5 mg daily prn anxiety (hx of use at home) Colace 100 mg bid Discharge planning continues 02/16/23 Tentative discharge for 02/19. Depakote level CBCD 02/17/23 continue current treatment plan 02/18/23 throat culture; encourage fluids 02/19/23 -Urine Culture -Encourage Fluids -Decrease Klonopin to 0.25 mg daily prn anxiety -Decrease Depakote to 250 mg bid -Decrease Doxepin to 50 mg HS -Decrease Risperdal to 0.5 mg bid -Gabapentin decreased 02/18 to 300 mg tid -Continue to monitor -Cancel discharge 02/20/23 -Three day notice retracted by pt. Discharge rescheduled for 02/23/23. -Increase Doxepin to 150 mg HS -Discontinue Trazodone 02/21/23 -Continue current regime and plan of care. 02/22/23 -Continue current regime -Discharge 02/26 per OP team request. 02/23/23 Decrease Depakote to 250 mg daily Doxepin 50 mg HS CBCD, CMP Patient educated on: medication risk/benefits and therapeutic strategies Informed Consent: further education needed Reason for continued inpatient stay Substantial Risk for: med/psych decompensation Time Spent With Patient Time: Total time managing care of this patient today ____ minutes.
[2023-02-23 16:18] LABS: Glucose, Whole Blood 209 mg/dL (60-115)
[2023-02-23 17:23] VITALS: BP 143/65; PULSE 69; O2SAT 98
[2023-02-23] MEDS: Doxepin HCl 25 MG CAPSULE 50 MG PO (19:39)
[2023-02-23] MEDS: Cyclobenzaprine HCl 5 MG TABLET PO (21:49)
[2023-02-23] MEDS: cloNIDine HCL 0.1 MG TABLET PO (21:50)
[2023-02-23 23:15] LABS: Glucose, Whole Blood 152 mg/dL (60-115)
[2023-02-24] MEDS: Insulin Lispro 100 UNIT/ML 3 ML VIAL SUBCUT ×5 (00:09→20:45)
[2023-02-24 07:29] LABS: MANUAL DIFF FLAG NO
[2023-02-24 07:35] LABS: Basophils Absolute Auto 0.1 X10*3/uL (0.0-0.2); Basophils Percent Auto 0.6 % (0-2); Eosinophils Absolute Auto 0.2 X10*3/uL (0.0-0.4); Eosinophils Percent Auto 2.2 % (0-4); Hematocrit 36.4 % (37.0-47.0); Hemoglobin 11.8 g/dl (12.0-16.0); Imm Gran Abs Auto 0.05 X10*3/uL (0.00-0.03); Imm Gran Pct Auto 0.5 % (0.0-0.4); Lymphocytes Absolute Auto 3.2 X10*3/uL (1.2-4.9); Lymphocytes Percent Auto 33.5 % (20-40); Mean Corpuscular HGB Conc 32.4 g/dl (31.0-35.0); Mean Corpuscular Hemoglobin 28.1 pg (27.0-33.0); Mean Corpuscular Volume 86.7 fL (80.0-98.0); Monocytes Percent Auto 10.5 % (2-11); Neutrophils Percent Auto 52.7 % (45-73); Platelet Count 334 X10*3/uL (160-400); White Blood Count 9.4 X10*3/uL (4.8-10.8)
[2023-02-24 07:52] LABS: Alanine Aminotransferase 13 U/L (0-31); Albumin Level 3.6 g/dL (3.5-5.0); Alkaline Phosphatase 60 U/L (39-117); Anion Gap 14 (12-20); Aspartate Amino Transferase 11 U/L (5-31); Bilirubin Total 0.1 mg/dL (0.0-1.0); Blood Urea Nitrogen 16 mg/dL (9-16); Calcium 9.7 mg/dL (8.4-10.2); Carbon Dioxide 31 mmol/L (22-29); Chloride 100 mmol/L (96-108); Estimated Glomerular Filt Rate > 60; Glucose Random 219 mg/dL (60-115); Potassium 5.1 mmol/L (3.3-5.1); Sodium 140 mmol/L (135-145); Total Protein 7.5 g/dL (6.5-8.0)
[2023-02-24 08:00] VITALS: BP 129/63; PULSE 65; RESP 16; TEMP 36.2; O2SAT 97
[2023-02-24 08:34] LABS: Glucose, Whole Blood 189 mg/dL (60-115)
[2023-02-24] MEDS: methADONE HCl 20 MG/2 ML ORAL.CONC 125 MG PO (09:08)
[2023-02-24] MEDS: metFORMIN HCl 1,000 MG TABLET 1000 MG PO ×2 (09:08→20:33)
[2023-02-24] MEDS: Divalproex Sodium 250 MG TABLET.DR PO (09:08)
[2023-02-24] MEDS: lisinopriL 10 MG TABLET PO (09:08)
[2023-02-24] MEDS: Gabapentin 300 MG CAPSULE PO ×3 (09:08→20:33)
[2023-02-24] MEDS: risperiDONE 0.5 MG TABLET PO ×2 (09:08→20:33)
[2023-02-24] MEDS: Docusate Sodium 100 MG CAPSULE PO ×2 (09:08→20:33)
--- NOTE | 2023-02-24 09:20 | HO.PSYCHPN ---
Subjective Subjective Date of Service: 02/24/23 Reason For Visit: Dysregulated Interim History: met with patient; discussed with team; reviewed chart Patient reports she is in a good mood and says she is much better... She says she is discharging on Sunday and looking forward to it. Patient overall sleeping well enough. Pleasant, no complaints no requests. Mental Status Exam Mental Status Exam Patient Appearance: Appropriate Patient Orientation: Person, Place and Situation Level of Consciousness: Alert Patient Behavior: Appropriate, Talkative, Cooperative, Passive, Distractible and Good Eye Contact Mood Description: Calm Affect Description: Flat Patient Cognition Impaired: Yes Ability to Follow Directions: Fair Speech Pattern: Spontaneous Speech and Soft-Spoken Memory Description: Episodic Impaired Hallucinations: None (denies) Delusions: Not Present Thought Process: Rumination Thought Content: positive for Intact (No SI/HI) Judgement: Fair Diagnostics Vital Signs (24Hr): Vital Signs - 24 hr 02/23/23 11:29 02/23/23 17:23 Temperature 97.3 F Pulse Rate 73 69 Respiratory Rate 16 Blood Pressure 144/63 H 143/65 H Pulse Oximetry 98 98 Oxygen Delivery Method Room Air Room Air BMI result Body Mass Index 26.5 Labs 02/24/23 07:01 02/25/23 07:06 Labs: Laboratory Results - last 48 hr 02/22/23 02/22/23 02/22/23 12:15 17:07 20:29 WBC RBC Hgb Hct MCV MCH MCHC RDW Plt Count MPV Immature Gran % (Auto) Neut % (Auto) Lymph % (Auto) [place] % (Auto) Eos % (Auto) Baso % (Auto) Lymph # (Auto) [place] # (Auto) Eos # (Auto) Baso # (Auto) Abs Immat Gran (auto) Absolute Neuts (auto) Absolute Nucleated RBC Nucleated RBC % (auto) Sodium Potassium Chloride Carbon Dioxide Anion Gap BUN Creatinine Estim Creat Clear Calc Estimated GFR POC Glucose 279 H 120 H 216 H Random Glucose Calcium Total Bilirubin AST ALT Alkaline Phosphatase Total Protein Albumin 02/23/23 02/23/23 02/23/23 08:19 13:46 16:11 WBC RBC Hgb Hct MCV MCH MCHC RDW Plt Count MPV Immature Gran % (Auto) Neut % (Auto) Lymph % (Auto) [place] % (Auto) Eos % (Auto) Baso % (Auto) Lymph # (Auto) [place] # (Auto) Eos # (Auto) Baso # (Auto) Abs Immat Gran (auto) Absolute Neuts (auto) Absolute Nucleated RBC Nucleated RBC % (auto) Sodium Potassium Chloride Carbon Dioxide Anion Gap BUN Creatinine Estim Creat Clear Calc Estimated GFR POC Glucose 160 H 193 H 209 H Random Glucose Calcium Total Bilirubin AST ALT Alkaline Phosphatase Total Protein Albumin 02/23/23 02/24/23 02/24/23 23:12 07:01 08:24 WBC 9.4 RBC 4.20 Hgb 11.8 L Hct 36.4 L MCV 86.7 MCH 28.1 MCHC 32.4 RDW 14.0 Plt Count 334 D MPV 10.0 Immature Gran % (Auto) 0.5 H Neut % (Auto) 52.7 Lymph % (Auto) 33.5 [place] % (Auto) 10.5 Eos % (Auto) 2.2 Baso % (Auto) 0.6 Lymph # (Auto) 3.2 [place] # (Auto) 1.0 Eos # (Auto) 0.2 Baso # (Auto) 0.1 Abs Immat Gran (auto) 0.05 H Absolute Neuts (auto) 5.0 Absolute Nucleated RBC 0.000 Nucleated RBC % (auto) 0.0 Sodium 140 Potassium 5.1 Chloride 100 Carbon Dioxide 31 H Anion Gap 14 BUN 16 Creatinine 0.89 Estim Creat Clear Calc 53.0 Estimated GFR > 60 POC Glucose 152 H 189 H Random Glucose 219 H Calcium 9.7 Total Bilirubin 0.1 AST 11 ALT 13 Alkaline Phosphatase 60 Total Protein 7.5 Albumin 3.6 Imaging Radiology Impressions: ITS Impressions Head CT 02/06/23 11:17 IMPRESSION: No acute intracranial abnormality. No evidence of brain parenchymal volume loss. Medications Medications Current Medications Acetaminophen (Acetaminophen 325 Mg Tablet) 650 mg PO Q6H PRN PRN Reason: Headache/Pain Mild Scale (1-3) Last Admin: 02/21/23 20:43 Dose: 650 mg Al Hydroxide/Mg Hydroxide (Magnesium Hydrox/Alum Hydrox 30 Ml Oral.Susp) 30 ml PO Q6H PRN PRN Reason: Heartburn/Nausea Last Admin: 02/13/23 20:11 Dose: 30 ml Bisacodyl (Bisacodyl 5 Mg Tablet.Dr) 10 mg PO DAILY PRN PRN Reason: Constipation Last Admin: 02/21/23 15:02 Dose: 10 mg Clonazepam (Clonazepam 0.5 Mg Tablet) 0.25 mg PO DAILY PRN PRN Reason: Anxiety Last Admin: 02/22/23 13:52 Dose: 0.25 mg Clonidine HCl (Clonidine Hcl 0.1 Mg Tablet) 0.1 mg PO BID PRN; Protocol PRN Reason: anxiety Last Admin: 02/23/23 21:50 Dose: 0.1 mg Cyclobenzaprine HCl (Cyclobenzaprine Hcl 5 Mg Tablet) 5 mg PO TID PRN PRN Reason: muscle spasm Last Admin: 02/23/23 21:49 Dose: 5 mg Dextrose (Dextrose 50 % 25 Gm/50 Ml Syringe) 25 gm IVPUSH Q15M PRN; Protocol PRN Reason: per Hypoglycemia Standing Ord. Divalproex Sodium (Divalproex Sodium 250 Mg Tablet.Dr) 250 mg PO DAILY [facility] Last Admin: 02/24/23 09:08 Dose: 250 mg Docusate Sodium (Docusate Sodium 100 Mg Capsule) 100 mg PO BID [facility] Last Admin: 02/24/23 09:08 Dose: 100 mg Doxepin HCl (Doxepin Hcl 25 Mg Capsule) 50 mg PO BEDTIME [facility] Last Admin: 02/23/23 19:39 Dose: 50 mg Gabapentin (Gabapentin 300 Mg Capsule) 300 mg PO TID [facility] Last Admin: 02/24/23 09:08 Dose: 300 mg Glucose (Glucose Gel 15 Gm Gel..Gram.) 15 gm PO Q15M PRN; Protocol PRN Reason: per Hypoglycemia Standing Ord. Guaifenesin (Guaifenesin 100 Mg/5 Ml Liquid) 5 ml PO Q6H PRN PRN Reason: cough Insulin Human Lispro (Insulin Lispro 100 Unit/Ml 3 Ml Vial) 0 unit SUBCUT QIDACHS [facility]; Protocol Last Admin: 02/24/23 09:07 Dose: 2 unit Lisinopril (Lisinopril 10 Mg Tablet) 10 mg PO DAILY [facility]; Protocol Last Admin: 02/24/23 09:08 Dose: 10 mg Magnesium Hydroxide (Milk Of Magnesia 30 Ml Oral.Susp) 30 ml PO DAILY PRN PRN Reason: Constipation Last Admin: 02/21/23 19:28 Dose: 30 ml Metformin HCl (Metformin Hcl 1,000 Mg Tablet) 1,000 mg PO BID [facility] Last Admin: 02/24/23 09:08 Dose: 1,000 mg Methadone HCl (Methadone Hcl 20 Mg/2 Ml Oral.Conc) 125 mg PO DAILY [facility] Last Admin: 02/24/23 09:08 Dose: 125 mg Nicotine Polacrilex (Nicotine Polacrilex Lozenge 4 Mg Lozenge) 4 mg BUCCAL Q2H PRN PRN Reason: Nicotine Cravings Last Admin: 02/23/23 19:38 Dose: 4 mg Risperidone (Risperidone 0.5 Mg Tablet) 0.5 mg PO BID PRN PRN Reason: agitation,psychosis Last Admin: 02/22/23 22:52 Dose: 0.5 mg Risperidone (Risperidone 0.5 Mg Tablet) 0.5 mg PO BID [facility] Last Admin: 02/24/23 09:08 Dose: 0.5 mg Allergies Allergies Allergy/AdvReac Type Severity Reaction Status Date / Time No Known Allergies Allergy Verified 01/26/23 13:46 Assessment & Plan Assessment & Plan (1) Bipolar disorder with psychotic features: Status: Acute Code(s): F31.9 - Bipolar disorder, unspecified (2) Opioid use disorder, severe, on maintenance therapy: Status: Acute Code(s): F11.20 - Opioid dependence, uncomplicated (3) Cognitive impairment: Status: Acute Code(s): R41.89 - Other symptoms and signs involving cognitive functions and awareness Plan 62 yo female, hx of opiate use disorder, currently on high dose methadone and possible bipolar disorder presents from community with psychosis, disorganization, ? steve. Plan: Collateral contact Diagnostics Re-establish regime and assess needs Aftercare planning 02/02/23 -Increase Gabapentin to 400 mg tid from 200 mg tid, pt's home dosage -DC Olanzapine- due to elevated blood sugar -Risperdal 0.5 mg bid as pt remains disorganized with paranoia -Risperdal 0.5 mg bid prn -Hold Klonopin (0.5 mg daily prn, 7 day supply given early 2022) -Hold Cymbalta (given 10 days in Dec 2022). -Sliding scale insulin correction scale -Continue to monitor-pt may need a change from Doxepin to a stronger mood stabilizer, however she needs time to re-establish home dosing. Team from [facility] scheduled to visit pt today. 02/03/2023 continue current treatment plan 02/04?continue?current?treatment?plan 02/05- Team reports no real change with Risperdal over the weekend. Will proceed with dementia work up B12,Folate, ESR, CRP, HIV, RPR, EEG, CAT Discontinue Flaggyl-pt refusing 02/07/23 Increase Risperdal to 1 mg bid Continue to attempt collateral contacts Continue work up 02/08/23 Continue current regime and plan of care 02/09/23 Aricept 5 mg hs to begin 02/10 EKG on 02/12 Aftercare planning-pt has lost OP team 02/10 Aricept to begin today 02/11: no changes 02/13/23 No changes to regime today. Medication education provided 02/14/23 Discontinue Aricept-pt request Klonopin 0.5 mg daily prn anxiety (hx of use at home) Colace 100 mg bid Discharge planning continues 02/16/23 Tentative discharge for 02/19. Depakote level CBCD 02/17/23 continue current treatment plan 02/18/23 throat culture; encourage fluids 02/19/23 -Urine Culture -Encourage Fluids -Decrease Klonopin to 0.25 mg daily prn anxiety -Decrease Depakote to 250 mg bid -Decrease Doxepin to 50 mg HS -Decrease Risperdal to 0.5 mg bid -Gabapentin decreased 02/18 to 300 mg tid -Continue to monitor -Cancel discharge 02/20/23 -Three day notice retracted by pt. Discharge rescheduled for 02/23/23. -Increase Doxepin to 150 mg HS -Discontinue Trazodone 02/21/23 -Continue current regime and plan of care. 02/22/23 -Continue current regime -Discharge 02/26 per OP team request. 02/23/23 Decrease Depakote to 250 mg daily Doxepin 50 mg HS CBCD, CMP 02/24 patient stable; continue current treatment plan Patient educated on: diagnosis Informed Consent: understands Reason for continued inpatient stay Substantial Risk for: stable for discharge Time Spent With Patient Time: Total time managing care of this patient today ____ minutes.
[2023-02-24] MEDS: Nicotine Polacrilex Lozenge 4 MG LOZENGE BUCCAL ×6 (11:03→22:36)
[2023-02-24 12:50] LABS: Glucose, Whole Blood 177 mg/dL (60-115)
[2023-02-24] MEDS: bisacodyL 5 MG TABLET.DR 10 MG PO (13:51)
[2023-02-24 17:35] LABS: Glucose, Whole Blood 254 mg/dL (60-115)
[2023-02-24 18:00] VITALS: BP 135/68; PULSE 97; RESP 16; TEMP 36.4
[2023-02-24] MEDS: clonazePAM 0.5 MG TABLET 0.25 MG PO (18:43)
[2023-02-24] MEDS: cloNIDine HCL 0.1 MG TABLET PO (18:43)
--- NOTE | 2023-02-24 19:34 | PC.NURSE ---
PT reported to this automotive service writer that she has been coughing up blood for a few days. Reports blood as bright red in color and is mixed in with phlegm. Denies SOB or any other sx. Marco made aware, CXR ordered. Plan of care ongoing.
[2023-02-24] MEDS: Doxepin HCl 25 MG CAPSULE 50 MG PO (20:33)
[2023-02-24] MEDS: Cyclobenzaprine HCl 5 MG TABLET PO (20:34)
[2023-02-24 20:38] LABS: Glucose, Whole Blood 219 mg/dL (60-115)
[2023-02-25 07:38] LABS: Creatinine Clr Calc Pharmacy 58.9; Estimated Glomerular Filt Rate > 60
[2023-02-25] MEDS: lisinopriL 10 MG TABLET PO (08:13)
[2023-02-25] MEDS: risperiDONE 0.5 MG TABLET PO ×2 (08:13→20:14)
[2023-02-25] MEDS: Gabapentin 300 MG CAPSULE PO ×3 (08:13→20:14)
[2023-02-25] MEDS: Divalproex Sodium 250 MG TABLET.DR PO (08:13)
[2023-02-25] MEDS: Docusate Sodium 100 MG CAPSULE PO ×2 (08:13→20:14)
[2023-02-25] MEDS: methADONE HCl 20 MG/2 ML ORAL.CONC 125 MG PO (08:13)
[2023-02-25] MEDS: metFORMIN HCl 1,000 MG TABLET 1000 MG PO ×2 (08:13→20:14)
[2023-02-25 08:14] VITALS: BP 149/70; PULSE 76; RESP 16; TEMP 36.5; O2SAT 100
[2023-02-25 08:27] LABS: Glucose, Whole Blood 145 mg/dL (60-115)
--- NOTE | 2023-02-25 10:29 | HO.PSYCHPN ---
Subjective Subjective Date of Service: 02/25/23 Reason For Visit: Dysregulated Interim History: Met with patient; discussed with team Patient?remains?in?good?mood;?says?she?is?doing?well?looking?forward?to?discharge Mental Status Exam Mental Status Exam Patient Appearance: Appropriate Patient Orientation: Person, Place and Situation Level of Consciousness: Alert Patient Behavior: Appropriate, Talkative, Cooperative, Passive, Distractible and Good Eye Contact Mood Description: Calm Affect Description: Flat Patient Cognition Impaired: Yes Ability to Follow Directions: Fair Speech Pattern: Spontaneous Speech and Soft-Spoken Memory Description: Episodic Impaired Hallucinations: None (denies) Delusions: Not Present Thought Process: Rumination Thought Content: positive for Intact (No SI/HI) Judgement: Fair Diagnostics Vital Signs (24Hr): Vital Signs - 24 hr 02/24/23 18:00 02/25/23 08:14 Temperature 97.5 F 97.7 F Pulse Rate 97 76 Respiratory Rate 16 16 Blood Pressure 135/68 149/70 H Pulse Oximetry 100 Oxygen Delivery Method Room Air BMI result Body Mass Index 26.5 Labs 02/24/23 07:01 02/25/23 07:06 Labs: Laboratory Results - last 48 hr 02/23/23 02/23/23 02/23/23 13:46 16:11 23:12 WBC RBC Hgb Hct MCV MCH MCHC RDW Plt Count MPV Immature Gran % (Auto) Neut % (Auto) Lymph % (Auto) [place] % (Auto) Eos % (Auto) Baso % (Auto) Lymph # (Auto) [place] # (Auto) Eos # (Auto) Baso # (Auto) Abs Immat Gran (auto) Absolute Neuts (auto) Absolute Nucleated RBC Nucleated RBC % (auto) Sodium Potassium Chloride Carbon Dioxide Anion Gap BUN Creatinine Estim Creat Clear Calc Estimated GFR POC Glucose 193 H 209 H 152 H Random Glucose Calcium Total Bilirubin AST ALT Alkaline Phosphatase Total Protein Albumin 02/24/23 02/24/23 02/24/23 07:01 08:24 12:47 WBC 9.4 RBC 4.20 Hgb 11.8 L Hct 36.4 L MCV 86.7 MCH 28.1 MCHC 32.4 RDW 14.0 Plt Count 334 D MPV 10.0 Immature Gran % (Auto) 0.5 H Neut % (Auto) 52.7 Lymph % (Auto) 33.5 [place] % (Auto) 10.5 Eos % (Auto) 2.2 Baso % (Auto) 0.6 Lymph # (Auto) 3.2 [place] # (Auto) 1.0 Eos # (Auto) 0.2 Baso # (Auto) 0.1 Abs Immat Gran (auto) 0.05 H Absolute Neuts (auto) 5.0 Absolute Nucleated RBC 0.000 Nucleated RBC % (auto) 0.0 Sodium 140 Potassium 5.1 Chloride 100 Carbon Dioxide 31 H Anion Gap 14 BUN 16 Creatinine 0.89 Estim Creat Clear Calc 53.0 Estimated GFR > 60 POC Glucose 189 H 177 H Random Glucose 219 H Calcium 9.7 Total Bilirubin 0.1 AST 11 ALT 13 Alkaline Phosphatase 60 Total Protein 7.5 Albumin 3.6 02/24/23 02/24/23 02/25/23 17:28 20:34 07:06 WBC RBC Hgb Hct MCV MCH MCHC RDW Plt Count MPV Immature Gran % (Auto) Neut % (Auto) Lymph % (Auto) [place] % (Auto) Eos % (Auto) Baso % (Auto) Lymph # (Auto) [place] # (Auto) Eos # (Auto) Baso # (Auto) Abs Immat Gran (auto) Absolute Neuts (auto) Absolute Nucleated RBC Nucleated RBC % (auto) Sodium Potassium Chloride Carbon Dioxide Anion Gap BUN Creatinine 0.80 Estim Creat Clear Calc 58.9 Estimated GFR > 60 POC Glucose 254 H 219 H Random Glucose Calcium Total Bilirubin AST ALT Alkaline Phosphatase Total Protein Albumin 02/25/23 08:22 WBC RBC Hgb Hct MCV MCH MCHC RDW Plt Count MPV Immature Gran % (Auto) Neut % (Auto) Lymph % (Auto) [place] % (Auto) Eos % (Auto) Baso % (Auto) Lymph # (Auto) [place] # (Auto) Eos # (Auto) Baso # (Auto) Abs Immat Gran (auto) Absolute Neuts (auto) Absolute Nucleated RBC Nucleated RBC % (auto) Sodium Potassium Chloride Carbon Dioxide Anion Gap BUN Creatinine Estim Creat Clear Calc Estimated GFR POC Glucose 145 H Random Glucose Calcium Total Bilirubin AST ALT Alkaline Phosphatase Total Protein Albumin Imaging Radiology Impressions: ITS Impressions Head CT 02/06/23 11:17 IMPRESSION: No acute intracranial abnormality. No evidence of brain parenchymal volume loss. Chest X-Ray 02/24/23 20:10 IMPRESSION: Mildly increased interstitial opacities may reflect mild interstitial edema or atypical/viral infection. Medications Medications Current Medications Acetaminophen (Acetaminophen 325 Mg Tablet) 650 mg PO Q6H PRN PRN Reason: Headache/Pain Mild Scale (1-3) Last Admin: 02/21/23 20:43 Dose: 650 mg Al Hydroxide/Mg Hydroxide (Magnesium Hydrox/Alum Hydrox 30 Ml Oral.Susp) 30 ml PO Q6H PRN PRN Reason: Heartburn/Nausea Last Admin: 02/13/23 20:11 Dose: 30 ml Bisacodyl (Bisacodyl 5 Mg Tablet.Dr) 10 mg PO DAILY PRN PRN Reason: Constipation Last Admin: 02/24/23 13:51 Dose: 10 mg Clonazepam (Clonazepam 0.5 Mg Tablet) 0.25 mg PO DAILY PRN PRN Reason: Anxiety Last Admin: 02/24/23 18:43 Dose: 0.25 mg Clonidine HCl (Clonidine Hcl 0.1 Mg Tablet) 0.1 mg PO BID PRN; Protocol PRN Reason: anxiety Last Admin: 02/24/23 18:43 Dose: 0.1 mg Cyclobenzaprine HCl (Cyclobenzaprine Hcl 5 Mg Tablet) 5 mg PO TID PRN PRN Reason: muscle spasm Last Admin: 02/24/23 20:34 Dose: 5 mg Dextrose (Dextrose 50 % 25 Gm/50 Ml Syringe) 25 gm IVPUSH Q15M PRN; Protocol PRN Reason: per Hypoglycemia Standing Ord. Divalproex Sodium (Divalproex Sodium 250 Mg Tablet.) 250 mg PO DAILY [facility] Last Admin: 02/25/23 08:13 Dose: 250 mg Docusate Sodium (Docusate Sodium 100 Mg Capsule) 100 mg PO BID [facility] Last Admin: 02/25/23 08:13 Dose: 100 mg Doxepin HCl (Doxepin Hcl 25 Mg Capsule) 50 mg PO BEDTIME [facility] Last Admin: 02/24/23 20:33 Dose: 50 mg Gabapentin (Gabapentin 300 Mg Capsule) 300 mg PO TID [facility] Last Admin: 02/25/23 08:13 Dose: 300 mg Glucose (Glucose Gel 15 Gm Gel..Gram.) 15 gm PO Q15M PRN; Protocol PRN Reason: per Hypoglycemia Standing Ord. Guaifenesin (Guaifenesin 100 Mg/5 Ml Liquid) 5 ml PO Q6H PRN PRN Reason: cough Insulin Human Lispro (Insulin Lispro 100 Unit/Ml 3 Ml Vial) 0 unit SUBCUT QIDACHS [facility]; Protocol Last Admin: 02/25/23 08:29 Dose: Not Given Lisinopril (Lisinopril 10 Mg Tablet) 10 mg PO DAILY [facility]; Protocol Last Admin: 02/25/23 08:13 Dose: 10 mg Magnesium Hydroxide (Milk Of Magnesia 30 Ml Oral.Susp) 30 ml PO DAILY PRN PRN Reason: Constipation Last Admin: 02/21/23 19:28 Dose: 30 ml Metformin HCl (Metformin Hcl 1,000 Mg Tablet) 1,000 mg PO BID [facility] Last Admin: 02/25/23 08:13 Dose: 1,000 mg Methadone HCl (Methadone Hcl 20 Mg/2 Ml Oral.Conc) 125 mg PO DAILY [facility] Last Admin: 02/25/23 08:13 Dose: 125 mg Nicotine Polacrilex (Nicotine Polacrilex Lozenge 4 Mg Lozenge) 4 mg BUCCAL Q2H PRN PRN Reason: Nicotine Cravings Last Admin: 02/24/23 22:36 Dose: 4 mg Risperidone (Risperidone 0.5 Mg Tablet) 0.5 mg PO BID PRN PRN Reason: agitation,psychosis Last Admin: 02/22/23 22:52 Dose: 0.5 mg Risperidone (Risperidone 0.5 Mg Tablet) 0.5 mg PO BID [facility] Last Admin: 02/25/23 08:13 Dose: 0.5 mg Allergies Allergies Allergy/AdvReac Type Severity Reaction Status Date / Time No Known Allergies Allergy Verified 01/26/23 13:46 Assessment & Plan Assessment & Plan (1) Bipolar disorder with psychotic features: Status: Acute Code(s): F31.9 - Bipolar disorder, unspecified (2) Opioid use disorder, severe, on maintenance therapy: Status: Acute Code(s): F11.20 - Opioid dependence, uncomplicated (3) Cognitive impairment: Status: Acute Code(s): R41.89 - Other symptoms and signs involving cognitive functions and awareness Plan 62 yo female, hx of opiate use disorder, currently on high dose methadone and possible bipolar disorder presents from community with psychosis, disorganization, ? steve. Plan: Collateral contact Diagnostics Re-establish regime and assess needs Aftercare planning 02/02/23 -Increase Gabapentin to 400 mg tid from 200 mg tid, pt's home dosage -DC Olanzapine- due to elevated blood sugar -Risperdal 0.5 mg bid as pt remains disorganized with paranoia -Risperdal 0.5 mg bid prn -Hold Klonopin (0.5 mg daily prn, 7 day supply given early 2022) -Hold Cymbalta (given 10 days in Dec 2022). -Sliding scale insulin correction scale -Continue to monitor-pt may need a change from Doxepin to a stronger mood stabilizer, however she needs time to re-establish home dosing. Team from [facility] scheduled to visit pt today. 02/03/2023 continue current treatment plan 02/04?continue?current?treatment?plan 02/05- Team reports no real change with Risperdal over the weekend. Will proceed with dementia work up B12,Folate, ESR, CRP, HIV, RPR, EEG, CAT Discontinue Flaggyl-pt refusing 02/07/23 Increase Risperdal to 1 mg bid Continue to attempt collateral contacts Continue work up 02/08/23 Continue current regime and plan of care 02/09/23 Aricept 5 mg hs to begin 02/10 EKG on 02/12 Aftercare planning-pt has lost OP team 02/10 Aricept to begin today 02/11: no changes 02/13/23 No changes to regime today. Medication education provided 02/14/23 Discontinue Aricept-pt request Klonopin 0.5 mg daily prn anxiety (hx of use at home) Colace 100 mg bid Discharge planning continues 02/16/23 Tentative discharge for 02/19. Depakote level CBCD 02/17/23 continue current treatment plan 02/18/23 throat culture; encourage fluids 02/19/23 -Urine Culture -Encourage Fluids -Decrease Klonopin to 0.25 mg daily prn anxiety -Decrease Depakote to 250 mg bid -Decrease Doxepin to 50 mg HS -Decrease Risperdal to 0.5 mg bid -Gabapentin decreased 02/18 to 300 mg tid -Continue to monitor -Cancel discharge 02/20/23 -Three day notice retracted by pt. Discharge rescheduled for 02/23/23. -Increase Doxepin to 150 mg HS -Discontinue Trazodone 02/21/23 -Continue current regime and plan of care. 02/22/23 -Continue current regime -Discharge 02/26 per OP team request. 02/23/23 Decrease Depakote to 250 mg daily Doxepin 50 mg HS CBCD, CMP 02/24 patient stable; continue current treatment plan 04/27?continue?current?treatment?plan Patient educated on: diagnosis Informed Consent: understands Reason for continued inpatient stay Substantial Risk for: stable for discharge Time Spent With Patient Time: Total time managing care of this patient today ____ minutes.
[2023-02-25 12:14] LABS: Glucose, Whole Blood 275 mg/dL (60-115)
[2023-02-25] MEDS: Nicotine Polacrilex Lozenge 4 MG LOZENGE BUCCAL ×5 (12:20→20:48)
[2023-02-25] MEDS: Insulin Lispro 100 UNIT/ML 3 ML VIAL SUBCUT ×3 (13:12→20:45)
[2023-02-25 16:20] VITALS: BP 152/68; PULSE 75
[2023-02-25] MEDS: cloNIDine HCL 0.1 MG TABLET PO (16:21)
[2023-02-25 16:54] LABS: Glucose, Whole Blood 191 mg/dL (60-115)
[2023-02-25] MEDS: Cyclobenzaprine HCl 5 MG TABLET PO (17:39)
[2023-02-25 17:59] VITALS: BP 152/68; PULSE 75; TEMP 36.6; O2SAT 98
[2023-02-25] MEDS: Doxepin HCl 25 MG CAPSULE 50 MG PO (20:14)
[2023-02-25 20:38] LABS: Glucose, Whole Blood 242 mg/dL (60-115)
[2023-02-25] MEDS: clonazePAM 0.5 MG TABLET 0.25 MG PO (22:47)
[2023-02-26] MEDS: Nicotine Polacrilex Lozenge 4 MG LOZENGE BUCCAL ×2 (05:31→09:43)
[2023-02-26 08:20] LABS: Glucose, Whole Blood 165 mg/dL (60-115)
[2023-02-26 08:31] VITALS: BP 140/64; PULSE 73; RESP 18; TEMP 36.1; O2SAT 97
[2023-02-26] MEDS: risperiDONE 0.5 MG TABLET PO (08:33)
[2023-02-26] MEDS: Gabapentin 300 MG CAPSULE PO (08:33)
[2023-02-26] MEDS: methADONE HCl 20 MG/2 ML ORAL.CONC 125 MG PO (08:33)
[2023-02-26] MEDS: Divalproex Sodium 250 MG TABLET.DR PO (08:33)
[2023-02-26] MEDS: metFORMIN HCl 1,000 MG TABLET 1000 MG PO (08:33)
[2023-02-26] MEDS: lisinopriL 10 MG TABLET PO (08:33)
[2023-02-26] MEDS: Docusate Sodium 100 MG CAPSULE PO (08:33)
[2023-02-26] MEDS: Insulin Lispro 100 UNIT/ML 3 ML VIAL SUBCUT (08:59)
--- NOTE | 2023-02-26 09:35 | PM.PSYDC ---
DS: Providers Provider Date of Service: 02/26/23 Date of admission: 01/31/23 14:57 Date of discharge: 02/26/23 Primary care physician: Unknown Physician Admitting clinician: Selin Melendrez Attending physician on admission: Justin Ragsdale Attending physician on discharge: Justin Ragsdale Discharging clinician: Selin Melendrez DS: Diagnosis Discharge Diagnosis (1) Bipolar disorder with psychotic features: Status: Acute (2) Opioid use disorder, severe, on maintenance therapy: Status: Acute (3) Cognitive impairment: Status: Acute DS: Medications Discharge Medications Home Medications: Home Medications Medication Instructions Recorded Confirmed methadone 10 mg/5 mL oral solution 125 mg PO DAILY 01/31/23 01/31/23 Previous Rx's Medication Instructions Recorded cyclobenzaprine 5 mg tablet 5 mg PO TID PRN muscle spasm 7 01/26/23 days #21 tabs clonazepam 0.5 mg tablet 0.25 mg (1/2 x 0.5 mg) PO DAILY 02/26/23 PRN Anxiety #7 tabs clonidine HCl 0.1 mg tablet 0.1 mg PO BID PRN anxiety #60 tabs 02/26/23 divalproex 250 mg tablet,delayed 250 mg PO DAILY #14 tabs 02/26/23 release docusate sodium 100 mg capsule 100 mg PO BID #60 caps 02/26/23 doxepin 25 mg capsule 50 mg (2 x 25 mg) PO BEDTIME #30 02/26/23 caps gabapentin 300 mg capsule 300 mg PO TID #45 caps 02/26/23 lisinopril 10 mg tablet 10 mg PO DAILY #30 tabs 02/26/23 metformin 1,000 mg tablet 1,000 mg PO BID #60 tabs 02/26/23 naloxone 4 mg/actuation nasal 4 mg intranasal Q2M PRN opioid 02/26/23 spray (Narcan) overdose #2 ea nicotine (polacrilex) 4 mg buccal 4 mg buccal Q2H PRN Nicotine 02/26/23 lozenge Cravings #100 ea risperidone 0.5 mg tablet 0.5 mg PO BID #60 tabs 02/26/23 Mental Status Exam Mental Status Exam Patient Appearance: Appropriate Patient Orientation: Person, Place and Situation Level of Consciousness: Alert Patient Behavior: Appropriate, Talkative, Cooperative, Passive, Distractible and Good Eye Contact Mood Description: Calm Affect Description: Flat Patient Cognition Impaired: Yes Ability to Follow Directions: Fair Speech Pattern: Spontaneous Speech and Soft-Spoken Memory Description: Episodic Impaired Hallucinations: None (denies) Delusions: Not Present Thought Process: Rumination Thought Content: positive for Suicidal Ideation (denies) Judgement: Good Data Data Completed and Pending Completed studies during hospitalization [Text1]: 02/19/23 02/19/23 02/19/23 10:35 12:21 16:54 WBC RBC Hgb Hct MCV MCH MCHC RDW Plt Count MPV Immature Gran % (Auto) Neut % (Auto) Lymph % (Auto) [place] % (Auto) Eos % (Auto) Baso % (Auto) Lymph # (Auto) [place] # (Auto) Eos # (Auto) Baso # (Auto) Abs Immat Gran (auto) Absolute Neuts (auto) Absolute Nucleated RBC Nucleated RBC % (auto) Sodium 139 Potassium 5.1 Chloride 97 Carbon Dioxide 30 H Anion Gap 17 BUN 22 H Creatinine 0.96 Estim Creat Clear Calc 48.4 Estimated GFR 59 POC Glucose 125 H 196 H Random Glucose 193 H Calcium 9.3 Total Bilirubin AST ALT Alkaline Phosphatase Total Protein Albumin 02/19/23 02/20/23 02/20/23 19:37 08:31 12:20 WBC RBC Hgb Hct MCV MCH MCHC RDW Plt Count MPV Immature Gran % (Auto) Neut % (Auto) Lymph % (Auto) [place] % (Auto) Eos % (Auto) Baso % (Auto) Lymph # (Auto) [place] # (Auto) Eos # (Auto) Baso # (Auto) Abs Immat Gran (auto) Absolute Neuts (auto) Absolute Nucleated RBC Nucleated RBC % (auto) Sodium Potassium Chloride Carbon Dioxide Anion Gap BUN Creatinine Estim Creat Clear Calc Estimated GFR POC Glucose 175 H 182 H 82 Random Glucose Calcium Total Bilirubin AST ALT Alkaline Phosphatase Total Protein Albumin 02/20/23 02/20/23 02/21/23 17:25 19:57 08:33 WBC RBC Hgb Hct MCV MCH MCHC RDW Plt Count MPV Immature Gran % (Auto) Neut % (Auto) Lymph % (Auto) [place] % (Auto) Eos % (Auto) Baso % (Auto) Lymph # (Auto) [place] # (Auto) Eos # (Auto) Baso # (Auto) Abs Immat Gran (auto) Absolute Neuts (auto) Absolute Nucleated RBC Nucleated RBC % (auto) Sodium Potassium Chloride Carbon Dioxide Anion Gap BUN Creatinine Estim Creat Clear Calc Estimated GFR POC Glucose 112 113 154 H Random Glucose Calcium Total Bilirubin AST ALT Alkaline Phosphatase Total Protein Albumin 02/21/23 02/21/23 02/21/23 12:42 17:08 20:32 WBC RBC Hgb Hct MCV MCH MCHC RDW Plt Count MPV Immature Gran % (Auto) Neut % (Auto) Lymph % (Auto) [place] % (Auto) Eos % (Auto) Baso % (Auto) Lymph # (Auto) [place] # (Auto) Eos # (Auto) Baso # (Auto) Abs Immat Gran (auto) Absolute Neuts (auto) Absolute Nucleated RBC Nucleated RBC % (auto) Sodium Potassium Chloride Carbon Dioxide Anion Gap BUN Creatinine Estim Creat Clear Calc Estimated GFR POC Glucose 134 H 299 H 161 H Random Glucose Calcium Total Bilirubin AST ALT Alkaline Phosphatase Total Protein Albumin 02/22/23 02/22/23 02/22/23 08:28 12:15 17:07 WBC RBC Hgb Hct MCV MCH MCHC RDW Plt Count MPV Immature Gran % (Auto) Neut % (Auto) Lymph % (Auto) [place] % (Auto) Eos % (Auto) Baso % (Auto) Lymph # (Auto) [place] # (Auto) Eos # (Auto) Baso # (Auto) Abs Immat Gran (auto) Absolute Neuts (auto) Absolute Nucleated RBC Nucleated RBC % (auto) Sodium Potassium Chloride Carbon Dioxide Anion Gap BUN Creatinine Estim Creat Clear Calc Estimated GFR POC Glucose 144 H 279 H 120 H Random Glucose Calcium Total Bilirubin AST ALT Alkaline Phosphatase Total Protein Albumin 02/22/23 02/23/23 02/23/23 20:29 08:19 13:46 WBC RBC Hgb Hct MCV MCH MCHC RDW Plt Count MPV Immature Gran % (Auto) Neut % (Auto) Lymph % (Auto) [place] % (Auto) Eos % (Auto) Baso % (Auto) Lymph # (Auto) [place] # (Auto) Eos # (Auto) Baso # (Auto) Abs Immat Gran (auto) Absolute Neuts (auto) Absolute Nucleated RBC Nucleated RBC % (auto) Sodium Potassium Chloride Carbon Dioxide Anion Gap BUN Creatinine Estim Creat Clear Calc Estimated GFR POC Glucose 216 H 160 H 193 H Random Glucose Calcium Total Bilirubin AST ALT Alkaline Phosphatase Total Protein Albumin 02/23/23 02/23/23 02/24/23 16:11 23:12 07:01 WBC 9.4 RBC 4.20 Hgb 11.8 L Hct 36.4 L MCV 86.7 MCH 28.1 MCHC 32.4 RDW 14.0 Plt Count 334 D MPV 10.0 Immature Gran % (Auto) 0.5 H Neut % (Auto) 52.7 Lymph % (Auto) 33.5 [place] % (Auto) 10.5 Eos % (Auto) 2.2 Baso % (Auto) 0.6 Lymph # (Auto) 3.2 [place] # (Auto) 1.0 Eos # (Auto) 0.2 Baso # (Auto) 0.1 Abs Immat Gran (auto) 0.05 H Absolute Neuts (auto) 5.0 Absolute Nucleated RBC 0.000 Nucleated RBC % (auto) 0.0 Sodium 140 Potassium 5.1 Chloride 100 Carbon Dioxide 31 H Anion Gap 14 BUN 16 Creatinine 0.89 Estim Creat Clear Calc 53.0 Estimated GFR > 60 POC Glucose 209 H 152 H Random Glucose 219 H Calcium 9.7 Total Bilirubin 0.1 AST 11 ALT 13 Alkaline Phosphatase 60 Total Protein 7.5 Albumin 3.6 02/24/23 02/24/23 02/24/23 08:24 12:47 17:28 WBC RBC Hgb Hct MCV MCH MCHC RDW Plt Count MPV Immature Gran % (Auto) Neut % (Auto) Lymph % (Auto) [place] % (Auto) Eos % (Auto) Baso % (Auto) Lymph # (Auto) [place] # (Auto) Eos # (Auto) Baso # (Auto) Abs Immat Gran (auto) Absolute Neuts (auto) Absolute Nucleated RBC Nucleated RBC % (auto) Sodium Potassium Chloride Carbon Dioxide Anion Gap BUN Creatinine Estim Creat Clear Calc Estimated GFR POC Glucose 189 H 177 H 254 H Random Glucose Calcium Total Bilirubin AST ALT Alkaline Phosphatase Total Protein Albumin 02/24/23 02/25/23 02/25/23 20:34 07:06 08:22 WBC RBC Hgb Hct MCV MCH MCHC RDW Plt Count MPV Immature Gran % (Auto) Neut % (Auto) Lymph % (Auto) [place] % (Auto) Eos % (Auto) Baso % (Auto) Lymph # (Auto) [place] # (Auto) Eos # (Auto) Baso # (Auto) Abs Immat Gran (auto) Absolute Neuts (auto) Absolute Nucleated RBC Nucleated RBC % (auto) Sodium Potassium Chloride Carbon Dioxide Anion Gap BUN Creatinine 0.80 Estim Creat Clear Calc 58.9 Estimated GFR > 60 POC Glucose 219 H 145 H Random Glucose Calcium Total Bilirubin AST ALT Alkaline Phosphatase Total Protein Albumin 02/25/23 02/25/23 02/25/23 12:10 16:50 20:35 WBC RBC Hgb Hct MCV MCH MCHC RDW Plt Count MPV Immature Gran % (Auto) Neut % (Auto) Lymph % (Auto) [place] % (Auto) Eos % (Auto) Baso % (Auto) Lymph # (Auto) [place] # (Auto) Eos # (Auto) Baso # (Auto) Abs Immat Gran (auto) Absolute Neuts (auto) Absolute Nucleated RBC Nucleated RBC % (auto) Sodium Potassium Chloride Carbon Dioxide Anion Gap BUN Creatinine Estim Creat Clear Calc Estimated GFR POC Glucose 275 H 191 H 242 H Random Glucose Calcium Total Bilirubin AST ALT Alkaline Phosphatase Total Protein Albumin 02/26/23 08:16 WBC RBC Hgb Hct MCV MCH MCHC RDW Plt Count MPV Immature Gran % (Auto) Neut % (Auto) Lymph % (Auto) [place] % (Auto) Eos % (Auto) Baso % (Auto) Lymph # (Auto) [place] # (Auto) Eos # (Auto) Baso # (Auto) Abs Immat Gran (auto) Absolute Neuts (auto) Absolute Nucleated RBC Nucleated RBC % (auto) Sodium Potassium Chloride Carbon Dioxide Anion Gap BUN Creatinine Estim Creat Clear Calc Estimated GFR POC Glucose 165 H Random Glucose Calcium Total Bilirubin AST ALT Alkaline Phosphatase Total Protein Albumin 02/20/23 17:06 Urine clean catch - Urine russell top Urine Culture - Final No growth. Imaging Diagnostic Imaging Impressions Head CT 02/06/23 11:17 IMPRESSION: No acute intracranial abnormality. No evidence of brain parenchymal volume loss. Chest X-Ray 02/24/23 20:10 IMPRESSION: Mildly increased interstitial opacities may reflect mild interstitial edema or atypical/viral infection. DS: Summary Hospital Course Hospital Course: 62 yo female, history of bipolar disorder, opiate use disorder, currently on Methadone who was admitted to adult psychiatry for exacerbation of anxiety, paranoia. Pt reports she ran out of medications (Klonopin, Doxepin). She experienced the TV/Radio speaking to her, an increase in disorganization, belief that her landlord was involved in a scam and that others were searching her DNA to learn more about her history and ancestry in order to control her. Pt also presented with symptoms of mild cognitive impairment which improved throughout the admission. Medications were assessed and titrated, Klonopin, Gabapentin, and Doxepin were decreased. Methadone was maintained. Depakote and Risperdal were initiated in low doses. Team applied for and pt was accepted for [facility] services, [facility] continued their assessment phase with pt and pt continued to work with [facility]. Pt was improved upon discharge with improved symptom mgt. She plans to work with her out pt team to continue to regain stability and assess new services available to her. Time spent discussing smoking cessation with patient: 3 to 10 minutes Status at Discharge Functional status at discharge: independent ambulation Overall status at discharge: patient is progressing back to baseline Time Spent with Patient Time attestation: Total time managing care of this patient today ____ minutes. Time spent: Greater than 30 minutes Discharge Plan Discharge Anticipated Discharge Date/Time: 02/26/23 12:00 Patient Disposition: Alf Discharge Diagnosis: Bipolar Disorder Opiate Use Disorder-Methadone Maintenance Mild Cognitive Impairment Referrals: [facility] Intake w Alesia Jose [Other] - 03/05/23 11:00 am (In Person - They can come to get you to the appt and back.) Jo-Ann Calhoun and Heydi Donaldson [facility] [Other] - 1 Week Jakob Yeager [facility] [Other] - 1 Week (Follow up regarding eligibility. ) [facility] Contact Naty [Other] - 1 Week [facility] [Other] - 1 Day MICKI Visiting RN [Other] - 02/26/23 (fax- [phone] Visiting RN to assist with medication. Will start the day of D/C. ) Physician,Unknown J [Primary Care Provider] - 1 Week Discharge Medications: New divalproex 250 mg Tablet,Delayed Release (Dr/Ec) 250 mg PO DAILY Qty: 14 1RF doxepin 25 mg Capsule 50 mg PO BEDTIME Qty: 30 0RF clonazepam 0.5 mg Tablet 0.25 mg PO DAILY PRN (Reason: Anxiety) Qty: 7 4RF gabapentin 300 mg Capsule 300 mg PO TID Qty: 45 0RF risperidone 0.5 mg Tablet 0.5 mg PO BID Qty: 60 0RF nicotine (polacrilex) 4 mg Lozenge 4 mg buccal Q2H PRN (Reason: Nicotine Cravings) Qty: 100 0RF docusate sodium 100 mg Capsule 100 mg PO BID Qty: 60 0RF Continued cyclobenzaprine 5 mg tablet 5 mg PO TID PRN (Reason: muscle spasm) 7 Days Qty: 21 0RF methadone 10 mg/5 mL Solution 125 mg PO DAILY Rx Instructions: Dose verified by [place] العلي RN clonidine HCl 0.1 mg tablet 0.1 mg PO BID PRN (Reason: anxiety) Qty: 60 0RF metformin 1,000 mg tablet 1,000 mg PO BID Qty: 60 0RF lisinopril 10 mg tablet 10 mg PO DAILY Qty: 30 0RF naloxone [Narcan] 4 mg/actuation spray,non-aerosol 4 mg intranasal Q2M PRN (Reason: opioid overdose) Qty: 2 0RF Rx Instructions: spray 1 dose into ONE nostril; alternate nostrils w each dose until help arrives Discontinued doxepin 150 mg capsule 150 mg PO BEDTIME gabapentin 400 mg capsule 400 mg PO TID Discharge Orders: Discharge Order (Routine); Ordered 02/26/23 Ordered By: Selin Melendrez Diet: Advance to usual diet Activity on Discharge: As tolerated Stand Alone Forms: Patient Portal Discharge page, Community Support Care Plan Goals: Mood and Behavioral Stabilization Work on Sobriety Health Concerns: Mood and Behavioral Stabilization Work on Sobriety Plan of Treatment: Attend scheduled appointments Take medications as directed Assessment: Scheduled discharge Discharge Date/Time: 02/26/23 11:53
== END 2023-02-26 11:53 | disposition home or self-care (01) | DRG 753 ==
LOC: HO.ED 01-31 15:13 → HO.PM5 01-31 15:15
PROVIDERS: Clinical Nurse Specialist Psychiatric/Mental Health; Internal Medicine; Registered Nurse Emergency; Admitting Provider Psychiatry & Neurology Psychiatry; Emergency Provider Emergency Medicine; Visit Provider Clinical Nurse Specialist Psychiatric/Mental Health, Adult
DX: F31.9 Bipolar disorder, unspecified (principal); Z91.148 Patient's other noncompliance with medication regimen for other reason; F11.20 Opioid dependence, uncomplicated; F17.210 Nicotine dependence, cigarettes, uncomplicated; G31.84 Mild cognitive impairment of uncertain or unknown etiology; Z20.822 Contact with and (suspected) exposure to COVID-19; Z71.6 Tobacco abuse counseling; Z79.84 Long term (current) use of oral hypoglycemic drugs; Z79.899 Other long term (current) drug therapy
CPT/HCPCS: 36415; 70450; 71046; 80048; 80053; 80061; 80143; 80164; 80179; 80307; 81001; 82565; 82607; 82746; 82947; 83036; 84439; 84443; 85025; 85652; 86140; 86780; 87086; 87389; 87635; 87651; 93005; 95816; 99285; S9485

== ENCOUNTER → 2023-01-31 14:57 | Outpatient (BNV) | payer OTHER, SELFPAY | PROVIDERS: Admitting Provider Psychiatry & Neurology Psychiatry; Emergency Provider Emergency Medicine; Visit Provider Clinical Nurse Specialist Psychiatric/Mental Health, Adult | DX: F31.2 Bipolar disorder, current episode manic severe with psychotic features (principal); F11.20 Opioid dependence, uncomplicated; R41.89 Other symptoms and signs involving cognitive functions and awareness | CPT/HCPCS: 99231; 99232 ==

== ENCOUNTER 2024-03-18 23:53 | Inpatient (IN) | payer MEDICAID, SELFPAY ==
--- NOTE | ~2024-03-18 | CT_ITS ---
EXAMINATION: CT HEAD WITHOUT CONTRAST CLINICAL INFORMATION: Fall. COMPARISON: CT head from 02/06/2023. TECHNIQUE: Contiguous axial imaging was performed from the skull base to vertex without intravenous administration of contrast. This CT examination was performed using dose optimization techniques as appropriate, variously including the following: *Automated exposure control. *Adjustment of mA and/or kV according to patient size (this includes techniques or standardized protocols for targeted exams where dose is matched to indication/reason for exam; i.e. extremities or head). *Use of iterative reconstruction technique. DLP: 630 mGy-cm FINDINGS: There is no evidence of acute intracranial hemorrhage or edematous territorial infarction. Mckenna-white matter differentiation is preserved. There is no abnormal attenuation within the brain parenchyma. The ventricles are normal in morphology and size. No evidence for obstructive hydrocephalus. No abnormal mass effect or midline shift. No extra-axial fluid collections. No acute soft tissue or osseous abnormalities. Prominent mucosal thickening of the left maxillary sinus. Moderate mucosal thickening of the remaining paranasal sinuses. The mastoid air cells and middle ear cavities are clear. CT/CT head/brain wo IV con IMPRESSION: 1. No evidence of acute intracranial hemorrhage or edematous territorial infarction. 2. Moderate sinonasal mucosal disease. Electronically signed by: Chuck Trevino DO 03/19/2024 01:55 AM TED
--- NOTE | ~2024-03-18 | XR_ITS ---
EXAMINATION: XR BILATERAL HIPS WITH AP PELVIS CLINICAL INFORMATION: Hip pain right Kevin e COMPARISON: None available. TECHNIQUE: AP of the pelvis and AP and lateral views of each hip FINDINGS: Right hip: Hip joint is surrounding bone and soft tissues are normal. Left hip: There is a globular appearing area of calcific density measuring approximately 1.4 cm adjacent to the superior lateral acetabulum and joint space. The hip joint is normal without arthrosis. Surrounding bone and soft tissues unremarkable. Pelvis: Remaining bone and joints are normal. Incidental note made of spondylosis of the partially visualized lumbar sacral spine XR/XR hip BI w PEL1V IMPRESSION: RIGHT HIP: Normal. LEFT HIP: Calcific density adjacent to the acetabulum and joint space. The differential diagnosis includes calcific periarthritis, dystrophic calcification related to prior trauma and calcific tendinitis/calcific tendinosis PELVIS: Spondylosis of the partially visualized lumbar sacral spine. Electronically signed by: Berny Terrell MD 03/20/2024 12:[address] [facility]
--- NOTE | ~2024-03-18 | XR_ITS ---
EXAMINATION: XR CHEST CLINICAL INFORMATION: cough COMPARISON: Chest radiograph 02/24/2023. TECHNIQUE: Frontal view of the chest was obtained. FINDINGS: Normal appearance of the cardiomediastinal structures. Mild left basilar airspace opacification with obscuration of the left hemidiaphragmatic margin. Diffuse pulmonary vascular indistinctness and fine pulmonary reticular opacities. No pneumothoraces. Diffuse osteopenia. A blunted left costophrenic sulcus. XR/XR chest 1V IMPRESSION: *Mild left lower lobe atelectasis and/or consolidation. Possible trace left pleural effusion. *Diffuse pulmonary vascular indistinctness which may represent mild pulmonary vascular congestion. Electronically signed by: Rico Nunes MD 03/19/2024 02:37 AM TED
[2024-03-19] VITALS (20 sets, daily range): BP systolic 92–132; BP diastolic 38–74; PULSE 65–83; RESP 8–19; TEMP 36.3–36.6; O2SAT 89–100; BMI 25.8
--- NOTE | 2024-03-19 00:05 | ECG_ITS ---
Test Reason : Increased Fall/AMS Blood Pressure : / mmHG Vent. Rate : 083 BPM Atrial Rate : 083 BPM P-R Int : 140 ms QRS Dur : 082 ms QT Int : 384 ms P-R-T Axes : 049 065 064 degrees QTc Int : 451 ms Sinus rhythm with Premature atrial complexes Nonspecific T wave abnormality Abnormal ECG When compared with ECG of 12-FEB-2023 09:14, Premature atrial complexes are now Present Referred By: Litzy Bass Electronically Signed By:SHAYY PRETTY MD
--- NOTE | 2024-03-19 00:18 | ED.SOB ---
HPI - SOB/Dyspnea General Chief Complaint: General Medical Stated Complaint: INCREASED FALLS/ CONFUSION Source: patient and old records reviewed Mode of arrival: EMS Limitations: other (poor historian) History of Present Illness ED Provider: WENDY HPI Narrative: 63 yo female living at [facility] has PMH of smoker, opiate use disorder, bipolar, cognitive impairment - she tells me for one week she has been sick with coarse cough and sputum as well as congested nose. EMS was called for a fall and the patient was just sitting on the ground - no obvious trauma they noted her URI symptoms and felt like she was a little confused her O2 sat was 88% she was placed on NC with good response. Patient just reports a cold for 1 week no fevers and she notes she is okay and didn't fall she sleep walks. MD elicited complaint: shortness of breath and cough Pertinent past history: pneumonia Onset (ago): week(s) (1) Context: recent illness Timing: constant Severity: mild Exacerbating factors: exertion and coughing Relieving factors: oxygen and rest Associated symptoms: cough and sputum production Treatment prior to arrival: oxygen Related Data Home Medications ?Medication ?Instructions ?Recorded ?Confirmed methadone 10 mg/5 mL oral solution 125 mg PO DAILY 01/31/23 01/31/23 clonazepam 0.5 mg tablet 0.25 mg PO BID PRN anxiety attack 03/19/24 clonidine HCl 0.1 mg tablet 0.1 mg PO QAM 03/19/24 doxepin 50 mg capsule 50 mg PO BEDTIME 03/19/24 duloxetine 20 mg capsule,delayed 20 mg PO BID 03/19/24 release insulin glargine 100 unit/mL (3 15 unit subcut BEDTIME 03/19/24 mL) subcutaneous pen (Lantus Solostar U-100 Insulin) multivitamin 1 tab PO DAILY 03/19/24 rosuvastatin 5 mg tablet 5 mg PO DAILY 03/19/24 Previous Rx's ?Medication ?Instructions ?Recorded cyclobenzaprine 5 mg tablet 5 mg PO TID PRN muscle spasm 7 01/26/23 days #21 tabs docusate sodium 100 mg capsule 100 mg PO BID #60 caps 02/26/23 gabapentin 300 mg capsule 300 mg PO TID #45 caps 02/26/23 metformin 1,000 mg tablet 1,000 mg PO BID #60 tabs 02/26/23 naloxone 4 mg/actuation nasal 4 mg intranasal Q2M PRN opioid 02/26/23 spray (Narcan) overdose #2 ea nicotine (polacrilex) 4 mg buccal 4 mg buccal Q2H PRN Nicotine 02/26/23 lozenge Cravings #100 ea Allergies Allergy/AdvReac Type Severity Reaction Status Date / Time No Known Allergies Allergy Verified 03/19/24 00:29 Review of Systems Review of Systems: Constitutional : No Fever, No Chills, pos fatigue ENT/Mouth : No Hoarseness, No sore throat, pos Rhinorrhea Eyes: No Redness, No Discharge, No Vision Changes Cardiovascular : No Chest Pain, positive SOB, positive Dyspnea on Exertion, No Edema Respiratory : positive Cough, pos Sputum, Gastrointestinal : No Nausea, No Vomiting, No Diarrhea, No abdominal Pain Genitourinary : No Dysuria, No Hematuria Musculoskeletal : No joint pain, No Myalgias Skin : No rash Neuro : No Weakness, No Numbness, No Headache Psych : No anxiety, depression All other systems reviewed and are negative PMFSH Past Medical History Attestation statement: The following information was validated with the patient. Source: old records reviewed Medical History Opioid use disorder, severe, on maintenance therapy Bipolar disorder with psychotic features Overdose Polysubstance abuse Social History Social History Household Members: None Housing: Unknown / Unable to assess Do you presently have visiting nurse or other home services: No Patient Tobacco Use Status: Current everyday Tobacco user Tobacco use type: Cigarette Cigarette Packs Per Day: 0.5 Cigarettes Per Day: 10.0 Smoked in Last 30 Days: Yes e-Cigarette/Vaping Use: Never Used Second Hand Smoke Exposure: Yes Use of substances other than those prescribed or required for medical reasons: No Substance Use Type: Heroin Advance Directives: No Advance Directives Information Provided: Yes service: No Sexual orientation: Straight/Heterosexual Physical Exam Vital Signs: Vital Signs: Last Vital Signs Temp 97.8 F 03/19/24 07:43 Pulse 68 03/19/24 07:43 Resp 10 L 03/19/24 07:43 BP 94/44 L 03/19/24 07:43 Pulse Ox 100 03/19/24 07:43 O2 Del Method Nasal Cannula 03/19/24 07:43 O2 Flow Rate 5 03/19/24 07:43 BMI result Body Mass Index 25.8 Appearance: Alert. Oriented X3. No acute distress. Frail and thin - she is slow to answer but is oriented Eyes: Pupils equal, round and reactive to light. ENT: Pharynx normal. atraumatic, R nares thick secretions noted yellow Neck: Normal inspection. Neck supple. CVS: Normal heart rate and rhythm. Pulses normal. Respiratory: No respiratory distress. Breath sounds very coasre and diminished with productive cough Abdomen: Soft and nontender. Skin: Skin warm and dry. Normal skin color. Normal skin turgor. Extremities: No lower extremity edema. No calf ttp Neuro: Oriented X 3. No motor deficit. No sensory deficit. Course Course Course Narrative: no sig response to narcan I suspect at this time this is benzo related she wakes to voice and tactile stimuli [id number]. she does not have pinpoint pupils Medications Administered Generic Name Dose Route Start Last Admin Trade Name Freq PRN Reason Stop Dose Admin Lactated Ringer's 1,000 mls @ 100 mls/hr 03/19/24 04:30 03/19/24 05:36 Lr IVCONT 100 mls/hr .Q10H CARINA Administration Naloxone HCl 0.04 mg 03/19/24 04:35 03/19/24 06:29 Naloxone Hcl 0.4 Mg/Ml Vial IVPUSH 0.04 mg Q5M PRN Administration Respiratory Rate < 10 Discontinued Medications Generic Name Dose Route Start Last Admin Trade Name Freq PRN Reason Stop Dose Admin Albuterol Sulfate 7.5 mg/ 10 mg 03/19/24 00:17 03/19/24 00:21 Albuterol Sulfate 2.5 mg INHALE 03/19/24 00:18 10 mg ONCE ONE Administration Ceftriaxone Sodium 1 gm 03/19/24 00:04 03/19/24 00:59 Ceftriaxone Sodium 1 Gm Vial IVPUSH 03/19/24 00:05 1 gm ONCE ONE Administration Sodium Chloride 1,000 mls @ 999 mls/hr 03/19/24 00:04 03/19/24 03:59 Ns IV 03/19/24 01:04 Infused .Q1H1M ONE Infusion Sodium Chloride 1,000 mls @ 999 mls/hr 03/19/24 00:58 03/19/24 02:30 Ns IV 03/19/24 01:58 Infused .Q1H1M ONE Infusion Doxycycline Hyclate 100 mg/ 250 mls @ 166.67 mls/hr 03/19/24 00:58 03/19/24 07:27 Sodium Chloride IV 03/19/24 02:27 Infused ONCE ONE Infusion Methylprednisolone Sodium Succinate 60 mg 03/19/24 00:04 03/19/24 00:59 Methylprednisolone Sod Succ 125 Mg/2 Ml Vial IVPUSH 03/19/24 00:05 60 mg ONCE ONE Administration Medical Decision Making Medical Decision Making MDM Narrative: 63 yo female living at [facility] has PMH of smoker, opiate use disorder, bipolar, cognitive impairment here with URI symptoms x 1 week and low O2 sats she also might have fallen at this time will need labs, cultures, EKG, CXR for pneumonia, CT scan of head in case of fall - start on nebs, ceftriaxone and steroids. Anticipate she will likely be admitted Differential Diagnosis Differential Diagnoses: The differential diagnosis associated with the presentation includes COPD, bronchitis, viral syndrome, pneumonia Admission/Observation Consideration of admission/observation: Escalation of care including admission/observation considered admit given her lab derangemtns and O2 needs Consult Healthcare Provider Management of the patient was discussed with: Hospitalist Lab Data [facility] Lab Attestation statement: I reviewed the patient's lab results. 03/19/24 04:38 03/19/24 04:38 Labs: Lab Results 03/19/24 03/19/24 03/19/24 Range/Units 00:37 00:45 02:17 WBC 20.0 H (4.8-10.8) X10*3/uL RBC 4.19 L (4.20-5.50) X10*6/uL Hgb 11.2 L (12.0-16.0) g/dl Hct 34.0 L (37.0-47.0) % MCV 81.1 (80.0-98.0) fL MCH 26.7 L (27.0-33.0) pg MCHC 32.9 (31.0-35.0) g/dl RDW 15.1 (11.0-16.0) % Plt Count 440 H D (160-400) X10*3/uL MPV 9.4 (9.4-12.3) fL Immature Gran % (Auto) 0.5 H (0.0-0.4) % Neut % (Auto) 77.7 H (45-73) % Lymph % (Auto) 15.4 L (20-40) % [place] % (Auto) 5.8 (2-11) % Eos % (Auto) 0.2 (0-4) % Baso % (Auto) 0.4 (0-2) % Lymph # (Auto) 3.1 (1.2-4.9) X10*3/uL [place] # (Auto) 1.2 (0.1-1.2) X10*3/uL Eos # (Auto) 0.0 (0.0-0.4) X10*3/uL Baso # (Auto) 0.1 (0.0-0.2) X10*3/uL Abs Immat Gran (auto) 0.09 H (0.00-0.03) X10*3/uL Absolute Neuts (auto) 15.6 H (2.0-8.3) x10*3/uL Absolute Nucleated RBC 0.000 (0.0-0.012) X10*3/uL Nucleated RBC % (auto) 0.0 (0.0-0.2) /100WBC VBG pH 7.24 L (7.32-7.43) VBG pCO2 54 mmHg VBG pO2 38 mmHg VBG HCO3 23 (22-26) mmol/L VBG O2 Saturation 50.0 % VBG Base Excess -4.4 mmol/L Sodium 137 (135-145) mmol/L Potassium 5.1 (3.3-5.1) mmol/L Chloride 98 (96-108) mmol/L Carbon Dioxide 22 (22-29) mmol/L Anion Gap 22 H (12-20) BUN 61 H (9-16) mg/dL Creatinine 6.44 H* (0.5-1.4) mg/dL Estim Creat Clear Calc 7.1 Estimated GFR 7 POC Glucose 237 H (60-115) mg/dL Random Glucose 128 H (60-115) mg/dL Lactic Acid 1.5 (0.5-2.0) mmol/L Calcium 9.4 (8.4-10.2) mg/dL Magnesium 2.0 (1.6-2.6) mg/dL Total Bilirubin 0.3 (0.0-1.0) mg/dL Direct Bilirubin 0.1 (0.0-0.5) mg/dL AST 126 H (5-31) U/L ALT 67 H (0-31) U/L Alkaline Phosphatase 101 (39-117) U/L Total Creatine Kinase 2322 H (26-140) U/L Troponin I High Sens 14.9 D (<3.5-17.0) ng/L C-Reactive Protein 27.54 H (< or = 0.50) mg/dL B-Natriuretic Peptide 109 H (<100) pg/mL Total Protein 8.8 H (6.5-8.0) g/dL Albumin 4.0 (3.5-5.0) g/dL Lipase 6 L (8-78) U/L Procalcitonin 2.78 ng/mL Urine Color Urine Appearance Urine pH (5.0-9.0) Ur Specific [place] (1.005-1.025) Urine Protein (Neg-Trace) mg/dL Urine Glucose (UA) (Negative) mg/dL Urine Ketones (Negative) mg/dL Urine Blood (Negative) Urine Nitrite (Negative) Ur Leukocyte Esterase (Negative) Urine RBC (0-2) /HPF Urine WBC (0-5) /HPF Ur Squamous Epith Cells (0-2) /HPF Other Crystals Urine Bacteria (None Seen) Hyaline Casts (0-2) /LPF Urine Opiates Screen (Not Detect) Ur Buprenorphine Scrn (Not Detect) ng/mL Ur Oxycodone Screen (Not Detect) ng/mL Urine Methadone Screen (Not Detect) ng/mL Urine Fentanyl Screen (Not Detect) Ur Barbiturates Screen (Not Detect) Ur Phencyclidine Scrn (Not Detect) Ur Amphetamines Screen (Not Detect) U Benzodiazepines Scrn (Not Detect) Urine Cocaine Screen (Not Detect) U Marijuana (THC) Screen (Not Detect) Ethyl Alcohol < 10 mg/dL Influenza Type A (PCR) NEGATIVE (Negative) Influenza Type B (PCR) NEGATIVE (Negative) RSV RNA Qual (PCR) NEGATIVE (Negative) SARS-CoV-2 RNA (RT-PCR) NEGATIVE (Negative) 03/19/24 03/19/24 Range/Units 02:18 02:49 WBC (4.8-10.8) X10*3/uL RBC (4.20-5.50) X10*6/uL Hgb (12.0-16.0) g/dl Hct (37.0-47.0) % MCV (80.0-98.0) fL MCH (27.0-33.0) pg MCHC (31.0-35.0) g/dl RDW (11.0-16.0) % Plt Count (160-400) X10*3/uL MPV (9.4-12.3) fL Immature Gran % (Auto) (0.0-0.4) % Neut % (Auto) (45-73) % Lymph % (Auto) (20-40) % [place] % (Auto) (2-11) % Eos % (Auto) (0-4) % Baso % (Auto) (0-2) % Lymph # (Auto) (1.2-4.9) X10*3/uL [place] # (Auto) (0.1-1.2) X10*3/uL Eos # (Auto) (0.0-0.4) X10*3/uL Baso # (Auto) (0.0-0.2) X10*3/uL Abs Immat Gran (auto) (0.00-0.03) X10*3/uL Absolute Neuts (auto) (2.0-8.3) x10*3/uL Absolute Nucleated RBC (0.0-0.012) X10*3/uL Nucleated RBC % (auto) (0.0-0.2) /100WBC VBG pH 7.31 L (7.32-7.43) VBG pCO2 31 mmHg VBG pO2 184 mmHg VBG HCO3 16 L (22-26) mmol/L VBG O2 Saturation 100.0 % VBG Base Excess -9.0 mmol/L Sodium (135-145) mmol/L Potassium (3.3-5.1) mmol/L Chloride (96-108) mmol/L Carbon Dioxide (22-29) mmol/L Anion Gap (12-20) BUN (9-16) mg/dL Creatinine (0.5-1.4) mg/dL Estim Creat Clear Calc Estimated GFR POC Glucose (60-115) mg/dL Random Glucose (60-115) mg/dL Lactic Acid (0.5-2.0) mmol/L Calcium (8.4-10.2) mg/dL Magnesium (1.6-2.6) mg/dL Total Bilirubin (0.0-1.0) mg/dL Direct Bilirubin (0.0-0.5) mg/dL AST (5-31) U/L ALT (0-31) U/L Alkaline Phosphatase (39-117) U/L Total Creatine Kinase (26-140) U/L Troponin I High Sens (<3.5-17.0) ng/L C-Reactive Protein (< or = 0.50) mg/dL B-Natriuretic Peptide (<100) pg/mL Total Protein (6.5-8.0) g/dL Albumin (3.5-5.0) g/dL Lipase (8-78) U/L Procalcitonin ng/mL Urine Color Dark Yellow Urine Appearance Cloudy Urine pH 5.0 (5.0-9.0) Ur Specific [place] 1.025 (1.005-1.025) Urine Protein 30 (1+) H (Neg-Trace) mg/dL Urine Glucose (UA) Negative (Negative) mg/dL Urine Ketones Trace (Negative) mg/dL Urine Blood Moderate (2+) H (Negative) Urine Nitrite Negative (Negative) Ur Leukocyte Esterase Trace H (Negative) Urine RBC 11-20 H (0-2) /HPF Urine WBC 0-5 (0-5) /HPF Ur Squamous Epith Cells 3-5 (0-2) /HPF Other Crystals Present Urine Bacteria None Seen (None Seen) Hyaline Casts 11-20 (0-2) /LPF Urine Opiates Screen Not Detected (Not Detect) Ur Buprenorphine Scrn Not Detected (Not Detect) ng/mL Ur Oxycodone Screen Not Detected (Not Detect) ng/mL Urine Methadone Screen Positive H (Not Detect) ng/mL Urine Fentanyl Screen Not Detected (Not Detect) Ur Barbiturates Screen Not Detected (Not Detect) Ur Phencyclidine Scrn Not Detected (Not Detect) Ur Amphetamines Screen Not Detected (Not Detect) U Benzodiazepines Scrn POSITIVE H (Not Detect) Urine Cocaine Screen Not Detected (Not Detect) U Marijuana (THC) Screen Not Detected (Not Detect) Ethyl Alcohol mg/dL Influenza Type A (PCR) (Negative) Influenza Type B (PCR) (Negative) RSV RNA Qual (PCR) (Negative) SARS-CoV-2 RNA (RT-PCR) (Negative) Independent Interpretation I performed an independent interpretation of an: EKG, Plain X-Ray (LLL pneumonia) and CT Scan (no ICH) Interpretation: Rate: 83 Rhythm: [place]: normal Normal P waves. Normal AGUSTIN. Normal QRS complex. ST T wave : no DANIEL, nonspecific ST T wave changes in ant leads qTC: 451 prior studies: The study has been interpreted contemporaneously by me. . Radiology Impression Discussion of test interpretation with radiology: I have reviewed the radiologist's reading. Independent Historian Clinical information obtained from an independent historian. History obtained from or confirmed by: EMS External Record Review External record reviewed: Outpatient record Critical Care Time Critical Care Time Critical Care Time: Yes Total Critical Care Time: 45 Attestation: repeat labs, IVF x 2L, review of records, admission I attest to this time spent taking care of the patient Discharge Plan Discharge Clinical Impression: Hypoxia Pneumonia Qualifiers: Pneumonia type: due to unspecified organism Laterality: left Lung location: lower lobe of lung Qualified Code(s): J18.9 - Pneumonia, unspecified organism Renal failure Qualifiers: Renal failure chronicity: acute Acute renal failure type: unspecified Qualified Code(s): N17.9 - Acute kidney failure, unspecified Rhabdomyolysis Qualifiers: Rhabdomyolysis type: non-traumatic Qualified Code(s): M62.82 - Rhabdomyolysis Patient Disposition: Admitted As Inpatient
[2024-03-19] MEDS: Albuterol Sulfate 7.5 MG, Albuterol Sulfate (0.083%) 2.5 MG 10 MG INHALE ×2 (00:21→17:15)
[2024-03-19 00:45] LABS: Venous Blood Gas Refer to POC result
[2024-03-19 00:46] LABS: Basophils Absolute Auto 0.1 X10*3/uL (0.0-0.2); Basophils Percent Auto 0.4 % (0-2); Eosinophils Percent Auto 0.2 % (0-4); Hemoglobin 11.2 g/dl (12.0-16.0); Imm Gran Abs Auto 0.09 X10*3/uL (0.00-0.03); Imm Gran Pct Auto 0.5 % (0.0-0.4); Lymphocytes Absolute Auto 3.1 X10*3/uL (1.2-4.9); Lymphocytes Percent Auto 15.4 % (20-40); MANUAL DIFF FLAG NO; Mean Corpuscular HGB Conc 32.9 g/dl (31.0-35.0); Mean Corpuscular Hemoglobin 26.7 pg (27.0-33.0); Mean Corpuscular Volume 81.1 fL (80.0-98.0); Mean Platelet Volume 9.4 fL (9.4-12.3); Monocytes Absolute Auto 1.2 X10*3/uL (0.1-1.2); Monocytes Percent Auto 5.8 % (2-11); Neutrophils Absolute Auto 15.6 x10*3/uL (2.0-8.3); Neutrophils Percent Auto 77.7 % (45-73); Platelet Count 440 X10*3/uL (160-400); Red Blood Count 4.19 X10*6/uL (4.20-5.50); Red Cell Distribution Width 15.1 % (11.0-16.0)
[2024-03-19 00:51] LABS: VBG Base Excess -4.4 mmol/L; VBG HCO3 23 mmol/L (22-26); VBG pCO2 54 mmHg; VBG pH 7.24 (7.32-7.43); VBG pO2 38 mmHg
[2024-03-19] MEDS: methylPREDNISolone Sod Succ 125 MG/2 ML VIAL 60 MG IVPUSH (00:59)
[2024-03-19] MEDS: cefTRIAXone sodium 1 GM VIAL IVPUSH (00:59)
[2024-03-19] MEDS: 0.9 % Sodium Chloride 1,000 ML 999 ML IV ×2 (01:00)
--- NOTE | 2024-03-19 01:00 | MHC.EDTECH ---
at this time this tech completed an EKG, and blood work on the pt. Pt was also placed in a hospital gown and on the cardiac and continuos o2 monitor. Given warm blankets due to cold extremities, and repositioned to aid in breathing and o2 saturation. Pt appeared to be lethargic during the procedures.
[2024-03-19 01:02] LABS: Lactic Acid 1.5 mmol/L (0.5-2.0)
[2024-03-19 01:07] LABS: B Type Natriuretic Peptide 109 pg/mL (<100); Troponin-I High Sensitivity 14.9 ng/L (<3.5-17.0)
[2024-03-19 01:12] LABS: Alanine Aminotransferase 67 U/L (0-31); Alkaline Phosphatase 101 U/L (39-117); Anion Gap 22 (12-20); Aspartate Amino Transferase 126 U/L (5-31); Bilirubin Direct 0.1 mg/dL (0.0-0.5); Bilirubin Total 0.3 mg/dL (0.0-1.0); Blood Urea Nitrogen 61 mg/dL (9-16); C Reactive Protein 27.54 mg/dL (< or = 0.50); Calcium 9.4 mg/dL (8.4-10.2); Carbon Dioxide 22 mmol/L (22-29); Chloride 98 mmol/L (96-108); Creatinine Clr Calc Pharmacy 7.1; Estimated Glomerular Filt Rate 7; Glucose Random 128 mg/dL (60-115); Lipase 6 U/L (8-78); Potassium 5.1 mmol/L (3.3-5.1); Sodium 137 mmol/L (135-145); Total Protein 8.8 g/dL (6.5-8.0)
[2024-03-19 01:24] LABS: Influenza A PCR NEGATIVE (Negative); Influenza B PCR NEGATIVE (Negative); Resp Syncy Virus RNA Qual PCR NEGATIVE (Negative); SARS COV2 PCR INHOUSE NEGATIVE (Negative)
[2024-03-19 01:28] LABS: Ethanol < 10 mg/dL; Procalcitonin 2.78 ng/mL
[2024-03-19 02:53] LABS: Appearance Urine Cloudy; Color Urine Dark Yellow; Glucose Urine UA Negative (Negative); Leukocyte Esterase Urine Trace (Negative); Nitrite Urine Negative (Negative); Specific Gravity - Urine 1.025 (1.005-1.025); UMIC TRIGGER UACC YES; Urine Blood Moderate (2+) (Negative); Urine Ketones Trace mg/dL (Negative); Urine Protein 30 (1+) mg/dL (Neg-Trace)
[2024-03-19 02:55] LABS: VBG HCO3 16 mmol/L (22-26); VBG pCO2 31 mmHg; VBG pH 7.31 (7.32-7.43); VBG pO2 184 mmHg
[2024-03-19 02:56] LABS: Glucose, Whole Blood 237 mg/dL (60-115)
[2024-03-19 02:57] LABS: Venous Blood Gas Refer to POC result
[2024-03-19 03:00] LABS: Bacteria Urine None Seen (None Seen); Other Crystals Urine Present; WBC Urine 0-5 /HPF (0-5)
[2024-03-19 03:14] LABS: Amphetamine Screen Urine Not Detected (Not Detect); Barbiturates, Urine Not Detected (Not Detect); Benzodiazepines Screen Urine POSITIVE (Not Detect); Buprenorphine Scr Not Detected (Not Detect); Cannabinoid Screen Urine Not Detected (Not Detect); Cocaine Screen Urine Not Detected (Not Detect); Fentanyl, urine Not Detected (Not Detect); Methadone Screen, Urine Positive (Not Detect); Opiate Screen Urine Not Detected (Not Detect); Oxycodone Screen Urine Not Detected (Not Detect); Phencyclidine Screen Urine Not Detected (Not Detect)
--- NOTE | 2024-03-19 03:30 | P.HPHOSP_ITS ---
History of Present Illness Date of Service: 03/19/24 Attending physician on admission: Jonas Keys Chief Complaint: Cough and URI x1 week Patient is a 63-year-old female with a past medical history significant for substance use disorder, bipolar, homelessness and type 2 diabetes, who presented to the ED due to a cough and URI symptoms x1 week. They were reports of increased falls and syncopal episodes which the patient reports she is sleepwalking . EMS was called as pt was found sitting on the ground, and upon arrival she was found seated, O2 saturation at 89% on room air and stated she was not feeling well. Limited history was given in the ED and unable to obtain history now as patient has been somnolent. Urine toxicology positive for benzodiazepines and methadone. Review of Systems 2 Review of Systems: Yes Unobtainable due to mental condition PMFSH Medical History Opioid use disorder, severe, on maintenance therapy Bipolar disorder with psychotic features Overdose Polysubstance abuse Functional capacity: independent ambulation Social History Household Members: None Housing: Unknown / Unable to assess Do you presently have visiting nurse or other home services: No Patient Tobacco Use Status: Current everyday Tobacco user Tobacco use type: Cigarette Cigarette Packs Per Day: 0.5 Cigarettes Per Day: 10.0 Smoked in Last 30 Days: Yes e-Cigarette/Vaping Use: Never Used Second Hand Smoke Exposure: Yes Use of substances other than those prescribed or required for medical reasons: No Substance Use Type: Heroin Advance Directives: No Advance Directives Information Provided: Yes service: No Sexual orientation: Straight/Heterosexual Narrative: lives at [address] Allergies Allergy/AdvReac Type Severity Reaction Status Date / Time No Known Allergies Allergy Verified 03/19/24 00:29 Home Medications ?Medication ?Instructions ?Recorded ?Confirmed ?Last Taken ?Type methadone 10 mg/5 mL oral solution 125 mg PO DAILY 01/31/23 01/31/23 01/30/23 09:00 History Physical Exam 2 Vital Signs and Narrative: Vital Signs: Last Vital Signs Temp 97.3 F 03/19/24 02:09 Pulse 81 03/19/24 02:09 Resp 19 03/19/24 02:09 BP 100/46 L 03/19/24 02:09 Pulse Ox 99 03/19/24 02:09 O2 Del Method Nasal Cannula 03/19/24 02:09 O2 Flow Rate 5 03/19/24 02:09 BMI result Body Mass Index 25.8 General: mpt alert or oriented, somnolent.no acute distress Resp: CTA bilaterally, limited exam due to somnolence CVS: S1, S2, RRR GI: +BS, no distention Skin: Warm, dry, poor hygiene Extremities: No LE edema Psych: Unable to be determined Results Labs 03/19/24 04:38 03/19/24 04:38 Labs: Laboratory Results - last 24 hr 03/19/24 03/19/24 03/19/24 00:37 00:45 02:17 MCV 81.1 MCH 26.7 L MCHC 32.9 RDW 15.1 Plt Count 440 H D MPV 9.4 Immature Gran % (Auto) 0.5 H Neut % (Auto) 77.7 H Lymph % (Auto) 15.4 L [place] % (Auto) 5.8 Eos % (Auto) 0.2 Baso % (Auto) 0.4 Lymph # (Auto) 3.1 [place] # (Auto) 1.2 Eos # (Auto) 0.0 Baso # (Auto) 0.1 Abs Immat Gran (auto) 0.09 H Absolute Neuts (auto) 15.6 H Absolute Nucleated RBC 0.000 Nucleated RBC % (auto) 0.0 VBG pH 7.24 L VBG pCO2 54 VBG pO2 38 VBG HCO3 23 VBG O2 Saturation 50.0 VBG Base Excess -4.4 Anion Gap 22 H Estim Creat Clear Calc 7.1 Estimated GFR 7 POC Glucose 237 H Random Glucose 128 H Lactic Acid 1.5 Calcium 9.4 Magnesium 2.0 Total Bilirubin 0.3 Direct Bilirubin 0.1 AST 126 H ALT 67 H Alkaline Phosphatase 101 Total Creatine Kinase 2322 H Troponin I High Sens 14.9 D C-Reactive Protein 27.54 H B-Natriuretic Peptide 109 H Total Protein 8.8 H Albumin 4.0 Lipase 6 L Procalcitonin 2.78 Urine Color Urine Appearance Urine pH Ur Specific [place] Urine Protein Urine Glucose (UA) Urine Ketones Urine Blood Urine Nitrite Ur Leukocyte Esterase Urine RBC Urine WBC Ur Squamous Epith Cells Other Crystals Urine Bacteria Hyaline Casts Urine Opiates Screen Ur Buprenorphine Scrn Ur Oxycodone Screen Urine Methadone Screen Urine Fentanyl Screen Ur Barbiturates Screen Ur Phencyclidine Scrn Ur Amphetamines Screen U Benzodiazepines Scrn Urine Cocaine Screen U Marijuana (THC) Screen Ethyl Alcohol < 10 Influenza Type A (PCR) NEGATIVE Influenza Type B (PCR) NEGATIVE RSV RNA Qual (PCR) NEGATIVE SARS-CoV-2 RNA (RT-PCR) NEGATIVE 03/19/24 03/19/24 02:18 02:49 MCV MCH MCHC RDW Plt Count MPV Immature Gran % (Auto) Neut % (Auto) Lymph % (Auto) [place] % (Auto) Eos % (Auto) Baso % (Auto) Lymph # (Auto) [place] # (Auto) Eos # (Auto) Baso # (Auto) Abs Immat Gran (auto) Absolute Neuts (auto) Absolute Nucleated RBC Nucleated RBC % (auto) VBG pH 7.31 L VBG pCO2 31 VBG pO2 184 VBG HCO3 16 L VBG O2 Saturation 100.0 VBG Base Excess -9.0 Anion Gap Estim Creat Clear Calc Estimated GFR POC Glucose Random Glucose Lactic Acid Calcium Magnesium Total Bilirubin Direct Bilirubin AST ALT Alkaline Phosphatase Total Creatine Kinase Troponin I High Sens C-Reactive Protein B-Natriuretic Peptide Total Protein Albumin Lipase Procalcitonin Urine Color Dark Yellow Urine Appearance Cloudy Urine pH 5.0 Ur Specific [place] 1.025 Urine Protein 30 (1+) H Urine Glucose (UA) Negative Urine Ketones Trace Urine Blood Moderate (2+) H Urine Nitrite Negative Ur Leukocyte Esterase Trace H Urine RBC 11-20 H Urine WBC 0-5 Ur Squamous Epith Cells 3-5 Other Crystals Present Urine Bacteria None Seen Hyaline Casts 11-20 Urine Opiates Screen Not Detected Ur Buprenorphine Scrn Not Detected Ur Oxycodone Screen Not Detected Urine Methadone Screen Positive H Urine Fentanyl Screen Not Detected Ur Barbiturates Screen Not Detected Ur Phencyclidine Scrn Not Detected Ur Amphetamines Screen Not Detected U Benzodiazepines Scrn POSITIVE H Urine Cocaine Screen Not Detected U Marijuana (THC) Screen Not Detected Ethyl Alcohol Influenza Type A (PCR) Influenza Type B (PCR) RSV RNA Qual (PCR) SARS-CoV-2 RNA (RT-PCR) Imaging Radiologist's Impressions: Impressions Chest X-Ray 03/19/24 00:05 IMPRESSION: *Mild left lower lobe atelectasis and/or consolidation. Possible trace left pleural effusion. *Diffuse pulmonary vascular indistinctness which may represent mild pulmonary vascular congestion. Electronically signed by: Rico Nunes MD 03/19/2024 02:37 AM EST RP Head CT 03/19/24 01:15 IMPRESSION: 1. No evidence of acute intracranial hemorrhage or edematous territorial infarction. 2. Moderate sinonasal mucosal disease. Electronically signed by: Chuck Trevino DO 03/19/2024 01:55 AM EST RP Assessment and Plan (1) Acute hypoxemic respiratory failure: Status: Acute (2) Sepsis: Status: Acute (3) Pneumonia: Qualifiers: Laterality: left Lung location: lower lobe of lung Pneumonia type: due to unspecified organism Qualified Code(s): J18.9 - Pneumonia, unspecified organism Status: Acute (4) Renal failure: Qualifiers: Acute renal failure type: unspecified Renal failure chronicity: acute Qualified Code(s): N17.9 - Acute kidney failure, unspecified Status: Acute (5) Rhabdomyolysis: Qualifiers: Rhabdomyolysis type: non-traumatic Qualified Code(s): M62.82 - Rhabdomyolysis Status: Acute Plan Patient is a 63-year-old female with a past medical history significant for substance use disorder, bipolar, homelessness and type 2 diabetes, who presented to the ED due to a cough and URI symptoms x1 week. History unable to be obtained due to somnolence when examined. Acute hypoxic respiratory failure and sepsis secondary to pneumonia - WBC 20.0, lactic acid normal, blood cultures x2 pending - VBG improved with IV fluids and oxygen - chest x-ray with left lower lobe pneumonia - flu/COVID/RSV negative - urine tox positive for benzodiazepine and methadone - new O2 requirement, currently on 5 L via NC - given Solu-Medrol 60 mg and albuterol in ED, no wheezing on exam, continue albuterol p.r.n. for wheezing or shortness of breath - started on ceftriaxone and doxycycline for pneumonia, continue Acute renal failure secondary to rhabdomyolysis - patient with multiple recent falls, substance use disorder, EMS called as patient was sitting on the ground - CPK 2322 - creatinine 6, previously 0.8 - given 2 L IV fluids in ED, continue LR 100ml/hr Substance use disorder - urine tox positive for benzodiazepines and methadone - patient is somnolent secondary to acute kidney failure and methadone - Narcan ordered x3 doses, pt responsive Type 2 diabetes - diabetic diet - sliding scale insulin Mood disorder - no meds per patient Presumed full code VTE prophylaxis: Heparin Patient with acute hypoxic respiratory failure and sepsis secondary to pneumonia complicated by acute renal failure secondary to rhabdomyolysis requiring admission for at least 2 midnight stay for IV antibiotics, IV fluids and monitoring. Quality Stroke Does the patient have a stroke diagnosis?: No VTE Prior VTE?: No VTE Risk Level:: Medical - moderate - high VTE Device Contraindication: Treatment Not Indicated VTE Drug Contraindication: N/A - Med Ordered
[2024-03-19] MEDS: Doxycycline Hyclate 100 MG in 0.9 % Sodium Chloride 250 ML 166.67 MG IV ×2 (04:06→17:36)
--- NOTE | 2024-03-19 04:39 | PC.NURSE ---
rn outreached hospitalist staff about the concerns surrounding the 1mg narcan dose. per hospitalist order to be cancelled and no medication given. conversation between rn, hospitalist and md braun to discuss plan. new orders obtained regarding narcan administration.
[2024-03-19] MEDS: Naloxone HCl 0.4 MG/ML VIAL IVPUSH ×3 (04:47→06:29)
[2024-03-19 05:08] LABS: MANUAL DIFF FLAG NO
[2024-03-19 05:10] LABS: Basophils Absolute Auto 0.1 X10*3/uL (0.0-0.2); Basophils Percent Auto 0.4 % (0-2); Eosinophils Percent Auto 0.1 % (0-4); Hematocrit 28.1 % (37.0-47.0); Imm Gran Abs Auto 0.12 X10*3/uL (0.00-0.03); Imm Gran Pct Auto 0.7 % (0.0-0.4); Lymphocytes Absolute Auto 1.1 X10*3/uL (1.2-4.9); Lymphocytes Percent Auto 6.5 % (20-40); Mean Corpuscular Hemoglobin 26.5 pg (27.0-33.0); Mean Corpuscular Volume 82.9 fL (80.0-98.0); Monocytes Absolute Auto 0.5 X10*3/uL (0.1-1.2); Monocytes Percent Auto 2.8 % (2-11); Neutrophils Absolute Auto 14.8 x10*3/uL (2.0-8.3); Neutrophils Percent Auto 89.5 % (45-73); Platelet Count 342 X10*3/uL (160-400); Red Blood Count 3.39 X10*6/uL (4.20-5.50); Red Cell Distribution Width 15.1 % (11.0-16.0); White Blood Count 16.5 X10*3/uL (4.8-10.8)
[2024-03-19] MEDS: Lactated Ringers 1,000 ML 100 ML IVCONT (05:36)
--- NOTE | 2024-03-19 05:42 | PC.NURSE ---
although there was positive effect from previous narcan admin the pt is now somnolent again with respirations ranging from 8-10 respirations and bp soft. this rn consulted the hospitalist and all are in agreeance that the patient should be dosed once again with ivp narcan 0.04mg
[2024-03-19 05:46] LABS: Alanine Aminotransferase 53 U/L (0-31); Alkaline Phosphatase 76 U/L (39-117); Anion Gap 19 (12-20); Aspartate Amino Transferase 114 U/L (5-31); Bilirubin Total 0.2 mg/dL (0.0-1.0); Blood Urea Nitrogen 59 mg/dL (9-16); Carbon Dioxide 16 mmol/L (22-29); Chloride 105 mmol/L (96-108); Creatinine Clr Calc Pharmacy 7.7; Estimated Glomerular Filt Rate 7; Glucose Random 157 mg/dL (60-115); Potassium 4.5 mmol/L (3.3-5.1); Sodium 135 mmol/L (135-145); Total Protein 6.5 g/dL (6.5-8.0)
[2024-03-19] MEDS: Albumin Human 25 % 100 ML 133.33 ML IV ×2 (07:50→08:51)
[2024-03-19] MEDS: Heparin Sodium,Porcine 5,000 UNIT/ML VIAL 5000 UNIT SUBCUT ×3 (07:54→21:17)
[2024-03-19] MEDS: 0.9 % Sodium Chloride Flush 3 ML SYRINGE IVFLUSH ×2 (07:55→17:36)
[2024-03-19 08:07] LABS: Glucose, Whole Blood 180 mg/dL (60-115)
--- NOTE | 2024-03-19 08:07 | PC.NURSE ---
Pt.'s POC 180. Not administering Insulin at this time because pt. is not eating breakfast. Ella Barba MD aware.
[2024-03-19 09:10] LABS: Iron 9 mcg/dL (30-160); Percent Iron Saturation 4 % (15-50); Total Iron Binding Capacity 217 mcg/dL (228-428); Unsaturated Iron Binding 208 ug/dL
--- NOTE | 2024-03-19 09:11 | PC.NURSE ---
Awaiting Bicarb gtt from the pharmacy at this time.
[2024-03-19 09:29] LABS: Ferritin 95 ng/mL (10-250); Procalcitonin 1.64 ng/mL
--- NOTE | 2024-03-19 09:32 | P.CONNP_ITS ---
History of Present Illness Reason for Consult Consult date: 03/19/24 Chief Complaint Chief complaint: Sepsis, Pneumonia, Acute Renal Failure, Rhabdo History of Present Illness Narrative: 63 y/o female with a medical history of substance use disorder, diabetes, bipolar disorder, homelessness presented 03/19 with URI symptoms x1 week, was found on ground by EMS, somnolent and reported sleepwalking and increased falls/syncope over last week Utox positive for benzodiazepines, methadone, pt somnolence responded to narcan chest xray suggestive of LLL pneumonia, pt on 5L NC Nephrology consulted for KENDALL last creatinine on file prior to hospitalization 0.8 in Feb 2023 on arrival creatinine 6.44, GFR 7, 4 hours later 03/19 creatinine 5.92 with 2L IVF bolus; BUN 59 CPK 2322 on arrival she is making urine, carrasco in place potassium 4.5, CO2 16 (20 on arrival, bicarb drop started) with normal anion gap; sodium 135 urine +1 protein, 11-20 RBCs, trace leukocyte esterace pt lethargic, opens her eyes to voice at bedside and responds intermittently with one-word answers, though some responses illogical she denies shortness of breath, chest pain, pain with urination, abdominal pain, back/flank pain she is not able to answer questions regarding her medical history, care or which prescription medications she takes if any she denies illicit drug use, responds yes to going to methadone clinic Review of Systems Review of Systems Yes Unobtainable due to mental status (some information obtained though only responds intermittently ) Constitutional: Reports fatigue, Denies headache(s) and Reports weakness Denies dizziness and Denies headache(s) Cardiovascular: Denies chest pain, Denies leg edema, Denies lightheadedness and Denies dyspnea Respiratory: Denies dyspnea Gastrointestinal: Denies abdominal pain Genitourinary: Denies difficulty voiding, Denies dysuria and Denies flank pain Musculoskeletal: Denies arthralgias and Denies muscle cramps Skin/Breast: Denies rash Reports confusion, Denies dizziness, Denies headache(s) and Reports weakness Psychiatric: Reports confusion Endocrine: Reports fatigue PMFSH Past Medical History Medical History Opioid use disorder, severe, on maintenance therapy Bipolar disorder with psychotic features Overdose Polysubstance abuse Social History Social History Household Members: None Housing: Unknown / Unable to assess Do you presently have visiting nurse or other home services: No Patient Tobacco Use Status: Current everyday Tobacco user Tobacco use type: Cigarette Cigarette Packs Per Day: 0.5 Cigarettes Per Day: 10.0 Smoked in Last 30 Days: Yes e-Cigarette/Vaping Use: Never Used Second Hand Smoke Exposure: Yes Use of substances other than those prescribed or required for medical reasons: No Substance Use Type: Heroin Advance Directives: No Advance Directives Information Provided: Yes service: No Sexual orientation: Straight/Heterosexual Meds Allergies Allergy/AdvReac Type Severity Reaction Status Date / Time No Known Allergies Allergy Verified 03/19/24 00:29 Active Medications: Current Medications Acetaminophen (Acetaminophen 325 Mg Tablet) 975 mg PO Q6H PRN PRN Reason: Pain, Mild (Pain Scale 1-3), fever or headache Albuterol/Ipratropium (Albuterol/Iprat 2.5/0.5mg 3 Ml Ampul.Neb) 3 ml INHALE Q4H PRN PRN Reason: Shortness of Breath/Wheezing Calcium Carbonate (Calcium Carbonate 750 Mg Tab.Chew) 750 mg PO Q4H PRN PRN Reason: Heartburn Glucose (Glucose Gel 15 Gm Gel..Gram.) 15 gm PO Q15M PRN; Protocol PRN Reason: per Hypoglycemia Standing Ord. Heparin Sodium (Porcine) (Heparin Sodium,Porcine 5,000 Unit/Ml Vial) 5,000 unit SUBCUT Q8H [facility] Last Admin: 03/19/24 07:54 Dose: 5,000 unit Doxycycline Hyclate 100 mg/ (Sodium Chloride) 250 mls @ 166.67 mls/hr IV 0600,1800 [facility] Dextrose (D10) 250 mls @ 750 mls/hr IV Q15M PRN; Protocol PRN Reason: per Hypoglycemia Standing Ord. Sodium Bicarbonate 150 meq/ (Dextrose) 1,000 mls @ 100 mls/hr IV .Q10H [facility] Piperacillin Sod/Tazobactam (Sod 2.25 gm/ Sodium Chloride) 50 mls @ 100 mls/hr IV Q6H [facility] Albumin Human (Kedbumin 25 %) 100 mls @ 100 mls/hr IV Q6H [facility] Stop: 03/20/24 03:59 Insulin Human Lispro (Insulin Lispro 100 Unit/Ml 3 Ml Vial) 0 [facility]; Protocol Last Admin: 03/19/24 08:05 Dose: Not Given Magnesium Hydroxide (Milk Of Magnesia 30 Ml Oral.Susp) 30 ml PO DAILY PRN PRN Reason: Constipation Melatonin (Melatonin 3 Mg Tablet) 6 mg PO BEDTIME PRN PRN Reason: Insomnia Naloxone HCl (Naloxone Hcl 0.4 Mg/Ml Vial) 0.04 mg IVPUSH Q5M PRN PRN Reason: Respiratory Rate < 10 Last Admin: 03/19/24 06:29 Dose: 0.04 mg Ondansetron HCl (Ondansetron Hcl 4 Mg/2 Ml Vial) 4 mg IVPUSH Q8H PRN PRN Reason: Nausea and Vomiting Pantoprazole Sodium (Pantoprazole Sodium 40 Mg/10 Ml Vial) 40 mg IVPUSH DAILY@0630 [facility] Sodium Chloride (0.9 % Sodium Chloride Flush 3 Ml Syringe) 3 [facility] Last Admin: 03/19/24 07:55 Dose: 3 ml Home Medications ?Medication ?Instructions ?Recorded ?Confirmed ?Last Taken ?Type methadone 10 mg/5 mL oral solution 125 mg PO DAILY 01/31/23 01/31/23 01/30/23 09:00 History clonazepam 0.5 mg tablet 0.25 mg PO BID PRN anxiety attack 03/19/24 Unknown History clonidine HCl 0.1 mg tablet 0.1 mg PO QAM 03/19/24 Unknown History doxepin 50 mg capsule 50 mg PO BEDTIME 03/19/24 Unknown History duloxetine 20 mg capsule,delayed 20 mg PO BID 03/19/24 Unknown History release insulin glargine 100 unit/mL (3 15 unit subcut BEDTIME 03/19/24 Unknown History mL) subcutaneous pen (Lantus Solostar U-100 Insulin) multivitamin 1 tab PO DAILY 03/19/24 Unknown History rosuvastatin 5 mg tablet 5 mg PO DAILY 03/19/24 Unknown History Physical Exam Vital Signs: Last Vital Signs Temp 97.8 F 03/19/24 07:43 Pulse 68 03/19/24 07:43 Resp 13 03/19/24 07:43 BP 94/44 L 03/19/24 07:43 Pulse Ox 100 03/19/24 07:43 O2 Del Method Nasal Cannula 03/19/24 07:43 O2 Flow Rate 5 03/19/24 07:43 BMI result Body Mass Index 25.8 Const General: confusion and lethargic Orientation/consciousness: confusion and lethargic Resp Effort & Inspection: normal respiratory effort Auscultation: rales and rhonchi Cardio Rate: regular rate Rhythm: regular rhythm Heart sounds: S1 normal heart sound present and S2 normal heart sound present GI Palpation (GI): Soft to palpation and nontender General: Yes no CVA tenderness Back/Spine/Pelvis Back: no CVA tenderness Skin Rashes: no rashes Neuro General: confusion Extrem General: No edema Results Lab Results 03/19/24 04:38 03/19/24 04:38 Lab results: Chemistry 03/19/24 03/19/24 00:37 04:38 Sodium 137 135 Potassium 5.1 4.5 Carbon Dioxide 22 16 L BUN 61 H 59 H Creatinine 6.44 H* 5.92 H* Calcium 9.4 8.0 L D Hematology 03/19/24 03/19/24 00:37 04:38 WBC 20.0 H 16.5 H Hgb 11.2 L 9.0 L Plt Count 440 H D 342 Urinalysis 03/19/24 02:18 Urine Color Dark Yellow Urine Appearance Cloudy Urine pH 5.0 Ur Specific Penrose 1.025 Urine Protein 30 (1+) H Urine Glucose (UA) Negative Urine Ketones Trace Urine Blood Moderate (2+) H Urine Nitrite Negative Ur Leukocyte Esterase Trace H Urine RBC 11-20 H Urine WBC 0-5 Ur Squamous Epith Cells 3-5 Hyaline Casts 11-20 Assessment and Plan (1) KENDALL (acute kidney injury): Status: Acute (2) Rhabdomyolysis: Qualifiers: Rhabdomyolysis type: non-traumatic Qualified Code(s): M62.82 - Rhabdomyolysis Status: Acute (3) Sepsis: Qualifiers: Sepsis acute organ dysfunction status: with acute organ dysfunction S evere sepsis acute organ dysfunction type: acute renal failure Acute renal failure type: with acute tubular necrosis Sepsis type: sepsis due to unspecified organism Severe sepsis shock status: unspecified Qualified Code(s): A41.9 - Sepsis, unspecified organism; R65.20 - Severe sepsis without septic shock; N17.0 - Acute kidney failure with tubular necrosis Status: Acute Plan KENDALL due to ATN 2/2 septic shock and pigment nephropathy from rhabdomyolosis New, some initial improvement with fluid resuscitation recommend increase IV bicarbonate to 150mL/hr, treatment of infection as appropriate will check serum complements and urine culture recommend close monitoring of I&O recommend regular blood pressure checks, should re-check electrolytes and renal function early this afternoon No urgent indication for dialysis at this time Continue supportive care, will continue to follow Discussed with Dr Prashant King Date of Service Date of Service: 03/19/24
[2024-03-19 09:39] LABS: Ammonia 36 umol/L (13-55)
[2024-03-19] MEDS: Pantoprazole Sodium 40 MG/10 ML VIAL IVPUSH (09:46)
[2024-03-19] MEDS: Albumin Human 25 % 100 ML IV ×3 (09:47→21:18)
[2024-03-19] MEDS: Piperacillin Sodium/Tazobactam 2.25 GM in 0.9 % Sodium Chloride 50 ML IV ×3 (09:47→21:17)
[2024-03-19] MEDS: Sodium Bicarbonate 8.4% 150 MEQ in Dextrose 5 % 850 ML 100 MEQ IV (09:48)
--- NOTE | 2024-03-19 10:34 | PM.EVENT ---
Event Note Date of Service: 03/19/24 Event Note: patient does not meet criteria for severe sepsis or septic shock at present no fever or tachycardia or tachypnea has juan carlos due to rhabo and dehydration, not due to sepsis . leucocytosis trending down Time Spent With Patient Time: Total time managing care of this patient today ____ minutes.
--- NOTE | 2024-03-19 11:18 | PM.EVENT ---
Event Note Date of Service: 03/19/24 Event Note: patient is seen and examined -please see my previous event note also. 63-year-old female with a past medical history significant for substance use disorder, bipolar, homelessness and type 2 diabetes, who presented to the ED due to a cough and URI symptoms x1 week. patient has ahrf /pneumonia /sepsis (poa) onantibiotics ,urine tox positive for benzodiazepine and methadone. juan carlos ,rhabomylysis ,Nagma : low bicarb , ph 7.3 boderline likely due to dehydrattion/rhabdo continue [id number] as per nephro. toxic/metabolic encephalopathy sec to juan carlos/electrolytic abnormalities /psych meds and methdone in setting ok juan carlos .not due to sepsis. physical exam -unchaged from h&P d/w Icu due multiple medical issues and close monitering of renal function elecatolytes ,mental status -patient will benfit from Icu level of care Time Spent With Patient Time: Total time managing care of this patient today ____ minutes.
--- NOTE | 2024-03-19 14:34 | PHA.MEDREC ---
Pharmacy Consult ? Medication Reconciliation Pharmacy has completed the medication reconciliation. Spoke to patient and confirmed medication list. Patient confirmed she takes 15 units of lantus at bedtime. Last dose of medications was yesterday.
[2024-03-19 14:42] LABS: Glucose, Whole Blood 227 mg/dL (60-115)
--- NOTE | 2024-03-19 15:09 | PC.NURSE ---
Pt alert and awake, watching tv and asking appropriate questions. VS updated, BP 108/51 110/54.
--- NOTE | 2024-03-19 15:27 | P.CONCC_ITS ---
History of Present Illness Data of Consult Service Date: 03/19/24 Primary Care Provider: Unknown Physician HPI Reason for consult: Hypotension 63-year-old lady with past medical history of substance use disorder, bipolar, homelessness and type 2 diabetes presented to the hospital with shortness of breath for 1 week. She was also increasingly somnolent and hypotensive along with acute kidney injury and rhabdomyolysis so MICU was consulted. Review of Systems 2 Review of Systems: Unable to obtain as patient was drowsy PMFSH Past Medical History Medical History Opioid use disorder, severe, on maintenance therapy Bipolar disorder with psychotic features Overdose Polysubstance abuse Social History Social History Household Members: None Housing: Unknown / Unable to assess Do you presently have visiting nurse or other home services: No Patient Tobacco Use Status: Current everyday Tobacco user Tobacco use type: Cigarette Cigarette Packs Per Day: 0.5 Cigarettes Per Day: 10.0 Smoked in Last 30 Days: Yes e-Cigarette/Vaping Use: Never Used Second Hand Smoke Exposure: Yes Use of substances other than those prescribed or required for medical reasons: No Substance Use Type: Heroin Advance Directives: No Advance Directives Information Provided: Yes service: No Sexual orientation: Straight/Heterosexual Meds Allergies Allergy/AdvReac Type Severity Reaction Status Date / Time No Known Allergies Allergy Verified 03/19/24 00:29 Active Medications: Current Medications Acetaminophen (Acetaminophen 325 Mg Tablet) 975 mg PO Q6H PRN PRN Reason: Pain, Mild (Pain Scale 1-3), fever or headache Albuterol/Ipratropium (Albuterol/Iprat 2.5/0.5mg 3 Ml Ampul.Neb) 3 ml INHALE Q4H PRN PRN Reason: Shortness of Breath/Wheezing Calcium Carbonate (Calcium Carbonate 750 Mg Tab.Chew) 750 mg PO Q4H PRN PRN Reason: Heartburn Glucose (Glucose Gel 15 Gm Gel..Gram.) 15 gm PO Q15M PRN; Protocol PRN Reason: per Hypoglycemia Standing Ord. Heparin Sodium (Porcine) (Heparin Sodium,Porcine 5,000 Unit/Ml Vial) 5,000 unit SUBCUT Q8H [facility] Last Admin: 03/19/24 15:22 Dose: 5,000 unit Doxycycline Hyclate 100 mg/ (Sodium Chloride) 250 mls @ 166.67 mls/hr IV 0600,1800 [facility] Dextrose (D10) 250 mls @ 750 mls/hr IV Q15M PRN; Protocol PRN Reason: per Hypoglycemia Standing Ord. Sodium Bicarbonate 150 meq/ (Dextrose) 1,000 mls @ 150 mls/hr IV .Q6H40M [facility] Last Infusion: 03/19/24 09:52 Dose: 150 mls/hr Piperacillin Sod/Tazobactam (Sod 2.25 gm/ Sodium Chloride) 50 mls @ 100 mls/hr IV Q6H [facility] Last Admin: 03/19/24 15:23 Dose: 100 mls/hr Albumin Human (Kedbumin 25 %) 100 mls @ 100 mls/hr IV Q6H [facility] Stop: 03/20/24 03:59 Last Admin: 03/19/24 15:23 Dose: 100 mls/hr Insulin Human Lispro (Insulin Lispro 100 Unit/Ml 3 Ml Vial) [facility]; Protocol Last Admin: 03/19/24 14:32 Dose: Not Given Magnesium Hydroxide (Milk Of Magnesia 30 Ml Oral.Susp) 30 ml PO DAILY PRN PRN Reason: Constipation Melatonin (Melatonin 3 Mg Tablet) 6 mg PO BEDTIME PRN PRN Reason: Insomnia Naloxone HCl (Naloxone Hcl 0.4 Mg/Ml Vial) 0.04 mg IVPUSH Q5M PRN PRN Reason: Respiratory Rate < 10 Last Admin: 03/19/24 06:29 Dose: 0.04 mg Ondansetron HCl (Ondansetron Hcl 4 Mg/2 Ml Vial) 4 mg IVPUSH Q8H PRN PRN Reason: Nausea and Vomiting Pantoprazole Sodium (Pantoprazole Sodium 40 Mg/10 Ml Vial) 40 mg IVPUSH DAILY@0630 [facility] Last Admin: 03/19/24 09:46 Dose: 40 mg Sodium Chloride (0.9 % Sodium Chloride Flush 3 Ml Syringe) [facility] Last Admin: 03/19/24 07:55 Dose: 3 ml Home Medications ?Medication ?Instructions ?Recorded ?Confirmed ?Last Taken ?Type methadone 10 mg/5 mL oral solution 125 mg PO DAILY 01/31/23 01/31/23 01/30/23 09:00 History clonazepam 0.5 mg tablet 0.25 mg PO BID PRN anxiety attack 03/19/24 03/19/24 03/18/24 History clonidine HCl 0.1 mg tablet 0.1 mg PO DAILY 03/19/24 03/19/24 03/18/24 History doxepin 50 mg capsule 50 mg PO BEDTIME 03/19/24 03/19/24 03/18/24 History duloxetine 20 mg capsule,delayed 20 mg PO BID 03/19/24 03/19/24 03/18/24 History release insulin glargine 100 unit/mL (3 15 unit subcut BEDTIME 03/19/24 03/19/24 03/18/24 History mL) subcutaneous pen (Lantus Solostar U-100 Insulin) multivitamin 1 tab PO DAILY 03/19/24 03/19/24 03/18/24 History rosuvastatin 5 mg tablet 5 mg PO DAILY 03/19/24 03/19/24 03/18/24 History Physical Exam 2 Vital Signs: Vital Signs: Last Vital Signs Temp 97.8 F 03/19/24 07:43 Pulse 73 03/19/24 15:06 Resp 13 03/19/24 15:06 BP 108/51 L 03/19/24 15:06 Pulse Ox 100 03/19/24 15:06 O2 Del Method Nasal Cannula 03/19/24 15:06 O2 Flow Rate 4 03/19/24 15:06 BMI result Body Mass Index 25.8 General: Not in any acute distress, tired appearing Nutritional Appearance: well nourished and overweight Eyes: appearance normal, both eyes and all related structures; Alignment and Position: alignment normal and position normal Neck: No lymphadenopathy, no thyromegaly Resp: bilateral air entry equal, occasional added sounds present Cardio: Regular rate, regular rhythm; Heart sounds: S1 normal heart sound present and S2 normal heart sound present GI: soft, nontender, no guarding, no hepatosplenomegaly : bladder normal to inspection, bladder normal to palpation, no renal angle tenderness Skin: no rashes or lesions noted and elasticity normal Neuro: Drowsy, no focal deficits Results Labs 03/19/24 04:38 03/19/24 04:38 Labs: Short CBC 03/19/24 03/19/24 Range/Units 00:37 04:38 WBC 20.0 H 16.5 H (4.8-10.8) X10*3/uL Hgb 11.2 L 9.0 L (12.0-16.0) g/dl Hct 34.0 L 28.1 L (37.0-47.0) % Plt Count 440 H D 342 (160-400) X10*3/uL BMP 03/19/24 03/19/24 00:37 04:38 Sodium 137 135 Potassium 5.1 4.5 Chloride 98 105 Carbon Dioxide 22 16 L BUN 61 H 59 H Creatinine 6.44 H* 5.92 H* Calcium 9.4 8.0 L D Cardiac Enzymes 03/19/24 03/19/24 Range/Units 00:37 04:38 Total Creatine Kinase 2322 H 2225 H (26-140) U/L Liver Function 03/19/24 03/19/24 Range/Units 00:37 04:38 Total Bilirubin 0.3 0.2 (0.0-1.0) mg/dL Direct Bilirubin 0.1 (0.0-0.5) mg/dL AST 126 H 114 H (5-31) U/L ALT 67 H 53 H (0-31) U/L Alkaline Phosphatase 101 76 (39-117) U/L Albumin 4.0 3.0 L (3.5-5.0) g/dL Urine 03/19/24 Range/Units 02:18 Urine Color Dark Yellow Urine Appearance Cloudy Urine pH 5.0 (5.0-9.0) Ur Specific Leonidas 1.025 (1.005-1.025) Urine Protein 30 (1+) H (Neg-Trace) mg/dL Urine Glucose (UA) Negative (Negative) mg/dL Assessment and Plan (1) Bipolar disorder with psychotic features: Status: Acute (2) Opioid use disorder, severe, on maintenance therapy: Status: Acute (3) Renal failure: Qualifiers: Acute renal failure type: unspecified Renal failure chronicity: acute Qualified Code(s): N17.9 - Acute kidney failure, unspecified Status: Acute (4) KENDALL (acute kidney injury): Status: Acute (5) Rhabdomyolysis: Qualifiers: Rhabdomyolysis type: non-traumatic Qualified Code(s): M62.82 - Rhabdomyolysis Status: Acute (6) Cognitive impairment: Status: Acute Plan Acute encephalopathy: History of substance use disorder At this time UDS is positive for benzodiazepine and methadone CT head negative for any intracranial pathology Acute kidney injury: Secondary to toxic pigment nephropathy from rhabdomyolysis Nephrology on board, renal replacement therapy as and when advised by Nephrology Avoid nephrotoxic medications Closely monitor I's and O's Hypotension: Patient was initially hypotensive when she was asleep, now as she is more awake and alert her blood pressures has improved IVC is 2.1 cm noncollapsible, decrease the rate of LR to 75 cc/hour Transaminitis: Secondary to rhabdomyolysis Patient was consulted for the management of hypotension and somnolence. Her blood pressures are significantly improved and is above 100 systolic for the past 3 hours, her mental status has also improved and he is more alert now. Her acute kidney injury is managed by Nephrology, no additional Critical Care service as needed at this time. Please re-consult if clinical scenario changes
--- NOTE | 2024-03-19 15:57 | P.CDIM_ITS ---
PROVIDER RESPONSE TEXT: To clarify, the appropriate diagnosis supported by the clinical indicators: Non-traumatic Rhabdomyolysis: rhabdo QUERY TEXT: PHYSICIAN'S DOCUMENTATION REQUEST Date of Query: 03/19/2024 11:14 AM EST Patient Name: Lamar De Jesus Admit Date: 03/19/2024 Dear Cecille Barba MD, A review of the medical record indicates additional documentation may be needed. Please review below and update the documentation accordingly. Clinical Indicators: Unwitnessed fall, EMS found patient sitting on the floor, increased multiple falls, substance use dis order. KENDALL secondary to rhabdomyolysis. Total creatine kinase - 2322 H Based on the above, could you clarify any specifics to the noted Rhabdomyolysis for this patient: Non-traumatic Rhabdomyolysis possible, probable, suspected etc. Traumatic Rhabdomyolysis Other (explain) Clinically unable to determine (explain) Thank you, Talya Rojas, CCS, CDIS Use of terms such as suspected, likely, concern for, or probable (associated with a specific diagnosi s that is being evaluated, monitored, or treated as if it exists) are acceptable and can be coded in the inpatient se tting, when documented at the time of discharge. Please use your independent medical judgment in providing your response. THIS QUERY IS PART OF THE PERMANENT MEDICAL RECORD
[2024-03-19 16:11] LABS: Anion Gap 16 (12-20); Blood Urea Nitrogen 53 mg/dL (9-16); Carbon Dioxide 25 mmol/L (22-29); Chloride 105 mmol/L (96-108); Creatinine Clr Calc Pharmacy 11.1; Estimated Glomerular Filt Rate 11; Glucose Random 228 mg/dL (60-115); Potassium 5.9 mmol/L (3.3-5.1); Sodium 140 mmol/L (135-145)
--- NOTE | 2024-03-19 16:40 | PC.NURSE ---
Per , we are holding pt.'s home Methadone today d/t low BPs and the fact that pt. was lethargic all morning
--- NOTE | 2024-03-19 16:45 | PC.NURSE ---
Pt. gone to x-ray at this time
[2024-03-19 17:33] LABS: Glucose, Whole Blood 251 mg/dL (60-115)
[2024-03-19] MEDS: Insulin Lispro 100 UNIT/ML 3 ML VIAL SUBCUT ×2 (17:35→21:17)
[2024-03-19] MEDS: Sodium Bicarbonate 8.4% 100 MEQ in Dextrose 5 % 900 ML 75 MEQ IV (17:36)
[2024-03-19] MEDS: Sodium Zirconium Cyclosilicate 10 GM POWD.PACK PO (17:36)
[2024-03-19 20:03] LABS: Anion Gap 17 (12-20); Blood Urea Nitrogen 49 mg/dL (9-16); Calcium 8.8 mg/dL (8.4-10.2); Carbon Dioxide 21 mmol/L (22-29); Chloride 106 mmol/L (96-108); Creatinine Clr Calc Pharmacy 13.6; Estimated Glomerular Filt Rate 14; Glucose Random 274 mg/dL (60-115); Potassium 4.4 mmol/L (3.3-5.1); Sodium 140 mmol/L (135-145)
--- NOTE | 2024-03-19 20:45 | PC.NURSE ---
pt right hand IV noted to be infiltrated with sodium bicarb, IV removed, and 22G placed into left hand, provider aware.
[2024-03-19 21:11] LABS: Glucose, Whole Blood 235 mg/dL (60-115)
[2024-03-20] VITALS (8 sets, daily range): BP systolic 104–161; BP diastolic 48–67; PULSE 66–96; RESP 18–20; TEMP 36.3–36.7; O2SAT 92–99
[2024-03-20] MEDS: 0.9 % Sodium Chloride Flush 3 ML SYRINGE IVFLUSH ×4 (01:00→22:21)
[2024-03-20] MEDS: guaiFENesin DM 200/20/10 ML 10 ML SYRUP PO ×3 (02:46→15:09)
[2024-03-20] MEDS: Acetaminophen 325 MG TABLET 975 MG PO ×2 (02:46→14:32)
[2024-03-20] MEDS: Albumin Human 25 % 100 ML IV (02:48)
[2024-03-20] MEDS: Piperacillin Sodium/Tazobactam 2.25 GM in 0.9 % Sodium Chloride 50 ML IV ×4 (04:00→22:20)
[2024-03-20] MEDS: Heparin Sodium,Porcine 5,000 UNIT/ML VIAL 5000 UNIT SUBCUT ×3 (06:55→22:21)
[2024-03-20] MEDS: Pantoprazole Sodium 40 MG/10 ML VIAL IVPUSH (06:57)
[2024-03-20] MEDS: Doxycycline Hyclate 100 MG in 0.9 % Sodium Chloride 250 ML 166.67 MG IV ×2 (07:00→16:59)
[2024-03-20 07:26] LABS: MANUAL DIFF FLAG NO
[2024-03-20 07:31] LABS: Glucose, Whole Blood 166 mg/dL (60-115)
[2024-03-20 07:40] LABS: Basophils Percent Auto 0.3 % (0-2); Eosinophils Absolute Auto 0.1 X10*3/uL (0.0-0.4); Eosinophils Percent Auto 0.6 % (0-4); Hemoglobin 8.8 g/dl (12.0-16.0); Imm Gran Abs Auto 0.08 X10*3/uL (0.00-0.03); Imm Gran Pct Auto 0.6 % (0.0-0.4); Lymphocytes Absolute Auto 2.3 X10*3/uL (1.2-4.9); Lymphocytes Percent Auto 18.5 % (20-40); Mean Corpuscular HGB Conc 32.6 g/dl (31.0-35.0); Mean Corpuscular Hemoglobin 26.4 pg (27.0-33.0); Mean Corpuscular Volume 81.1 fL (80.0-98.0); Monocytes Absolute Auto 0.8 X10*3/uL (0.1-1.2); Monocytes Percent Auto 5.9 % (2-11); Neutrophils Absolute Auto 9.4 x10*3/uL (2.0-8.3); Neutrophils Percent Auto 74.1 % (45-73); Platelet Count 336 X10*3/uL (160-400); Red Blood Count 3.33 X10*6/uL (4.20-5.50); Red Cell Distribution Width 15.6 % (11.0-16.0); White Blood Count 12.6 X10*3/uL (4.8-10.8)
[2024-03-20 07:49] LABS: Alanine Aminotransferase 64 U/L (0-31); Albumin Level 4.4 g/dL (3.5-5.0); Alkaline Phosphatase 61 U/L (39-117); Anion Gap 15 (12-20); Aspartate Amino Transferase 94 U/L (5-31); Bilirubin Total 0.3 mg/dL (0.0-1.0); Blood Urea Nitrogen 42 mg/dL (9-16); Calcium 9.2 mg/dL (8.4-10.2); Carbon Dioxide 28 mmol/L (22-29); Chloride 107 mmol/L (96-108); Creatinine Clr Calc Pharmacy 20.3; Estimated Glomerular Filt Rate 22; Glucose Random 175 mg/dL (60-115); Potassium 4.9 mmol/L (3.3-5.1); Sodium 145 mmol/L (135-145); Total Protein 7.2 g/dL (6.5-8.0)
[2024-03-20] MEDS: Insulin Lispro 100 UNIT/ML 3 ML VIAL SUBCUT ×2 (08:27→11:42)
[2024-03-20] MEDS: Lactated Ringers 1,000 ML 80 ML IVCONT (08:28)
--- NOTE | 2024-03-20 08:50 | MHC.CM.PN ---
CM met with Patient at bedside. Patient is living in a hotel, uses a cane to assist with mobility, and receives her Methadone from [facility]. Patient will benefit from a PT & Recovery Team Consult to assist with disposition. CM has initiated and will follow for dc planning. Patient states that her PCP is from [place] but she cannot recall the name. Patient has no HCP and no involved family.
--- NOTE | 2024-03-20 09:47 | P.PNNP_ITS ---
Subjective Subjective Date of Service: 03/20/24 Interval history: 63 y/o female with a medical history of substance use disorder, diabetes, bipolar disorder, homelessness presented 03/19 with URI symptoms x1 week, was found on ground by EMS, somnolent and reported sleepwalking and increased falls/syncope over last week Utox positive for benzodiazepines, methadone, pt somnolence responded to narcan chest xray suggestive of LLL pneumonia, pt on 5L [place] Nephrology consulted for KENDALL last creatinine on file prior to hospitalization 0.8 in Feb 2023 on arrival creatinine 6.44, GFR 7, 4 hours later 03/19 creatinine 5.92 with 2L IVF bolus; BUN 59 creatinine trending down, 03/20 a.m. is 2.03 CPK 2322 on arrival, also trending down she is making urine, carrasco in place potassium 4.5, CO2 16 (20 on arrival, bicarb drop started) with normal anion gap; sodium 135 urine +1 protein, 11-20 RBCs, trace leukocyte esterace pt lethargic, opens her eyes to voice at bedside and responds intermittently with one-word answers, though some responses illogical she denies shortness of breath, chest pain, pain with urination, abdominal pain, back/flank pain she is not able to answer questions regarding her medical history, care or which prescription medications she takes if any she denies illicit drug use, responds yes to going to methadone clinic Physical Exam 2 Vital Signs: Vital Signs: Last Vital Signs Temp 97.8 F 03/20/24 07:19 Pulse 66 03/20/24 07:19 Resp 18 03/20/24 07:19 BP 117/61 03/20/24 07:19 Pulse Ox 99 03/20/24 07:19 O2 Del Method Nasal Cannula 03/20/24 07:19 O2 Flow Rate 2 03/20/24 07:19 BMI result Body Mass Index 25.8 Const: General: no acute distress, alert and awake Resp: Effort & Inspection: normal respiratory effort and able to speak in complete sentences Auscultation: clear to auscultation bilaterally Cardio: Jugular venous distension: no JVD Rate: regular rate Rhythm: r egular rhythm Heart sounds: S1 normal heart sound present and S2 normal heart sound present GI: Palpation (GI): Soft to palpation and nontender : General: Yes no CVA tenderness Back/Spine/Pelvis: Back: no CVA tenderness Skin: Rashes: no rashes Extrem: General: No edema Objective Data Labs 03/20/24 06:31 03/20/24 09:26 Labs: Laboratory Results - last 24 hr 03/19/24 03/19/24 03/19/24 14:37 15:30 17:29 WBC RBC Hgb Hct MCV MCH MCHC RDW Plt Count MPV Immature Gran % (Auto) Neut % (Auto) Lymph % (Auto) [place] % (Auto) Eos % (Auto) Baso % (Auto) Lymph # (Auto) [place] # (Auto) Eos # (Auto) Baso # (Auto) Abs Immat Gran (auto) Absolute Neuts (auto) Absolute Nucleated RBC Nucleated RBC % (auto) Sodium 140 Potassium 5.9 H D Chloride 105 Carbon Dioxide 25 Anion Gap 16 BUN 53 H Creatinine 4.10 H* Estim Creat Clear Calc 11.1 Estimated GFR 11 POC Glucose 227 H 251 H Random Glucose 228 H Calcium 9.0 D Total Bilirubin AST ALT Alkaline Phosphatase Total Creatine Kinase 1567 H Total Protein Albumin 03/19/24 03/19/24 03/20/24 19:42 21:05 06:31 WBC 12.6 H RBC 3.33 L Hgb 8.8 L Hct 27.0 L MCV 81.1 MCH 26.4 L MCHC 32.6 RDW 15.6 Plt Count 336 MPV 10.0 Immature Gran % (Auto) 0.6 H Neut % (Auto) 74.1 H Lymph % (Auto) 18.5 L [place] % (Auto) 5.9 Eos % (Auto) 0.6 Baso % (Auto) 0.3 Lymph # (Auto) 2.3 [place] # (Auto) 0.8 Eos # (Auto) 0.1 Baso # (Auto) 0.0 Abs Immat Gran (auto) 0.08 H Absolute Neuts (auto) 9.4 H Absolute Nucleated RBC 0.000 Nucleated RBC % (auto) 0.0 Sodium 140 145 Potassium 4.4 D 4.9 Chloride 106 107 Carbon Dioxide 21 L 28 Anion Gap 17 15 BUN 49 H 42 H Creatinine 3.38 H 2.26 H Estim Creat Clear Calc 13.6 20.3 Estimated GFR 14 22 POC Glucose 235 H Random Glucose 274 H 175 H Calcium 8.8 9.2 Total Bilirubin 0.3 AST 94 H ALT 64 H Alkaline Phosphatase 61 Total Creatine Kinase Total Protein 7.2 Albumin 4.4 03/20/24 07:22 WBC RBC Hgb Hct MCV MCH MCHC RDW Plt Count MPV Immature Gran % (Auto) Neut % (Auto) Lymph % (Auto) [place] % (Auto) Eos % (Auto) Baso % (Auto) Lymph # (Auto) [place] # (Auto) Eos # (Auto) Baso # (Auto) Abs Immat Gran (auto) Absolute Neuts (auto) Absolute Nucleated RBC Nucleated RBC % (auto) Sodium Potassium Chloride Carbon Dioxide Anion Gap BUN Creatinine Estim Creat Clear Calc Estimated GFR POC Glucose 166 H Random Glucose Calcium Total Bilirubin AST ALT Alkaline Phosphatase Total Creatine Kinase Total Protein Albumin Microbiology Microbiology Results: Microbiology 03/19/24 00:57 Blood - Venous Blood Culture - Preliminary No growth after 24 hours. 03/19/24 00:37 Blood - Venous Blood Culture - Preliminary No growth after 24 hours. Procedures Date of Service Date of Service: 03/20/24 Assessment & Plan Assessment and plan (1) KENDALL (acute kidney injury): Status: Acute Plan KENDALL due to ATN 2/2 sepsis and hypovolemia Improving with fluids and antibiotics, expect continued improvement in renal function metabolic acidosis resolved- agree discontinue bicarbonate and continue IVF as ordered serum complements pending recommend close monitoring of I&O recommend regular blood pressure checks, should re-check electrolytes and renal function early this afternoon No urgent indication for dialysis at this time Continue supportive care, will continue to follow Discussed with Dr Triana Time Spent With Patient Time: Total time managing care of this patient today ____ minutes. Progress Note: Quality Stroke Does the patient have a stroke diagnosis?: No
[2024-03-20 10:40] LABS: Anion Gap 18 (12-20); Blood Urea Nitrogen 38 mg/dL (9-16); Carbon Dioxide 26 mmol/L (22-29); Chloride 105 mmol/L (96-108); Creatinine Clr Calc Pharmacy 22.6; Estimated Glomerular Filt Rate 25; Glucose Random 189 mg/dL (60-115); Potassium 4.4 mmol/L (3.3-5.1); Sodium 145 mmol/L (135-145)
[2024-03-20 11:33] LABS: Glucose, Whole Blood 197 mg/dL (60-115)
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
--- NOTE | 2024-03-20 12:23 | HO.PM.IMPN ---
Subjective Subjective Date of Service: 03/20/24 Interval History: kendall electrolytic abnormalities rhabdo toxic metabolic encephalopathies. Physical Exam Vital Signs: Vital Signs: Last Vital Signs Temp 98.1 F 03/20/24 11:25 Pulse 87 03/20/24 11:25 Resp 18 03/20/24 11:25 BP 161/67 H 03/20/24 11:25 Pulse Ox 92 03/20/24 11:45 O2 Del Method Room Air 03/20/24 11:25 O2 Flow Rate 2 03/20/24 07:19 BMI result Body Mass Index 25.8 Appearance: Alert.? Oriented X3.? cvs: rrr, [id number] , no murmur res: clear to auscultation ,no rhonchii or wheezing abd: no rebound or guarding ,nt, bs present. ext pulses present , no cyanosis . neuro: axo3 , nonfocal. Objective Data Active Medications Acetaminophen (Acetaminophen 325 Mg Tablet) 975 mg PO Q6H PRN PRN Reason: Pain, Mild (Pain Scale 1-3), fever or headache Last Admin: 03/20/24 02:46 Dose: 975 mg Documented By: AUGIE Albuterol/Ipratropium (Albuterol/Iprat 2.5/0.5mg 3 Ml Ampul.Neb) 3 ml INHALE Q4H PRN PRN Reason: Shortness of Breath/Wheezing Calcium Carbonate (Calcium Carbonate 750 Mg Tab.Chew) 750 mg PO Q4H PRN PRN Reason: Heartburn Glucose (Glucose Gel 15 Gm Gel..Gram.) 15 gm PO Q15M PRN; Protocol PRN Reason: per Hypoglycemia Standing Ord. Guaifenesin/Dextromethorphan (Guaifenesin Dm 200/20/10 Ml 10 Ml Syrup) 10 ml PO Q6H PRN PRN Reason: Cough Last Admin: 03/20/24 08:27 Dose: 10 ml Documented By: THONY Heparin Sodium (Porcine) (Heparin Sodium,Porcine 5,000 Unit/Ml Vial) 5,000 unit SUBCUT Q8H [facility] Last Admin: 03/20/24 06:55 Dose: 5,000 unit Documented By: AUGIE Doxycycline Hyclate 100 mg/ (Sodium Chloride) 250 mls @ 166.67 mls/hr IV 0600,1800 [facility] Last Infusion: 12/12/24 10:32 Dose: Infused Documented By: THONY Dextrose (D10) 250 mls @ 750 mls/hr IV Q15M PRN; Protocol PRN Reason: per Hypoglycemia Standing Ord. Piperacillin Sod/Tazobactam (Sod 2.25 gm/ Sodium Chloride) 50 mls @ 100 mls/hr IV Q6H [facility] Last Infusion: 03/20/24 09:10 Dose: Infused Documented By: THONY Lactated Ringer's (Lr) 1,000 mls @ 80 mls/hr IVCONT .[id number] [facility] Last Admin: 03/20/24 08:28 Dose: 80 mls/hr Documented By: THONY Insulin Human Lispro (Insulin Lispro 100 Unit/Ml 3 Ml Vial) 0 unit SUBCUT QIDACHS [facility]; Protocol Last Admin: 03/20/24 11:42 Dose: 2 unit Documented By: THONY Magnesium Hydroxide (Milk Of Magnesia 30 Ml Oral.Susp) 30 ml PO DAILY PRN PRN Reason: Constipation Melatonin (Melatonin 3 Mg Tablet) 6 mg PO BEDTIME PRN PRN Reason: Insomnia Naloxone HCl (Naloxone Hcl 0.4 Mg/Ml Vial) 0.04 mg IVPUSH Q5M PRN PRN Reason: Respiratory Rate < 10 Last Admin: 03/19/24 06:29 Dose: 0.04 mg Documented By: YOSHI Ondansetron HCl (Ondansetron Hcl 4 Mg/2 Ml Vial) 4 mg IVPUSH Q8H PRN PRN Reason: Nausea and Vomiting Pantoprazole Sodium (Pantoprazole Sodium 40 Mg/10 Ml Vial) 40 mg IVPUSH DAILY@0630 [facility] Last Admin: 03/20/24 06:57 Dose: 40 mg Documented By: AUGIE Sodium Chloride (0.9 % Sodium Chloride Flush 3 Ml Syringe) 3 ml IVFLUSH QSHIFT [facility] Last Admin: 03/20/24 08:28 Dose: 3 ml Documented By: THONY Labs 03/20/24 06:31 03/20/24 09:26 Labs: Laboratory Results - last 24 hr 03/19/24 03/19/24 03/19/24 14:37 15:30 17:29 MCV MCH MCHC RDW Plt Count MPV Immature Gran % (Auto) Neut % (Auto) Lymph % (Auto) [place] % (Auto) Eos % (Auto) Baso % (Auto) Lymph # (Auto) [place] # (Auto) Eos # (Auto) Baso # (Auto) Abs Immat Gran (auto) Absolute Neuts (auto) Absolute Nucleated RBC Nucleated RBC % (auto) Anion Gap 16 Estim Creat Clear Calc 11.1 Estimated GFR 11 POC Glucose 227 H 251 H Random Glucose 228 H Calcium 9.0 D Total Bilirubin AST ALT Alkaline Phosphatase Total Creatine Kinase 1567 H Total Protein Albumin 03/19/24 03/19/24 03/20/24 19:42 21:05 06:31 MCV 81.1 MCH 26.4 L MCHC 32.6 RDW 15.6 Plt Count 336 MPV 10.0 Immature Gran % (Auto) 0.6 H Neut % (Auto) 74.1 H Lymph % (Auto) 18.5 L [place] % (Auto) 5.9 Eos % (Auto) 0.6 Baso % (Auto) 0.3 Lymph # (Auto) 2.3 [place] # (Auto) 0.8 Eos # (Auto) 0.1 Baso # (Auto) 0.0 Abs Immat Gran (auto) 0.08 H Absolute Neuts (auto) 9.4 H Absolute Nucleated RBC 0.000 Nucleated RBC % (auto) 0.0 Anion Gap 17 15 Estim Creat Clear Calc 13.6 20.3 Estimated GFR 14 22 POC Glucose 235 H Random Glucose 274 H 175 H Calcium 8.8 9.2 Total Bilirubin 0.3 AST 94 H ALT 64 H Alkaline Phosphatase 61 Total Creatine Kinase Total Protein 7.2 Albumin 4.4 03/20/24 03/20/24 03/20/24 07:22 09:26 11:27 MCV MCH MCHC RDW Plt Count MPV Immature Gran % (Auto) Neut % (Auto) Lymph % (Auto) [place] % (Auto) Eos % (Auto) Baso % (Auto) Lymph # (Auto) [place] # (Auto) Eos # (Auto) Baso # (Auto) Abs Immat Gran (auto) Absolute Neuts (auto) Absolute Nucleated RBC Nucleated RBC % (auto) Anion Gap 18 Estim Creat Clear Calc 22.6 Estimated GFR 25 POC Glucose 166 H 197 H Random Glucose 189 H Calcium 9.0 Total Bilirubin AST ALT Alkaline Phosphatase Total Creatine Kinase Total Protein Albumin Microbiology Microbiology Results: Microbiology 03/19/24 00:57 Blood Culture - Preliminary Blood - Venous No growth after 24 hours. 03/19/24 00:37 Blood Culture - Preliminary Blood - Venous No growth after 24 hours. Assessment and Plan (1) KENDALL (acute kidney injury): Status: Acute Assessment and Plan: 63-year-old female with a past medical history significant for substance use disorder, bipolar, homelessness and type 2 diabetes, who presented to the ED due to a cough and URI symptoms x1 week. History unable to be obtained due to somnolence when examined. toxic/metabolic encephalopathy sec to kendall/electrolytic abnormalities /psych meds and methdone in setting of kendall .not due to sepsis. seems improved to baseline. Acute hypoxic respiratory failure and sepsis secondary to pneumonia leucocystosis improving, no fevers ,lactic acid normal, blood cultures neg@24hrs sepsis resolved. chest x-ray with left lower lobe pneumonia flu/COVID/RSV negative, urine tox positive for benzodiazepine and methadone continue ceftriaxone and doxycycline for pneumonia, tapered off oxygen. kendall ,rhabomylysis ,Nagma : likely due to dehydrattion/rhabdo received bicarb drip -Nagma resolved. kendall improving and producing urine. Substance use disorder- urine tox positive for benzodiazepines and methadone. patient is somnolent secondary to acute kidney failure and methadone. addiction Type 2 diabetes with hyperglycemia will check Hba1c levels continue fs with sliding scale. diabetic diet. Mood disorder- no meds per patient VTE prophylaxis: Heparin acute hypoxic respiratory failure and sepsis secondary to pneumonia complicated by acute renal failure secondary to rhabdomyolysis ,kendall-need hydration, IV antibiotics, IV fluids and monitoring renal function and electrolytes . Quality Stroke Does the patient have a stroke diagnosis?: No VTE Prior VTE?: No VTE Risk Level:: Medical - moderate - high VTE Device Contraindication: Treatment Not Indicated VTE Drug Contraindication: N/A - Med Ordered
[2024-03-20 12:37] LABS: MRSA Nasal PCR NEGATIVE (Negative); SA Nasal PCR NEGATIVE (Negative)
--- NOTE | 2024-03-20 14:06 | MHC.RECOVRN ---
Spoke with Rosita at [facility] to verify pts methadone dose. Pt received 130 mg on 03/11/24 and 13 take home bottles. RN aware.
--- NOTE | 2024-03-20 14:53 | HE.PHANOTE ---
M[place]ADONE [place] [facility] . Per Rosita, pt last received 130mg on 03/20 @ 1400. Pt received at facility 03/11 with 13 take home bottles provided on 03/11.
[2024-03-20] MEDS: clonazePAM 0.5 MG TABLET 0.25 MG PO (15:09)
[2024-03-20] MEDS: Multivitamin TABLET 1 TAB PO (15:09)
[2024-03-20] MEDS: Gabapentin 300 MG CAPSULE PO ×2 (15:09→22:19)
[2024-03-20] MEDS: methADONE HCl 20 MG/2 ML ORAL.CONC 130 MG PO (15:24)
[2024-03-20 16:35] LABS: Glucose, Whole Blood 145 mg/dL (60-115)
[2024-03-20 20:50] LABS: Glucose, Whole Blood 115 mg/dL (60-115)
[2024-03-20] MEDS: Doxepin HCl 25 MG CAPSULE 50 MG PO (22:18)
[2024-03-20] MEDS: Docusate Sodium 100 MG CAPSULE PO (22:18)
[2024-03-20] MEDS: Insulin Glargine,Hum.rec.anlog 100 UNIT/ML 10 ML VIAL 15 UNIT SUBCUT (22:19)
[2024-03-20] MEDS: DULoxetine HCl 20 MG CAPSULE.DR PO (22:19)
[2024-03-21] VITALS (9 sets, daily range): BP systolic 142–170; BP diastolic 64–89; PULSE 77–94; RESP 16–20; TEMP 36.8–37.6; O2SAT 92–97
[2024-03-21] MEDS: Lactated Ringers 1,000 ML 80 ML IVCONT ×3 (00:23→21:39)
[2024-03-21] MEDS: Piperacillin Sodium/Tazobactam 2.25 GM in 0.9 % Sodium Chloride 50 ML IV ×4 (03:43→21:37)
[2024-03-21] MEDS: guaiFENesin DM 200/20/10 ML 10 ML SYRUP PO (03:49)
[2024-03-21] MEDS: Pantoprazole Sodium 40 MG/10 ML VIAL IVPUSH (05:51)
[2024-03-21] MEDS: Doxycycline Hyclate 100 MG in 0.9 % Sodium Chloride 250 ML 166.67 MG IV ×2 (05:51→16:42)
[2024-03-21] MEDS: Heparin Sodium,Porcine 5,000 UNIT/ML VIAL 5000 UNIT SUBCUT ×3 (05:51→21:38)
[2024-03-21 07:21] LABS: MANUAL DIFF FLAG NO
[2024-03-21 07:23] LABS: Basophils Absolute Auto 0.1 X10*3/uL (0.0-0.2); Basophils Percent Auto 0.4 % (0-2); Eosinophils Absolute Auto 0.1 X10*3/uL (0.0-0.4); Eosinophils Percent Auto 1.1 % (0-4); Hematocrit 28.7 % (37.0-47.0); Hemoglobin 9.4 g/dl (12.0-16.0); Imm Gran Abs Auto 0.09 X10*3/uL (0.00-0.03); Imm Gran Pct Auto 0.7 % (0.0-0.4); Lymphocytes Percent Auto 22.4 % (20-40); Mean Corpuscular HGB Conc 32.8 g/dl (31.0-35.0); Mean Corpuscular Volume 79.3 fL (80.0-98.0); Mean Platelet Volume 9.8 fL (9.4-12.3); Monocytes Percent Auto 7.4 % (2-11); Platelet Count 426 X10*3/uL (160-400); Red Blood Count 3.62 X10*6/uL (4.20-5.50); Red Cell Distribution Width 15.4 % (11.0-16.0); White Blood Count 13.2 X10*3/uL (4.8-10.8)
[2024-03-21 07:38] LABS: Alanine Aminotransferase 52 U/L (0-31); Albumin Level 4.1 g/dL (3.5-5.0); Alkaline Phosphatase 70 U/L (39-117); Anion Gap 13 (12-20); Aspartate Amino Transferase 77 U/L (5-31); Bilirubin Total 0.4 mg/dL (0.0-1.0); Blood Urea Nitrogen 22 mg/dL (9-16); Calcium 8.8 mg/dL (8.4-10.2); Carbon Dioxide 28 mmol/L (22-29); Chloride 106 mmol/L (96-108); Creatinine Clr Calc Pharmacy 53.5; Estimated Glomerular Filt Rate > 60; Glucose Random 111 mg/dL (60-115); Potassium 3.8 mmol/L (3.3-5.1); Sodium 143 mmol/L (135-145); Total Protein 7.4 g/dL (6.5-8.0)
[2024-03-21 07:45] LABS: Estimated Average Glucose 154 mg/dL; Hemoglobin A1C 128.7927 umol/L; Total Hemoglobin (HGBA1C) 2418.8457 umol/L
[2024-03-21 07:57] LABS: Glucose, Whole Blood 106 mg/dL (60-115)
--- NOTE | 2024-03-21 08:40 | P.PNNP_ITS ---
Subjective Subjective Date of Service: 03/21/24 Interval history: 63 y/o female with a medical history of substance use disorder, diabetes, bipolar disorder, homelessness presented 03/19 with URI symptoms x1 week, was found on ground by EMS, somnolent and reported sleepwalking and increased falls/syncope over last week Utox positive for benzodiazepines, methadone, pt somnolence responded to narcan chest xray suggestive of LLL pneumonia, pt on 5L [place] Nephrology consulted for KENDALL last creatinine on file prior to hospitalization 0.8 in Feb 2023 on arrival creatinine 6.44, GFR 7, 4 hours later 03/19 creatinine 5.92 with 2L IVF bolus; BUN 59 creatinine trending down, 03/20 a.m. is 2.03 03/21 is 0.86 CPK 2322 on arrival, trending down she is making urine, carrasco in place had metabolic acidosis, now electrolytes and serum bicarb have normalized. Pt awake and alert this a.m. she denies shortness of breath, chest pain, pain with urination, abdominal pain, back/flank pain she states she is feeling well, just tired. Denies other concerns/complaints outside of chronic pain she struggles with. Physical Exam 2 Vital Signs: Vital Signs: Last Vital Signs Temp 99.2 F 03/21/24 11:17 Pulse 94 03/21/24 11:17 Resp 18 03/21/24 11:17 BP 143/64 H 03/21/24 07:21 Pulse Ox 94 03/21/24 11:17 O2 Del Method Room Air 03/21/24 11:17 O2 Flow Rate 2 03/20/24 07:19 BMI result Body Mass Index 25.8 Resp: Effort & Inspection: normal respiratory effort Auscultation: rales and rhonchi Cardio: Rate: regular rate Rhythm: regular rhythm Heart sounds: S1 normal heart sound present and S2 normal heart sound present GI: Palpation (GI): Soft to palpation and nontender : General: Yes no CVA tenderness Back/Spine/Pelvis: Back: no CVA tenderness Skin: Rashes: no rashes Extrem: General: No edema Objective Data Labs 03/21/24 06:40 03/21/24 06:40 Labs: Laboratory Results - last 24 hr 03/20/24 03/20/24 03/20/24 11:09 16:27 20:47 WBC RBC Hgb Hct MCV MCH MCHC RDW Plt Count MPV Immature Gran % (Auto) Neut % (Auto) Lymph % (Auto) [place] % (Auto) Eos % (Auto) Baso % (Auto) Lymph # (Auto) [place] # (Auto) Eos # (Auto) Baso # (Auto) Abs Immat Gran (auto) Absolute Neuts (auto) Absolute Nucleated RBC Nucleated RBC % (auto) Sodium Potassium Chloride Carbon Dioxide Anion Gap BUN Creatinine Estim Creat Clear Calc Estimated GFR POC Glucose 145 H 115 Random Glucose Estimat Average Glucose Hemoglobin A1c % Calcium Total Bilirubin AST ALT Alkaline Phosphatase Total Protein Albumin Nasal Screen MRSA (PCR) NEGATIVE Nasal S. aureus Screen NEGATIVE Nasal MRSA/S.aureus Interp SEE NOTE 03/21/24 03/21/24 03/21/24 06:40 06:40 06:40 WBC 13.2 H RBC 3.62 L Hgb 9.4 L Hct 28.7 L MCV 79.3 L MCH 26.0 L MCHC 32.8 RDW 15.4 Plt Count 426 H D MPV 9.8 Immature Gran % (Auto) 0.7 H Neut % (Auto) 68.0 Lymph % (Auto) 22.4 [place] % (Auto) 7.4 Eos % (Auto) 1.1 Baso % (Auto) 0.4 Lymph # (Auto) 3.0 [place] # (Auto) 1.0 Eos # (Auto) 0.1 Baso # (Auto) 0.1 Abs Immat Gran (auto) 0.09 H Absolute Neuts (auto) 9.0 H Absolute Nucleated RBC 0.000 Nucleated RBC % (auto) 0.0 Sodium 143 Cancelled Potassium 3.8 Cancelled Chloride 106 Carbon Dioxide Anion Gap BUN Creatinine Estim Creat Clear Calc Estimated GFR POC Glucose Random Glucose Estimat Average Glucose Hemoglobin A1c % Calcium Total Bilirubin AST ALT Alkaline Phosphatase Total Protein Albumin Nasal Screen MRSA (PCR) Nasal S. aureus Screen Nasal MRSA/S.aureus Interp 03/21/24 03/21/24 03/21/24 06:40 06:40 06:40 WBC RBC Hgb Hct MCV MCH MCHC RDW Plt Count MPV Immature Gran % (Auto) Neut % (Auto) Lymph % (Auto) [place] % (Auto) Eos % (Auto) Baso % (Auto) Lymph # (Auto) [place] # (Auto) Eos # (Auto) Baso # (Auto) Abs Immat Gran (auto) Absolute Neuts (auto) Absolute Nucleated RBC Nucleated RBC % (auto) Sodium Potassium Chloride Cancelled Carbon Dioxide 28 Cancelled Anion Gap 13 Cancelled BUN 22 H Creatinine Estim Creat Clear Calc Estimated GFR POC Glucose Random Glucose Estimat Average Glucose Hemoglobin A1c % Calcium Total Bilirubin AST ALT Alkaline Phosphatase Total Protein Albumin Nasal Screen MRSA (PCR) Nasal S. aureus Screen Nasal MRSA/S.aureus Interp 03/21/24 03/21/24 03/21/24 06:40 06:40 06:40 WBC RBC Hgb Hct MCV MCH MCHC RDW Plt Count MPV Immature Gran % (Auto) Neut % (Auto) Lymph % (Auto) [place] % (Auto) Eos % (Auto) Baso % (Auto) Lymph # (Auto) [place] # (Auto) Eos # (Auto) Baso # (Auto) Abs Immat Gran (auto) Absolute Neuts (auto) Absolute Nucleated RBC Nucleated RBC % (auto) Sodium Potassium Chloride Carbon Dioxide Anion Gap BUN Cancelled Creatinine 0.86 Cancelled Estim Creat Clear Calc 53.5 Cancelled Estimated GFR > 60 POC Glucose Random Glucose Estimat Average Glucose Hemoglobin A1c % Calcium Total Bilirubin AST ALT Alkaline Phosphatase Total Protein Albumin Nasal Screen MRSA (PCR) Nasal S. aureus Screen Nasal MRSA/S.aureus Interp 03/21/24 03/21/24 03/21/24 06:40 06:40 06:40 WBC RBC Hgb Hct MCV MCH MCHC RDW Plt Count MPV Immature Gran % (Auto) Neut % (Auto) Lymph % (Auto) [place] % (Auto) Eos % (Auto) Baso % (Auto) Lymph # (Auto) [place] # (Auto) Eos # (Auto) Baso # (Auto) Abs Immat Gran (auto) Absolute Neuts (auto) Absolute Nucleated RBC Nucleated RBC % (auto) Sodium Potassium Chloride Carbon Dioxide Anion Gap BUN Creatinine Estim Creat Clear Calc Estimated GFR Cancelled POC Glucose Random Glucose 111 Cancelled Estimat Average Glucose 154 Hemoglobin A1c % 7.0 H Calcium 8.8 Cancelled Total Bilirubin 0.4 AST 77 H ALT 52 H Alkaline Phosphatase 70 Total Protein 7.4 Albumin 4.1 Nasal Screen MRSA (PCR) Nasal S. aureus Screen Nasal MRSA/S.aureus Interp 03/21/24 03/21/24 07:22 11:23 WBC RBC Hgb Hct MCV MCH MCHC RDW Plt Count MPV Immature Gran % (Auto) Neut % (Auto) Lymph % (Auto) [place] % (Auto) Eos % (Auto) Baso % (Auto) Lymph # (Auto) [place] # (Auto) Eos # (Auto) Baso # (Auto) Abs Immat Gran (auto) Absolute Neuts (auto) Absolute Nucleated RBC Nucleated RBC % (auto) Sodium Potassium Chloride Carbon Dioxide Anion Gap BUN Creatinine Estim Creat Clear Calc Estimated GFR POC Glucose 106 150 H Random Glucose Estimat Average Glucose Hemoglobin A1c % Calcium Total Bilirubin AST ALT Alkaline Phosphatase Total Protein Albumin Nasal Screen MRSA (PCR) Nasal S. aureus Screen Nasal MRSA/S.aureus Interp Microbiology Microbiology Results: Microbiology 03/19/24 00:57 Blood - Venous Blood Culture - Preliminary No growth after 48 hours. 03/19/24 00:37 Blood - Venous Blood Culture - Preliminary No growth after 48 hours. Procedures Date of Service Date of Service: 03/21/24 Assessment & Plan Assessment and plan (1) KENDALL (acute kidney injury): Status: Acute Plan KENDALL due to ATN 2/2 septic shock and pigment nephropathy from rhabdomyolosis Resolved, renal function back to baseline metabolic acidosis resolved serum complements and urine culture pending recommend regular blood pressure checks, electrolyte and renal function testing Continue supportive care pt has HTN, will arrange outpatient nephrology consult for management. Discussed with Dr Cerda Time Spent With Patient Time: Total time managing care of this patient today ____ minutes. Progress Note: Quality Stroke Does the patient have a stroke diagnosis?: No
[2024-03-21] MEDS: methADONE HCl 20 MG/2 ML ORAL.CONC 130 MG PO (10:20)
[2024-03-21] MEDS: Docusate Sodium 100 MG CAPSULE PO ×2 (10:21→21:38)
[2024-03-21] MEDS: DULoxetine HCl 20 MG CAPSULE.DR PO ×2 (10:21→21:38)
[2024-03-21] MEDS: Gabapentin 300 MG CAPSULE PO ×3 (10:21→21:38)
[2024-03-21] MEDS: Multivitamin TABLET 1 TAB PO (10:21)
[2024-03-21] MEDS: 0.9 % Sodium Chloride Flush 3 ML SYRINGE IVFLUSH ×3 (10:21→21:39)
--- NOTE | 2024-03-21 10:29 | MHC.CM.PN ---
Per ROUNDS, Patient is not yet medically cleared for dc (pending Psych Eval); returning to the community is the goal and CM will follow.
[2024-03-21 11:27] LABS: Glucose, Whole Blood 150 mg/dL (60-115)
--- NOTE | 2024-03-21 14:43 | P.PNIM_ITS ---
Subjective Subjective Date of Service: 03/21/24 Interval History: kendall electrolytic abnormalities rhabdo toxic metabolic encephalopathies Review of Systems mental status improving denies any chest pain or sob Physical Exam 2 Vital Signs: Vital Signs: Last Vital Signs Temp 99.2 F 03/21/24 11:17 Pulse 94 03/21/24 11:17 Resp 18 03/21/24 11:17 BP 143/64 H 03/21/24 07:21 Pulse Ox 94 03/21/24 11:17 O2 Del Method Room Air 03/21/24 11:17 O2 Flow Rate 2 03/20/24 07:19 BMI result Body Mass Index 25.8 Appearance: Alert.? Oriented , respond to most questions. cvs: rrr, [id number] . res: clear to auscultation ,no rhonchii or wheezing abd: no rebound or guarding ,nt, bs present. ext pulses present , no cyanosis . neuro: nonfocal. Objective Data Active Medications Acetaminophen (Acetaminophen 325 Mg Tablet) 975 mg PO Q6H PRN PRN Reason: Pain, Mild (Pain Scale 1-3), fever or headache Last Admin: 03/20/24 14:32 Dose: 975 mg Documented By: THONY Albuterol/Ipratropium (Albuterol/Iprat 2.5/0.5mg 3 Ml Ampul.Neb) 3 ml INHALE Q4H PRN PRN Reason: Shortness of Breath/Wheezing Calcium Carbonate (Calcium Carbonate 750 Mg Tab.Chew) 750 mg PO Q4H PRN PRN Reason: Heartburn Clonazepam (Clonazepam 0.5 Mg Tablet) 0.25 mg PO BID PRN PRN Reason: anxiety attack Last Admin: 03/20/24 15:09 Dose: 0.25 mg Documented By: THONY Docusate Sodium (Docusate Sodium 100 Mg Capsule) 100 mg PO BID [facility] Last Admin: 03/21/24 10:21 Dose: 100 mg Documented By: RIOSCEL Doxepin HCl (Doxepin Hcl 25 Mg Capsule) 50 mg PO BEDTIME [facility] Last Admin: 03/20/24 22:18 Dose: 50 mg Documented By: LUBA Duloxetine HCl (Duloxetine Hcl 20 Mg Capsule.) 20 mg PO BID [facility] Last Admin: 03/21/24 10:21 Dose: 20 mg Documented By: KIRA Gabapentin (Gabapentin 300 Mg Capsule) 300 mg PO TID [facility] Last Admin: 03/21/24 14:36 Dose: 300 mg Documented By: KIRA Glucose (Glucose Gel 15 Gm Gel..Gram.) 15 gm PO Q15M PRN; Protocol PRN Reason: per Hypoglycemia Standing Ord. Guaifenesin/Dextromethorphan (Guaifenesin Dm 200/20/10 Ml 10 Ml Syrup) 10 ml PO Q6H PRN PRN Reason: Cough Last Admin: 03/21/24 03:49 Dose: 10 ml Documented By: LUBA Heparin Sodium (Porcine) (Heparin Sodium,Porcine 5,000 Unit/Ml Vial) 5,000 unit SUBCUT Q8H [facility] Last Admin: 03/21/24 14:36 Dose: 5,000 unit Documented By: KIRA Doxycycline Hyclate 100 mg/ (Sodium Chloride) 250 mls @ 166.67 mls/hr IV 0600,1800 [facility] Last Infusion: 03/21/24 09:35 Dose: Infused Documented By: KIRA Dextrose (D10) 250 mls @ 750 mls/hr IV Q15M PRN; Protocol PRN Reason: per Hypoglycemia Standing Ord. Piperacillin Sod/Tazobactam (Sod 2.25 gm/ Sodium Chloride) 50 mls @ 100 mls/hr IV Q6H [facility] Last Admin: 03/21/24 14:36 Dose: 100 mls/hr Documented By: KIRA Lactated Ringer's (Lr) 1,000 mls @ 80 mls/hr IVCONT .[id number] [facility] Last Admin: 03/21/24 10:21 Dose: 80 mls/hr Documented By: KIRA Insulin Glargine (Insulin Glargine,Hum.Rec.Anlog 100 Unit/Ml 10 Ml Vial) 15 unit SUBCUT BEDTIME [facility] Last Admin: 03/20/24 22:19 Dose: 15 unit Documented By: LUBA Insulin Human Lispro (Insulin Lispro 100 Unit/Ml 3 Ml Vial) 0 unit SUBCUT QIDACHS [facility]; Protocol Last Admin: 03/21/24 11:23 Dose: Not Given Documented By: KIRA Non-Admin Reason: No Insulin Coverage Magnesium Hydroxide (Milk Of Magnesia 30 Ml Oral.Susp) 30 ml PO DAILY PRN PRN Reason: Constipation Melatonin (Melatonin 3 Mg Tablet) 6 mg PO BEDTIME PRN PRN Reason: Insomnia Methadone HCl (Methadone Hcl 20 Mg/2 Ml Oral.Conc) 130 mg PO DAILY [facility] Last Admin: 03/21/24 10:20 Dose: 130 mg Documented By: KIRA Co-signed By: CONNOR Multivitamins/Vitamin C (Multivitamin Tablet) 1 tab PO DAILY [facility] Last Admin: 03/21/24 10:21 Dose: 1 tab Documented By: KIRA Naloxone HCl (Naloxone Hcl 0.4 Mg/Ml Vial) 0.04 mg IVPUSH Q5M PRN PRN Reason: Respiratory Rate < 10 Last Admin: 03/19/24 06:29 Dose: 0.04 mg Documented By: YOSHI Ondansetron HCl (Ondansetron Hcl 4 Mg/2 Ml Vial) 4 mg IVPUSH Q8H PRN PRN Reason: Nausea and Vomiting Pantoprazole Sodium (Pantoprazole Sodium 40 Mg/10 Ml Vial) 40 mg IVPUSH DAILY@0630 [facility] Last Admin: 03/21/24 05:51 Dose: 40 mg Documented By: LUBA Sodium Chloride (0.9 % Sodium Chloride Flush 3 Ml Syringe) 3 ml IVFLUSH QSHIFT [facility] Last Admin: 03/21/24 14:40 Dose: 3 ml Documented By: KIRA Labs 03/21/24 06:40 03/21/24 06:40 Labs: Laboratory Results - last 24 hr 03/20/24 03/20/24 03/21/24 16:27 20:47 06:40 MCV 79.3 L MCH 26.0 L MCHC 32.8 RDW 15.4 Plt Count 426 H D MPV 9.8 Immature Gran % (Auto) 0.7 H Neut % (Auto) 68.0 Lymph % (Auto) 22.4 [place] % (Auto) 7.4 Eos % (Auto) 1.1 Baso % (Auto) 0.4 Lymph # (Auto) 3.0 [place] # (Auto) 1.0 Eos # (Auto) 0.1 Baso # (Auto) 0.1 Abs Immat Gran (auto) 0.09 H Absolute Neuts (auto) 9.0 H Absolute Nucleated RBC 0.000 Nucleated RBC % (auto) 0.0 Anion Gap 13 Estim Creat Clear Calc Estimated GFR POC Glucose 145 H 115 Random Glucose Estimat Average Glucose Hemoglobin A1c % Calcium Total Bilirubin AST ALT Alkaline Phosphatase Total Protein Albumin 03/21/24 03/21/24 03/21/24 06:40 06:40 06:40 MCV MCH MCHC RDW Plt Count MPV Immature Gran % (Auto) Neut % (Auto) Lymph % (Auto) [place] % (Auto) Eos % (Auto) Baso % (Auto) Lymph # (Auto) [place] # (Auto) Eos # (Auto) Baso # (Auto) Abs Immat Gran (auto) Absolute Neuts (auto) Absolute Nucleated RBC Nucleated RBC % (auto) Anion Gap Cancelled Estim Creat Clear Calc 53.5 Cancelled Estimated GFR > 60 Cancelled POC Glucose Random Glucose 111 Estimat Average Glucose Hemoglobin A1c % Calcium Total Bilirubin AST ALT Alkaline Phosphatase Total Protein Albumin 03/21/24 03/21/24 03/21/24 06:40 06:40 07:22 MCV MCH MCHC RDW Plt Count MPV Immature Gran % (Auto) Neut % (Auto) Lymph % (Auto) [place] % (Auto) Eos % (Auto) Baso % (Auto) Lymph # (Auto) [place] # (Auto) Eos # (Auto) Baso # (Auto) Abs Immat Gran (auto) Absolute Neuts (auto) Absolute Nucleated RBC Nucleated RBC % (auto) Anion Gap Estim Creat Clear Calc Estimated GFR POC Glucose 106 Random Glucose Cancelled Estimat Average Glucose 154 Hemoglobin A1c % 7.0 H Calcium 8.8 Cancelled Total Bilirubin 0.4 AST 77 H ALT 52 H Alkaline Phosphatase 70 Total Protein 7.4 Albumin 4.1 03/21/24 11:23 MCV MCH MCHC RDW Plt Count MPV Immature Gran % (Auto) Neut % (Auto) Lymph % (Auto) [place] % (Auto) Eos % (Auto) Baso % (Auto) Lymph # (Auto) [place] # (Auto) Eos # (Auto) Baso # (Auto) Abs Immat Gran (auto) Absolute Neuts (auto) Absolute Nucleated RBC Nucleated RBC % (auto) Anion Gap Estim Creat Clear Calc Estimated GFR POC Glucose 150 H Random Glucose Estimat Average Glucose Hemoglobin A1c % Calcium Total Bilirubin AST ALT Alkaline Phosphatase Total Protein Albumin Microbiology Microbiology Results: Microbiology 03/20/24 02:18 Urine Culture - Final Urine clean catch - Clean Catch Midstream No growth. 03/19/24 00:57 Blood Culture - Preliminary Blood - Venous No growth after 48 hours. 03/19/24 00:37 Blood Culture - Preliminary Blood - Venous No growth after 48 hours. Assessment and Plan (1) KENDALL (acute kidney injury): Status: Acute (2) Acute hypoxemic respiratory failure: Status: Acute (3) Rhabdomyolysis: Status: Acute Assessment and Plan: 63-year-old female with a past medical history significant for substance use disorder, bipolar, homelessness and type 2 diabetes, who presented to the ED due to a cough and URI symptoms x1 week. toxic/metabolic encephalopathy sec to kendall/electrolytic abnormalities /psych meds and methdone in setting of kendall .not due to sepsis. seems improving -likely near baseline repeat drug screen. Acute hypoxic respiratory failure and sepsis secondary to pneumonia leucocystosis improving, no fevers ,lactic acid normal, blood cultures neg@24hrs sepsis resolved. chest x-ray with left lower lobe pneumonia flu/COVID/RSV negative, urine tox positive for benzodiazepine and methadone continue ceftriaxone and doxycycline for pneumonia, tapered off oxygen. kendall ,rhabomylysis ,Nagma : likely due to dehydrattion/rhabdo received bicarb drip -Nagma resolved. kendall improving and producing urine. Substance use disorder- urine tox positive for benzodiazepines and methadone. patient is somnolent secondary to acute kidney failure and methadone. addiction eval -noted -continue methadone. Type 2 diabetes with hyperglycemia will check Hba1c levels continue fs with sliding scale. diabetic diet. Mood disorder- continue home meds. VTE prophylaxis: Heparin acute hypoxic respiratory failure and sepsis secondary to pneumonia complicated by acute renal failure secondary to rhabdomyolysis ,kendall-need hydration, IV antibiotics, IV fluids and monitoring renal function and electrolytes . Quality Stroke Does the patient have a stroke diagnosis?: No VTE Prior VTE?: No VTE Risk Level:: Medical - moderate - high VTE Device Contraindication: Treatment Not Indicated VTE Drug Contraindication: N/A - Med Ordered
--- NOTE | 2024-03-21 14:43 | P.CDIM_ITS ---
PROVIDER RESPONSE TEXT: To clarify, the appropriate diagnosis supported by the clinical indicators: Acute QUERY TEXT: PHYSICIAN'S DOCUMENTATION REQUEST Date of Query: 03/21/2024 08:54 AM EST Patient Name: Lamar De Jesus Admit Date: 03/19/2024 Dear Cecille Barba MD, A review of the medical record indicates additional documentation may be needed. Please review below and update the documentation accordingly. Clinical Indicators: Nephrology progress note dated 03/20 - Metabolic acidosis, resolved. Agree to discontinue bicarbonate and continue IVF as ordered. Clarify which of the following accurately represents the acuity of the Metabolic acidosis: Acute Chronic Other (explain) Clinically unable to determine (explain) Thank you, Talya Rojas, CCS, CDIS Use of terms such as suspected, likely, concern for, or probable (associated with a specific diagnosi s that is being evaluated, monitored, or treated as if it exists) are acceptable and can be coded in the inpatient se tting, when documented at the time of discharge. Please use your independent medical judgment in providing your response. THIS QUERY IS PART OF THE PERMANENT MEDICAL RECORD
--- NOTE | 2024-03-21 15:04 | HO.HSGERICON ---
History of Present Illness Data of Consult Service Date: 03/21/24 Requesting physician: Cecille Barba Primary Care Provider: Unknown Physician HPI Reason for consult: Assessment of mental status The patient is a 63-year-old female, homeless, with support from her son, unemployed on SSI with a prior history of opiate use disorder, benzodiazepine use disorder, bipolar disorder and prior admissions into Psychiatry for suicidal ideation. The patient was initially admitted into the hospital after she was found in the street unresponsive. While she was in the emergency room she was Narcan 3 times a later on she was sent to the ICU since she was severely that he rotated with altered mental status. After being aggressively hydrated, and rule out sepsis and pneumonia the patient responded with improve meant of her mental status. The present consult was asked to rule out if she overdosed, and if she had any safety concerns from Psychiatry. While she was in the emergency room her urine toxicology came positive to methadone that it was been prescribed in the methadone clinic and benzodiazepines that have been prescribed. No evidence of fentanyl or any other drugs. Also, she had a visitor and it was suspicious that probably they gave her contraband so a new UA was ordered. On the interview, the patient was pleasant, cooperative she stated that she had been chronically homeless and she is overwhelmed and she adamantly denies acute substance abuse, suicidal ideation or any safety concerns. She looks slightly confused at times and her short-term memory was limited but she was able to contract for safety. She adamantly denies suicidal, homicidal or hallucinations. Also, addiction medicine confirmed her methadone dose. Review of Systems Review of Systems: Yes all other systems are reviewed and are negative [facility] Medical History Opioid use disorder, severe, on maintenance therapy Bipolar disorder with psychotic features Overdose Polysubstance abuse Functional capacity: independent ambulation Social History Household Members: None Housing: Homeless Do you presently have visiting nurse or other home services: No Patient Tobacco Use Status: Current everyday Tobacco user Tobacco use type: Cigarette Cigarette Packs Per Day: 0.5 Cigarettes Per Day: 10.0 e-Cigarette/Vaping Use: Never Used Second Hand Smoke Exposure: No Substance Use Type: Heroin service: No Sexual orientation: Straight/Heterosexual Meds Allergies Allergy/AdvReac Type Severity Reaction Status Date / Time No Known Allergies Allergy Verified 03/19/24 00:29 Active Medications: Current Medications Acetaminophen (Acetaminophen 325 Mg Tablet) 975 mg PO Q6H PRN PRN Reason: Pain, Mild (Pain Scale 1-3), fever or headache Last Admin: 03/20/24 14:32 Dose: 975 mg Albuterol/Ipratropium (Albuterol/Iprat 2.5/0.5mg 3 Ml Ampul.Neb) 3 ml INHALE Q4H PRN PRN Reason: Shortness of Breath/Wheezing Calcium Carbonate (Calcium Carbonate 750 Mg Tab.Chew) 750 mg PO Q4H PRN PRN Reason: Heartburn Clonazepam (Clonazepam 0.5 Mg Tablet) 0.25 mg PO BID PRN PRN Reason: anxiety attack Last Admin: 03/20/24 15:09 Dose: 0.25 mg Docusate Sodium (Docusate Sodium 100 Mg Capsule) 100 mg PO BID [facility] Last Admin: 03/21/24 10:21 Dose: 100 mg Doxepin HCl (Doxepin Hcl 25 Mg Capsule) 50 mg PO BEDTIME [facility] Last Admin: 03/20/24 22:18 Dose: 50 mg Duloxetine HCl (Duloxetine Hcl 20 Mg Capsule.Dr) 20 mg PO BID [facility] Last Admin: 03/21/24 10:21 Dose: 20 mg Gabapentin (Gabapentin 300 Mg Capsule) 300 mg PO TID [facility] Last Admin: 03/21/24 14:36 Dose: 300 mg Glucose (Glucose Gel 15 Gm Gel..Gram.) 15 gm PO Q15M PRN; Protocol PRN Reason: per Hypoglycemia Standing Ord. Guaifenesin/Dextromethorphan (Guaifenesin Dm 200/20/10 Ml 10 Ml Syrup) 10 ml PO Q6H PRN PRN Reason: Cough Last Admin: 03/21/24 03:49 Dose: 10 ml Heparin Sodium (Porcine) (Heparin Sodium,Porcine 5,000 Unit/Ml Vial) 5,000 unit SUBCUT Q8H [facility] Last Admin: 03/21/24 14:36 Dose: 5,000 unit Doxycycline Hyclate 100 mg/ (Sodium Chloride) 250 mls @ 166.67 mls/hr IV 0600,1800 [facility] Last Infusion: 03/21/24 09:35 Dose: Infused Dextrose (D10) 250 mls @ 750 mls/hr IV Q15M PRN; Protocol PRN Reason: per Hypoglycemia Standing Ord. Piperacillin Sod/Tazobactam (Sod 2.25 gm/ Sodium Chloride) 50 mls @ 100 mls/hr IV Q6H [facility] Last Admin: 03/21/24 14:36 Dose: 100 mls/hr Lactated Ringer's (Lr) 1,000 mls @ 80 mls/hr IVCONT .[id number] [facility] Last Admin: 03/21/24 10:21 Dose: 80 mls/hr Insulin Glargine (Insulin Glargine,Hum.Rec.Anlog 100 Unit/Ml 10 Ml Vial) 15 unit SUBCUT BEDTIME [facility] Last Admin: 03/20/24 22:19 Dose: 15 unit Insulin Human Lispro (Insulin Lispro 100 Unit/Ml 3 Ml Vial) 0 unit SUBCUT QIDACHS [facility]; Protocol Last Admin: 03/21/24 11:23 Dose: Not Given Magnesium Hydroxide (Milk Of Magnesia 30 Ml Oral.Susp) 30 ml PO DAILY PRN PRN Reason: Constipation Melatonin (Melatonin 3 Mg Tablet) 6 mg PO BEDTIME PRN PRN Reason: Insomnia Methadone HCl (Methadone Hcl 20 Mg/2 Ml Oral.Conc) 130 mg PO DAILY [facility] Last Admin: 03/21/24 10:20 Dose: 130 mg Multivitamins/Vitamin C (Multivitamin Tablet) 1 tab PO DAILY [facility] Last Admin: 03/21/24 10:21 Dose: 1 tab Naloxone HCl (Naloxone Hcl 0.4 Mg/Ml Vial) 0.04 mg IVPUSH Q5M PRN PRN Reason: Respiratory Rate < 10 Last Admin: 03/19/24 06:29 Dose: 0.04 mg Ondansetron HCl (Ondansetron Hcl 4 Mg/2 Ml Vial) 4 mg IVPUSH Q8H PRN PRN Reason: Nausea and Vomiting Pantoprazole Sodium (Pantoprazole Sodium 40 Mg/10 Ml Vial) 40 mg IVPUSH DAILY@0630 [facility] Last Admin: 03/21/24 05:51 Dose: 40 mg Sodium Chloride (0.9 % Sodium Chloride Flush 3 Ml Syringe) 3 ml IVFLUSH QSHIFT [facility] Last Admin: 03/21/24 14:40 Dose: 3 ml Home Medications ?Medication ?Instructions ?Recorded ?Confirmed ?Last Taken ?Type clonazepam 0.5 mg tablet 0.25 mg PO BID PRN anxiety attack 03/19/24 03/19/24 03/18/24 History clonidine HCl 0.1 mg tablet 0.1 mg PO DAILY 03/19/24 03/19/24 03/18/24 History doxepin 50 mg capsule 50 mg PO BEDTIME 03/19/24 03/19/24 03/18/24 History duloxetine 20 mg capsule,delayed 20 mg PO BID 03/19/24 03/19/24 03/18/24 History release insulin glargine 100 unit/mL (3 15 unit subcut BEDTIME 03/19/24 03/19/24 03/18/24 History mL) subcutaneous pen (Lantus Solostar U-100 Insulin) multivitamin 1 tab PO DAILY 03/19/24 03/19/24 03/18/24 History rosuvastatin 5 mg tablet 5 mg PO DAILY 03/19/24 03/19/24 03/18/24 History methadone 10 mg/mL oral 130 mg PO DAILY 03/20/24 03/20/24 03/18/24 18:00 History concentrate (Methadone Intensol) Results Labs 03/21/24 06:40 03/21/24 06:40 Labs: Laboratory Results - last 24 hr 03/20/24 03/20/24 03/21/24 16:27 20:47 06:40 MCV 79.3 L MCH 26.0 L MCHC 32.8 RDW 15.4 Plt Count 426 H D MPV 9.8 Immature Gran % (Auto) 0.7 H Neut % (Auto) 68.0 Lymph % (Auto) 22.4 [place] % (Auto) 7.4 Eos % (Auto) 1.1 Baso % (Auto) 0.4 Lymph # (Auto) 3.0 [place] # (Auto) 1.0 Eos # (Auto) 0.1 Baso # (Auto) 0.1 Abs Immat Gran (auto) 0.09 H Absolute Neuts (auto) 9.0 H Absolute Nucleated RBC 0.000 Nucleated RBC % (auto) 0.0 Anion Gap 13 Estim Creat Clear Calc Estimated GFR POC Glucose 145 H 115 Random Glucose Estimat Average Glucose Hemoglobin A1c % Calcium Total Bilirubin AST ALT Alkaline Phosphatase Total Protein Albumin 03/21/24 03/21/24 03/21/24 06:40 06:40 06:40 MCV MCH MCHC RDW Plt Count MPV Immature Gran % (Auto) Neut % (Auto) Lymph % (Auto) [place] % (Auto) Eos % (Auto) Baso % (Auto) Lymph # (Auto) [place] # (Auto) Eos # (Auto) Baso # (Auto) Abs Immat Gran (auto) Absolute Neuts (auto) Absolute Nucleated RBC Nucleated RBC % (auto) Anion Gap Cancelled Estim Creat Clear Calc 53.5 Cancelled Estimated GFR > 60 Cancelled POC Glucose Random Glucose 111 Estimat Average Glucose Hemoglobin A1c % Calcium Total Bilirubin AST ALT Alkaline Phosphatase Total Protein Albumin 03/21/24 03/21/24 03/21/24 06:40 06:40 07:22 MCV MCH MCHC RDW Plt Count MPV Immature Gran % (Auto) Neut % (Auto) Lymph % (Auto) [place] % (Auto) Eos % (Auto) Baso % (Auto) Lymph # (Auto) [place] # (Auto) Eos # (Auto) Baso # (Auto) Abs Immat Gran (auto) Absolute Neuts (auto) Absolute Nucleated RBC Nucleated RBC % (auto) Anion Gap Estim Creat Clear Calc Estimated GFR POC Glucose 106 Random Glucose Cancelled Estimat Average Glucose 154 Hemoglobin A1c % 7.0 H Calcium 8.8 Cancelled Total Bilirubin 0.4 AST 77 H ALT 52 H Alkaline Phosphatase 70 Total Protein 7.4 Albumin 4.1 03/21/24 11:23 MCV MCH MCHC RDW Plt Count MPV Immature Gran % (Auto) Neut % (Auto) Lymph % (Auto) [place] % (Auto) Eos % (Auto) Baso % (Auto) Lymph # (Auto) [place] # (Auto) Eos # (Auto) Baso # (Auto) Abs Immat Gran (auto) Absolute Neuts (auto) Absolute Nucleated RBC Nucleated RBC % (auto) Anion Gap Estim Creat Clear Calc Estimated GFR POC Glucose 150 H Random Glucose Estimat Average Glucose Hemoglobin A1c % Calcium Total Bilirubin AST ALT Alkaline Phosphatase Total Protein Albumin Imaging Radiologist's Impressions: Impressions Hip/Pelvis X-Ray 03/19/24 17:00 IMPRESSION: RIGHT HIP: Normal. LEFT HIP: Calcific density adjacent to the acetabulum and joint space. The differential diagnosis includes calcific periarthritis, dystrophic calcification related to prior trauma and calcific tendinitis/calcific tendinosis PELVIS: Spondylosis of the partially visualized lumbar sacral spine. Electronically signed by: Berny Terrell MD 03/20/2024 12:35 PM [facility] Assessment and Plan (1) KENDALL (acute kidney injury): Status: Acute (2) Acute hypoxemic respiratory failure: Status: Acute (3) Hypoxia: Status: Acute (4) Rhabdomyolysis: Qualifiers: Rhabdomyolysis type: non-traumatic Qualified Code(s): M62.82 - Rhabdomyolysis Status: Acute (5) Opioid use disorder, severe, on maintenance therapy: Status: Acute (6) Bipolar disorder with psychotic features: Status: Acute (7) Cognitive impairment: Status: Acute Plan The patient is an elderly female with several psychosocial stressors such as chronic homelessness, opiate use disorder, benzodiazepine use disorder bipolar disorder who was admitted for altered mental status in the context of severe that he irritation and acute respiratory failure that responded to Narcan. So far she had been only positive to methadone and benzodiazepines that were prescribed. During the intake interview there was no evidence of acute psychiatric conditions. Plan 1. At this moment the patient is able to contract for safety, she does not have criteria for inpatient level of care. 2. Continue with aftercare and care as an outpatient in [facility]. 3. Reassessment as demand. Total time managing care of this patient today: 30 minutes. Physical Exam Vital Signs: Last Vital Signs Temp 99.2 F 03/21/24 11:17 Pulse 94 03/21/24 11:17 Resp 18 03/21/24 11:17 BP 143/64 H 03/21/24 07:21 Pulse Ox 94 03/21/24 11:17 O2 Del Method Room Air 03/21/24 11:17 O2 Flow Rate 2 03/20/24 07:19 BMI result Body Mass Index 25.8 Neuro Cranial nerves: Yes CN's II-XII intact bilaterally Psych Appearance: other (On hospital gowns) Mental Status: mental status grossly normal Speech and movement: Normal speech and movement present Affect: normal affect Attitude: cooperative Thought process: Impoverished thought process present Thought content: Normal thought content present Insight: Fair insight present (Psych) Judgement: Fair judgement present (Psych)
[2024-03-21 15:38] LABS: Complement C3 123 mg/dL (83-193)
[2024-03-21 16:37] LABS: Glucose, Whole Blood 104 mg/dL (60-115)
[2024-03-21] MEDS: Omeprazole 20 MG CAPSULE.DR PO (16:47)
[2024-03-21 17:12] LABS: Amphetamine Screen Urine Not Detected (Not Detect); Barbiturates, Urine Not Detected (Not Detect); Benzodiazepines Screen Urine Not Detected (Not Detect); Buprenorphine Scr Not Detected (Not Detect); Cannabinoid Screen Urine Not Detected (Not Detect); Cocaine Screen Urine Not Detected (Not Detect); Fentanyl, urine Not Detected (Not Detect); Methadone Screen, Urine Positive (Not Detect); Opiate Screen Urine Not Detected (Not Detect); Oxycodone Screen Urine Not Detected (Not Detect); Phencyclidine Screen Urine Not Detected (Not Detect)
[2024-03-21 21:10] LABS: Glucose, Whole Blood 101 mg/dL (60-115)
[2024-03-21] MEDS: Doxepin HCl 25 MG CAPSULE 50 MG PO (21:38)
[2024-03-21] MEDS: Insulin Glargine,Hum.rec.anlog 100 UNIT/ML 10 ML VIAL 15 UNIT SUBCUT (21:38)
[2024-03-22] VITALS (9 sets, daily range): BP systolic 137–175; BP diastolic 63–81; PULSE 67–109; RESP 16–20; TEMP 36.1–36.6; O2SAT 95–98
[2024-03-22] MEDS: Piperacillin Sodium/Tazobactam 2.25 GM in 0.9 % Sodium Chloride 50 ML IV ×2 (04:33→09:30)
[2024-03-22] MEDS: Doxycycline Hyclate 100 MG in 0.9 % Sodium Chloride 250 ML 166.67 MG IV (05:29)
[2024-03-22] MEDS: Omeprazole 20 MG CAPSULE.DR PO ×2 (05:30→15:48)
[2024-03-22] MEDS: Heparin Sodium,Porcine 5,000 UNIT/ML VIAL 5000 UNIT SUBCUT ×3 (05:30→21:19)
[2024-03-22 06:59] LABS: Glucose, Whole Blood 93 mg/dL (60-115)
[2024-03-22] MEDS: 0.9 % Sodium Chloride Flush 3 ML SYRINGE IVFLUSH ×3 (09:29→21:21)
[2024-03-22] MEDS: DULoxetine HCl 20 MG CAPSULE.DR PO ×2 (09:29→21:19)
[2024-03-22] MEDS: Gabapentin 300 MG CAPSULE PO ×3 (09:29→21:19)
[2024-03-22] MEDS: Multivitamin TABLET 1 TAB PO (09:29)
[2024-03-22] MEDS: clonazePAM 0.5 MG TABLET 0.25 MG PO (10:27)
[2024-03-22 10:56] LABS: Glucose, Whole Blood 187 mg/dL (60-115)
--- NOTE | 2024-03-22 12:24 | MHC.RECOVRN ---
Met with pt in446 after receiving message from covering provider questioning a decrease in methadone. Received report from provider Jameson and floor nurse Chayito. Concerns were brought up on the part of the pt. and staff of possible increased sedation in the afternoons and if this is r/t methadone dose. Upon arrival pt sitting up on bed talking on the phone. She reports significant concern of having to be narcaned and is requesting a decrease in her methadone dose. She denies any misuse, overuse of methadone. Pt is also receiving other medications that could possibly cause sedation including Klonopin and Gabapentin. After discussion with [facility] director Anju Vazquez and Dr. Barba along with pt. it was decided that pt's methadone dose would be decreased by 5mg today and she would need to f/u with home clinic outpt. for further dose tapering. T/W explained to pt the dangers of decreasing the methadone on her own without medical supervision and also of decreasing the dose to quickly. T/W also explained to pt. how other body illnesses (KENDALL, rhabdo, pneumonia) could effect her body's ability to process the methadone properly and encouraged her participation in overall health and wellness in order to safely continue her methadone dosing. Pt verbalized understanding. T/W available PRN T/W requested Narcan from provider upon pt's D/C.
[2024-03-22] MEDS: Doxycycline Monohydrate 100 MG CAPSULE PO ×2 (12:33→23:41)
[2024-03-22] MEDS: Amoxicillin/Potassium Clav 875 MG TABLET PO ×2 (12:33→23:41)
[2024-03-22] MEDS: methADONE HCl 20 MG/2 ML ORAL.CONC 125 MG PO (12:35)
[2024-03-22] MEDS: Insulin Lispro 100 UNIT/ML 3 ML VIAL SUBCUT ×2 (13:07→22:02)
--- NOTE | 2024-03-22 14:01 | HO.PM.IMPN ---
Subjective Subjective Date of Service: 03/22/24 Interval History: rhabdo/toxic metabolic encephalopathies Review of Systems metal status seems improving denies any chest pain or sob Physical Exam Vital Signs: Vital Signs: Last Vital Signs Temp 97.0 F 03/22/24 11:17 Pulse 91 03/22/24 11:17 Resp 18 03/22/24 11:17 BP 139/76 03/22/24 11:17 Pulse Ox 98 03/22/24 11:17 O2 Del Method Room Air 03/22/24 11:17 O2 Flow Rate 2 03/21/24 23:33 BMI result Body Mass Index 25.8 Appearance: Alert.? Oriented , respond to most questions. cvs: rrr, [id number] . res: clear to auscultation ,no rhonchii or wheezing abd: no rebound or guarding ,nt, bs present. ext pulses present , no cyanosis . neuro: nonfocal. Objective Data Active Medications Acetaminophen (Acetaminophen 325 Mg Tablet) 975 mg PO Q6H PRN PRN Reason: Pain, Mild (Pain Scale 1-3), fever or headache Last Admin: 03/20/24 14:32 Dose: 975 mg Documented By: RHETT-RIVRAGHAV Albuterol/Ipratropium (Albuterol/Iprat 2.5/0.5mg 3 Ml Ampul.Neb) 3 ml INHALE Q4H PRN PRN Reason: Shortness of Breath/Wheezing Amoxicillin/Clavulanate Potassium (Amoxicillin/Potassium Clav 875 Mg Tablet) 875 mg PO Q12H [facility] Last Admin: 03/22/24 12:33 Dose: 875 mg Documented By: ZULY Calcium Carbonate (Calcium Carbonate 750 Mg Tab.Chew) 750 mg PO Q4H PRN PRN Reason: Heartburn Clonazepam (Clonazepam 0.5 Mg Tablet) 0.25 mg PO BID PRN PRN Reason: anxiety attack Last Admin: 03/22/24 10:27 Dose: 0.25 mg Documented By: ZULY Docusate Sodium (Docusate Sodium 100 Mg Capsule) 100 mg PO BID [facility] Last Admin: 03/22/24 09:35 Dose: Not Given Documented By: ZULY Non-Admin Reason: Patient Refused Doxepin HCl (Doxepin Hcl 25 Mg Capsule) 50 mg PO BEDTIME [facility] Last Admin: 03/21/24 21:38 Dose: 50 mg Documented By: MALDOT Doxycycline Monohydrate (Doxycycline Monohydrate 100 Mg Capsule) 100 mg PO Q12H [facility] Last Admin: 03/22/24 12:33 Dose: 100 mg Documented By: ZULY Duloxetine HCl (Duloxetine Hcl 20 Mg Capsule.Dr) 20 mg PO BID [facility] Last Admin: 03/22/24 09:29 Dose: 20 mg Documented By: ZULY Gabapentin (Gabapentin 300 Mg Capsule) 300 mg PO TID [facility] Last Admin: 03/22/24 09:29 Dose: 300 mg Documented By: ZULY Glucose (Glucose Gel 15 Gm Gel..Gram.) 15 gm PO Q15M PRN; Protocol PRN Reason: per Hypoglycemia Standing Ord. Guaifenesin/Dextromethorphan (Guaifenesin Dm 200/20/10 Ml 10 Ml Syrup) 10 ml PO Q6H PRN PRN Reason: Cough Last Admin: 03/21/24 03:49 Dose: 10 ml Documented By: LUBA Heparin Sodium (Porcine) (Heparin Sodium,Porcine 5,000 Unit/Ml Vial) 5,000 unit SUBCUT Q8H [facility] Last Admin: 03/22/24 13:07 Dose: 5,000 unit Documented By: ZULY Dextrose (D10) 250 mls @ 750 mls/hr IV Q15M PRN; Protocol PRN Reason: per Hypoglycemia Standing Ord. Insulin Glargine (Insulin Glargine,Hum.Rec.Anlog 100 Unit/Ml 10 Ml Vial) 15 unit SUBCUT BEDTIME [facility] Last Admin: 03/21/24 21:38 Dose: 15 unit Documented By: RHETT-RICARDOZEAbby Insulin Human Lispro (Insulin Lispro 100 Unit/Ml 3 Ml Vial) 0 unit SUBCUT QIDACHS [facility]; Protocol Last Admin: 03/22/24 13:07 Dose: 2 unit Documented By: ZULY Magnesium Hydroxide (Milk Of Magnesia 30 Ml Oral.Susp) 30 ml PO DAILY PRN PRN Reason: Constipation Melatonin (Melatonin 3 Mg Tablet) 6 mg PO BEDTIME PRN PRN Reason: Insomnia Methadone HCl (Methadone Hcl 20 Mg/2 Ml Oral.Conc) 125 mg PO DAILY [facility] Last Admin: 03/22/24 12:35 Dose: 125 mg Documented By: ZULY Co-signed By: SHARYN Multivitamins/Vitamin C (Multivitamin Tablet) 1 tab PO DAILY [facility] Last Admin: 03/22/24 09:29 Dose: 1 tab Documented By: ZULY Naloxone HCl (Naloxone Hcl 0.4 Mg/Ml Vial) 0.04 mg IVPUSH Q5M PRN PRN Reason: Respiratory Rate < 10 Last Admin: 03/19/24 06:29 Dose: 0.04 mg Documented By: YOSHI Omeprazole (Omeprazole 20 Mg Capsule.Dr) 20 mg PO BID@0630,1630 [facility] Last Admin: 03/22/24 05:30 Dose: 20 mg Documented By: KARIZEAbby Ondansetron HCl (Ondansetron Hcl 4 Mg/2 Ml Vial) 4 mg IVPUSH Q8H PRN PRN Reason: Nausea and Vomiting Sodium Chloride (0.9 % Sodium Chloride Flush 3 Ml Syringe) 3 ml IVFLUSH QSHIFT [facility] Last Admin: 03/22/24 09:29 Dose: 3 ml Documented By: ZULY Labs 03/21/24 06:40 03/21/24 06:40 Labs: Laboratory Results - last 24 hr 03/20/24 03/21/24 03/21/24 06:31 16:33 16:38 POC Glucose 104 Urine Opiates Screen Not Detected Ur Buprenorphine Scrn Not Detected Ur Oxycodone Screen Not Detected Urine Methadone Screen Positive H Urine Fentanyl Screen Not Detected Ur Barbiturates Screen Not Detected Ur Phencyclidine Scrn Not Detected Ur Amphetamines Screen Not Detected U Benzodiazepines Scrn Not Detected Urine Cocaine Screen Not Detected U Marijuana (THC) Screen Not Detected Complement C3 123 Complement C4 26 03/21/24 03/22/24 03/22/24 20:48 06:55 10:52 POC Glucose 101 93 187 H Urine Opiates Screen Ur Buprenorphine Scrn Ur Oxycodone Screen Urine Methadone Screen Urine Fentanyl Screen Ur Barbiturates Screen Ur Phencyclidine Scrn Ur Amphetamines Screen U Benzodiazepines Scrn Urine Cocaine Screen U Marijuana (THC) Screen Complement C3 Complement C4 Microbiology Microbiology Results: Microbiology 03/20/24 02:18 Urine Culture - Final Urine clean catch - Clean Catch Midstream No growth. Assessment and Plan (1) KENDALL (acute kidney injury): Status: Acute (2) Acute hypoxemic respiratory failure: Status: Acute (3) Rhabdomyolysis: Status: Acute Assessment and Plan: 63-year-old female with a past medical history significant for substance use disorder, bipolar, homelessness and type 2 diabetes, who presented to the ED due to a cough and URI symptoms x1 week. toxic/metabolic encephalopathy sec to kendall/electrolytic abnormalities /psych meds and methdone in setting of kendall . not due to sepsis. seems improving -likely near baseline repeat drug screen- negative except methadone. d/w addiction -will adjust methadone 125 mg qd. Acute hypoxic respiratory failure and sepsis secondary to pneumonia leucocystosis improving, no fevers ,lactic acid normal, blood cultures neg@24hrs sepsis resolved. chest x-ray with left lower lobe pneumonia flu/COVID/RSV negative, urine tox positive for benzodiazepine and methadone. continue ceftriaxone and doxycycline for pneumonia, tapered off oxygen. kendall ,rhabomylysis ,Nagma : likely due to dehydrattion/rhabdo received bicarb drip -Nagma resolved. kendall improving and producing urine. Substance use disorder- urine tox positive for benzodiazepines and methadone. patient is somnolent secondary to acute kidney failure and methadone. addiction eval -noted -continue methadone. Type 2 diabetes with hyperglycemia Hba1c levels: 7 continue fs with sliding scale. diabetic diet. Mood disorder- continue home meds. VTE prophylaxis: Heparin acute hypoxic respiratory failure and sepsis secondary to pneumonia complicated by acute renal failure secondary to rhabdomyolysis ,kendall-need hydration, IV antibiotics, IV fluids and monitoring renal function and electrolytes . Quality Stroke Does the patient have a stroke diagnosis?: No VTE Prior VTE?: No VTE Risk Level:: Medical - moderate - high VTE Device Contraindication: Treatment Not Indicated VTE Drug Contraindication: N/A - Med Ordered
[2024-03-22 16:16] LABS: Glucose, Whole Blood 88 mg/dL (60-115)
[2024-03-22] MEDS: Doxepin HCl 25 MG CAPSULE 50 MG PO (21:19)
[2024-03-22 21:22] LABS: Glucose, Whole Blood 157 mg/dL (60-115)
[2024-03-22] MEDS: Insulin Glargine,Hum.rec.anlog 100 UNIT/ML 10 ML VIAL 15 UNIT SUBCUT (22:02)
[2024-03-23] VITALS (9 sets, daily range): BP systolic 139–183; BP diastolic 66–87; PULSE 76–84; RESP 18–19; TEMP 36.2–37; O2SAT 96–98
[2024-03-23] MEDS: Omeprazole 20 MG CAPSULE.DR PO (05:04)
[2024-03-23] MEDS: Heparin Sodium,Porcine 5,000 UNIT/ML VIAL 5000 UNIT SUBCUT (05:05)
[2024-03-23 07:35] LABS: Glucose, Whole Blood 112 mg/dL (60-115)
[2024-03-23] MEDS: methADONE HCl 20 MG/2 ML ORAL.CONC 125 MG PO (08:01)
[2024-03-23] MEDS: Gabapentin 300 MG CAPSULE PO (08:01)
[2024-03-23] MEDS: DULoxetine HCl 20 MG CAPSULE.DR PO (08:01)
[2024-03-23] MEDS: Multivitamin TABLET 1 TAB PO (08:01)
[2024-03-23] MEDS: 0.9 % Sodium Chloride Flush 3 ML SYRINGE IVFLUSH (08:06)
[2024-03-23] MEDS: cloNIDine HCL 0.1 MG TABLET PO (09:34)
--- NOTE | 2024-03-23 10:16 | MHC.RECOVRN ---
Met with pt in 446 to follow up and provide support.? Pt resting in bed, alert, easily engages in conversation. Pt's methadone was decreased yesterday to 125mg as per pt request and she is happy about this No negative effects noted or reported from the decrease. Pt will f/u in home clinic for further dose adjustments and reminders were given to pt re: health and wellness. Pt denies other concerns at this time.? T/w available as needed.
--- NOTE | 2024-03-23 11:11 | MHC.CM.PN ---
Pt is medically cleared for discharge today back to the motel she was staying in, she will transport there via Lyft ride. Last dose letter given to pt.
[2024-03-23 11:53] LABS: Glucose, Whole Blood 150 mg/dL (60-115)
--- NOTE | 2024-03-23 11:57 | PM.DS ---
DS: Providers Provider Date of Service: 03/23/24 Date of admission: 03/19/24 04:25 Date of discharge: 03/23/24 Primary care physician: Unknown Physician Consults: 03/19/24 04:27 Addiction Medicine Routine Consulting Provider: Addiction Covering Reason for consultation: pt on methadone? +benzos on tox Has provider been notified: No 03/19/24 08:38 Consult to Nephrology Routine Consulting Provider: [facility] Reason for consultation: kendall,rhabdo Has provider been notified: No 03/19/24 08:45 Consult to Critical Care Routine Consulting Provider: Billy Correia Reason for consultation: level of care Has provider been notified: Yes 03/22/24 11:24 Consult to Psychiatry Routine Consulting Provider: [facility] Reason for consultation: ? toxic metabolic encephalopathy sec to psych meds Has provider been notified: No Attending physician on discharge: Cecille Barba Discharging clinician: Cecille Barba DS: Diagnosis Discharge Diagnosis (1) KENDALL (acute kidney injury): Status: Acute (2) Acute hypoxemic respiratory failure: Status: Acute (3) Rhabdomyolysis: Status: Acute DS: Summary Hospital Course Hospital Course: HPI:63-year-old female with a past medical history significant for substance use disorder, bipolar, homelessness and type 2 diabetes, who presented to the ED due to a cough and URI symptoms x1 week. They were reports of increased falls and syncopal episodes which the patient reports she is sleepwalking . EMS was called as pt was found sitting on the ground, and upon arrival she was found seated, O2 saturation at 89% on room air and stated she was not feeling well. Limited history was given in the ED and unable to obtain history now as patient has been somnolent. Urine toxicology positive for benzodiazepines and methadone. 4:30 am - pt noted to be barely responsive and hypotensive. Patient takes methadone and currently on KENDALL. Patient responded to Narcan IV. Now awake, alert and oriented. Hospital course: 63-year-old female with a past medical history significant for substance use disorder, bipolar, homelessness and type 2 diabetes, who presented to the ED due to a cough and URI symptoms x1 week, inaddition patient was less resposive required narcan which she responded. toxic/metabolic encephalopathy sec to kendall/electrolytic abnormalities /psych meds and methdone in setting of kendall . seems improved to baseline.methadone adjusted to 125 mg qd per addiction team. intially boderline bp due to kendall and dehydration-improved with iv hydration . Acute hypoxic respiratory failure and sepsis secondary to pneumonia:had leucocystosis no fevers ,lactic acid normal, blood cultures sent : chest x-ray with left lower lobe pneumonia,flu/COVID/RSV negative, urine tox positive for benzodiazepine and methadone started on iv antibiotics (zosyn/doxy), oxygen-seems improved with supportive care,sepsis resolved. will be going with po doxycycline 100 mg po bid and augmentin 875 mg po bid for 5 days . mild elevated lfts -improving , might be related to rhabdomylysis -moniter lfts outpatient with pcp and further management outpatient. ch anemia : h/h somewhat decreased ,? dilutional -received aggressive iv hydration. patient h/h stable around 9.4/28.7. Denies any melena or any gross GI bleed. Monitor CBC and further management outpatient . kendall /rhabdomylysis/metabolic acidosis -responded to fluids and improved : Patient was advised and encouraged for p.o. intake and hydration. plan: Complete po doxycycline 100 mg po bid and augmentin 875 mg po bid for 5 days . Repeat chest imaging in 3-4 weeks to see resolution of pneumonia. Strongly advised for encouraged for hydration and p.o. intake. Monitor renal function and electrolytes outpatient. Seen by addiction Team-her methadone adjusted to 125 mg q.d., Narcan to take home given. Patient is to follow-up out patiently with methadone clinic as well as psych-if needed further medication adjustment can be done outpatient. Above management discussed with the patient and her son in detail length, both understand and in agreement with the above plan, time spent 40 minute. Nursing staff was present during the conversation. Time Attestation Total time managing care of this patient today: 40 mintues. Discharge Coordination Time (in mins): 40 min Quality: Safe Use of Opioids Does Pt have an Active Cancer Diagnosis on the Problem List?: No Quality: Stroke Does the patient have a stroke diagnosis?: No Physical Exam Vital Signs: Vital Signs: Last Vital Signs Temp 98.1 F 03/23/24 07:42 Pulse 81 03/23/24 07:42 Resp 18 03/23/24 07:42 BP 144/70 H 03/23/24 08:04 Pulse Ox 97 03/23/24 07:42 O2 Del Method Room Air 03/23/24 07:42 O2 Flow Rate 2 03/21/24 23:33 BMI result Body Mass Index 25.8 Appearance: Alert.? Oriented , respond to most questions. cvs: rrr, [id number] . res: clear to auscultation ,no rhonchii or wheezing abd: no rebound or guarding ,nt, bs present. ext pulses present , no cyanosis . neuro: nonfocal. DS: Data Data Completed and Pending Labs on day of discharge: Laboratory Results - last 24 hr 03/22/24 03/22/24 03/23/24 16:12 21:01 07:31 POC Glucose 88 157 H 112 03/23/24 11:47 POC Glucose 150 H Preliminary micro results at discharge 03/19/24 00:57 Blood Culture - Preliminary Blood - Venous No growth after 48 hours. 03/19/24 00:37 Blood Culture - Preliminary Blood - Venous No growth after 48 hours. Imaging Chest x-ray: Radiologist's impression: ITS Impressions Chest X-Ray 03/19/24 00:05 IMPRESSION: *Mild left lower lobe atelectasis and/or consolidation. Possible trace left pleural effusion. *Diffuse pulmonary vascular indistinctness which may represent mild pulmonary vascular congestion. Electronically signed by: Rico Nunes MD 03/19/2024 02:37 AM EST RP Head CT 03/19/24 01:15 IMPRESSION: 1. No evidence of acute intracranial hemorrhage or edematous territorial infarction. 2. Moderate sinonasal mucosal disease. Electronically signed by: Chuck Trevino DO 03/19/2024 01:55 AM EST RP Hip/Pelvis X-Ray 03/19/24 17:00 IMPRESSION: RIGHT HIP: Normal. LEFT HIP: Calcific density adjacent to the acetabulum and joint space. The differential diagnosis includes calcific periarthritis, dystrophic calcification related to prior trauma and calcific tendinitis/calcific tendinosis PELVIS: Spondylosis of the partially visualized lumbar sacral spine. Electronically signed by: Berny Terrell MD 03/20/2024 12:35 PM EST RP Discharge Plan Discharge Anticipated Discharge Date/Time: 12/15/24 11:43 Patient Disposition: Home, Self-Care Discharge Diagnosis: KENDALL, rhabdomyolysis, toxic metabolic encephalopathy, pneumonia Referrals: Physician,Unknown J [Primary Care Provider] - 1 Week Discharge Medications: New doxycycline monohydrate 100 mg Capsule 100 mg PO Q12H Qty: 10 0RF amoxicillin-pot clavulanate 875-125 mg Tablet 1 tab PO Q12H Qty: 10 0RF Continued multivitamin Tablet 1 tab PO DAILY doxepin 50 mg capsule 50 mg PO BEDTIME clonidine HCl 0.1 mg tablet 0.1 mg PO DAILY clonazepam 0.5 mg tablet 0.25 mg PO BID PRN (Reason: anxiety attack) rosuvastatin 5 mg tablet 5 mg PO DAILY duloxetine 20 mg capsule,delayed release(DR/EC) 20 mg PO BID insulin glargine [Lantus Solostar U-100 Insulin] 100 unit/mL (3 mL) insulin pen 15 unit subcut BEDTIME cyclobenzaprine 5 mg tablet 5 mg PO TID PRN (Reason: muscle spasm) 7 Days Qty: 21 0RF gabapentin 300 mg Capsule 300 mg PO TID Qty: 45 0RF docusate sodium 100 mg Capsule 100 mg PO BID Qty: 60 0RF metformin 1,000 mg tablet 1,000 mg PO BID Qty: 60 0RF Changed methadone [Methadone Intensol] 10 mg/mL Concentrate 125 mg PO DAILY Qty: 1 0RF Discharge Orders: Discharge Order (Routine); Ordered 03/23/24 Ordered By: Cecille Barba Diet: Advance to usual diet Activity on Discharge: As tolerated Stand Alone Forms: Patient Portal Discharge page Print Language: Bangladeshi Care Plan Goals: 63-year-old female with a past medical history significant for substance use disorder, bipolar, homelessness and type 2 diabetes, who presented to the ED due to a cough and URI symptoms x1 week, inaddition patient was less resposive required narcan which she responded. toxic/metabolic encephalopathy sec to kendall/electrolytic abnormalities /psych meds and methdone in setting of kendall . seems improved to baseline.methadone adjusted to 125 mg qd per addiction team. boderline bp due to kendall and dehydration-improved with iv hydration . Acute hypoxic respiratory failure and sepsis secondary to pneumonia:had leucocystosis no fevers ,lactic acid normal, blood cultures sent : chest x-ray with left lower lobe pneumonia,flu/COVID/RSV negative, urine tox positive for benzodiazepine and methadone started on iv antibiotics , oxygen-seems improved with supportive care . going home with po doxycycline 100 mg po bid and augmentin 875 mg po bid for 5 days. mild elevated lfts -improving , might be related to rhabdomylysis -moniter lfts outpatient with pcp and further management outpatient. kendall /rhabdomylysis/metabolic acidosis -responded to fluids and improved : Patient was advised and encouraged for p.o. intake and hydration. Health Concerns: As above. Plan of Treatment: moniter cbc , lft and bmp in 1 week. Complete po doxycycline 100 mg po bid and augmentin 875 mg po bid for 5 days . Repeat chest imaging in 3-4 weeks to see resolution of pneumonia. Strongly advised for encouraged for hydration and p.o. intake. Monitor renal function and electrolytes outpatient. Seen by addiction Team-her methadone adjusted to 125 mg q.d., Narcan to take home given. Patient is to follow-up out patiently with methadone clinic as well as psych-if needed further medication adjustment can be done outpatient. Assessment: As above. Patient Instructions: Pneumonia (DC)
== END 2024-03-23 12:40 | disposition home or self-care (01) | DRG 720 ==
LOC: HO.ED 03-19 03:05 → HO.EDOVER 03-19 04:30 → HO.ICU 03-19 14:35 → HO.EDOVER 03-19 15:54 → HO.IMC 03-19 23:21
PROVIDERS: Internal Medicine Critical Care Medicine; Nurse Practitioner Family; Admitting Provider Physician Assistant; Emergency Provider Emergency Medicine; Visit Provider Internal Medicine
DX: A41.9 Sepsis, unspecified organism (principal); J96.01 Acute respiratory failure with hypoxia; N17.0 Acute kidney failure with tubular necrosis; G92.8 Other toxic encephalopathy; E87.21 Acute metabolic acidosis; J18.9 Pneumonia, unspecified organism; M62.82 Rhabdomyolysis; I95.9 Hypotension, unspecified; E11.65 Type 2 diabetes mellitus with hyperglycemia; D64.9 Anemia, unspecified; E86.1 Hypovolemia; E86.0 Dehydration; F31.9 Bipolar disorder, unspecified; F11.20 Opioid dependence, uncomplicated; Z20.822 Contact with and (suspected) exposure to COVID-19; Z59.02 Unsheltered homelessness; Z79.4 Long term (current) use of insulin; Z79.84 Long term (current) use of oral hypoglycemic drugs; Z79.899 Other long term (current) drug therapy
CPT/HCPCS: 0241U; 36415; 70450; 71045; 73521; 80048; 80053; 80076; 80307; 81001; 82140; 82550; 82728; 82803; 82947; 83036; 83540; 83605; 83690; 83735; 83880; 84145; 84484; 85025; 86140; 86160; 87040; 87086; 87640; 87641; 93005; 94640; 97162; 99285; C1758; J0696; J1644; J2310; J2470; J2543; J2919; J7120; P9047

== ENCOUNTER → 2024-03-19 00:05 | Outpatient (BNV) | payer MEDICAID, SELFPAY | PROVIDERS: Admitting Provider Physician Assistant; Emergency Provider Emergency Medicine; Visit Provider Internal Medicine Cardiovascular Disease | DX: I49.1 Atrial premature depolarization (principal); R94.31 Abnormal electrocardiogram [ECG] [EKG] | CPT/HCPCS: 93010 ==

== ENCOUNTER → 2024-03-19 04:25 | Outpatient (BNV) | payer OTHER, SELFPAY | PROVIDERS: Admitting Provider Physician Assistant; Emergency Provider Emergency Medicine; Visit Provider Psychiatry & Neurology Psychiatry | DX: F31.9 Bipolar disorder, unspecified (principal); F11.20 Opioid dependence, uncomplicated; R41.89 Other symptoms and signs involving cognitive functions and awareness | CPT/HCPCS: 99232 ==

== ENCOUNTER → 2024-03-19 04:25 | Outpatient (BNV) | payer MEDICAID, SELFPAY | PROVIDERS: Admitting Provider Physician Assistant; Emergency Provider Emergency Medicine; Visit Provider Nurse Practitioner Family | DX: N17.9 Acute kidney failure, unspecified (principal); M62.82 Rhabdomyolysis; A41.9 Sepsis, unspecified organism; R65.20 Severe sepsis without septic shock; N17.0 Acute kidney failure with tubular necrosis | CPT/HCPCS: 99222; 99232 ==

== ENCOUNTER → 2024-03-19 04:25 | Outpatient (BNV) | payer MEDICAID, SELFPAY | PROVIDERS: Admitting Provider Physician Assistant; Emergency Provider Emergency Medicine; Visit Provider Internal Medicine Critical Care Medicine | DX: N17.9 Acute kidney failure, unspecified (principal); M62.82 Rhabdomyolysis; F31.9 Bipolar disorder, unspecified; F11.20 Opioid dependence, uncomplicated; R41.89 Other symptoms and signs involving cognitive functions and awareness | CPT/HCPCS: 99223 ==

== ENCOUNTER → 2024-03-19 04:25 | Outpatient (BNV) | payer MEDICAID, SELFPAY | PROVIDERS: Admitting Provider Physician Assistant; Emergency Provider Emergency Medicine; Visit Provider Internal Medicine | DX: J96.01 Acute respiratory failure with hypoxia (principal); A41.9 Sepsis, unspecified organism; J18.9 Pneumonia, unspecified organism; N17.9 Acute kidney failure, unspecified; M62.82 Rhabdomyolysis | CPT/HCPCS: 99223; 99232; 99239; 99499 ==

== ENCOUNTER 2024-06-22 05:08 | Emergency (ER) | payer MEDICAID, SELFPAY ==
--- NOTE | ~2024-06-22 | CT_ITS ---
CLINICAL HISTORY: LLQ tenderness CT abdomen and pelvis with contrast Comparison: CT - CT ABDOMEN PELVIS W IV CON - 06/22/24 07:54 EDT Findings: No consolidation or effusion. The patient is status post cholecystectomy. There is dilatation of the extrahepatic biliary tree. The common hepatic duct measures 1.7 cm in greatest diameter and the common bile duct measures up to 1.2 cm in greatest diameter. An obstructing calculus is not seen. There is a large right renal parapelvic cyst. Small nonobstructing calculus lower pole right kidney. The solid organs are otherwise unremarkable. No bowel obstruction, pneumoperitoneum, or pneumatosis. The patient is status post hysterectomy. Trace free fluid is seen in the pelvis. The bones are intact. The GI tract demonstrates no acute abnormalities. IMPRESSION: 1.No definite acute intra-abdominal process. 2. Status post cholecystectomy with dilatation of the extrahepatic biliary tree. No evidence of choledocholithiasis or other obstructing lesion. 3. Right parapelvic renal cyst. 4. Small nonobstructing calculus lower pole right kidney. This document has been electronically signed by: Edgar Newberry MD on 06/22/2024 09:38:57
[2024-06-22 05:17] VITALS: BP 154/74; BP 160/100; PULSE 84; PULSE 86; RESP 18; TEMP 37.1; O2SAT 98; O2SAT 99; BMI 18.9
[2024-06-22 05:29] LABS: Basophils Absolute Auto 0.1 X10*3/uL (0.0-0.2); Basophils Percent Auto 0.6 % (0-2); Eosinophils Absolute Auto 0.1 X10*3/uL (0.0-0.4); Eosinophils Percent Auto 0.7 % (0-4); Hematocrit 38.3 % (37.0-47.0); Hemoglobin 12.9 g/dl (12.0-16.0); Imm Gran Abs Auto 0.03 X10*3/uL (0.00-0.03); Imm Gran Pct Auto 0.3 % (0.0-0.4); Lymphocytes Absolute Auto 3.8 X10*3/uL (1.2-4.9); Lymphocytes Percent Auto 35.3 % (20-40); Mean Corpuscular HGB Conc 33.7 g/dl (31.0-35.0); Mean Corpuscular Hemoglobin 26.4 pg (27.0-33.0); Mean Corpuscular Volume 78.3 fL (80.0-98.0); Mean Platelet Volume 9.6 fL (9.4-12.3); Monocytes Absolute Auto 0.5 X10*3/uL (0.1-1.2); Monocytes Percent Auto 4.8 % (2-11); Neutrophils Absolute Auto 6.3 x10*3/uL (2.0-8.3); Neutrophils Percent Auto 58.3 % (45-73); Platelet Count 359 X10*3/uL (160-400); Red Blood Count 4.89 X10*6/uL (4.20-5.50); Red Cell Distribution Width 16.1 % (11.0-16.0); White Blood Count 10.8 X10*3/uL (4.8-10.8)
[2024-06-22 05:30] LABS: MANUAL DIFF FLAG NO
[2024-06-22 05:45] LABS: Alanine Aminotransferase 19 U/L (0-31); Albumin Level 3.9 g/dL (3.5-5.0); Alkaline Phosphatase 69 U/L (39-117); Anion Gap 13 (12-20); Aspartate Amino Transferase 22 U/L (5-31); Bilirubin Total 0.3 mg/dL (0.0-1.0); Blood Urea Nitrogen 18 mg/dL (9-16); Calcium 9.2 mg/dL (8.4-10.2); Carbon Dioxide 26 mmol/L (22-29); Chloride 105 mmol/L (96-108); Creatinine Clr Calc Pharmacy 54.3; Estimated Glomerular Filt Rate > 60; Glucose Random 134 mg/dL (60-115); Potassium 3.5 mmol/L (3.3-5.1); Sodium 140 mmol/L (135-145)
[2024-06-22 05:54] VITALS: BP 153/64; PULSE 84; RESP 16; TEMP 36.4; O2SAT 97
--- NOTE | 2024-06-22 06:31 | ED_ITS ---
HPI - General Adult General Chief complaint: General Medical Stated complaint: FAILURE TO THRIVE Time Seen by Provider: 06/22/24 06:30 Source: patient, EMS, RN notes reviewed and old records reviewed Mode of arrival: EMS Limitations: no limitations History of Present Illness ED Provider: Myra HPI narrative: Patient is a 63-year-old female with history of smoking, DM, fibromyalgia, OUD, cognitive impairment, bipolar disorder presenting to the emergency department with complaint of abdominal pain, chronic diarrhea x 2 years, as well as weight loss and difficulty sleeping. States that she is currently living at a motel and receiving medical care from [facility]. Has a visiting nurse who comes to set up her medications weekly. Reports she has been having difficulty with obtaining blood for fingersticks and self administering her insulin. States my skin is too thick. Reports weight loss but unable to quantify amount or time period. Denies fevers, vomiting. Denies hematochezia or melena. Reports feeling unsteady with ambulation and has had recent falls. States she has been evaluated at hospitals following the falls. Feels she is unable to administer her own medications at home. MD complaint: abdominal pain Related Data Home Medications ?Medication ?Instructions ?Recorded ?Confirmed clonazepam 0.5 mg tablet 0.25 mg PO BID PRN anxiety attack 03/19/24 03/19/24 clonidine HCl 0.1 mg tablet 0.1 mg PO DAILY 03/19/24 03/19/24 doxepin 50 mg capsule 50 mg PO BEDTIME 03/19/24 03/19/24 duloxetine 20 mg capsule,delayed 20 mg PO BID 03/19/24 03/19/24 release insulin glargine 100 unit/mL (3 15 unit subcut BEDTIME 03/19/24 03/19/24 mL) subcutaneous pen (Lantus Solostar U-100 Insulin) multivitamin 1 tab PO DAILY 03/19/24 03/19/24 rosuvastatin 5 mg tablet 5 mg PO DAILY 03/19/24 03/19/24 Previous Rx's ?Medication ?Instructions ?Recorded cyclobenzaprine 5 mg tablet 5 mg PO TID PRN muscle spasm 7 01/26/23 days #21 tabs docusate sodium 100 mg capsule 100 mg PO BID #60 caps 02/26/23 gabapentin 300 mg capsule 300 mg PO TID #45 caps 02/26/23 metformin 1,000 mg tablet 1,000 mg PO BID #60 tabs 02/26/23 amoxicillin 875 mg-potassium 1 tab PO Q12H #10 tabs 03/23/24 clavulanate 125 mg tablet doxycycline monohydrate 100 mg 100 mg PO Q12H #10 caps 03/23/24 capsule methadone 10 mg/mL oral 125 mg (12.5 mL) PO DAILY #1 mL 03/23/24 concentrate (Methadone Intensol) Allergies Allergy/AdvReac Type Severity Reaction Status Date / Time No Known Allergies Allergy Verified 06/22/24 05:21 Review of Systems 2 Review of Systems: As per HPI. Yes all other systems are reviewed and are negative Constitutional: Constitutional: Reports as per HPI PMFSH Past Medical History Medical History Opioid use disorder, severe, on maintenance therapy Bipolar disorder with psychotic features Overdose Polysubstance abuse Social History Social History Household Members: None Housing: Homeless Do you presently have visiting nurse or other home services: No Patient Tobacco Use Status: Current everyday Tobacco user Tobacco use type: Cigarette Cigarette Packs Per Day: 0.5 Cigarettes Per Day: 10.0 Smoked in Last 30 Days: Yes e-Cigarette/Vaping Use: Never Used Second Hand Smoke Exposure: No Use of substances other than those prescribed or required for medical reasons: No Substance Use Type: Heroin Advance Directives: No Patient : No service: No Sexual orientation: Straight/Heterosexual Physical Exam ED Vital Signs: Vital Signs - 24 hr 06/22/24 05:17 06/22/24 05:54 06/22/24 11:45 Temperature 98.8 F 97.6 F 36.6 F L Pulse Rate 84 84 81 Respiratory Rate 18 16 19 Blood Pressure 154/74 H 153/64 H 120/53 L Pulse Oximetry 99 97 97 Oxygen Delivery Method Room Air Room Air Room Air 06/22/24 14:29 Temperature 98.1 F Pulse Rate 71 Respiratory Rate 18 Blood Pressure 125/65 Pulse Oximetry 98 Oxygen Delivery Method Room Air BMI result Body Mass Index 18.9 Vital signs have been reviewed and appear to be correct. Blood pressure elevated. Heart rate normal. Respiratory rate normal. Temperature normal. Oxygen saturation normal. Const General: cooperative, no acute distress, alert and awake Orientation/consciousness: oriented to person, oriented to place, oriented to time and patient oriented x3 HENMT Head: Yes normocephalic and Yes atraumatic Ears: external ears normal General nose exam: Normal external nose present Face and sinus: Yes face symmetric Mouth: oropharynx normal and moist mucous membranes Throat: Yes uvula midline Eyes Pupils: Equal, round and reactive pupils present Neck Neck: Yes normal visual inspection and Yes supple Resp Effort & Inspection: normal respiratory effort and able to speak in complete sentences Auscultation: clear to auscultation bilaterally Cardio Rate: regular rate Rhythm: regular rhythm Heart sounds: S1 normal heart sound present and S2 normal heart sound present GI Palpation (GI): Soft to palpation, Tenderness to palpation present (GI) in the LLQ, no guarding and No Rebound tenderness present Auscultation: normoactive bowel sounds General: Yes no CVA tenderness Back/Spine/Pelvis Back: no CVA tenderness Skin General skin exam: elasticity normal and turgor normal Neuro General: oriented to person, oriented to place, oriented to time, patient oriented x3, moves all extremities, no focal motor deficits and CN's II-XI intact bilaterally Cranial nerves: Yes Equal, round and reactive pupils present Extrem General: Yes full ROM, Yes no pedal edema and Yes no calf tenderness Medications Administered Discontinued Medications Generic Name Dose Route Start Last Admin Trade Name Freq PRN Reason Stop Dose Admin Iohexol 100 ml 06/22/24 08:32 06/22/24 08:32 Iohexol 350 Mg/Ml 100 Ml Infus..Btl IV 06/22/24 08:33 85 ml ONCE ONE Administration Medical Decision Making Medical Decision Making [facility] Narrative: Patient is a 63-year-old female with history of smoking, DM, fibromyalgia, OUD, cognitive impairment, bipolar disorder presenting to the emergency department with complaint of abdominal pain, chronic diarrhea x 2 years, as well as weight loss and difficulty sleeping. On exam patient is awake, A+Ox3, VS WNL, afebrile, normal neurological exam without focal deficits, physical exam findings as above. Given reported symptoms and physical exam findings, initial differential includes but is not limited to diverticulitis, bowel obstruction. Less likely abscess or perforation, but will obtain CT A/P. Labs notable for no leukocytosis, no anemia, euglycemia without anion gap, no significant electrolyte abnormalities. UA is without evidence of infection. CT notable for no acute findings to explain patient's pain. My interpretation is in agreement with the radiologist's interpretation. Will order PT and CM evals as patient expresses concern about multiple falls and difficulty with her medications. Patient placed on physician observation pending evals. Differential Diagnosis Differential Diagnoses: The differential diagnosis associated with the presentation includes As per [facility] Admission/Observation Consideration of admission/observation: Escalation of care including admission/observation considered Patient would have been admitted to the hospital had their work up had any findings where hospital admission was appropriate and their clinical presentation warranted hospital admission. Lab Data [facility] Lab Attestation statement: I reviewed the patient's lab results. as per [facility] 06/22/24 05:24 06/22/24 05:24 Labs: Lab Results 06/22/24 06/22/24 06/22/24 Range/Units 05:24 11:21 12:57 WBC 10.8 (4.8-10.8) X10*3/uL RBC 4.89 D (4.20-5.50) X10*6/uL Hgb 12.9 D (12.0-16.0) g/dl Hct 38.3 D (37.0-47.0) % MCV 78.3 L (80.0-98.0) fL MCH 26.4 L (27.0-33.0) pg MCHC 33.7 (31.0-35.0) g/dl RDW 16.1 H (11.0-16.0) % Plt Count 359 (160-400) X10*3/uL MPV 9.6 (9.4-12.3) fL Immature Gran % (Auto) 0.3 (0.0-0.4) % Neut % (Auto) 58.3 (45-73) % Lymph % (Auto) 35.3 (20-40) % [place] % (Auto) 4.8 (2-11) % Eos % (Auto) 0.7 (0-4) % Baso % (Auto) 0.6 (0-2) % Lymph # (Auto) 3.8 (1.2-4.9) X10*3/uL [place] # (Auto) 0.5 (0.1-1.2) X10*3/uL Eos # (Auto) 0.1 (0.0-0.4) X10*3/uL Baso # (Auto) 0.1 (0.0-0.2) X10*3/uL Abs Immat Gran (auto) 0.03 (0.00-0.03) X10*3/uL Absolute Neuts (auto) 6.3 (2.0-8.3) x10*3/uL Absolute Nucleated RBC 0.000 (0.0-0.012) X10*3/uL Nucleated RBC % (auto) 0.0 (0.0-0.2) /100WBC Sodium 140 (135-145) mmol/L Potassium 3.5 (3.3-5.1) mmol/L Chloride 105 (96-108) mmol/L Carbon Dioxide 26 (22-29) mmol/L Anion Gap 13 (12-20) BUN 18 H (9-16) mg/dL Creatinine 0.70 (0.5-1.4) mg/dL Estim Creat Clear Calc 54.3 Estimated GFR > 60 POC Glucose 173 H (60-115) mg/dL Random Glucose 134 H (60-115) mg/dL Calcium 9.2 (8.4-10.2) mg/dL Total Bilirubin 0.3 (0.0-1.0) mg/dL AST 22 (5-31) U/L ALT 19 (0-31) U/L Alkaline Phosphatase 69 (39-117) U/L Total Protein 8.0 (6.5-8.0) g/dL Albumin 3.9 (3.5-5.0) g/dL Urine Color Dark Yellow Urine Appearance Clear Urine pH 8.0 (5.0-9.0) Ur Specific [place] >= 1.030 H (1.005-1.025) Urine Protein Negative (Neg-Trace) mg/dL Urine Glucose (UA) Negative (Negative) mg/dL Urine Ketones Negative (Negative) mg/dL Urine Blood Negative (Negative) Urine Nitrite Negative (Negative) Ur Leukocyte Esterase Negative (Negative) Urine RBC 0-2 (0-2) /HPF Urine WBC 0-5 (0-5) /HPF Ur Squamous Epith Cells 0-2 (0-2) /HPF Urine Bacteria None Seen (None Seen) Hyaline Casts 0-2 (0-2) /LPF Urine Opiates Screen Not Detected (Not Detect) Ur Buprenorphine Scrn Not Detected (Not Detect) ng/mL Ur Oxycodone Screen Not Detected (Not Detect) ng/mL Urine Methadone Screen Not Detected (Not Detect) ng/mL Urine Fentanyl Screen Not Detected (Not Detect) Ur Barbiturates Screen Not Detected (Not Detect) Ur Phencyclidine Scrn Not Detected (Not Detect) Ur Amphetamines Screen Not Detected (Not Detect) U Benzodiazepines Scrn Not Detected (Not Detect) Urine Cocaine Screen Not Detected (Not Detect) U Marijuana (THC) Screen Not Detected (Not Detect) Independent Interpretation I performed an independent interpretation of an: CT Scan Interpretation: No acute abnormalities on CT A/P Radiology Impression Discussion of test interpretation with radiology: I have reviewed the radiologist's reading. Radiologist Impression: IMPRESSION: 1.No definite acute intra-abdominal process. 2. Status post cholecystectomy with dilatation of the extrahepatic biliary tree. No evidence of choledocholithiasis or other obstructing lesion. 3. Right parapelvic renal cyst. 4. Small nonobstructing calculus lower pole right kidney. External Record Review External record reviewed: Inpatient record, Office record and Outpatient record Discharge Plan Discharge Clinical Impression: Abdominal pain Patient Disposition: Still a Patient Prescriptions: No Action multivitamin Tablet 1 tab PO DAILY doxepin 50 mg capsule 50 mg PO BEDTIME clonidine HCl 0.1 mg tablet 0.1 mg PO DAILY clonazepam 0.5 mg tablet 0.25 mg PO BID PRN (Reason: anxiety attack) rosuvastatin 5 mg tablet 5 mg PO DAILY duloxetine 20 mg capsule,delayed release(DR/EC) 20 mg PO BID insulin glargine [Lantus Solostar U-100 Insulin] 100 unit/mL (3 mL) insulin pen 15 unit subcut BEDTIME doxycycline monohydrate 100 mg Capsule 100 mg PO Q12H Qty: 10 0RF amoxicillin-pot clavulanate 875-125 mg Tablet 1 tab PO Q12H Qty: 10 0RF methadone [Methadone Intensol] 10 mg/mL Concentrate 125 mg PO DAILY Qty: 1 0RF cyclobenzaprine 5 mg tablet 5 mg PO TID PRN (Reason: muscle spasm) 7 Days Qty: 21 0RF gabapentin 300 mg Capsule 300 mg PO TID Qty: 45 0RF docusate sodium 100 mg Capsule 100 mg PO BID Qty: 60 0RF metformin 1,000 mg tablet 1,000 mg PO BID Qty: 60 0RF Print Language: Scottish
[2024-06-22] MEDS: iohexoL 350 MG/ML 100 ML INFUS..BTL IV (08:32)
--- NOTE | 2024-06-22 09:59 | PC.NURSE ---
Addendum entered by Shanda Olivia 06/22/24 10:11: patient has been ambulating independently to the commode at bedside. Original Note: continues to state that she has been having difficulty urinating, states this is an ongoing issue. bladder scan showed 352mL in the bladder.
--- NOTE | 2024-06-22 11:26 | MHC.CM.PN ---
Addendum entered by China Moreno RN 06/22/24 13:58: Cm met w/pt who reports she doesn't feel she can manage at home, pt requesting STR, P.T. eval pending, pt will need MDS and guest dosing, referral to [facility] facilities. PT completed a HCP naming her son Ej De Jesus [phone], pt provided w/education and original copy, copy given to ED registration to upload to [employer] uploaded to [employer]. Original Note: CM RECEIVED CONSULT FROM ED PROVIDER AT 10:45AM, PT W/MULTIPLE COMPLAINTS INCLUDING ABD PAIN, DIFFICULTY W/FINGER STICKS, DIFFICULTY W/AMBULATION AND RECENT FALLS, PT WILL NEED PT EVAL FOR DISPO, CM WILL FOLLOW-UP W/PT AND SNF REFERRAL PLACED TO FACILITIES IN [facility] WHO ACCEPT PT'S W/METHADONE PT RECEIVES MMTP AT [facility] IN [place].
[2024-06-22 11:29] LABS: Appearance Urine Clear; Color Urine Dark Yellow; Glucose Urine UA Negative (Negative); Leukocyte Esterase Urine Negative (Negative); Nitrite Urine Negative (Negative); Specific Gravity - Urine >= 1.030 (1.005-1.025); Urine Blood Negative (Negative); Urine Ketones Negative (Negative); Urine Protein Negative (Neg-Trace)
[2024-06-22 11:31] LABS: Bacteria Urine None Seen (None Seen); Hyaline Casts Urine 0-2 /LPF (0-2); RBC Urine 0-2 /HPF (0-2); Squamous Epithelial Cell Urine 0-2 /HPF (0-2); WBC Urine 0-5 /HPF (0-5)
[2024-06-22 11:38] LABS: Amphetamine Screen Urine Not Detected (Not Detect); Barbiturates, Urine Not Detected (Not Detect); Benzodiazepines Screen Urine Not Detected (Not Detect); Buprenorphine Scr Not Detected (Not Detect); Cannabinoid Screen Urine Not Detected (Not Detect); Cocaine Screen Urine Not Detected (Not Detect); Fentanyl, urine Not Detected (Not Detect); Methadone Screen, Urine Not Detected (Not Detect); Opiate Screen Urine Not Detected (Not Detect); Oxycodone Screen Urine Not Detected (Not Detect); Phencyclidine Screen Urine Not Detected (Not Detect)
[2024-06-22 11:45] VITALS: BP 120/53; PULSE 81; RESP 19; TEMP 2.6; TEMP 36.6; O2SAT 97
[2024-06-22 13:01] LABS: Glucose, Whole Blood 173 mg/dL (60-115)
--- NOTE | 2024-06-22 13:28 | PC.NURSE ---
patient ate lunch, complaining of pain all over her body. continues to ambulate throughout room independently with steady gait. awaiting pt/cm
[2024-06-22 14:29] VITALS: BP 125/65; PULSE 71; RESP 18; TEMP 36.7; O2SAT 98
--- NOTE | 2024-06-22 16:00 | PC.NURSE ---
states she takes methadone and has not had a dose in 3 days. reports she gets methadone from [email or web address] in [place]
--- NOTE | 2024-06-22 17:04 | PC.NURSE ---
patient rang call archer to inform that she was leaving. she states that she is sick and no one is paying attention to her pain. informed that her work up was negative, continues to state that she wants to just leave. provider aware, IV removed. patient has ambulated independently with steady gait throughout emergency room visit.
[2024-06-22 18:26] VITALS: BP 125/65; PULSE 71; RESP 18; TEMP 36.7; O2SAT 98
== END 2024-06-22 18:27 | disposition home or self-care (01) ==
PROVIDERS: Emergency Provider Emergency Medicine
DX: R10.9 Unspecified abdominal pain (principal); F19.10 Other psychoactive substance abuse, uncomplicated; F11.20 Opioid dependence, uncomplicated; F17.210 Nicotine dependence, cigarettes, uncomplicated
CPT/HCPCS: 36415; 74177; 80053; 80307; 81001; 82947; 85025; 99284; Q9967

== ENCOUNTER → 2024-06-22 07:46 | Outpatient (BNV) | payer MEDICAID, SELFPAY | PROVIDERS: Emergency Provider Emergency Medicine; Visit Provider Radiology Diagnostic Radiology | DX: N28.1 Cyst of kidney, acquired (principal); N20.0 Calculus of kidney | CPT/HCPCS: 74177 ==